=== PATIENT | female | born 1970 | race Caucasian/White ===

== ENCOUNTER → 2016-09-02 | Outpatient (CLI) | payer OTHER ==
[~2016-09-02] MED LIST: ALBU1AER9 INH; CITA40TA4 PO; GABA1CAP5 PO; GLC5 PO; LMC25 PO; PRAV40TA2 PO; PRT/40 PO; RANI300T PO
--- NOTE | 2016-09-02 12:34 | MAMMOGRAPHY REPORT ---
BILATERAL DIGITAL SCREENING MAMMOGRAM TOMOSYNTHESIS WITH CAD: 09/02/2016 CLINICAL HISTORY: Routine screening. Patient has no complaints. TECHNIQUE: Breast tomosynthesis in addition to standard 2D mammography was performed. Current study was also evaluated with a Computer Aided Detection (CAD) system. COMPARISON: Comparison is made to exam dated: 07/04/2015 mammogram - [facility]. A lso outside prior mammograms dated 06/03/2011. BREAST COMPOSITION: There are scattered areas of fibroglandular density in both breasts. FINDINGS: No suspicious masses, calcifications, or areas of architectural distortion are noted in ei ther breast. There has been no significant interval change compared to prior exams. Scattered bilate ral benign appearing calcifications are not significantly changed. IMPRESSION: ACR BI-RADS CATEGORY 2: BENIGN There is no mammographic evidence of malignancy. A 1 year screening mammogram is recommended. The pa tient will receive written notification of the results. Approximately 10% of breast cancers are not detected with mammography. A negative mammographic report should not delay biopsy if a clinically suggestive mass is present. Shira Jha M.D. ah/:09/02/2016 12:01:36 Hris Specialist: Libby Vera, [facility] letter sent: Normal 1/2 BI-RADS Code: ACR BI-RADS Category 2: Benign
== END | disposition home or self-care (01) ==
LOC: C.MAMM 10:45
PROVIDERS: ATTEND Student in an Organized Health Care Education/Training Program
DX: Z12.31 Encounter for screening mammogram for malignant neoplasm of breast (principal)

== ENCOUNTER 2017-06-07 23:58 | Emergency (ER) | payer OTHER ==
[~2017-06-07] VITALS: Ht 162.6 cm; Wt 120.7 kg
[~2017-06-07 23:58] MED LIST changes: +GABA-1220 PO; -GABA1CAP5 PO; +PANT40TA2 PO; -PRT/40 PO
[2017-06-08 00:12] VITALS: TEMP 36.9; Ht 162.6 cm; Wt 120.7 kg
[2017-06-08] MEDS ORDERED: CEPH500C PO (00:42)
[2017-06-08] MEDS ORDERED: CEPHALEXIN 500MG HOME PACK 1 EA BTL PO ONE (00:45)
[2017-06-08 00:55] VITALS: BP 150/80; PULSE 77; O2SAT 95
[2017-06-08] MEDS ORDERED: TRAZ100T29 PO (00:55)
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
== END 2017-06-08 00:55 | disposition home or self-care (01) ==
LOC: C.EDB 23:59 → C.EDA 06-08 00:55
DX: T22.031A Burn of unspecified degree of right upper arm, initial encounter (principal); X15.0XXA Contact with hot stove (kitchen), initial encounter; T31.0 Burns involving less than 10% of body surface; J45.909 Unspecified asthma, uncomplicated; E11.9 Type 2 diabetes mellitus without complications; Z79.84 Long term (current) use of oral hypoglycemic drugs; Z79.899 Other long term (current) drug therapy; Z88.0 Allergy status to penicillin

== ENCOUNTER 2018-10-19 16:49 | Inpatient (IN) ==
[2018-10-19] MEDS ORDERED: ONDANSETRON INJ 2 MG/ML 2 ML VIAL IV STA (17:45)
[2018-10-19] MEDS ORDERED: SODIUM CHLORIDE 0.9% 1000ML 1,000 ML IV SCH (17:45)
[2018-10-19] MEDS ORDERED: CHOLESTYRAMINE LIGHT 4 GM PKT PO STA (17:48)
[2018-10-19 18:01] LABS: Basophils # (auto) 0.06 K/uL (0-0.2); Basophils % (auto) 0.2 %; Eosinophils # (auto) 1.64 K/uL (0-0.5); Eosinophils % (auto) 6.5 %; Hematocrit (blood only) 48.9 % (37-47); Immature Granulocytes # (auto) 0.61 K/uL (0.00-0.02); Immature Granulocytes % (auto) 2.4 %; Lymphocytes # (auto) 4.53 K/uL (1.2-3.4); Lymphocytes % (auto) 17.9 %; Mean Corpuscular Hgb Conc 36.8 g/dL (32-36); Mean Corpuscular Volume 77.5 fL (80-100); Mean Platelet Volume 9.5 fL (7.4-10.4); Monocytes # (auto) 1.69 K/uL (0.11-0.59); Monocytes % (auto) 6.7 %; Neutrophils # (auto) 16.83 K/uL (1.4-6.5); Neutrophils % (auto) 66.3 %; Platelet Count 272 K/uL (130-400); RDW Coefficient of Variation 13.9 % (11.5-14.5); RDW Standard Deviation 38.7 fL (36.4-46.3); Red Blood Count 6.31 M/uL (4.2-5.4); White Blood Count 25.36 K/uL (4.8-10.8)
[2018-10-19] MEDS ORDERED: POTASSIUM CHLORIDE 10 MEQ TABCR PO STA (18:05)
[2018-10-19] MEDS ORDERED: METOCLOPRAMIDE HCL INJ 5 MG/ML 2 ML VIAL IV STA (18:05)
[2018-10-19] MEDS ORDERED: SODIUM CHLORIDE 0.9% 1000ML 1,000 ML IV ONE (18:13)
[2018-10-19 18:16] LABS: iSTAT Hemoglobin 17.3 g/dl (12.0-16.0); iSTAT Ionized Calcium 0.9 mmol/l (1.12-1.32); iSTAT Potassium 2.6 mEq/L (3.3-5.0)
[2018-10-19 18:20] LABS: Albumin Level 3.2 gm/dl (3.4-5.0); BUN Creatinine Ratio 8.8 (10-20); Calcium 7.4 mg/dl (8.5-10.1); Creatinine Clr Calc Pharmacy 76.8 ml/min; Est GFR (African American) 69.2; Est GFR (Non-African American) 59.7; Potassium 2.7 mmol/L (3.5-5.1)
[2018-10-19 18:24] LABS: Albumin Globulin Ratio 0.8 (0.9-2); Bilirubin,Total 0.2 mg/dl (0.2-1); Globulin 4.2 gm/dl (2.5-4.0); Total Protein 7.4 gm/dl (6.4-8.2)
[2018-10-19] MEDS: POTASSIUM CHLORIDE / WTR 10 MEQ/100 ML PLCT IV SCH ×2 (18:27→21:05)
[2018-10-19 18:36] LABS: Appearance Urine Clear (Clear); Bilirubin Urine Negative (Negative); Blood Urine Negative (Negative); Color Urine Dark Yellow; Epithelial Cell Urine Auto >30 /lpf (0-5); Glucose Urine UA Negative (Negative); Ketones Urine Trace (Negative); Leukocyte Esterase Urine Negative (Negative); Nitrite Urine Negative (Negative); Protein Urine 2+ (Negative); RBC Urine Automated 0-4 /hpf (0-4); Specific Gravity Urine 1.032 (1.000-1.030); Urobilinogen Urine Negative (Negative)
[2018-10-19 18:51] LABS: Pregnancy Test, Serum Negative (Negative)
[2018-10-19 19:09] LABS: Mucus Urine Present (None Prsent)
[2018-10-19 19:11] LABS: Bacteria Urine Automated 1+ (Negative)
[2018-10-19] MEDS ORDERED: MAGNESIUM SULFATE / D5W 1 GM/100 ML BAG IV ONE ×2 (19:32→23:15)
[2018-10-19] MEDS ORDERED: IOVERSOL 100ml IV PRN (19:34)
--- NOTE | 2018-10-19 19:44 | CT Scan Report ---
CT head/brain wo con CT DOSE: 537.48 mGy.cm HISTORY: Mental status change Pt c/o N V D TECHNIQUE: Multiaxial CT images of the head were performed without the use of intravenous contrast. A dose lowering technique was utilized adhering to the principles of ALARA. Comparison: 06/09/2014 Findings: The paranasal sinuses and mastoid air cells are clear. Possible small focus of diminished d ensity peripheral aspect right frontal lobe. This is best seen image 16. No evidence for acute intracranial hemorrhage. The ventricular system is midline. Impression: 1. Artifact versus focus of subacute infarction posterior lateral aspect right frontal lobe. 2. MRI brain is suggested as follow-up. The above report was generated using voice recognition software. It may contain grammatical, syntax or spelling errors. Electronically signed by: Albino Phillips M.D. 10/19/2018 7:43 PM
--- NOTE | 2018-10-19 19:48 | CT Scan Report ---
CT abd pelvis IV con only CT DOSE: 1498.84 mGy.cm HISTORY: Nausea. Pain. Pt c/o N V D TECHNIQUE: Multiaxial CT images of the abdomen and pelvis were performed following the use of intrave nous contrast. A dose lowering technique was utilized adhering to the principles of ALARA. COMPARISON STUDY: None. FINDINGS: Lung bases are clear. Mild fatty replacement of the liver. Several small splenic hypodensit ies possibly cystic. Prior cholecystectomy. Several peripancreatic and retroperitoneal nodes measuring to 1.5 cm. These po tentially are reactive. Findings consistent with nonspecific small bowel enteritis. Colonic bowel pattern is unremarkable. Findings of mild chronic sigmoid diverticulosis. No evidence for acute diverticulitis. Normal appendix. IMPRESSION: 1. Nonspecific small bowel enteritis. 2. Chronic sigmoid diverticulosis. 3. Several possibly reactive nodes of the upper abdominal region. 4. These nodes should be followed with a repeat scan to 3 months to exclude more significant patholog y. The above report was generated using voice recognition software. It may contain grammatical, syntax or spelling errors. Electronically signed by: Albino Phillips M.D. 10/19/2018 7:47 PM
[2018-10-19 19:56] LABS: Allen Test POS (Pos); Base Excess ABG -2.3 mEq/L (-9-1.8); HCO3 ABG 22 mmol/L (19-24); Oxygen Saturation ABG 96.8 % (90-95); PCO2 ABG 35 mmHg (35-46); PO2 ABG 86 mm/Hg (80-95); pH ABG 7.41 (7.35-7.45)
[2018-10-19] MEDS ORDERED: MAGNESIUM SULFATE / D5W 1 GM/100 ML BAG IV STA (21:55)
[2018-10-19] MEDS ORDERED: ACETAMINOPHEN 325 MG TAB PO PRN (22:40)
[2018-10-19] MEDS ORDERED: ALPRAZolam 0.5 MG TABLET PO PRN (22:40)
[2018-10-19] MEDS ORDERED: NITROGLYCERIN SL 0.4 MG/TAB TAB SL PRN (22:40)
[2018-10-19] MEDS ORDERED: POTASSIUM CHLORIDE 20 MEQ TABCR PO ONE (23:00)
[2018-10-19] MEDS ORDERED: ALBUTEROL HFA 8 GM INHALER INH PRN (23:00)
[2018-10-19] MEDS ORDERED: GADOBUTROL 65ML VIAL IV PRN (23:27)
--- NOTE | 2018-10-19 23:42 | History and Physical Report ---
DATE OF ADMISSION: 10/19/2018 CHIEF COMPLAINT: Nausea, vomiting and diarrhea. HISTORY OF PRESENT ILLNESS: This 48-year-old female with past medical history significant for type 2 diabetes, high triglycerides, asthma mild intermittent, hypertension, obesity, bipolar disorder, major depression, tobacco use disorder, history of opiate misuse, presents with nausea, vomiting and diarrhea since last Wednesday, several episodes, was not getting better. No blood in the vomitus and no blood in the stools. Mild abdominal discomfort. No fever, no chills, no sick contacts, no eating of food outside. Denies any headache, no dizziness, no earache, no runny nose, no sore throat, no difficulty swallowing, no chest pain, no shortness of breath. Has smoker's cough. Ambulating okay. Currently resting comfortably and hemodynamically stable.Complains of numbness in upper extremities. ALLERGIES: LISINOPRIL, PENICILLIN. PAST MEDICAL HISTORY: As mentioned above. PAST SURGICAL HISTORY: , colonoscopy, knee arthroscopy, tonsillectomy, adenoidectomy. MEDICATIONS: The patient is on albuterol 2 puffs inhalations p.r.n., Xanax 1 mg p.o. t.i.d. p.r.n., citalopram 40 mg p.o. daily, exenatide microspheres 2 mg subcutaneous weekly, Advair Diskus 1 inhalation b.i.d., gabapentin 300 mg p.o. t.i.d., Lantus 25 units q.p.m., oxcarbazepine 300 mg p.o. t.i.d., Protonix 40 mg p.o. daily, pravastatin 40 mg p.o. at bedtime, Zantac 300 mg p.o. at bedtime, Januvia 100 mg p.o. daily. FAMILY HISTORY: Significant for mother had depression and anxiety. Maternal grandfather had cancer. Paternal grandmother had diabetes. SOCIAL HISTORY: smokes 3 cigarettes a week. No alcohol use. No drug use. History of heroin abuse in the past. REVIEW OF SYMPTOMS: As per HPI. Rest of review of systems negative. PHYSICAL EXAMINATION: GENERAL: The patient is alert and oriented, not in acute distress. The patient is obese. VITAL SIGNS: Temperature 36.8, pulse 77, respiratory rate 17, blood pressure 128/82, oxygen 97% room air. HEENT: No pallor, no icterus. Pupils equal, round, reactive to light. NECK: No JVD, no neck masses, no carotid bruit. CARDIOVASCULAR: S1, S2 heard, regular rate and rhythm, no murmur, no gallop. RESPIRATORY SYSTEM: Normal AP diameter. No thyromegaly. No wheezing, no crackles. ABDOMEN: Soft, bowel sounds present, nontender. No distention. CENTRAL NERVOUS SYSTEM: Cranial nerves II-XII grossly intact. Power 5/5 in extremities. No pronator drift. Coordination of movements normal. EXTREMITIES: No edema, no erythema. LABORATORY DATA: WBC 25, hemoglobin 18, hematocrit 48.9, platelets 272. A pH 7.4, pCO2 of 35, pO2 of 86, bicarbonate 22, oxygen saturation is 96%. Sodium 137, potassium 2.7, chloride 103, CO2 of 25, BUN 10, creatinine 1.1, serum glucose 152, calcium 7.4, magnesium 1, total bilirubin 0.2, AST 15, ALT 18, alkaline phosphatase 142, lipase 68. HCG quantitative negative. Urinalysis positive for ketones. C. diff negative. IMAGING: CT of abdomen and pelvis, nonspecific small bowel enteritis, several possible reactive nodes in the upper abdominal region. Repeat CAT scan in 3 months to exclude significant pathology. CT of the head, artifact versus focus of subacute infarction, posterior lateral aspect of the right frontal lobe. MRI brain is suggested. ASSESSMENT AND PLAN: This 48-year-old female who presents with nausea, vomiting and diarrhea and found to have electrolyte abnormalities and also CAT scan of the head showing questionable artifact versus subacute infarction, posterior lateral aspect right frontal lobe. 1. Nausea, vomiting, diarrhea and gastroenteritis. CT abdomen and pelvis is showing nonspecific small bowel enteritis and also possible reactive nodes with upper abdominal region. Recommend 3-month followup to exclude more significant pathology. C. diff is negative, possibly viral gastroenteritis. We will follow the stool parasites,stool cultures.Clear liquid diet, IV antiemetics, IV fluids. Monitor on the medical floor.Follow labs. 2. Hypokalemia, hypomagnesemia. We will replace.Possible cause of feeling of numbness in extremities. Follow the repeat labs. 3. Questionable cerebrovascular accident, on the CAT scan, possible artifact, but the patient is nonfocal. We will get MRI of the head while the patient is in the hospital. 4. History of diabetes. Continue home Lantus. Hold home p.o. meds. ISS. Will follow HbA1c levels. 5. History of depression, bipolar. Continue home medication of citalopram, oxcarbazepine. 6. Gastroesophageal reflux disease. Continue Zantac. 7. Hyperlipidemia. Continue statin. 8. Tobacco abuse, needs counseling. Continue home inhalers. 9. Deep venous thrombosis prophylaxis, sequential compression devices. DISPOSITION: Admit to med/surg tele. Level 1 full code. MTDD
--- NOTE | 2018-10-19 23:58 | Emergency Department Note ---
Entered by Kirsten Tavarez acting as a scribe for Gee Dawkins MD History of Present Illness General Chief complaint: Vomiting Stated complaint: THROWING UP, DIARRHEA, PAINS IN STOMACH Time Seen by Provider: 10/19/18 17:40 Source: patient Mode of arrival: ambulatory History of Present Illness Provider complaint: vomiting Onset (ago): day(s) 8 Location: abdomen Pain Consistency: + other (worsening) Maximum Pain Intensity: 5 Associated symptoms: + denies other symptoms (blood in stool and vomit), + nausea/vomiting and + other (diarrhea, abdominal pain ) The patient is a 48 year old female presents to the ED with complaints of worsening vomiting that began 8 days ago. The patient states that she has diarrhea as well. The patient states she thinks she has the flu. The patient states that has diarrhea every half hour and vomiting every time she eats. The patient denies blood in stool and vomit. The patient states that she has abdominal pain from vomiting. She states that she took Pepto-Bismol for the nausea with no relief. The patient states that she smokes. She states that she is a diabetic. The patient denies any chance of . Home Medications Home Medications Medication Instructions Recorded Confirmed Type albuterol sulfate [ProAir HFA] 2 puff INHALATION UD PRN #0 06/09/14 10/19/18 History citalopram 40 mg PO DAILY #0 06/09/14 10/19/18 History pravastatin 40 mg PO HS #0 06/09/14 10/19/18 History ranitidine HCl [Zantac] 300 mg PO HS #0 06/09/14 10/19/18 History pantoprazole 40 mg PO DAILY #0 09/24/14 10/19/18 History Bydureon BCise 2 mg SUBCUT WK 10/19/18 10/19/18 History Januvia 100 mg PO DAILY 10/19/18 10/19/18 History Lantus Solostar U-100 Insulin 25 unit SUBCUT QPM 10/19/18 10/19/18 History alprazolam [Xanax] 1 mg PO TID PRN 10/19/18 10/19/18 History fluticasone propion-salmeterol 1 inh INHALATION BID 08/21/19 08/21/19 History [Advair Diskus] gabapentin 300 mg PO TID 10/19/18 10/19/18 History oxcarbazepine 300 mg PO TID 10/19/18 10/19/18 History Allergies Allergy/AdvReac Type Severity Reaction Status Date / Time Penicillins Allergy Severe "I GET ALL Verified 10/19/18 18:21 SWELLED UP." Past Med/Surg History Medical History Asthma Diabetes Social History Preferred Language: Wolof Communication Ability: Effective Livestock Feeder Required: No Beliefs That Will Affect Care: None Current Living Situation: Alone and Significant Other Current Living Situation Comment: states she "kind of lives with boyfriend" Other Information That Helps Us Care for You: No Feels Safe at Home: Yes Safety Concerns: Feels Safe At This Time Smoking Status: Current every day smoker Tobacco Type: cigarettes ; Do You Dip or Chew Tobacco: No ; Second Hand Exposure: No ; Tobacco Cessation Education Requested by Patient: No Hx Alcohol Use: No Hx Substance Use: No Review of Systems See HPI for pertinent positives & negatives. and A total of 10 systems reviewed and were otherwise negative Physical Exam Vital Signs Vital Signs - 24 hr 10/19/18 16:52 10/19/18 17:30 10/19/18 19:46 Temperature 36.8 C Temperature Source Oral Sepsis Recent Fever Within 48 Hours No Sepsis New/Unexplained Change in Mental Status No Sepsis Action Taken by Nursing No Action Required Pulse Rate 109 H Pulse Rate [Right Finger] 76 Pulse Rhythm Regular Respiratory Rate 18 16 19 Respiratory Effort / Characteristics Non-Labored Spontaneous Respiratory Depth Normal Blood Pressure 137/88 Blood Pressure [Left Arm] 108/71 Blood Pressure Mean 104 Blood Pressure Mean [Left Arm] 83 Blood Pressure Position Sitting Pulse Oximetry 95 96 Oxygen Delivery Method Room Air Room Air 10/19/18 20:40 Temperature Temperature Source Sepsis Recent Fever Within 48 Hours Sepsis New/Unexplained Change in Mental Status Sepsis Action Taken by Nursing Pulse Rate Pulse Rate [Right Finger] 77 Pulse Rhythm Respiratory Rate 17 Respiratory Effort / Characteristics Respiratory Depth Blood Pressure Blood Pressure [Left Arm] 128/82 Blood Pressure Mean Blood Pressure Mean [Left Arm] 97 Blood Pressure Position Pulse Oximetry 97 Oxygen Delivery Method GENERAL: Awake, alert, well-appearing, in no acute distress HENT: Normocephalic, atraumatic. Oropharynx unremarkable. EYES: Normal conjunctiva. Sclera non-icteric. NECK: Supple. No nuchal rigidity. FROM. No JVD. RESPIRATORY: Clear to auscultation. CARDIAC: Regular rate, normal rhythm. Extremities warm and well perfused. Pulses equal. ABDOMEN: Soft, non-distended. No tenderness to palpation. No rebound or guarding. No masses. RECTAL: Deferred. MUSCULOSKELETAL: Chest examination reveals no tenderness. The back is symmetrical on inspection without obvious abnormality. There is no CVA tenderness to palpation. No joint edema. LOWER EXTREMITIES: Calves are equal size bilaterally and non-tender. No edema. No discoloration. NEURO: Normal sensorium. No sensory or motor deficits noted. SKIN: No rash or jaundice noted. Course 174: Past medical records reviewed. The patient was evaluated in room C7. A complete history and physical exam was performed. 1800: I reevaluated the patient at this time and she stated that she is feeling better. I discussed the test results and treatment plan with the patient. She verbally agreed and understood. 2100: I discussed the patient's case with Andrew Navarro. He agreed to evaluate the patient for further management. Consultations Consultation #1: I discussed the patient's case with Andrew Navarro. He agreed to evaluate the patient for further management. Time: 21:00 Administered Medications Citalopram Hydrobromide (Celexa) 40 mg PO DAILY NORI Stop: 11/19/18 08:59 Last Admin: 10/21/18 08:35 Dose: 40 mg Documented by: [id number] Admin: 10/20/18 08:15 Dose: 40 mg Documented by: [id number] Gabapentin (Neurontin) 300 mg PO TID NORI Stop: 11/19/18 08:59 Last Admin: 10/21/18 13:05 Dose: 300 mg Documented by: [id number] Admin: 10/21/18 08:35 Dose: 300 mg Documented by: [id number] Admin: 10/20/18 20:20 Dose: 300 mg Documented by: [id number] Admin: 10/20/18 13:41 Dose: 300 mg Documented by: [id number] Admin: 10/20/18 08:15 Dose: 300 mg Documented by: [id number] Gadobutrol (Gadavist 65ml) 11 ml IV ONCE PRN PRN Reason: Interaction Checking Stop: 10/23/18 23:26 Last Admin: 10/19/18 23:25 Dose: 11 ml Documented by: [id number] Promethazine HCl 12.5 mg/ (Sodium Chloride) 50.5 mls @ 202 mls/hr IV Q6H PRN PRN Reason: Nausea And Vomiting Stop: 11/19/18 10:34 Last Infusion: 10/20/18 22:30 Dose: 0 mls/hr Documented by: [id number] Admin: 10/20/18 21:58 Dose: 202 mls/hr Documented by: [id number] Infusion: 10/20/18 12:44 Dose: 0 mls/hr Documented by: [id number] Admin: 10/20/18 11:30 Dose: 202 mls/hr Documented by: [id number] Insulin Aspart (Novolog Flexpen) 0 units SC ACHS NORI Stop: 11/19/18 07:29 Last Admin: 10/21/18 13:07 Dose: 4 units Documented by: [id number] Cosigned by: [id number] Admin: 10/21/18 09:07 Dose: Not Given Documented by: [id number] Cosigned by: [id number] Admin: 10/20/18 20:45 Dose: Not Given Documented by: [id number] Cosigned by: [id number] Admin: 10/20/18 17:41 Dose: Not Given Documented by: [id number] Cosigned by: [id number] Admin: 10/20/18 12:45 Dose: Not Given Documented by: [id number] Cosigned by: [id number] Admin: 10/20/18 08:21 Dose: Not Given Documented by: [id number] Cosigned by: [id number] Insulin Glargine (Lantus Solostar Pen) 25 units SQ QPM NORI Stop: 11/19/18 20:59 Last Admin: 10/20/18 20:21 Dose: 25 units Documented by: [id number] Cosigned by: [id number] Loperamide HCl (Imodium) 2 mg PO Q8 PRN PRN Reason: Diarrhea Stop: 11/20/18 08:25 Last Admin: 10/21/18 13:41 Dose: 2 mg Documented by: [id number] Multivitamins/Minerals (Caltrate Plus) 1 tab PO BID NORI Stop: 11/19/18 08:59 Last Admin: 10/21/18 08:35 Dose: 1 tab Documented by: [id number] Admin: 10/20/18 20:19 Dose: 1 tab Documented by: [id number] Admin: 10/20/18 08:14 Dose: 1 tab Documented by: [id number] Ondansetron HCl (Zofran) 4 mg IV Q6H PRN PRN Reason: Nausea Stop: 11/18/18 22:39 Last Admin: 10/21/18 08:33 Dose: 4 mg Documented by: [id number] Admin: 10/20/18 20:54 Dose: 4 mg Documented by: [id number] Admin: 10/20/18 08:19 Dose: 4 mg Documented by: [id number] Admin: 10/20/18 00:04 Dose: 4 mg Documented by: [id number] Oxcarbazepine (Trileptal) 300 mg PO TID [facility] Stop: 11/19/18 08:59 Last Admin: 10/21/18 13:05 Dose: 300 mg Documented by: [id number] Admin: 10/21/18 08:35 Dose: 300 mg Documented by: [id number] Admin: 10/20/18 20:20 Dose: 300 mg Documented by: [id number] Admin: 10/20/18 13:41 Dose: 300 mg Documented by: [id number] Admin: 10/20/18 08:19 Dose: 300 mg Documented by: [id number] Pantoprazole Sodium (Protonix) 40 mg PO DAILY [facility] Stop: 11/19/18 08:59 Last Admin: 10/21/18 08:36 Dose: 40 mg Documented by: [id number] Admin: 10/20/18 08:18 Dose: 40 mg Documented by: [id number] Potassium Phosphate (Phospha 250 Neutral 155-852-130 Mg) 2 tab PO QID NORI Stop: 11/20/18 08:59 Last Admin: 10/21/18 13:05 Dose: 2 tab Documented by: [id number] Admin: 10/21/18 09:48 Dose: 2 tab Documented by: [id number] Pravastatin Sodium (Pravachol) 40 mg PO [facility] Stop: 11/19/18 20:59 Last Admin: 10/20/18 20:20 Dose: 40 mg Documented by: [id number] Ranitidine HCl (Zantac) 300 mg PO HS [facility] Stop: 11/19/18 20:59 Last Admin: 10/20/18 20:20 Dose: 300 mg Documented by: [id number] Discontinued Medications Cholestyramine Resin (Questran) 4 gm PO NOW STA Stop: 10/19/18 17:49 Last Admin: 10/19/18 18:29 Dose: 4 gm Documented by: [id number] Sodium Chloride (Nss 1000ml) 1,000 mls @ 999 mls/hr IV .Q1H1M NORI Stop: 10/19/18 18:45 Last Infusion: 10/19/18 21:04 Dose: 0 mls/hr Documented by: [id number] Admin: 10/19/18 18:29 Dose: 999 mls/hr Documented by: [id number] Potassium Chloride (K Lui / Wtr) 10 meq in 100 mls @ 100 mls/hr IV Q1H NORI Stop: 10/19/18 20:14 Last Infusion: 10/19/18 21:05 Dose: 0 mls/hr Documented by: [id number] Admin: 10/19/18 21:05 Dose: 100 mls/hr Documented by: [id number] Infusion: 10/19/18 19:24 Dose: 0 mls/hr Documented by: [id number] Admin: 10/19/18 18:27 Dose: 100 mls/hr Documented by: [id number] Sodium Chloride (Nss 1000ml) 1,000 mls @ 999 mls/hr IV .Q1H1M ONE Stop: 10/19/18 19:13 Last Infusion: 10/19/18 19:24 Dose: 0 mls/hr Documented by: [id number] Admin: 10/19/18 18:28 Dose: 999 mls/hr Documented by: [id number] Magnesium Sulfate/Dextrose (Magnesium Sulfate / D5w) 1 gm in 100 mls @ 100 mls/hr IV ONE ONE Stop: 10/19/18 20:31 Last Infusion: 10/19/18 21:04 Dose: 0 mls/hr Documented by: [id number] Admin: 10/19/18 19:47 Dose: 100 mls/hr Documented by: [id number] Magnesium Sulfate/Dextrose (Magnesium Sulfate / D5w) 1 gm in 100 mls @ 100 mls/hr IV Q1H STA Stop: 10/19/18 22:54 Last Infusion: 10/20/18 00:11 Dose: 0 mls/hr Documented by: [id number] Admin: 10/19/18 22:13 Dose: 100 mls/hr Documented by: [id number] Potassium Chloride/Dextrose/Sod Cl (D5nss + 20meq Kcl) 20 meq in 1,000 mls @ 125 mls/hr IV .Q8H NORI Stop: 11/18/18 22:59 Last Infusion: 10/21/18 08:14 Dose: 0 mls/hr Documented by: [id number] Admin: 10/21/18 08:13 Dose: Not Given Documented by: [id number] Admin: 10/21/18 01:04 Dose: 125 mls/hr Documented by: [id number] Infusion: 10/21/18 01:04 Dose: 125 mls/hr Documented by: [id number] Admin: 10/20/18 17:41 Dose: 125 mls/hr Documented by: [id number] Infusion: 10/20/18 17:27 Dose: 125 mls/hr Documented by: [id number] Admin: 10/20/18 09:27 Dose: 125 mls/hr Documented by: [id number] Infusion: 10/20/18 08:03 Dose: 125 mls/hr Documented by: [id number] Admin: 10/20/18 00:03 Dose: 125 mls/hr Documented by: [id number] Magnesium Sulfate/Dextrose (Magnesium Sulfate / D5w) 1 gm in 100 mls @ 100 mls/hr IV NOW ONE Stop: 10/20/18 00:14 Last Infusion: 10/20/18 01:03 Dose: 0 mls/hr Documented by: [id number] Admin: 10/20/18 00:03 Dose: 100 mls/hr Documented by: [id number] Magnesium Sulfate/Dextrose (Magnesium Sulfate / D5w) 1 gm in 100 mls @ 100 mls/hr IV Q1H NORI Stop: 10/21/18 10:59 Last Infusion: 10/21/18 12:48 Dose: 0 mls/hr Documented by: [id number] Admin: 10/21/18 11:11 Dose: 100 mls/hr Documented by: [id number] Infusion: 10/21/18 10:48 Dose: 100 mls/hr Documented by: [id number] Admin: 10/21/18 09:48 Dose: 100 mls/hr Documented by: [id number] Ioversol (Optiray 320 100ml) 94 ml IV ONCE PRN PRN Reason: Interaction Checking Stop: 10/23/18 19:33 Last Admin: 10/19/18 19:37 Dose: 94 ml Documented by: [id number] Loperamide HCl (Imodium) 4 mg PO NOW STA Stop: 10/21/18 08:28 Last Admin: 10/21/18 09:48 Dose: 4 mg Documented by: [id number] Metoclopramide HCl (Reglan) 10 mg IV NOW STA Stop: 10/19/18 18:06 Last Admin: 10/19/18 18:30 Dose: 10 mg Documented by: [id number] Ondansetron HCl (Zofran) 4 mg IV NOW STA Stop: 10/19/18 17:46 Last Admin: 10/19/18 18:11 Dose: 4 mg Documented by: [id number] Ondansetron HCl (Zofran Odt) Confirm Administered Dose 4 mg .ROUTE .STK-MED ONE Stop: 10/21/18 14:07 Last Admin: 10/21/18 14:06 Dose: 4 mg Documented by: [id number] Potassium Chloride (Klor-Con M10) 40 meq PO NOW STA Stop: 10/19/18 18:06 Last Admin: 10/19/18 18:28 Dose: 40 meq Documented by: [id number] Potassium Chloride (Klor-Con M20) 20 meq PO NOW ONE Stop: 10/19/18 23:01 Last Admin: 10/20/18 00:03 Dose: 20 meq Documented by: [id number] Potassium Chloride (Klor-Con M20) 60 meq PO ONE ONE Stop: 10/20/18 07:31 Last Admin: 10/20/18 08:13 Dose: 60 meq Documented by: [id number] Potassium Chloride (Klor-Con M20) 40 meq PO ONE ONE Stop: 10/21/18 09:01 Last Admin: 10/21/18 09:48 Dose: 40 meq Documented by: [id number] Medical Decision Making Differential Diagnosis Differential diagnosis: Etiologies such as gastroenteritis, food borne illness, infections, appendicitis, diverticulitis, inflammatory bowel disease, obstruction, GI bleed, biliary pathology, as well as others were entertained. Medical Records Attestation: I reviewed the patient's medical records. Home Medications Current Medication List: was personally reviewed by me Laboratory Data Attestation: I reviewed the patient's lab results. Result diagrams: 10/21/18 05:27 10/21/18 05:27 Lab Results 10/19/18 10/19/18 10/19/18 Range/Units 16:58 17:54 17:54 WBC 25.36 H (4.8-10.8) K/uL RBC 6.31 H (4.2-5.4) M/uL Hgb 18.0 H (12.0-16.0) g/dL POC Hgb (12.0-16.0) g/dl Hct 48.9 H (37-47) % POC Hct (37-47) % MCV 77.5 L (80-100) fL MCH 28.5 (25-34) pg MCHC 36.8 H (32-36) g/dL RDW Std Deviation 38.7 (36.4-46.3) fL RDW Coeff of Harsh 13.9 (11.5-14.5) % Plt Count 272 (130-400) K/uL MPV 9.5 (7.4-10.4) fL Immature Gran % (Auto) 2.4 % Neut % (Auto) 66.3 % Lymph % (Auto) 17.9 % [place] % (Auto) 6.7 % Eos % (Auto) 6.5 % Baso % (Auto) 0.2 % Immature Gran # (Auto) 0.61 H (0.00-0.02) K/uL Neut # (Auto) 16.83 H (1.4-6.5) K/uL Lymph # (Auto) 4.53 H (1.2-3.4) K/uL [place] # (Auto) 1.69 H (0.11-0.59) K/uL Eos # (Auto) 1.64 H (0-0.5) K/uL Baso # (Auto) 0.06 (0-0.2) K/uL ABG pH (7.35-7.45) ABG pCO2 (35-46) mmHg ABG pO2 (80-95) mm/Hg ABG HCO3 (19-24) mmol/L ABG O2 Saturation (90-95) % ABG Base Excess (-9-1.8) mEq/L Roberto Test (Pos) Barometric Pressure mm/Hg Oxygen Given POC Sodium (135-144) mEq/L Sodium (136-145) mmol/L POC Potassium (3.3-5.0) mEq/L Potassium (3.5-5.1) mmol/L POC Chloride (101-112) mEq/L Chloride (98-107) mmol/L Carbon Dioxide (21-32) mmol/L POC Total CO2 (24-31) mEq/l Anion Gap (3-11) POC Anion Gap (16-25) mmol/L POC BUN (7-18) mg/dl BUN (7-18) mg/dl Creatinine (0.6-1.2) mg/dl POC Creatinine (0.6-1.3) mg/dl Est Cr Clr Drug Dosing ml/min Est GFR ( Amer) Est GFR (Non-Af Amer) BUN/Creatinine Ratio (10-20) Glucose (70-99) mg/dl POC Glucose 178 H (70-99) POC Glucose (other) (70-99) mg/dl Calcium (8.5-10.1) mg/dl POC Ioniz Calcium Tk (1.12-1.32) mmol/l Magnesium (1.8-2.4) mg/dl Total Bilirubin (0.2-1) mg/dl AST (15-37) U/L ALT (12-78) U/L Alkaline Phosphatase (45-117) U/L Total Protein (6.4-8.2) gm/dl Albumin (3.4-5.0) gm/dl Globulin (2.5-4.0) gm/dl Albumin/Globulin Ratio (0.9-2) Lipase (73-393) U/L HCG, Qual Negative (Negative) Urine Color Urine Appearance (Clear) Urine pH (4.5-7.5) Ur Specific [place] (1.000-1.030) Urine Protein (Negative) Urine Glucose (UA) (Negative) Urine Ketones (Negative) Urine Blood (Negative) Urine Nitrite (Negative) Urine Bilirubin (Negative) Urine Urobilinogen (Negative) Ur Leukocyte Esterase (Negative) Urine WBC (Auto) (0-5) /hpf Urine RBC (Auto) (0-4) /hpf U Hyaline Cast (Auto) (0-5) /lpf U Epithel Cells (Auto) (0-5) /lpf Urine Bacteria (Auto) (Negative) Ur Renal Epithelial Cell Urine Mucus (None Prsent) Stl C. diff Tox B Gene (Neg) Norovirus RNA (PCR) 10/19/18 10/19/18 10/19/18 Range/Units 17:54 17:54 17:54 WBC (4.8-10.8) K/uL RBC (4.2-5.4) M/uL Hgb (12.0-16.0) g/dL POC Hgb (12.0-16.0) g/dl Hct (37-47) % POC Hct (37-47) % MCV (80-100) fL MCH (25-34) pg MCHC (32-36) g/dL RDW Std Deviation (36.4-46.3) fL RDW Coeff of Harsh (11.5-14.5) % Plt Count (130-400) K/uL MPV (7.4-10.4) fL Immature Gran % (Auto) % Neut % (Auto) % Lymph % (Auto) % [place] % (Auto) % Eos % (Auto) % Baso % (Auto) % Immature Gran # (Auto) (0.00-0.02) K/uL Neut # (Auto) (1.4-6.5) K/uL Lymph # (Auto) (1.2-3.4) K/uL [place] # (Auto) (0.11-0.59) K/uL Eos # (Auto) (0-0.5) K/uL Baso # (Auto) (0-0.2) K/uL ABG pH (7.35-7.45) ABG pCO2 (35-46) mmHg ABG pO2 (80-95) mm/Hg ABG HCO3 (19-24) mmol/L ABG O2 Saturation (90-95) % ABG Base Excess (-9-1.8) mEq/L Roberto Test (Pos) Barometric Pressure mm/Hg Oxygen Given POC Sodium (135-144) mEq/L Sodium 137 (136-145) mmol/L POC Potassium (3.3-5.0) mEq/L Potassium 2.7 L (3.5-5.1) mmol/L POC Chloride (101-112) mEq/L Chloride 103 (98-107) mmol/L Carbon Dioxide 25 (21-32) mmol/L POC Total CO2 (24-31) mEq/l Anion Gap 9.0 (3-11) POC Anion Gap (16-25) mmol/L POC BUN (7-18) mg/dl BUN 10 (7-18) mg/dl Creatinine 1.10 (0.6-1.2) mg/dl POC Creatinine (0.6-1.3) mg/dl Est Cr Clr Drug Dosing 76.8 ml/min Est GFR ( Amer) 69.2 Est GFR (Non-Af Amer) 59.7 BUN/Creatinine Ratio 8.8 L (10-20) Glucose 152 H (70-99) mg/dl POC Glucose (70-99) POC Glucose (other) (70-99) mg/dl Calcium 7.4 L (8.5-10.1) mg/dl POC Ioniz Calcium Tk (1.12-1.32) mmol/l Magnesium 1.0 L Cancelled (1.8-2.4) mg/dl Total Bilirubin 0.2 (0.2-1) mg/dl AST 15 (15-37) U/L ALT 18 (12-78) U/L Alkaline Phosphatase 142 H (45-117) U/L Total Protein 7.4 (6.4-8.2) gm/dl Albumin 3.2 L (3.4-5.0) gm/dl Globulin 4.2 H (2.5-4.0) gm/dl Albumin/Globulin Ratio 0.8 L (0.9-2) Lipase 68 L (73-393) U/L HCG, Qual (Negative) Urine Color Dark Yellow Urine Appearance Clear (Clear) Urine pH 6.0 (4.5-7.5) Ur Specific [place] 1.032 H (1.000-1.030) Urine Protein 2+ H (Negative) Urine Glucose (UA) Negative (Negative) Urine Ketones Trace H (Negative) Urine Blood Negative (Negative) Urine Nitrite Negative (Negative) Urine Bilirubin Negative (Negative) Urine Urobilinogen Negative (Negative) Ur Leukocyte Esterase Negative (Negative) Urine WBC (Auto) 5-10 H (0-5) /hpf Urine RBC (Auto) 0-4 (0-4) /hpf U Hyaline Cast (Auto) 5-10 H (0-5) /lpf U Epithel Cells (Auto) >30 H (0-5) /lpf Urine Bacteria (Auto) 1+ H (Negative) Ur Renal Epithelial Cell Not Reportable Urine Mucus Present A (None Prsent) Stl C. diff Tox B Gene (Neg) Norovirus RNA (PCR) 10/19/18 10/19/18 10/19/18 Range/Units 18:00 19:06 19:06 WBC (4.8-10.8) K/uL RBC (4.2-5.4) M/uL Hgb (12.0-16.0) g/dL POC Hgb 17.3 H (12.0-16.0) g/dl Hct (37-47) % POC Hct 51 H (37-47) % MCV (80-100) fL MCH (25-34) pg MCHC (32-36) g/dL RDW Std Deviation (36.4-46.3) fL RDW Coeff of Harsh (11.5-14.5) % Plt Count (130-400) K/uL MPV (7.4-10.4) fL Immature Gran % (Auto) % Neut % (Auto) % Lymph % (Auto) % [place] % (Auto) % Eos % (Auto) % Baso % (Auto) % Immature Gran # (Auto) (0.00-0.02) K/uL Neut # (Auto) (1.4-6.5) K/uL Lymph # (Auto) (1.2-3.4) K/uL [place] # (Auto) (0.11-0.59) K/uL Eos # (Auto) (0-0.5) K/uL Baso # (Auto) (0-0.2) K/uL ABG pH (7.35-7.45) ABG pCO2 (35-46) mmHg ABG pO2 (80-95) mm/Hg ABG HCO3 (19-24) mmol/L ABG O2 Saturation (90-95) % ABG Base Excess (-9-1.8) mEq/L Roberto Test (Pos) Barometric Pressure mm/Hg Oxygen Given POC Sodium 138 (135-144) mEq/L Sodium (136-145) mmol/L POC Potassium 2.6 L (3.3-5.0) mEq/L Potassium (3.5-5.1) mmol/L POC Chloride 99 L (101-112) mEq/L Chloride (98-107) mmol/L Carbon Dioxide (21-32) mmol/L POC Total CO2 21 L (24-31) mEq/l Anion Gap (3-11) POC Anion Gap 22.0 (16-25) mmol/L POC BUN 9 (7-18) mg/dl BUN (7-18) mg/dl Creatinine (0.6-1.2) mg/dl POC Creatinine 1.0 (0.6-1.3) mg/dl Est Cr Clr Drug Dosing ml/min Est GFR ( Amer) Est GFR (Non-Af Amer) BUN/Creatinine Ratio (10-20) Glucose (70-99) mg/dl POC Glucose (70-99) POC Glucose (other) 152 H (70-99) mg/dl Calcium (8.5-10.1) mg/dl POC Ioniz Calcium Tk 0.90 L (1.12-1.32) mmol/l Magnesium (1.8-2.4) mg/dl Total Bilirubin (0.2-1) mg/dl AST (15-37) U/L ALT (12-78) U/L Alkaline Phosphatase (45-117) U/L Total Protein (6.4-8.2) gm/dl Albumin (3.4-5.0) gm/dl Globulin (2.5-4.0) gm/dl Albumin/Globulin Ratio (0.9-2) Lipase (73-393) U/L HCG, Qual (Negative) Urine Color Urine Appearance (Clear) Urine pH (4.5-7.5) Ur Specific [place] (1.000-1.030) Urine Protein (Negative) Urine Glucose (UA) (Negative) Urine Ketones (Negative) Urine Blood (Negative) Urine Nitrite (Negative) Urine Bilirubin (Negative) Urine Urobilinogen (Negative) Ur Leukocyte Esterase (Negative) Urine WBC (Auto) (0-5) /hpf Urine RBC (Auto) (0-4) /hpf U Hyaline Cast (Auto) (0-5) /lpf U Epithel Cells (Auto) (0-5) /lpf Urine Bacteria (Auto) (Negative) Ur Renal Epithelial Cell Urine Mucus (None Prsent) Stl C. diff Tox B Gene Negative Cdiff Gene (Neg) Norovirus RNA (PCR) Cancelled 10/19/18 Range/Units 19:20 WBC (4.8-10.8) K/uL RBC (4.2-5.4) M/uL Hgb (12.0-16.0) g/dL POC Hgb (12.0-16.0) g/dl Hct (37-47) % POC Hct (37-47) % MCV (80-100) fL MCH (25-34) pg MCHC (32-36) g/dL RDW Std Deviation (36.4-46.3) fL RDW Coeff of Harsh (11.5-14.5) % Plt Count (130-400) K/uL MPV (7.4-10.4) fL Immature Gran % (Auto) % Neut % (Auto) % Lymph % (Auto) % [place] % (Auto) % Eos % (Auto) % Baso % (Auto) % Immature Gran # (Auto) (0.00-0.02) K/uL Neut # (Auto) (1.4-6.5) K/uL Lymph # (Auto) (1.2-3.4) K/uL [place] # (Auto) (0.11-0.59) K/uL Eos # (Auto) (0-0.5) K/uL Baso # (Auto) (0-0.2) K/uL ABG pH 7.41 (7.35-7.45) ABG pCO2 35 (35-46) mmHg ABG pO2 86 (80-95) mm/Hg ABG HCO3 22 (19-24) mmol/L ABG O2 Saturation 96.8 H (90-95) % ABG Base Excess -2.3 (-9-1.8) mEq/L Roberto Test POS (Pos) Barometric Pressure 729.4 mm/Hg Oxygen Given ROOM AIR POC Sodium (135-144) mEq/L Sodium (136-145) mmol/L POC Potassium (3.3-5.0) mEq/L Potassium (3.5-5.1) mmol/L POC Chloride (101-112) mEq/L Chloride (98-107) mmol/L Carbon Dioxide (21-32) mmol/L POC Total CO2 (24-31) mEq/l Anion Gap (3-11) POC Anion Gap (16-25) mmol/L POC BUN (7-18) mg/dl BUN (7-18) mg/dl Creatinine (0.6-1.2) mg/dl POC Creatinine (0.6-1.3) mg/dl Est Cr Clr Drug Dosing ml/min Est GFR ( Amer) Est GFR (Non-Af Amer) BUN/Creatinine Ratio (10-20) Glucose (70-99) mg/dl POC Glucose (70-99) POC Glucose (other) (70-99) mg/dl Calcium (8.5-10.1) mg/dl POC Ioniz Calcium Tk (1.12-1.32) mmol/l Magnesium (1.8-2.4) mg/dl Total Bilirubin (0.2-1) mg/dl AST (15-37) U/L ALT (12-78) U/L Alkaline Phosphatase (45-117) U/L Total Protein (6.4-8.2) gm/dl Albumin (3.4-5.0) gm/dl Globulin (2.5-4.0) gm/dl Albumin/Globulin Ratio (0.9-2) Lipase (73-393) U/L HCG, Qual (Negative) Urine Color Urine Appearance (Clear) Urine pH (4.5-7.5) Ur Specific [place] (1.000-1.030) Urine Protein (Negative) Urine Glucose (UA) (Negative) Urine Ketones (Negative) Urine Blood (Negative) Urine Nitrite (Negative) Urine Bilirubin (Negative) Urine Urobilinogen (Negative) Ur Leukocyte Esterase (Negative) Urine WBC (Auto) (0-5) /hpf Urine RBC (Auto) (0-4) /hpf U Hyaline Cast (Auto) (0-5) /lpf U Epithel Cells (Auto) (0-5) /lpf Urine Bacteria (Auto) (Negative) Ur Renal Epithelial Cell Urine Mucus (None Prsent) Stl C. diff Tox B Gene (Neg) Norovirus RNA (PCR) Imaging Data Radiologist's Impression: Radiology results as stated below per my review and the radiologist's interpretation: CT head/brain wo con CT DOSE: 537.48 mGy.cm HISTORY: Mental status change Pt c/o N V D TECHNIQUE: Multiaxial CT images of the head were performed without the use of intravenous contrast. A dose lowering technique was utilized adhering to the principles of ALARA. Comparison: 06/09/2014 Findings: The paranasal sinuses and mastoid air cells are clear. Possible small focus of diminished density peripheral aspect right frontal lobe. This is best seen image 16. No evidence for acute intracranial hemorrhage. The ventricular system is midline. Impression: 1. Artifact versus focus of subacute infarction posterior lateral aspect right frontal lobe. 2. MRI brain is suggested as follow-up. The above report was generated using voice recognition software. It may contain grammatical, syntax or spelling errors. Electronically signed by: Albino Phillips M.D. 10/19/2018 7:[address] abd pelvis IV con only CT DOSE: 1498.84 mGy.cm HISTORY: Nausea. Pain. Pt c/o N V D TECHNIQUE: Multiaxial CT images of the abdomen and pelvis were performed following the use of intravenous contrast. A dose lowering technique was utilized adhering to the principles of ALARA. COMPARISON STUDY: None. FINDINGS: Lung bases are clear. Mild fatty replacement of the liver. Several small splenic hypodensities possibly cystic. Prior cholecystectomy. Several peripancreatic and retroperitoneal nodes measuring to 1.5 cm. These potentially are reactive. Findings consistent with nonspecific small bowel enteritis. Colonic bowel pattern is unremarkable. Findings of mild chronic sigmoid diverticulosis. No evidence for acute diverticulitis. Normal appendix. IMPRESSION: 1. Nonspecific small bowel enteritis. 2. Chronic sigmoid diverticulosis. 3. Several possibly reactive nodes of the upper abdominal region. 4. These nodes should be followed with a repeat scan to 3 months to exclude more significant pathology. The above report was generated using voice recognition software. It may contain grammatical, syntax or spelling errors. Electronically signed by: Albino Phillips M.D. 10/19/2018 7:47 PM Blood Pressure Blood Pressure Findings: Normal blood pressure Blood Pressure Disposition: did not require urgent referral MDM Narrative This is a 48-year-old female who presents emergency department complaining of severe nausea vomiting and diarrhea. Patient was able to provide a stool sample here. Her potassium was found to be low. Her magnesium level was also found to be low. She does have an elevation in her white blood cell count based on this the patient was sent for CAT scan of the abdomen pelvis as well as head. There are concerns that the patient's CAT scan of her head may need an MRI. Based on this along with the patient's laboratory work the decision was made to admit the patient to the hospitalist service. Patient and family were in agreement with the treatment plan. Impression & Plan Dehydration, Gastroenteritis Discharge Plan Visit Data *Final* Discharge Date/Time: 10/19/18 22:10 Chief Complaint: Vomiting Stated Complaint: THROWING UP, DIARRHEA, PAINS IN STOMACH ED Provider: Gee Dawkins Discharge Problem: Dehydration, Gastroenteritis Patient Disposition: Admitted As Inpatient Discharge Instructions Interventions: ED Discharge Assessment Last Done: 10/19/18 22:10 The scribe's documentation has been prepared under my direction and personally reviewed by me in its entirety. I confirm that the note above accurately reflects all work, treatment, procedures, and medical decision making performed by me.
[2018-10-20] MEDS: D5NSS + 20MEQ KCL 20 MEQ/1,000 ML BAG IV SCH ×3 (00:03→17:41)
[2018-10-20] MEDS: ONDANSETRON INJ 2 MG/ML 2 ML VIAL IV PRN ×3 (00:04→20:54)
[2018-10-20 06:07] LABS: Basophils # (auto) 0.04 K/uL (0-0.2); Basophils % (auto) 0.2 %; Eosinophils # (auto) 1.65 K/uL (0-0.5); Eosinophils % (auto) 7.6 %; Hematocrit (blood only) 43.1 % (37-47); Hemoglobin 15.1 g/dL (12.0-16.0); Immature Granulocytes # (auto) 0.53 K/uL (0.00-0.02); Immature Granulocytes % (auto) 2.4 %; Lymphocytes # (auto) 4.97 K/uL (1.2-3.4); Lymphocytes % (auto) 22.8 %; Mean Corpuscular Volume 78.6 fL (80-100); Monocytes # (auto) 1.59 K/uL (0.11-0.59); Monocytes % (auto) 7.3 %; Neutrophils # (auto) 13.03 K/uL (1.4-6.5); Neutrophils % (auto) 59.7 %; Platelet Count 258 K/uL (130-400); RDW Standard Deviation 39.2 fL (36.4-46.3); Red Blood Count 5.48 M/uL (4.2-5.4); White Blood Count 21.81 K/uL (4.8-10.8)
--- NOTE | 2018-10-20 06:35 | Magnetic Resonance Report ---
MRI OF THE BRAIN WITHOUT AND WITH IV CONTRAST CLINICAL HISTORY: L status change. Possible stroke. ABNORMAL HEAD CT WITH POSSIBLE ACUTE STROKE COMPARISON STUDY: Head CT dated 10/19/2018 TECHNIQUE: MRI of the brain was performed from the vertex to the skull base utilizing various T1 and T2 weighted sequences. Following the IV administration of 11 mL of Gadavist contrast, additional enha nced images were obtained. FINDINGS: Sagittal T1, axial diffusion, proton density and T2 weighted axial, coronal FLAIR, and pre and post a xial T1-weighted images were acquired. These were supplemented with post gadolinium coronal T1 weight ed images. No intra or extra-axial mass lesions are visualized. Axial diffusion-weighted images reveal no evidence of acute or subacute infarction. There is no evidence of ventricular dilatation. Proton density T2-weighted and FLAIR images reveal no significant parenchymal signal abnormalities. There are no abnormal flow voids. There is no evidence of pathologic enhancement. There is a focus of increased T1 signal within the C2 vertebra, likely secondary to a hemangioma There are areas of mild mucosal disease within the paranasal sinuses IMPRESSION: 1. Mild paranasal sinus mucosal thickening. 2. Suspected C2 vertebral body hemangioma 3. Otherwise normal MRI of the brain Electronically signed by: Camron Willoughby M.D. 10/20/2018 6:34 AM
[2018-10-20 06:39] LABS: Calcium 6.7 mg/dl (8.5-10.1); Est GFR (African American) 89.5; Est GFR (Non-African American) 77.2; Magnesium 1.8 mg/dl (1.8-2.4)
[2018-10-20 07:19] LABS: Estimated Average Glucose 148 mg/dl; Hemoglobin A1C 6.8 % (4.5-5.6)
[2018-10-20] MEDS ORDERED: POTASSIUM CHLORIDE 20 MEQ TABCR PO ONE (07:30)
[2018-10-20] MEDS: CALCIUM 600MG + VIT D 400 IU TAB PO SCH ×2 (08:14→20:19)
[2018-10-20] MEDS: GABAPENTIN 300 MG CAP PO SCH ×3 (08:15→20:20)
[2018-10-20] MEDS: CITALOPRAM 40 MG TAB PO SCH (08:15)
[2018-10-20] MEDS: PANTOprazole 40 MG TAB PO SCH (08:18)
[2018-10-20] MEDS: OXcarbazepine 150 MG TABLET PO SCH ×3 (08:19→20:20)
[2018-10-20] MEDS: INSULIN ASPART 100 UNITS/ML 3 ML PEN SC SCH ×4 (08:21→20:45)
[2018-10-20] MEDS: PROMETHAZINE HCL 12.5 MG in SODIUM CHLORIDE 0.9% 50 ML IV PRN ×2 (11:30→21:58)
--- NOTE | 2018-10-20 16:13 | Hospitalist Progress Note ---
Date of Service October 20, 2018 Assessment & Plan (1) Nausea vomiting and diarrhea: Present with 5-day history of nausea vomiting diarrhea CT abdomen pelvis shows possible small bowel enteritis-nonspecific finding Stool C. difficile negative Nausea and vomiting improved, diet advanced to solid We will follow stool culture report MARKED LEUKOCYTOSIS Possible secondary to gastroenteritis Continue IV fluids, repeat labs in a.m. LOW POTASSIUM: Due to GI loss Replaced both orally and IV maintenance fluid Follow labs closely CODE STATUS: Full code DVT prophylaxis SCD and teds patient is encouraged to ambulate Disposition: Expected to be discharged home when medically stable Subjective Continues to have loose watery diarrhea, No abdominal pain, no nausea vomiting Diet to be advanced to regular, has been tolerating clear diet "feels hungry" No fever or chills Stool C. difficile has been negative Stool culture report pending Patient denies of any recent travel, no different food Does mention she has been visiting recently where people were sick with GI bug No fever or chills, vitals stable Physical Exam Constitutional: WD/WN, vitals as above + obese; no acute distress Eyes: PERRL, conjunctivae normal, anicteric sclerae ENMT: external ear and nose normal, oropharynx normal Neck: trachea midline, no thyromegaly Respiratory: normal respiratory effort, lungs clear to auscultation Cardiovascular: RRR, no murmur, no edema Gastrointestinal (Abdomen): Inspection/Auscultation: normal bowel sounds Percussion/Palpation: abdomen soft; abdomen nontender Musculoskeletal: no cyanosis or clubbing, extremities motor strength 5/5 Skin: no rashes, warm and dry Neurologic: PERRL, EOMI, accommodation nl, no face palsy, no dysarthria Psychiatric: A+Ox3, euthymic affect Results & Data Vital Signs (Past 12 Hours) Vital Signs Temp Pulse Resp BP Pulse Ox 10/20/18 15:18 37.0 C 74 20 116/67 94 10/20/18 11:51 36.6 C 73 18 128/84 95 10/20/18 07:33 36.9 C 74 18 99/63 L 92
[2018-10-20 18:38] LABS: BUN Creatinine Ratio 5.5 (10-20); Calcium 6.8 mg/dl (8.5-10.1); Creatinine Clr Calc Pharmacy 102.8 ml/min; Est GFR (African American) 95.9; Est GFR (Non-African American) 82.8; Magnesium 1.5 mg/dl (1.8-2.4); Potassium 3.7 mmol/L (3.5-5.1)
[2018-10-20 20:40] LABS: Amphetamines+Metham, Urine Neg (Neg); Barbiturates, Urine Neg (Neg); Benzodiazepine, Urine Neg (Neg); Cocaine, Urine Neg (Neg); MDMA (Ecstacy), Urine Neg (Neg); Methadone, Urine Neg (Neg); Opiate, Urine Neg (Neg); Phencyclidine, Urine Neg (Neg)
[2018-10-20] MEDS ORDERED: INSULIN GLARGINE SOLOSTAR 100 UNITS/ML 3 ML PEN SQ SCH (21:00)
[2018-10-20] MEDS ORDERED: PRAVASTATIN SOD 40 MG TAB PO SCH (21:00)
[2018-10-21] MEDS: D5NSS + 20MEQ KCL 20 MEQ/1,000 ML BAG IV SCH ×2 (01:04→08:13)
[2018-10-21 05:40] LABS: Basophils # (auto) 0.05 K/uL (0-0.2); Basophils % (auto) 0.3 %; Eosinophils # (auto) 1.54 K/uL (0-0.5); Eosinophils % (auto) 9.5 %; Hematocrit (blood only) 43.3 % (37-47); Hemoglobin 14.9 g/dL (12.0-16.0); Immature Granulocytes % (auto) 3.7 %; Lymphocytes # (auto) 3.52 K/uL (1.2-3.4); Lymphocytes % (auto) 21.7 %; Mean Corpuscular Hgb Conc 34.4 g/dL (32-36); Mean Corpuscular Volume 79.7 fL (80-100); Mean Platelet Volume 9.8 fL (7.4-10.4); Neutrophils # (auto) 9.23 K/uL (1.4-6.5); Neutrophils % (auto) 56.8 %; Platelet Count 216 K/uL (130-400); RDW Coefficient of Variation 14.2 % (11.5-14.5); RDW Standard Deviation 40.8 fL (36.4-46.3); Red Blood Count 5.43 M/uL (4.2-5.4); White Blood Count 16.24 K/uL (4.8-10.8)
[2018-10-21 06:04] LABS: BUN Creatinine Ratio 5.5 (10-20); Calcium 6.9 mg/dl (8.5-10.1); Creatinine Clr Calc Pharmacy 100.4 ml/min; Est GFR (African American) 93.2; Est GFR (Non-African American) 80.4; Magnesium 1.3 mg/dl (1.8-2.4); Potassium 3.3 mmol/L (3.5-5.1)
[2018-10-21 06:11] LABS: Phosphorus 2.4 mg/dl (2.5-4.9)
[2018-10-21] MEDS ORDERED: LOPERAMIDE HCL 2 MG CAP PO PRN (08:26)
[2018-10-21] MEDS ORDERED: LOPERAMIDE HCL 2 MG CAP PO STA (08:27)
[2018-10-21] MEDS: ONDANSETRON INJ 2 MG/ML 2 ML VIAL IV PRN (08:33)
[2018-10-21] MEDS: CITALOPRAM 40 MG TAB PO SCH (08:35)
[2018-10-21] MEDS: GABAPENTIN 300 MG CAP PO SCH ×2 (08:35→13:05)
[2018-10-21] MEDS: OXcarbazepine 150 MG TABLET PO SCH ×2 (08:35→13:05)
[2018-10-21] MEDS: CALCIUM 600MG + VIT D 400 IU TAB PO SCH (08:35)
[2018-10-21] MEDS: PANTOprazole 40 MG TAB PO SCH (08:36)
[2018-10-21] MEDS ORDERED: POTASSIUM CHLORIDE 20 MEQ TABCR PO ONE (09:00)
[2018-10-21] MEDS: INSULIN ASPART 100 UNITS/ML 3 ML PEN SC SCH ×3 (09:07→17:13)
[2018-10-21] MEDS: MAGNESIUM SULFATE / D5W 1 GM/100 ML BAG IV SCH ×2 (09:48→11:11)
[2018-10-21] MEDS: POT PHOSPHATE MONOBASIC W/ SOD TAB PO SCH ×3 (09:48→17:10)
[2018-10-21] MEDS ORDERED: PROMETHAZINE HCL 25 MG TAB PO PRN (13:29)
[2018-10-21] MEDS ORDERED: ONDANSETRON 4 MG TAB PO PRN (13:30)
[2018-10-21] MEDS ORDERED: ONDANSETRON 4 MG OD TAB ONE (14:06)
--- NOTE | 2018-10-21 17:08 | Hospitalist Progress Note ---
Date of Service October 21, 2018 Assessment & Plan (1) Nausea vomiting and diarrhea: Possible viral gastroenteritis Present with 5-day history of nausea vomiting diarrhea CT abdomen pelvis shows possible small bowel enteritis-nonspecific finding Stool C. difficile negative Stool culture: Negative Nausea vomiting abdominal pain has resolved, tolerating solid food, Ordered PRN Imodium Will be discharged home later today LEUKOCYTOSIS Improved with IV hydration Possible secondary to gastroenteritis/dehydration Stool C. difficile negative Stool cultures negative She is afebrile, resolution of nausea vomiting and abdominal pain Tolerating diet Discharged, Repeat lab work to be checked on 10/24/2018 Hospital follow-up scheduled with family physician on 10/26/2018 LOW POTASSIUM/LOW PHOSPHORUS, LOW MAG Due to GI loss Replaced both orally and IV maintenance fluid Repeat labs at 5 PM Will be discharged home if electrolytes are within normal limits Repeat lab work to be checked on 10/24/2089 CODE STATUS: Full code DVT prophylaxis SCD and teds patient is encouraged to ambulate Disposition: Discharged home today Subjective Tolerating solid food, no nausea vomiting, abdominal pain Had 34 loose bowel movement today, no blood in stool No fever or chills, Eager to be discharged home today Physical Exam Constitutional: WD/WN, vitals as above + obese; no acute distress Eyes: PERRL, conjunctivae normal, anicteric sclerae ENMT: external ear and nose normal, oropharynx normal Neck: trachea midline, no thyromegaly Respiratory: normal respiratory effort, lungs clear to auscultation Cardiovascular: RRR, no murmur, no edema Gastrointestinal (Abdomen): Inspection/Auscultation: normal bowel sounds Percussion/Palpation: abdomen soft; abdomen nontender Musculoskeletal: no cyanosis or clubbing, extremities motor strength 5/5 Skin: no rashes, warm and dry Neurologic: PERRL, EOMI, accommodation nl, no face palsy, no dysarthria Psychiatric: A+Ox3, euthymic affect Results & Data Vital Signs (Past 12 Hours) Vital Signs Temp Pulse Resp BP BP Pulse Ox 10/21/18 15:00 36.8 C 63 18 131/85 96 10/21/18 07:28 36.8 C 74 18 141/83 H 98
[2018-10-21 17:13] LABS: Potassium 3.4 mmol/L (3.5-5.1)
[2018-10-21] MEDS ORDERED: POTASSIUM CHLORIDE 20 MEQ TABCR PO STA (17:16)
[2018-10-21 17:18] LABS: Magnesium 1.8 mg/dl (1.8-2.4); Phosphorus 2.9 mg/dl (2.5-4.9)
--- NOTE | 2018-10-21 17:18 | Discharge Summary ---
Date of Service October 21, 2018 Admission HPI Per Admitting Provider DICTATED BY: Dwayne Vasquez MD DATE OF ADMISSION: 10/19/2018 CHIEF COMPLAINT: Nausea, vomiting and diarrhea. HISTORY OF PRESENT ILLNESS: This 48-year-old female with past medical history significant for type 2 diabetes, high triglycerides, asthma mild intermittent, hypertension, obesity, bipolar disorder, major depression, tobacco use disorder, history of opiate misuse, presents with nausea, vomiting and diarrhea since last Wednesday, several episodes, was not getting better. No blood in the vomitus and no blood in the stools. Mild abdominal discomfort. No fever, no chills, no sick contacts, no eating of food outside. Denies any headache, no dizziness, no earache, no runny nose, no sore throat, no difficulty swallowing, no chest pain, no shortness of breath. Has smoker's cough. Ambulating okay. Currently resting comfortably and hemodynamically stable.Complains of numbness in upper extremities. Principal Diagnosis ABDOMINAL PAIN, NAUSEA VOMITING DIARRHEA: POSSIBLE VIRAL GASTROENTERITIS Discharge Exam Constitutional WD/WN, vitals as above + obese; no acute distress Eyes PERRL, conjunctivae normal, anicteric sclerae ENMT external ear and nose normal, oropharynx normal Neck trachea midline, no thyromegaly Respiratory normal respiratory effort, lungs clear to auscultation Cardiovascular RRR, no murmur, no edema Gastrointestinal (Abdomen) Inspection/Auscultation: normal bowel sounds Percussion/Palpation: abdomen soft; abdomen nontender Musculoskeletal no cyanosis or clubbing, extremities motor strength 5/5 Skin no rashes, warm and dry Neurologic PERRL, EOMI, accommodation nl, no face palsy, no dysarthria Psychiatric A+Ox3, euthymic affect Discharge Data Allergies Allergy/AdvReac Type Severity Reaction Status Date / Time Penicillins Allergy Severe "I GET ALL Verified 10/19/18 18:21 SWELLED UP." Consultations 10/19/18 20:25 ED Decision to Admit Stat Ordered Studies 10/19/18 18:22 CT abd pelvis IV con only Stat CT head/brain wo con Stat 10/19/18 22:40 MR brain wo/w con Urgent Hospital Course (1) Nausea vomiting and diarrhea: Possible viral gastroenteritis Present with 5-day history of nausea vomiting diarrhea CT abdomen pelvis shows possible small bowel enteritis-nonspecific finding Stool C. difficile negative Stool culture: Negative Nausea vomiting abdominal pain has resolved, tolerating solid food, Ordered PRN Imodium stable to be discharged home today LEUKOCYTOSIS Improved with IV hydration Possible secondary to gastroenteritis/dehydration Stool C. difficile negative Stool cultures negative She is afebrile, resolution of nausea vomiting and abdominal pain Tolerating diet Discharged, Repeat lab work to be checked on 10/24/2018 Hospital follow-up scheduled with family physician on 10/26/2018 LOW POTASSIUM/LOW PHOSPHORUS, LOW MAG Due to GI loss Replaced both orally and IV maintenance fluid Repeat labs at 5 PM Will be discharged home if electrolytes are within normal limits Repeat lab work to be checked on 10/24/2089 CODE STATUS: Full code DVT prophylaxis SCD and teds patient is encouraged to ambulate Disposition: Discharged home today Total Time Total Time Spent Total Time Spent (In Minutes): 35 mins Total Time Includes: Examination of the Patient, Discharge Planning and Medication Reconciliation Discharge Plan Discharge Items Patient Disposition: Home - Self-Care Reason For Visit: N/V/D Discharge Diagnosis: ABDOMINAL PAIN, NAUSEA VOMITING DIARRHEA: POSSIBLE VIRAL GASTROENTERITIS Discharge Goals: Decrease discomfort and Therapeutic intervention Activity: Resume your previous activity Non-emergency contact: Primary Care Provider Call non-emergency contact if: you have any medication questions Follow-up/Referrals: Melonie Curiel MD [Physician] - 10/26/18 12:45 pm (Hospital follow-up: With Dr. Richmond on 10/26/2018 at 12:45 PM- [facility] Dr. Suzan Dean's schedule is full) Diet: Regular and Low Fiber Diet Comment: And avoid daily products, stay on low fiber diet for at least 2 to 3 days Other Ambulatory Orders: Complete Blood Count with Diff (Routine) Timeframe: 20181024 Location: Determined by Patient Ordered By: Tiara Marshall Comprehensive Metabolic Panel (Routine) Timeframe: 20181024 Location: Determined by Patient Ordered By: Tiara Marshall Magnesium (Routine) Timeframe: 20181024 Location: Determined by Patient Ordered By: Tiara Marshall Addtl Provider Instructions: Hospital follow-up at [facility] with Dr Richmond- on 10/18/2018 at 12:[address] Suzan Dean's schedule is full Lab work: Complete metabolic panel/magnesium level/complete blood count on 10/24/2018 your presentation was most likely secondary to viral gastroenteritis: Avoid daily products, stay on low fiber diet for the next 2 to 3 days which may help to reduce episodes of loose stool/diarrhea Can take [id number] as needed Imodium It is recommended: To take probiotics which are available [id number] for at least 1 week which will also help resolve Diarrhea Prescriptions: Continued citalopram 40 mg Tablet 40 mg PO DAILY Qty: 0 RF: 0 pravastatin 40 mg Tablet 40 mg PO HS Qty: 0 RF: 0 ranitidine HCl [Zantac] 300 mg Tablet 300 mg PO HS Qty: 0 RF: 0 albuterol sulfate [ProAir HFA] 90 mcg/actuation Hfa Aerosol Inhaler 2 puff INHALATION UD PRN (Reason: Shortness Of Breath) Qty: 0 RF: 0 pantoprazole 40 mg Tablet,Delayed Release (Dr/Ec) 40 mg PO DAILY Qty: 0 RF: 0 fluticasone propion-salmeterol [Advair Diskus] 250-50 mcg/dose blister with device 1 inh inhalation BID RF: 0 alprazolam [Xanax] 1 mg tablet 1 mg PO TID PRN (Reason: Anxiety) RF: 0 oxcarbazepine 300 mg tablet 300 mg PO TID RF: 0 gabapentin 300 mg capsule 300 mg PO TID RF: 0 Januvia 100 mg tablet 100 mg PO DAILY RF: 0 Lantus Solostar U-100 Insulin 100 unit/mL (3 mL) insulin pen 25 unit subcut QPM RF: 0 Bydureon BCise 2 mg/0.85 mL auto-injector 2 mg subcut WK RF: 0 Stand-Alone Forms: [facility] Discharge Orders: Discharge Order (Routine); Ordered 10/21/18 Ordered By: Tiara Marshall Admission Data Admit Date/Time: 10/19/18 21:47 Attending Provider: Tiara Marshall Admit Provider: Dwayne Vasquez Primary Care Provider: Suzan Dean Other Providers: Dwayne Vasquez Service: Medical
== END 2018-10-21 18:59 | disposition home or self-care (01) | DRG 392 ==
LOC: ED 16:49 → 2W 21:47

== ENCOUNTER 2018-10-24 16:07 | Inpatient (IN) ==
[2018-10-24] MEDS ORDERED: POTASSIUM CHLORIDE / WTR 10 MEQ/100 ML PLCT IV STA (16:26)
[2018-10-24] MEDS ORDERED: SODIUM CHLORIDE 0.9% 1000ML 2,000 ML IV SCH (16:30)
[2018-10-24] MEDS: MAGNESIUM SULFATE / D5W 1 GM/100 ML BAG IV SCH ×2 (16:55→18:23)
[2018-10-24] MEDS ORDERED: POTASSIUM CHLORIDE 20 MEQ TABCR PO STA (17:18)
--- NOTE | 2018-10-24 17:20 | XRay Report ---
XR chest 1V portable CLINICAL HISTORY: weakness mental status change COMPARISON STUDY: 10/23/2014 FINDINGS: The bones soft tissues and hemidiaphragms are normal. The cardiomediastinal silhouette is n ormal. The lungs are clear. The pulmonary vasculature is normal. IMPRESSION: Negative chest. The above report was generated using voice recognition software. It may contain grammatical, syntax or spelling errors. Electronically signed by: Albino Phillips M.D. 10/24/2018 5:19 PM
--- NOTE | 2018-10-24 17:46 | Emergency Department Note ---
Entered by Ryan Maldonado acting as a scribe for History of Present Illness General Chief complaint: Abnormal Labs/Diagnostic Testing Stated complaint: ABNORMAL POTASSIUM LEVELS Source: patient History of Present Illness Provider complaint: Abnormal labs Onset (ago): hour(s) (Earlier today) Location: head Pain Consistency: + constant Relieved By: + none Exacerbated By: + none Associated symptoms: + nausea/vomiting, + shortness of breath and + other (Positive diarrhea); no chest pain The patient is a 48 year old female who presents to the Emergency Room after having abnormal results on her lab work she had done earlier today. Per the nursing note, the patient had a magnesium level of 1.1 and potassium of 2. The patient states that she has not been feeling well for the past 2-3 weeks. She notes she has been hospitalized recently for diarrhea and vomiting, however her tests came back negative. The patient states that she still has diarrhea and it has been ongoing for the past 2 weeks. The patient has a history of diabetes and renal failure. She mentioned that she recently started a new diabetes medication, Bydureon BCise, but her other medication is consistent. The patient does have some shortness of breath but denies any chest pain, abdominal pain, urinary symptoms, and hematochezia. Home Medications Home Medications Medication Instructions Recorded Confirmed Type albuterol sulfate [ProAir HFA] 2 puff INHALATION UD PRN #0 06/09/14 10/24/18 History citalopram 40 mg PO DAILY #0 06/09/14 10/24/18 History ranitidine HCl [Zantac] 300 mg PO HS #0 06/09/14 10/24/18 History pantoprazole 40 mg PO DAILY #0 09/24/14 10/24/18 History Bydureon BCise 2 mg SUBCUT WK 10/19/18 10/24/18 History Januvia 100 mg PO DAILY 10/19/18 10/24/18 History Lantus Solostar U-100 Insulin 25 unit SUBCUT QPM 10/19/18 10/24/18 History alprazolam [Xanax] 1 mg PO TID PRN 10/19/18 10/24/18 History fluticasone propion-salmeterol 1 inh INHALATION BID 10/19/18 10/24/18 History [Advair Diskus] gabapentin 300 mg PO TID 10/19/18 10/24/18 History oxcarbazepine 300 mg PO TID 10/19/18 10/24/18 History atorvastatin 20 mg PO DAILY 10/24/18 10/24/18 History Allergies Allergy/AdvReac Type Severity Reaction Status Date / Time Penicillins Allergy Severe "I GET ALL Verified 10/19/18 18:21 SWELLED UP." Past Med/Surg History Medical History Bipolar 1 disorder (Chronic) Depression (Chronic) Hypertension (Chronic) Asthma, mild intermittent (Chronic) Dyslipidemia (Chronic) DM type 2 (diabetes mellitus, type 2) (Chronic) Surgical History S/P left knee arthroscopy (Chronic) S/P tonsillectomy and adenoidectomy (Chronic) Family History Grandmother (Maternal) Diabetes Hypertension Social History Preferred Language: Guamanian Communication Ability: Effective Signal Operator Technical Required: No Beliefs That Will Affect Care: None marital status: Single Current Living Situation: Other Current Living Situation Comment: S/O Other Information That Helps Us Care for You: No Feels Safe at Home: Yes Safety Concerns: Feels Safe At This Time Smoking Status: Current every day smoker Tobacco Type: cigarettes ; Second Hand Exposure: No ; Hx Alcohol Use: No Hx Substance Use: No Review of Systems See HPI for pertinent positives & negatives. and A total of 10 systems reviewed and were otherwise negative Physical Exam Vital Signs Vital Signs - 24 hr 10/24/18 18:00 10/24/18 18:30 10/24/18 18:54 Temperature Temperature Source Pulse Rate 88 84 85 Pulse Rate [Radial] Pulse Rate [Right Finger] Pulse Rate from SpO2 Sensor 88 84 Respiratory Rate 17 15 Respiratory Effort / Characteristics Respiratory Depth Respiratory Pattern Blood Pressure 130/95 107/96 Blood Pressure [Right Arm] Blood Pressure Mean 106 99 Blood Pressure Mean [Right Arm] Blood Pressure Position [Right Arm] Pulse Oximetry 97 97 Oxygen Delivery Method 10/24/18 19:00 10/24/18 19:16 10/24/18 22:39 Temperature 36.6 C 36.6 C Temperature Source Oral Oral Pulse Rate 76 Pulse Rate [Radial] 84 84 Pulse Rate [Right Finger] Pulse Rate from SpO2 Sensor Respiratory Rate 20 20 Respiratory Effort / Characteristics Respiratory Depth Respiratory Pattern Blood Pressure Blood Pressure [Right Arm] 150/75 H 150/75 H Blood Pressure Mean Blood Pressure Mean [Right Arm] 100 100 Blood Pressure Position [Right Arm] Pulse Oximetry 94 94 Oxygen Delivery Method Room Air Room Air 10/24/18 23:20 10/25/18 04:00 10/25/18 06:50 Temperature 36.8 C 37.0 C 36.6 C Temperature Source Oral Oral Oral Pulse Rate Pulse Rate [Radial] Pulse Rate [Right Finger] 82 78 77 Pulse Rate from SpO2 Sensor Respiratory Rate 20 20 18 Respiratory Effort / Characteristics Respiratory Depth Respiratory Pattern Blood Pressure Blood Pressure [Right Arm] 106/68 101/68 103/69 Blood Pressure Mean Blood Pressure Mean [Right Arm] 80 79 80 Blood Pressure Position [Right Arm] Lying Pulse Oximetry 94 94 93 Oxygen Delivery Method Room Air Room Air Room Air 10/25/18 07:23 10/25/18 08:00 10/25/18 11:09 Temperature 36.6 C Temperature Source Oral Pulse Rate 74 Pulse Rate [Radial] Pulse Rate [Right Finger] 84 Pulse Rate from SpO2 Sensor Respiratory Rate 18 Respiratory Effort / Characteristics Non-Labored Respiratory Depth Normal Respiratory Pattern Regular Blood Pressure Blood Pressure [Right Arm] 128/85 Blood Pressure Mean Blood Pressure Mean [Right Arm] 99 Blood Pressure Position [Right Arm] Lying Pulse Oximetry 97 Oxygen Delivery Method Room Air 10/25/18 15:21 Temperature 36.8 C Temperature Source Oral Pulse Rate Pulse Rate [Radial] Pulse Rate [Right Finger] 79 Pulse Rate from SpO2 Sensor Respiratory Rate 18 Respiratory Effort / Characteristics Respiratory Depth Respiratory Pattern Blood Pressure Blood Pressure [Right Arm] 125/78 Blood Pressure Mean Blood Pressure Mean [Right Arm] 93 Blood Pressure Position [Right Arm] Lying Pulse Oximetry 94 Oxygen Delivery Method Vital signs reviewed. General: Well-appearing 48 year old female, in no significant distress. HEENT: No scleral icterus, PERRLA, neck supple. Atraumatic. Cardiovascular: Regular rate and rhythm, no extra sounds. Pulmonary: Clear to auscultation bilaterally, normal work of breathing. Abdomen: Obese, soft, nontender, nondistended, positive bowel sounds. Musculoskeletal: Atraumatic, no peripheral edema. Neurologic: Patient awake alert and oriented x 3. Skin: Warm, dry, no rash Course 1624: Past medical records reviewed. The patient was evaluated in room C02B, and a complete history and physical examination were performed. 1637: I spoke to Dr. Rolando Morales Hospitalist about the patient's case. She will be accepting the patient for further evaluation. Consultations Consultation #1: I spoke to Dr. Rolando Morales Hospitalist about the patient's case. She will be accepting the patient for further evaluation. Time: 16:37 Administered Medications Alprazolam (Xanax) 1 mg PO TID PRN PRN Reason: Anxiety Stop: 11/23/18 18:53 Last Admin: 10/24/18 20:28 Dose: 1 mg Documented by: [id number] Atorvastatin Calcium (Lipitor) 20 mg PO DAILY [facility] Stop: 11/24/18 08:59 Last Admin: 10/25/18 08:13 Dose: 20 mg Documented by: [id number] Citalopram Hydrobromide (Celexa) 40 mg PO DAILY [facility] Stop: 11/24/18 08:59 Last Admin: 10/25/18 08:13 Dose: 40 mg Documented by: [id number] Gabapentin (Neurontin) 300 mg PO TID [facility] Stop: 11/23/18 20:59 Last Admin: 10/25/18 13:41 Dose: 300 mg Documented by: [id number] Admin: 10/25/18 08:13 Dose: 300 mg Documented by: [id number] Admin: 10/24/18 20:08 Dose: 300 mg Documented by: [id number] Hydrocortisone (Proctozone Hc 2.5%) 1 appln EXT QID PRN PRN Reason: Hemorrhoids Stop: 11/23/18 20:00 Last Admin: 10/25/18 13:00 Dose: 1 appln Documented by: [id number] Potassium Chloride 40 meq/ (Sodium Chloride) 1,020 mls @ 125 mls/hr IV .Q8H10M [facility] Stop: 11/23/18 19:14 Last Admin: 10/25/18 14:33 Dose: 125 mls/hr Documented by: [id number] Infusion: 10/25/18 13:54 Dose: 125 mls/hr Documented by: [id number] Admin: 10/25/18 05:44 Dose: 125 mls/hr Documented by: [id number] Infusion: 10/25/18 04:39 Dose: 125 mls/hr Documented by: [id number] Admin: 10/24/18 20:29 Dose: 125 mls/hr Documented by: [id number] Insulin Aspart (Novolog Flexpen) 0 units SC ACHS [facility] Stop: 11/23/18 20:59 Last Admin: 10/25/18 12:32 Dose: 5 units Documented by: [id number] Cosigned by: [id number] Admin: 10/25/18 08:47 Dose: 4 units Documented by: [id number] Cosigned by: [id number] Admin: 10/24/18 20:07 Dose: 2 units Documented by: [id number] Cosigned by: [id number] Insulin Glargine (Lantus Solostar Pen) 0 - 20 units SC BID [facility] Stop: 11/23/18 20:59 Last Admin: 10/25/18 08:48 Dose: Not Given Documented by: [id number] Cosigned by: [id number] Admin: 10/24/18 20:05 Dose: 15 units Documented by: [id number] Cosigned by: [id number] Miscellaneous (Remove Nicoderm Patch) 1 ea N/A HS [facility] Stop: 11/23/18 20:59 Last Admin: 10/24/18 23:16 Dose: 1 ea Documented by: [id number] Nicotine (Nicoderm Cq) 21 mg TD QAM [facility] Stop: 11/23/18 18:59 Last Admin: 10/25/18 08:14 Dose: 21 mg Documented by: [id number] Admin: 10/24/18 20:03 Dose: 21 mg Documented by: [id number] Oxcarbazepine (Trileptal) 300 mg PO TID [facility] Stop: 11/23/18 20:59 Last Admin: 10/25/18 13:40 Dose: 300 mg Documented by: [id number] Admin: 10/25/18 08:14 Dose: 300 mg Documented by: [id number] Admin: 10/24/18 20:09 Dose: 300 mg Documented by: [id number] Pantoprazole Sodium (Protonix) 40 mg PO DAILY [facility] Stop: 11/24/18 08:59 Last Admin: 10/25/18 08:13 Dose: 40 mg Documented by: [id number] Ranitidine HCl (Zantac) 300 mg PO HS [facility] Stop: 11/23/18 20:59 Last Admin: 10/24/18 20:09 Dose: 300 mg Documented by: [id number] Fluticasone/Salmeterol (Advair Diskus 250/50) 1 puffs INH BID [facility] Stop: 11/23/18 20:59 Last Admin: 10/25/18 08:15 Dose: 1 puffs Documented by: [id number] Admin: 10/24/18 20:05 Dose: 1 puffs Documented by: [id number] Discontinued Medications Magnesium Sulfate/Dextrose (Magnesium Sulfate / D5w) 1 gm in 100 mls @ 100 mls/hr IV Q1H [facility] Stop: 10/24/18 18:29 Last Infusion: 10/24/18 19:23 Dose: 0 mls/hr Documented by: [id number] Admin: 10/24/18 18:23 Dose: 100 mls/hr Documented by: [id number] Infusion: 10/24/18 17:55 Dose: 100 mls/hr Documented by: [id number] Admin: 10/24/18 16:55 Dose: 100 mls/hr Documented by: [id number] Potassium Chloride (K Lui / Wtr) 10 meq in 100 mls @ 100 mls/hr IV Q1H STA Stop: 10/24/18 17:25 Last Infusion: 10/24/18 17:55 Dose: 0 mls/hr Documented by: [id number] Admin: 10/24/18 16:55 Dose: 100 mls/hr Documented by: [id number] Sodium Chloride (Nss 1000ml) 2,000 mls @ 999 mls/hr IV .Q2H1M [facility] Stop: 10/24/18 18:30 Last Infusion: 10/24/18 18:55 Dose: 0 mls/hr Documented by: [id number] Admin: 10/24/18 16:54 Dose: 999 mls/hr Documented by: [id number] Potassium Chloride (K Lui / Wtr) 10 meq in 100 mls @ 100 mls/hr IV ONE ONE; Protocol Stop: 10/24/18 18:59 Last Infusion: 10/24/18 19:23 Dose: 0 mls/hr Documented by: [id number] Admin: 10/24/18 18:23 Dose: 100 mls/hr Documented by: [id number] Potassium Chloride (K Lui / Wtr) 10 meq in 100 mls @ 100 mls/hr IV Q1H [facility] Stop: 10/24/18 22:29 Last Infusion: 10/25/18 04:20 Dose: 0 mls/hr Documented by: [id number] Admin: 10/25/18 01:27 Dose: 40 mls/hr Documented by: [id number] Infusion: 10/25/18 01:27 Dose: 40 mls/hr Documented by: [id number] Admin: 10/24/18 23:13 Dose: 40 mls/hr Documented by: [id number] Infusion: 10/24/18 22:32 Dose: 40 mls/hr Documented by: [id number] Infusion: 10/24/18 21:00 Dose: 40 mls/hr Documented by: [id number] Admin: 10/24/18 20:29 Dose: 75 mls/hr Documented by: [id number] Potassium Chloride (Klor-Con M20) 40 meq PO NOW STA Stop: 10/24/18 17:19 Last Admin: 10/24/18 17:55 Dose: 40 meq Documented by: [id number] Medical Decision Making Differential Diagnosis Differential: Viral, Bacterial, Parasitic, Iatrogenic, C-Diff, Malabsorbtion, Irritable Bowel Disease, IBS, Ischemic Bowel, amongst other pathologies enter tained. Medical Records Attestation: I reviewed the patient's medical records. Home Medications Current Medication List: was personally reviewed by me Laboratory Data Attestation: I reviewed the patient's lab results. Result diagrams: 10/25/18 06:26 10/25/18 06:26 Lab Results 10/24/18 10/24/18 10/24/18 Range/Units 17:03 18:07 19:13 WBC (4.8-10.8) K/uL RBC (4.2-5.4) M/uL Hgb (12.0-16.0) g/dL Hct (37-47) % MCV (80-100) fL MCH (25-34) pg MCHC (32-36) g/dL RDW Std Deviation (36.4-46.3) fL RDW Coeff of Harsh (11.5-14.5) % Plt Count (130-400) K/uL MPV (7.4-10.4) fL Sodium (136-145) mmol/L Potassium (3.5-5.1) mmol/L Chloride (98-107) mmol/L Carbon Dioxide (21-32) mmol/L Anion Gap (3-11) BUN (7-18) mg/dl Creatinine (0.6-1.2) mg/dl Est Cr Clr Drug Dosing ml/min Est GFR ( Amer) Est GFR (Non-Af Amer) BUN/Creatinine Ratio (10-20) Glucose (70-99) mg/dl POC Glucose 172 H (70-99) Lactate 1.2 (0.4-2.0) mmol/L Calcium (8.5-10.1) mg/dl Phosphorus 4.2 (2.5-4.9) mg/dl Urine Color Urine Appearance (Clear) Urine pH (4.5-7.5) Ur Specific [place] (1.000-1.030) Urine Protein (Negative) Urine Glucose (UA) (Negative) Urine Ketones (Negative) Urine Blood (Negative) Urine Nitrite (Negative) Urine Bilirubin (Negative) Urine Urobilinogen (Negative) Ur Leukocyte Esterase (Negative) Urine WBC (Auto) (0-5) /hpf Urine RBC (Auto) (0-4) /hpf U Hyaline Cast (Auto) (0-5) /lpf U Epithel Cells (Auto) (0-5) /lpf Urine Bacteria (Auto) (Negative) Stl C. diff Tox B Gene (Neg) Urine Opiates Screen (Neg) Ur Methadone, Qual (Neg) Urine Barbiturates (Neg) Ur Phencyclidine (PCP) (Neg) U Amphetamin/Meth Scrn (Neg) MDMA (Ecstasy) Screen (Neg) U Benzodiazepines Scrn (Neg) Ur Cocaine Metabolite (Neg) U Marijuana (THC) Screen (Neg) 10/24/18 10/24/18 10/24/18 Range/Units 23:42 23:42 23:42 WBC (4.8-10.8) K/uL RBC (4.2-5.4) M/uL Hgb (12.0-16.0) g/dL Hct (37-47) % MCV (80-100) fL MCH (25-34) pg MCHC (32-36) g/dL RDW Std Deviation (36.4-46.3) fL RDW Coeff of Harsh (11.5-14.5) % Plt Count (130-400) K/uL MPV (7.4-10.4) fL Sodium (136-145) mmol/L Potassium (3.5-5.1) mmol/L Chloride (98-107) mmol/L Carbon Dioxide (21-32) mmol/L Anion Gap (3-11) BUN (7-18) mg/dl Creatinine (0.6-1.2) mg/dl Est Cr Clr Drug Dosing ml/min Est GFR ( Amer) Est GFR (Non-Af Amer) BUN/Creatinine Ratio (10-20) Glucose (70-99) mg/dl POC Glucose (70-99) Lactate (0.4-2.0) mmol/L Calcium (8.5-10.1) mg/dl Phosphorus (2.5-4.9) mg/dl Urine Color Yellow Urine Appearance Clear (Clear) Urine pH 6.0 (4.5-7.5) Ur Specific [place] 1.029 (1.000-1.030) Urine Protein Trace H (Negative) Urine Glucose (UA) Negative (Negative) Urine Ketones Negative (Negative) Urine Blood Negative (Negative) Urine Nitrite Negative (Negative) Urine Bilirubin Negative (Negative) Urine Urobilinogen Negative (Negative) Ur Leukocyte Esterase Negative (Negative) Urine WBC (Auto) 1-5 (0-5) /hpf Urine RBC (Auto) 0-4 (0-4) /hpf U Hyaline Cast (Auto) 10-30 H (0-5) /lpf U Epithel Cells (Auto) >30 H (0-5) /lpf Urine Bacteria (Auto) Negative (Negative) Stl C. diff Tox B Gene Negative Cdiff Gene (Neg) Urine Opiates Screen Neg (Neg) Ur Methadone, Qual Neg (Neg) Urine Barbiturates Neg (Neg) Ur Phencyclidine (PCP) Neg (Neg) U Amphetamin/Meth Scrn Neg (Neg) MDMA (Ecstasy) Screen Neg (Neg) U Benzodiazepines Scrn Pos H (Neg) Ur Cocaine Metabolite Neg (Neg) U Marijuana (THC) Screen Pos H (Neg) 10/25/18 10/25/18 10/25/18 Range/Units 06:26 06:26 07:20 WBC 20.43 H (4.8-10.8) K/uL RBC 5.14 (4.2-5.4) M/uL Hgb 14.1 D (12.0-16.0) g/dL Hct 40.1 (37-47) % MCV 78.0 L (80-100) fL MCH 27.4 (25-34) pg MCHC 35.2 (32-36) g/dL RDW Std Deviation 39.6 (36.4-46.3) fL RDW Coeff of Harsh 14.0 (11.5-14.5) % Plt Count 147 (130-400) K/uL MPV 10.2 (7.4-10.4) fL Sodium 142 (136-145) mmol/L Potassium 3.7 D (3.5-5.1) mmol/L Chloride 109 H (98-107) mmol/L Carbon Dioxide 27 (21-32) mmol/L Anion Gap 6.0 (3-11) BUN 9 (7-18) mg/dl Creatinine 0.76 D (0.6-1.2) mg/dl Est Cr Clr Drug Dosing 112.2 ml/min Est GFR ( Amer) 108.3 Est GFR (Non-Af Amer) 93.4 BUN/Creatinine Ratio 12.3 (10-20) Glucose 94 (70-99) mg/dl POC Glucose 86 (70-99) Lactate (0.4-2.0) mmol/L Calcium 7.2 L D (8.5-10.1) mg/dl Phosphorus (2.5-4.9) mg/dl Urine Color Urine Appearance (Clear) Urine pH (4.5-7.5) Ur Specific [place] (1.000-1.030) Urine Protein (Negative) Urine Glucose (UA) (Negative) Urine Ketones (Negative) Urine Blood (Negative) Urine Nitrite (Negative) Urine Bilirubin (Negative) Urine Urobilinogen (Negative) Ur Leukocyte Esterase (Negative) Urine WBC (Auto) (0-5) /hpf Urine RBC (Auto) (0-4) /hpf U Hyaline Cast (Auto) (0-5) /lpf U Epithel Cells (Auto) (0-5) /lpf Urine Bacteria (Auto) (Negative) Stl C. diff Tox B Gene (Neg) Urine Opiates Screen (Neg) Ur Methadone, Qual (Neg) Urine Barbiturates (Neg) Ur Phencyclidine (PCP) (Neg) U Amphetamin/Meth Scrn (Neg) MDMA (Ecstasy) Screen (Neg) U Benzodiazepines Scrn (Neg) Ur Cocaine Metabolite (Neg) U Marijuana (THC) Screen (Neg) 10/25/18 10/25/18 Range/Units 11:27 16:23 WBC (4.8-10.8) K/uL RBC (4.2-5.4) M/uL Hgb (12.0-16.0) g/dL Hct (37-47) % MCV (80-100) fL MCH (25-34) pg MCHC (32-36) g/dL RDW Std Deviation (36.4-46.3) fL RDW Coeff of Harsh (11.5-14.5) % Plt Count (130-400) K/uL MPV (7.4-10.4) fL Sodium (136-145) mmol/L Potassium (3.5-5.1) mmol/L Chloride (98-107) mmol/L Carbon Dioxide (21-32) mmol/L Anion Gap (3-11) BUN (7-18) mg/dl Creatinine (0.6-1.2) mg/dl Est Cr Clr Drug Dosing ml/min Est GFR ( Amer) Est GFR (Non-Af Amer) BUN/Creatinine Ratio (10-20) Glucose (70-99) mg/dl POC Glucose 110 H 83 (70-99) Lactate (0.4-2.0) mmol/L Calcium (8.5-10.1) mg/dl Phosphorus (2.5-4.9) mg/dl Urine Color Urine Appearance (Clear) Urine pH (4.5-7.5) Ur Specific [place] (1.000-1.030) Urine Protein (Negative) Urine Glucose (UA) (Negative) Urine Ketones (Negative) Urine Blood (Negative) Urine Nitrite (Negative) Urine Bilirubin (Negative) Urine Urobilinogen (Negative) Ur Leukocyte Esterase (Negative) Urine WBC (Auto) (0-5) /hpf Urine RBC (Auto) (0-4) /hpf U Hyaline Cast (Auto) (0-5) /lpf U Epithel Cells (Auto) (0-5) /lpf Urine Bacteria (Auto) (Negative) Stl C. diff Tox B Gene (Neg) Urine Opiates Screen (Neg) Ur Methadone, Qual (Neg) Urine Barbiturates (Neg) Ur Phencyclidine (PCP) (Neg) U Amphetamin/Meth Scrn (Neg) MDMA (Ecstasy) Screen (Neg) U Benzodiazepines Scrn (Neg) Ur Cocaine Metabolite (Neg) U Marijuana (THC) Screen (Neg) Imaging Data Radiologist's Impression: Radiology results as stated below per my review and the radiologist's interpretation: XR chest 1V portable CLINICAL HISTORY: weakness mental status change COMPARISON STUDY: 10/23/2014 FINDINGS: The bones soft tissues and hemidiaphragms are normal. The cardiomediastinal silhouette is normal. The lungs are clear. The pulmonary vasculature is normal. IMPRESSION: Negative chest. The above report was generated using voice recognition software. It may contain grammatical, syntax or spelling errors. Electronically signed by: Albino Phillips M.D. 10/24/2018 5:19 PM ECG Data Attestation: I personally reviewed and interpreted this ECG as follows: Indication: other (Abnormal labs) Rate (beats per minute): 106 Rhythm: sinus tachycardia Findings: + other (Previous inferior and anterior infarct ) and + RBBB (Incomplete); no PAC, no PVC, no acute ischemic change and no ectopy Blood Pressure Blood Pressure Findings: Elevated blood pressure Blood Pressure Disposition: Referred to patients primary care provider MDM Narrative This patient was evaluated and appeared to be in no significant distress. I did speak with Dr. Marshall prior to the patient's arrival as well as reviewing her medical history. IV access was obtained and laboratory work was drawn. Patient was placed on the monitoring tech and found to be in a sinus tachycardia. IV fluids were initiated. Based on the patient's laboratory work prior to arrival, IV potassium and magnesium was ordered. Patient was found to have a potassium of 2.7 and a magnesium of 1.1. Of note the patient's WBC is also elevated at 28 which is higher than it was during her admission. After reviewing the patient's medication list, I am concerned that her diabetes medication Bydureon may be causing some of her symptoms. Do not feel the patient's current condition can be managed effectively during the emergency department stay. I did speak with the hospitalist service, ERIN Mario, who will evaluate the patient for further management. Patient has expressed an understanding of the plan and agrees. Impression & Plan Diarrhea, Hypokalemia, Hypomagnesemia Discharge Plan Visit Data *Final* Discharge Date/Time: 10/24/18 18:51 Chief Complaint: Abnormal Labs/Diagnostic Testing Stated Complaint: ABNORMAL POTASSIUM LEVELS ED Provider: Dinora Mariscal Discharge Problem: Diarrhea, Hypokalemia, Hypomagnesemia Patient Disposition: Admitted As Inpatient Discharge Instructions Interventions: ED Discharge Assessment Last Done: 10/24/18 18:51 The scribe's documentation has been prepared under my direction and personally reviewed by me in its entirety. I confirm that the note above accurately reflects all work, treatment, procedures, and medical decision making performed by me.
[2018-10-24] MEDS ORDERED: POTASSIUM CHLORIDE / WTR 10 MEQ/100 ML PLCT IV ONE (18:00)
[2018-10-24] MEDS ORDERED: DEXTROSE 50% 50 ML SYRINGE IV PRN (18:54)
[2018-10-24] MEDS ORDERED: ACETAMINOPHEN 325 MG TAB PO PRN (18:54)
[2018-10-24] MEDS ORDERED: GLUCAGON FOR INJ 1 MG VIAL SQ PRN (18:54)
[2018-10-24] MEDS ORDERED: GLUCOSE 40% GEL 15 GM TUBE PO PRN (18:54)
[2018-10-24] MEDS ORDERED: GLUCOSE 10 TABS/TUBE PO PRN (18:54)
[2018-10-24] MEDS ORDERED: CARBOHYDRATES FOR HYPOGLYCEMIA PO PRN (18:54)
[2018-10-24] MEDS ORDERED: HYDROCORTISONE HC 2.5% CRM 30GM TUBE EXT PRN ×2 (20:01→20:14)
[2018-10-24] MEDS: NICOTINE 21 MG/24 HR TDSY TD SCH (20:03)
--- NOTE | 2018-10-24 20:04 | History & Physical Report ---
Date of Service October 24, 2018 Assessment & Plan (1) Hypokalemia: (2) Hypomagnesemia: (3) Leukocytosis: (4) Vomiting and diarrhea: -Admit to [facility] with telemetry -Patient referred to the ED today after outpatient labs showed K+ 2.7, MG +1.1, WBC 28.5K -Recent admission to [facility] 10/19 through 10/21 for nausea, vomiting, diarrhea, electrolyte abnormalities -Patient currently does meet SIRS criteria however I do not feel as though she is currently septic -Stool studies negative last admission, will repeat -Minimal abdominal pain on exam, will hold on repeating CT ABD/pelvis for now -Noted positive marijuana on drug screen during last admission, patient denies any use, however suspect there is likely some component of cannabinoid hyperemesis -Patient is also taking Bydureon for DM -this can cause vomiting and diarrhea as well; recommend discontinuing -Continue supportive care with IVF, electrolyte replacement, nausea and pain control (5) DM type 2 (diabetes mellitus, type 2): -Hgb A1c 8.1 07/2017 -Recommend discontinuing Bydureon as above -Hold home Januvia; utilize Lantus and NovoLog per protocol while hospitalized (6) Asthma, mild intermittent: -Stable, no signs of acute exacerbation -Continue home inhalers (7) Dyslipidemia: -Continue statin (8) Bipolar 1 disorder: (9) Depression: -Continue citalopram and oxcarbazepine (10) DVT prophylaxis: -SCDs, ambulate History of Present Illness Chief Complaint: Referred for abnormal labs Primary Care Provider: Suzan Dean DO 48-year-old female who was referred to the ED for evaluation of hypokalemia and hypomagnesemia. Patient recently admitted to [facility] 10/19 through 10/21 for nausea, vomiting, diarrhea, electrolyte abnormalities. Patient reports she felt well the day she was discharged in the hospital however the past 2 days she has had continued vomiting and diarrhea. She reports 3-4 episodes of each per day. Today, she reports no vomiting, nausea, diarrhea. She denies hematemesis or coffee-ground emesis. No bright red bleeding per rectum or dark tarry stools. She has some mild abdominal pain from the persistent vomiting. She denies fevers and chills. No lightheadedness, dizziness, diaphoresis, syncopal events. Denies chest pain shortness of breath. No urinary symptoms. Outpatient labs today demonstrated K+ 2.7, MG +1.1, WBC 28K. Patient received a phone call to come to the ED for evaluation. In the ER, patient is afebrile, hemodynamically stable. She was given IVF, potassium replacement, magnesium replacement. Allergies Allergy/AdvReac Type Severity Reaction Status Date / Time Penicillins Allergy Severe "I GET ALL Verified 10/19/18 18:21 SWELLED UP." Home Medications Home Medications Medication Instructions Recorded Confirmed Type albuterol sulfate [ProAir HFA] 2 puff INHALATION UD PRN #0 06/09/14 10/24/18 History citalopram 40 mg PO DAILY #0 06/09/14 10/24/18 History ranitidine HCl [Zantac] 300 mg PO HS #0 06/09/14 10/24/18 History pantoprazole 40 mg PO DAILY #0 09/24/14 10/24/18 History Bydureon BCise 2 mg SUBCUT WK 10/19/18 10/24/18 History Januvia 100 mg PO DAILY 10/19/18 10/24/18 History Lantus Solostar U-100 Insulin 25 unit SUBCUT QPM 10/19/18 10/24/18 History alprazolam [Xanax] 1 mg PO TID PRN 10/19/18 10/24/18 History fluticasone propion-salmeterol 1 inh INHALATION BID 10/19/18 10/24/18 History [Advair Diskus] gabapentin 300 mg PO TID 10/19/18 10/24/18 History oxcarbazepine 300 mg PO TID 10/19/18 10/24/18 History atorvastatin 20 mg PO DAILY 10/24/18 10/24/18 History Past Med/Surg History Medical History Bipolar 1 disorder (Chronic) Depression (Chronic) Hypertension (Chronic) Asthma, mild intermittent (Chronic) Dyslipidemia (Chronic) DM type 2 (diabetes mellitus, type 2) (Chronic) Surgical History S/P left knee arthroscopy (Chronic) S/P tonsillectomy and adenoidectomy (Chronic) Family History Grandmother (Maternal) Diabetes Hypertension Social History Preferred Language: Samoan Communication Ability: Effective Flight Radio Operator Required: No Beliefs That Will Affect Care: None marital status: Single Current Living Situation: Other Current Living Situation Comment: S/O Other Information That Helps Us Care for You: No Feels Safe at Home: Yes Safety Concerns: Feels Safe At This Time Smoking Status: Current every day smoker Tobacco Type: cigarettes ; Second Hand Exposure: No ; Hx Alcohol Use: No Hx Substance Use: No Review of Systems Review of Systems: ROS per HPI, all other systems reviewed and negative Physical Exam Constitutional: WD/WN, vitals as above Eyes: PERRL, conjunctivae normal, anicteric sclerae ENMT: external ear and nose normal, oropharynx normal Respiratory: normal respiratory effort; no respiratory distress Auscultation: + wheezes (Faint, scattered) Cardiovascular: Rate/Rhythm: regular rate and regular rhythm Vessels: normal peripheral pulses Extremities: no edema Gastrointestinal (Abdomen): Inspection/Auscultation: normal bowel sounds (Hyperactive); abdomen not distended Percussion/Palpation: + abdomen tender (Mild, generalized) and abdomen soft; no hepatosplenomegaly Musculoskeletal: no cyanosis or clubbing, extremities motor strength 5/5 Skin: no rashes, warm and dry Neurologic: PERRL, EOMI, accommodation nl, no face palsy, no dysarthria Psychiatric: A+Ox3, euthymic affect Results & Data Vital Signs (Past 12 Hours) Vital Signs Temp Pulse Pulse Resp BP BP Pulse Ox 10/24/18 19:16 36.6 C 84 20 150/75 H 94 10/24/18 18:30 84 15 107/96 97 10/24/18 18:00 88 17 130/95 97 10/24/18 17:30 93 H 17 111/84 95 10/24/18 17:24 91 H 17 116/84 95 10/24/18 17:06 102 H 18 116/84 95 10/24/18 17:05 95 10/24/18 16:09 36.9 C 128 H 20 134/89 95 Laboratory Results Outpatient labs: WBC-28.5 H/H-17.7/49.6 Platelets-214 Na+-138 K+- 2.7 BUN/creatinine-13/1.1 Glucose-193 MG+-1.1 Diagnostic Findings CXR IMPRESSION: Negative chest. Code Status & VTE Plan VTE Prophylaxis Plan VTE Prophylaxis will be ordered: Yes Supervising Physician Co-Signing Physician Notes Attending addendum: Patient seen and examined, care coordinated with Barbara KHAN This is a 48-year-old female who was recently discharged from [facility]'s diagnosed with possible viral gastroenteritis, all stool cultures, stool study was negative Patient was taken for supportive care with IV fluids, electrolyte imbalance: Low magnesium low potassium is corrected Patient was instructed to have a repeat blood work done today 10/24/2018, Scheduled to have hospital follow-up with family physician on 10/27/2018 Received call from [facility] chemistry lab, with critical lab value, magnesium 1.1, potassium 2.7 Called patient's home, request her to come to the ER, may need evaluation secondary to severe electrolyte derangement Patient reports that she continued to have the diarrhea, vomiting since discharge Had not seek any medical attention Vitals: As of above Physical exam: General: No apparent distress, obese HEENT sclera nonicteric, moist oral mucosa Abdomen, soft nontender active bowel sound Extremity no lower extremity edema, no rash or deformity Neuro: No focal neurological deficit alert awake oriented x3 In the ER patient was found to be tachycardic, leukocytosis with white count of more than 20 K And admitted for IV fluids, electrolyte correction, will do repeat stool studies Patient's urine tox screen was positive for marijuana in the last admission Positive secondary to marijuana withdrawal?(Patient denies of using marijuana) Repeat tox screen ordered Continue supportive care Please refer to further documentation by Barbara KHAN for discussion of other chronic issues Tiara Marshall MD
[2018-10-24] MEDS: INSULIN GLARGINE SOLOSTAR 100 UNITS/ML 3 ML PEN SC SCH (20:05)
[2018-10-24] MEDS: FLUTICASONE/SALMETEROL 250/50 (ADVAIR) 14 PUFF/1 INHALER INH SCH (20:05)
[2018-10-24] MEDS: INSULIN ASPART 100 UNITS/ML 3 ML PEN SC SCH (20:07)
[2018-10-24] MEDS: GABAPENTIN 300 MG CAP PO SCH (20:08)
[2018-10-24] MEDS: OXcarbazepine 150 MG TABLET PO SCH (20:09)
[2018-10-24] MEDS: ALPRAZolam 0.5 MG TABLET PO PRN (20:28)
[2018-10-24] MEDS: POTASSIUM CHLORIDE / WTR 10 MEQ/100 ML PLCT IV SCH ×2 (20:29→23:13)
[2018-10-24] MEDS: POTASSIUM CHLORIDE 40 MEQ in SODIUM CHLORIDE 0.9% 1000ML 1,000 ML IV SCH (20:29)
[2018-10-25 00:04] LABS: Appearance Urine Clear (Clear); Bacteria Urine Automated Negative (Negative); Bilirubin Urine Negative (Negative); Blood Urine Negative (Negative); Color Urine Yellow; Epithelial Cell Urine Auto >30 /lpf (0-5); Glucose Urine UA Negative (Negative); Ketones Urine Negative (Negative); Leukocyte Esterase Urine Negative (Negative); Nitrite Urine Negative (Negative); Protein Urine Trace (Negative); RBC Urine Automated 0-4 /hpf (0-4); Specific Gravity Urine 1.029 (1.000-1.030); Urobilinogen Urine Negative (Negative)
[2018-10-25 00:24] LABS: Amphetamines+Metham, Urine Neg (Neg); Barbiturates, Urine Neg (Neg); Benzodiazepine, Urine Pos (Neg); Cocaine, Urine Neg (Neg); MDMA (Ecstacy), Urine Neg (Neg); Methadone, Urine Neg (Neg); Opiate, Urine Neg (Neg); Phencyclidine, Urine Neg (Neg)
[2018-10-25] MEDS: POTASSIUM CHLORIDE / WTR 10 MEQ/100 ML PLCT IV SCH (01:27)
[2018-10-25] MEDS: POTASSIUM CHLORIDE 40 MEQ in SODIUM CHLORIDE 0.9% 1000ML 1,000 ML IV SCH ×3 (05:44→22:43)
[2018-10-25 06:47] LABS: Hematocrit (blood only) 40.1 % (37-47); Hemoglobin 14.1 g/dL (12.0-16.0); Mean Corpuscular Hemoglobin 27.4 pg (25-34); Mean Corpuscular Hgb Conc 35.2 g/dL (32-36); Mean Platelet Volume 10.2 fL (7.4-10.4); Platelet Count 147 K/uL (130-400); RDW Standard Deviation 39.6 fL (36.4-46.3); Red Blood Count 5.14 M/uL (4.2-5.4); White Blood Count 20.43 K/uL (4.8-10.8)
[2018-10-25 07:23] LABS: BUN Creatinine Ratio 12.3 (10-20); Calcium 7.2 mg/dl (8.5-10.1); Creatinine Clr Calc Pharmacy 112.2 ml/min; Est GFR (African American) 108.3; Est GFR (Non-African American) 93.4; Potassium 3.7 mmol/L (3.5-5.1)
[2018-10-25] MEDS: ATORVASTATIN 20 MG TAB PO SCH (08:13)
[2018-10-25] MEDS: GABAPENTIN 300 MG CAP PO SCH ×3 (08:13→21:08)
[2018-10-25] MEDS: PANTOprazole 40 MG TAB PO SCH (08:13)
[2018-10-25] MEDS: CITALOPRAM 40 MG TAB PO SCH (08:13)
[2018-10-25] MEDS: OXcarbazepine 150 MG TABLET PO SCH ×3 (08:14→21:07)
[2018-10-25] MEDS: NICOTINE 21 MG/24 HR TDSY TD SCH (08:14)
[2018-10-25] MEDS: FLUTICASONE/SALMETEROL 250/50 (ADVAIR) 14 PUFF/1 INHALER INH SCH ×2 (08:15→21:11)
[2018-10-25] MEDS: INSULIN ASPART 100 UNITS/ML 3 ML PEN SC SCH ×4 (08:47→21:09)
[2018-10-25] MEDS: INSULIN GLARGINE SOLOSTAR 100 UNITS/ML 3 ML PEN SC SCH ×2 (08:48→21:09)
[2018-10-25] MEDS ORDERED: ONDANSETRON INJ 2 MG/ML 2 ML VIAL IV PRN (17:09)
--- NOTE | 2018-10-25 19:11 | Hospitalist Progress Note ---
Date of Service October 25, 2018 Assessment & Plan (1) Vomiting and diarrhea: -Possibly secondary to marijuana abuse, Urine tox screen positive for marijuana/possible cannabinoid hyperemesis -Patient referred to the ED after outpatient labs showed K+ 2.7, MG +1.1, WBC 28.5K -Recent admission to [facility] 10/19 through 10/21 for nausea, vomiting, diarrhea, electrolyte abnormalities - -Stool studies negative - -Noted positive marijuana on drug screen during last admission, patient denies any use, -Patient is also taking Bydureon for DM -this can cause vomiting and diarrhea as well; Discontinued during this hospital stay Clinically improved, tolerating diet, Having ongoing diarrhea, ordered PRN Imodium (2) Hypokalemia: To GI loss, Intractable nausea vomiting Symptoms has improved Given both p.o. and IV replacement potassium level improved 2.73.4 today To monitor electrolytes (3) Hypomagnesemia: Due to GI loss, nausea vomiting diarrhea Replaced Continue to monitor electrolytes (4) Leukocytosis: Differential, no evidence of infection sepsis Possibly secondary to cannabinoid hyperemesis? Continue to monitor (5) DM type 2 (diabetes mellitus, type 2): -Hgb A1c 8.1 07/2017 -Recommend discontinuing Bydureon : For GI symptoms nausea vomiting diarrhea -Hold home Januvia; utilize Lantus and NovoLog per protocol while hospitalized (6) Asthma, mild intermittent: -Stable, no signs of acute exacerbation -Continue home inhalers (7) Dyslipidemia: -Continue statin (8) Bipolar 1 disorder: Continue outpatient meds Mood stable (9) Depression: -Continue citalopram and oxcarbazepine (10) DVT prophylaxis: Risks SCD and teds, patient is encouraged to ambulate CODE STATUS: Full code Disposition: Expected to be discharged home in next 1 to 2 days as GI symptoms resolved, electrolytes remain stable Subjective Was watery diarrhea 45 times Blood in stool , no nausea vomiting, no abdominal pain tolerating solid food No fever or chills Review of Systems Review of Systems: All systems reviewed & are unremarkable except as noted in HPI & below Physical Exam Constitutional: WD/WN, vitals as above Eyes: PERRL, conjunctivae normal, anicteric sclerae ENMT: external ear and nose normal, oropharynx normal Respiratory: normal respiratory effort; no respiratory distress Cardiovascular: Rate/Rhythm: regular rate and regular rhythm Vessels: normal peripheral pulses Extremities: no edema Gastrointestinal (Abdomen): Inspection/Auscultation: normal bowel sounds (Hyperactive); abdomen not distended Percussion/Palpation: + abdomen tender (Mild, generalized) and abdomen soft; no hepatosplenomegaly Musculoskeletal: no cyanosis or clubbing, extremities motor strength 5/5 Skin: no rashes, warm and dry Neurologic: PERRL, EOMI, accommodation nl, no face palsy, no dysarthria Psychiatric: A+Ox3, euthymic affect Results & Data Vital Signs (Past 12 Hours) Vital Signs Temp Pulse Pulse Resp BP Pulse Ox 10/25/18 18:49 36.8 C 82 18 133/82 96 10/25/18 15:21 36.8 C 79 18 125/78 94 10/25/18 11:09 36.6 C 84 18 128/85 97 10/25/18 07:23 74
[2018-10-25] MEDS ORDERED: LOPERAMIDE HCL 2 MG CAP PO STA (19:28)
[2018-10-25] MEDS ORDERED: LOPERAMIDE HCL 2 MG CAP PO PRN (19:29)
[2018-10-25] MEDS: MAGNESIUM SULFATE / D5W 1 GM/100 ML BAG IV SCH ×3 (19:46→22:21)
[2018-10-25] MEDS: ALPRAZolam 0.5 MG TABLET PO PRN (21:07)
[2018-10-26] MEDS: POTASSIUM CHLORIDE 40 MEQ in SODIUM CHLORIDE 0.9% 1000ML 1,000 ML IV SCH (08:01)
[2018-10-26] MEDS: OXcarbazepine 150 MG TABLET PO SCH ×3 (08:02→21:49)
[2018-10-26] MEDS: FLUTICASONE/SALMETEROL 250/50 (ADVAIR) 14 PUFF/1 INHALER INH SCH ×2 (08:02→21:46)
[2018-10-26] MEDS: NICOTINE 21 MG/24 HR TDSY TD SCH (08:03)
[2018-10-26] MEDS: ATORVASTATIN 20 MG TAB PO SCH (08:03)
[2018-10-26] MEDS: GABAPENTIN 300 MG CAP PO SCH ×3 (08:03→21:47)
[2018-10-26] MEDS: PANTOprazole 40 MG TAB PO SCH (08:03)
[2018-10-26] MEDS: CITALOPRAM 40 MG TAB PO SCH (08:03)
[2018-10-26] MEDS: INSULIN GLARGINE SOLOSTAR 100 UNITS/ML 3 ML PEN SC SCH ×2 (08:05→21:46)
[2018-10-26] MEDS: INSULIN ASPART 100 UNITS/ML 3 ML PEN SC SCH ×4 (08:06→21:48)
[2018-10-26 08:14] LABS: Basophils # (auto) 0.06 K/uL (0-0.2); Basophils % (auto) 0.3 %; Eosinophils # (auto) 5.78 K/uL (0-0.5); Eosinophils % (auto) 27.2 %; Hemoglobin 14.4 g/dL (12.0-16.0); Immature Granulocytes # (auto) 0.21 K/uL (0.00-0.02); Lymphocytes % (auto) 21.6 %; Mean Corpuscular Hemoglobin 27.4 pg (25-34); Mean Corpuscular Hgb Conc 35.1 g/dL (32-36); Mean Corpuscular Volume 78.1 fL (80-100); Monocytes # (auto) 0.94 K/uL (0.11-0.59); Monocytes % (auto) 4.4 %; Neutrophils # (auto) 9.69 K/uL (1.4-6.5); Neutrophils % (auto) 45.5 %; Platelet Count 148 K/uL (130-400); RDW Coefficient of Variation 14.1 % (11.5-14.5); RDW Standard Deviation 40.1 fL (36.4-46.3); Red Blood Count 5.25 M/uL (4.2-5.4); White Blood Count 21.28 K/uL (4.8-10.8)
[2018-10-26 08:49] LABS: Calcium 7.6 mg/dl (8.5-10.1); Creatinine Clr Calc Pharmacy 133.2 ml/min; Est GFR (African American) 123.2; Est GFR (Non-African American) 106.3; Magnesium 1.5 mg/dl (1.8-2.4); Potassium 3.5 mmol/L (3.5-5.1)
[2018-10-26 08:55] LABS: Phosphorus 2.2 mg/dl (2.5-4.9)
[2018-10-26] MEDS: MAGNESIUM OXIDE 400 MG TAB PO SCH ×2 (09:46→21:48)
--- NOTE | 2018-10-26 15:07 | Hospitalist Progress Note ---
Date of Service October 26, 2018 Assessment & Plan (1) Enteritis: Initially presented with nausea, vomiting and profuse diarrhea. Etiologies include but are not limited to viral enteritis, adverse reaction to hypoglycemics including Bydureon, started 4 weeks ago, recent marijuana abuse, uncontrolled blood glucose levels. She is now tolerating solid food but reports persistent diarrhea. Leukocytosis is still persistently 21K, but she is afebrile and hemodynamically stable. She appears improved overall. Continue to monitor stool output and replace electrolytes as needed. Stool culture is negative from this admission and last. If no improvement tomorrow may consider gastroenterology consult. At this point would not continue Bydureon at discharge and would opt for either no replacement or additional p.o. therapy (2) Hypokalemia: Secondary to GI loss, improved. Monitor BMP in a.m. (3) Hypomagnesemia: Secondary to GI loss. Added mag oxide twice daily. IV replacement given overnight. Repeat in a.m. (4) Leukocytosis: Possibly secondary to infection with viral enteritis versus inflammatory state in the setting of hyperemesis and recent cannabis use. Etiology unclear at this time. Trend CBC daily and monitor for fever. She appears clinically improved today so this is less concerning. (5) DM type 2 (diabetes mellitus, type 2): Hemoglobin A1c is 6.8 reflecting good control. Will discontinue Bydureon at discharge, and Januvia which she reports adverse side effects to in the past. We will continue insulin and will consider additional agents based on inpatient needs. Close follow-up with primary care is recommended. (6) Asthma, mild intermittent: -Stable, no signs of acute exacerbation -Continue home inhalers (7) Dyslipidemia: -Continue statin therapy (8) Bipolar 1 disorder: Stable, continue Trileptal per outpatient regimen (9) Depression: Stable, continue citalopram per home regimen. (10) Morbid obesity: (11) DVT prophylaxis: Lovenox CODE STATUS: Full code Disposition: Expect to home once electrolytes remain stable and GI symptoms improved. Tomeka Ovalle DO [facility] Hospitalist Subjective 48-year-old diabetic female with a history of marijuana use presents with intractable nausea and vomiting. She was recently admitted for the same issue and had a resolution of this, then went home and reports subsequent nausea and vomiting again. She does report smoking marijuana and she is taking Bydureon injectable for diabetes which was started 4 weeks ago. She reports lead sugar numbers in the 300 range on average but her A1c recently was 6.7, reflecting good control. She reports a resolution of the nausea and vomiting and is tolerating solid food but is still having watery diarrhea that is profuse. She denies any abdominal pain. She is a smoker and was counseled to quit smoking, but refers reports that "people pissed me off, therefore I am not going to quit." She reports taking metformin and Januvia in the past but this has been unsuccessful secondary to adverse side effects. She reports taking glipizide versus glyburide in the past, she is not sure which, and states she was taken off this but does not know why. She is using insulin at home. Review of Systems Review of Systems: All systems reviewed & are unremarkable except as noted in HPI & below Physical Exam Physical Exam: CONSTITUTIONAL: WNWD, vitals as above, generally well- appearing EYES: normal conjunctivae, no scleral icterus ENT: MMM RESPIRATORY: clear to auscultation bilaterally, no crackles, rales or wheezes, normal respiratory effort CARDIOVASCULAR: regular rate and rhythm, S1 and 2 heard without murmurs, gallops or rubs, no JVD, no peripheral edema GASTROINTESTINAL: soft, nontender, nondistended MUSCULOSKELETAL: strength 5/5 throughout, head is normocephalic and atraumatic, SKIN: warm and dry NEUROLOGIC: CN 2-12 grossly intact, no sensory deficit, normal cognition, normal speech, no tremor, no gross focal deficits. PSYCHIATRIC: alert cooperative and oriented Results & Data Vital Signs (Past 12 Hours) Vital Signs Temp Pulse Pulse Pulse Resp BP BP 10/26/18 14:52 36.9 C 76 20 155/84 H 10/26/18 06:53 36.6 C 83 18 116/76 10/26/18 04:54 71 Pulse Ox 10/26/18 14:52 97 10/26/18 06:53 97 10/26/18 04:54 Laboratory Results Short CBC 10/26/18 Range/Units 07:55 WBC 21.28 H (4.8-10.8) K/uL Hgb 14.4 (12.0-16.0) g/dL Hct 41.0 (37-47) % Plt Count 148 (130-400) K/uL BMP 10/26/18 07:55 Sodium 141 Potassium 3.5 Chloride 111 H Carbon Dioxide 24 BUN 6 L Creatinine 0.64 Glucose 99 Calcium 7.[address] abd pelvis IV con only CT DOSE: 1498.84 mGy.cm HISTORY: Nausea. Pain. Pt c/o N V D TECHNIQUE: Multiaxial CT images of the abdomen and pelvis were performed following the use of intravenous contrast. A dose lowering technique was utilized adhering to the principles of ALARA. COMPARISON STUDY: None. FINDINGS: Lung bases are clear. Mild fatty replacement of the liver. Several small splenic hypodensities possibly cystic. Prior cholecystectomy. Several peripancreatic and retroperitoneal nodes measuring to 1.5 cm. These potentially are reactive. Findings consistent with nonspecific small bowel enteritis. Colonic bowel pattern is unremarkable. Findings of mild chronic sigmoid diverticulosis. No evidence for acute diverticulitis. Normal appendix. IMPRESSION: 1. Nonspecific small bowel enteritis. 2. Chronic sigmoid diverticulosis. 3. Several possibly reactive nodes of the upper abdominal region. 4. These nodes should be followed with a repeat scan to 3 months to exclude more significant pathology. Medications Administered Current Inpatient Medications Acetaminophen (Tylenol) 650 mg PO Q4H PRN PRN Reason: pain/fever Stop: 11/23/18 18:53 Alprazolam (Xanax) 1 mg PO TID PRN PRN Reason: Anxiety Stop: 11/23/18 18:53 Last Admin: 10/25/18 21:07 Dose: 1 mg Documented by: Atorvastatin Calcium (Lipitor) 20 mg PO DAILY [facility] Stop: 11/24/18 08:59 Last Admin: 10/26/18 08:03 Dose: 20 mg Documented by: Citalopram Hydrobromide (Celexa) 40 mg PO DAILY [facility] Stop: 11/24/18 08:59 Last Admin: 10/26/18 08:03 Dose: 40 mg Documented by: Dextrose (Dextrose 50%) 25 - 50 ml IV UD PRN; Protocol PRN Reason: Hypoglycemia Protocol Stop: 11/23/18 18:53 Gabapentin (Neurontin) 300 mg PO TID [facility] Stop: 11/23/18 20:59 Last Admin: 10/26/18 13:33 Dose: 300 mg Documented by: Glucagon (Glucagen) 1 mg SQ UD PRN; Protocol PRN Reason: Hypoglycemia Protocol Stop: 11/23/18 18:53 Glucose (Glucose 40%) 15 - 30 gm PO UD PRN; Protocol PRN Reason: Hypoglycemia Protocol Stop: 11/23/18 18:53 Glucose (Dex4 Glucose) 4 - 8 tabs PO UD PRN; Protocol PRN Reason: Hypoglycemia Protocol Stop: 11/23/18 18:53 Hydrocortisone (Proctozone Hc 2.5%) 1 appln EXT QID PRN PRN Reason: Hemorrhoids Stop: 11/23/18 20:00 Last Admin: 10/25/18 13:00 Dose: 1 appln Documented by: Insulin Aspart (Novolog Flexpen) 0 units SC ACHS [facility] Stop: 11/23/18 20:59 Last Admin: 10/26/18 12:30 Dose: 7 units Documented by: Insulin Glargine (Lantus Solostar Pen) 0 - 20 units SC BID [facility] Stop: 11/23/18 20:59 Last Admin: 10/26/18 08:05 Dose: Not Given Documented by: Magnesium Oxide (Mag-Ox) 400 mg PO BID [facility] Stop: 11/25/18 09:29 Last Admin: 10/26/18 09:46 Dose: 400 mg Documented by: Miscellaneous (Carbohydrates For Hypoglycemia) 15 - 30 gm PO UD PRN PRN Reason: Hypoglycemia Treatment Stop: 11/23/18 18:53 Miscellaneous (Remove Nicoderm Patch) 1 ea N/A HS [facility] Stop: 11/23/18 20:59 Last Admin: 10/25/18 21:11 Dose: 1 ea Documented by: Nicotine (Nicoderm Cq) 21 mg TD QAM [facility] Stop: 11/23/18 18:59 Last Admin: 10/26/18 08:03 Dose: 21 mg Documented by: Ondansetron HCl (Zofran) 4 mg IV Q6H PRN PRN Reason: Nausea Stop: 11/24/18 17:08 Last Admin: 10/25/18 19:46 Dose: 4 mg Documented by: Oxcarbazepine (Trileptal) 300 mg PO TID [facility] Stop: 11/23/18 20:59 Last Admin: 10/26/18 13:33 Dose: 300 mg Documented by: Pantoprazole Sodium (Protonix) 40 mg PO DAILY [facility] Stop: 11/24/18 08:59 Last Admin: 10/26/18 08:03 Dose: 40 mg Documented by: Ranitidine HCl (Zantac) 300 mg PO HS [facility] Stop: 11/23/18 20:59 Last Admin: 10/25/18 21:07 Dose: 300 mg Documented by: Fluticasone/Salmeterol (Advair Diskus 250/50) 1 puffs INH BID [facility] Stop: 11/23/18 20:59 Last Admin: 10/26/18 08:02 Dose: 1 puffs Documented by:
[2018-10-26 16:04] LABS: INR 1.1 (0.9-1.1); Partial Thromboplastin Ratio 0.9; Partial Thromboplastin Time 23.9 Seconds (21.0-31.0); Prothrombin Time 11.5 Seconds (9.0-12.0)
[2018-10-26] MEDS ORDERED: ENOXAPARIN INJ 40 MG/0.4 ML SYR SQ SCH (18:00)
[2018-10-26] MEDS: ALPRAZolam 0.5 MG TABLET PO PRN (21:53)
[2018-10-27 07:03] VITALS: TEMP 98.2
[2018-10-27 08:23] LABS: Basophils # (auto) 0.05 K/uL (0-0.2); Basophils % (auto) 0.3 %; Eosinophils # (auto) 4.12 K/uL (0-0.5); Eosinophils % (auto) 23.1 %; Hematocrit (blood only) 41.9 % (37-47); Hemoglobin 14.4 g/dL (12.0-16.0); Immature Granulocytes # (auto) 0.16 K/uL (0.00-0.02); Immature Granulocytes % (auto) 0.9 %; Lymphocytes % (auto) 26.4 %; Mean Corpuscular Hgb Conc 34.4 g/dL (32-36); Mean Corpuscular Volume 78.6 fL (80-100); Mean Platelet Volume 10.4 fL (7.4-10.4); Monocytes # (auto) 0.73 K/uL (0.11-0.59); Monocytes % (auto) 4.1 %; Neutrophils # (auto) 8.06 K/uL (1.4-6.5); Neutrophils % (auto) 45.2 %; Platelet Count 145 K/uL (130-400); RDW Standard Deviation 39.7 fL (36.4-46.3); Red Blood Count 5.33 M/uL (4.2-5.4); White Blood Count 17.82 K/uL (4.8-10.8)
[2018-10-27 08:48] LABS: BUN Creatinine Ratio 9.8 (10-20); Calcium 8.1 mg/dl (8.5-10.1); Creatinine Clr Calc Pharmacy 125.4 ml/min; Est GFR (African American) 120.7; Est GFR (Non-African American) 104.2; Magnesium 1.3 mg/dl (1.8-2.4); Potassium 3.2 mmol/L (3.5-5.1)
[2018-10-27] MEDS: INSULIN ASPART 100 UNITS/ML 3 ML PEN SC SCH ×3 (10:05→17:37)
[2018-10-27] MEDS: INSULIN GLARGINE SOLOSTAR 100 UNITS/ML 3 ML PEN SC SCH (10:06)
[2018-10-27] MEDS: FLUTICASONE/SALMETEROL 250/50 (ADVAIR) 14 PUFF/1 INHALER INH SCH (10:07)
[2018-10-27] MEDS: NICOTINE 21 MG/24 HR TDSY TD SCH (10:08)
[2018-10-27] MEDS: CITALOPRAM 40 MG TAB PO SCH (10:10)
[2018-10-27] MEDS: ATORVASTATIN 20 MG TAB PO SCH (10:10)
[2018-10-27] MEDS: MAGNESIUM OXIDE 400 MG TAB PO SCH (10:10)
[2018-10-27] MEDS: GABAPENTIN 300 MG CAP PO SCH ×2 (10:10→14:46)
[2018-10-27] MEDS: PANTOprazole 40 MG TAB PO SCH (10:11)
[2018-10-27] MEDS: OXcarbazepine 150 MG TABLET PO SCH ×2 (10:11→14:45)
[2018-10-27] MEDS: MAGNESIUM SULFATE / D5W 1 GM/100 ML BAG IV SCH ×4 (12:05→15:57)
[2018-10-27 12:09] LABS: 7-Aminoclonaz, Confirm 37 NG/ML (CUTOFF=25); Hydro-Alp Ur, GC/MS 169 NG/ML (CUTOFF=25); Hydroxyethylflurazepam, Conf NEGATIVE NG/ML (CUTOFF=50); Hydroxytriazolam NEGATIVE NG/ML (CUTOFF=50); Lorazepam, Ur GC/MS NEGATIVE NG/ML (CUTOFF=50); Marijuana Quant, GCMS Urine 6 NG/ML (CUTOFF=5); Nordiazepam, Confirm NEGATIVE NG/ML (CUTOFF=50); Oxazepam Ur, GC/MS NEGATIVE NG/ML (CUTOFF=50); Temazepam, Confirm NEGATIVE NG/ML (CUTOFF=50)
[2018-10-27] MEDS ORDERED: BUTT PASTE (ZINC OXIDE 16%) 171 APPLN/57 GM JAR EXT PRN (13:01)
--- NOTE | 2018-10-27 13:12 | Discharge Summary ---
Date of Service October 27, 2018 Admission HPI Per Admitting Provider 48-year-old female who was referred to the ED for evaluation of hypokalemia and hypomagnesemia. Patient recently admitted to [facility] 10/19 through 10/21 for nausea, vomiting, diarrhea, electrolyte abnormalities. Patient reports she felt well the day she was discharged in the hospital however the past 2 days she has had continued vomiting and diarrhea. She reports 3-4 episodes of each per day. Today, she reports no vomiting, nausea, diarrhea. She denies hematemesis or coffee-ground emesis. No bright red bleeding per rectum or dark tarry stools. She has some mild abdominal pain from the persistent vomiting. She denies fevers and chills. No lightheadedness, dizziness, diaphoresis, syncopal events. Denies chest pain shortness of breath. No urinary symptoms. Outpatient labs today demonstrated K+ 2.7, MG +1.1, WBC 28K. Patient received a phone call to come to the ED for evaluation. In the ER, patient is afebrile, hemodynamically stable. She was given IVF, potassium replacement, magnesium replacement. Admission Exam Per Admitting Provider WD/WN, vitals as above Eyes: PERRL, conjunctivae normal, anicteric sclerae ENMT: external ear and nose normal, oropharynx normal Respiratory: normal respiratory effort; no respiratory distress Auscultation: + wheezes (Faint, scattered) Cardiovascular: Rate/Rhythm: regular rate and regular rhythm Vessels: normal peripheral pulses Extremities: no edema Gastrointestinal (Abdomen): Inspection/Auscultation: normal bowel sounds (Hyperactive); abdomen not distended Percussion/Palpation: + abdomen tender (Mild, generalized) and abdomen soft; no hepatosplenomegaly Musculoskeletal: no cyanosis or clubbing, extremities motor strength 5/5 Skin: no rashes, warm and dry Neurologic: PERRL, EOMI, accommodation nl, no face palsy, no dysarthria Psychiatric: A+Ox3, euthymic affect Principal Diagnosis acute enteritis hypokalemia hypomagnesemia marijuana use [id number] Discharge Data Allergies Allergy/AdvReac Type Severity Reaction Status Date / Time Penicillins Allergy Severe "I GET ALL Verified 10/19/18 18:21 SWELLED UP." Consultations 10/24/18 16:39 ED Decision to Admit Stat Hospital Course (1) Enteritis: (2) Hypokalemia: (3) Hypomagnesemia: (4) Leukocytosis: (5) DM type 2 (diabetes mellitus, type 2): (6) Morbid obesity: 48-year-old female with a history of smoking and marijuana use and a recent admission from 10/19 through 10/21 for nausea vomiting and diarrhea as well as electrolyte abnormalities presented for a similar issue. She reports feeling well when she went home, however, within a couple of days she had a return of her vomiting and diarrhea. Her urine tox screen was positive for marijuana and she was educated on cannabinoid hyperemesis syndrome. CT imaging revealed a mild enteritis. She was admitted to the hospitalist service and potassium and magnesium were replaced. White blood cell count was notably 28,000 which improved by time of discharge to 17K. She remained afebrile and hemodynamically stable throughout her entire hospitalization. At time of discharge she was hemodynamically stable and afebrile and mentating ambulating at baseline. She was tolerating solid food reliably with no further nausea or vomiting and diarrhea had resolved. Physical exam otherwise revealed clear lungs to auscultation, normal heart exam with S1/S2 heard and no evidence of murmurs, gallops, rubs. She was euvolemic. Abdomen was soft and nontender without distention. She was discharged in stable condition with close primary care follow-up recommended. Additional recommendations were made regarding her medications including stopping Bydureon, stopping Januvia, and continuing with Lantus as monotherapy for now with a possible transition to glipizide as monotherapy as an outpatient after discussion with primary care doctor. It was thought Bydureon may be contributing to her diarrhea and GI difficulties and she refused to take Januvia because of adverse reactions she had previously experienced. Additionally with persistent magnesium deficits, pantoprazole was stopped and magnesium supplements were provided at discharge. Hypomagnesemia was likely secondary to diarrhea, however, with readmission and persistent low magnesium pantoprazole may also be contributing. She will continue ranitidine for acid reflux issues and discuss further management with medications with her primary care doctor on follow-up. She was also educated to quit smoking and is open to try nicotine patches which have been provided for her at discharge. Will defer to primary care doctor to stepdown in dosing of patches as the weeks progress. Total Time Total Time Spent Total Time Spent (In Minutes): 60 Total Time Includes: Examination of the Patient, Discharge Planning, Medication Reconciliation and Communication With Other Providers Discharge Plan Discharge Items Patient Disposition: Home - Self-Care Discharge Diagnosis: Enteritis, Marijuana use, Hypokalemia, Hypomagnesemia Condition: Good Discharge Goals: Decrease discomfort Activity: Resume your previous activity Non-emergency contact: Primary Care Provider Call non-emergency contact if: you have any medication questions, your symptoms worsen, your pain is not controlled, your pain is worsening, your pain is unusual for you, your pain is concerning for you and you have a fever Follow-up/Referrals: Suzan Dean, [Primary Care Provider] - Diet: Carb Consistent or DM2 Addtl Provider Instructions: Please take all medications as instructed. You have a follow-up appointment with your primary care physician (PCP) as scheduled below. Please continue efforts to quit smoking. A prescription for Nicotine replacem ent patches has been provided. This dose will need to step down in 7-14 days, and your PCP can help with this transition and any new prescriptions. It is recommended that you discuss diabetes medications with your PCP on follow- up. Specifically, it may be possible for you to come off insulin and continue with an oral medication such as glipizide as monotherapy. I would recommend stopping Bydureon and Januvia based on your history of adverse drug reactions. It is recommended that you stop Pantoprozole, for acid reflux, as this class of medications has been associated with low magnesium levels. You have been provided with magnesium supplementation at discharge. Please discuss the need to continue this or repeat labwork with your PCP when you see her in follow-up. You were seen to have several possible reactive nodes in the upper abdominal region on CT scan of the abdomen pelvis with IV contrast. This is likely from your recent GI illness, however, imaging of these nodes should be repeated in 3 months to exclude more significant pathology. This can be ordered through your primary care provider. It was a pleasure taking care of you! Please call if you have any questions or problems. You can reach a [facility] hospitalist on duty at [facility] 24 hours a day by calling [phone]. Take care of yourself. Tomeka Ovalle DO [facility] Hospitalist Prescriptions: New nicotine [Nicoderm CQ] 21 mg/24 hr Patch 24 Hour 21 mg transdermal QAM Qty: 14 RF: 0 magnesium oxide 400 mg (241.3 mg magnesium) Tablet 400 mg PO BID Qty: 60 RF: 0 Continued citalopram 40 mg Tablet 40 mg PO DAILY Qty: 0 RF: 0 ranitidine HCl [Zantac] 300 mg Tablet 300 mg PO HS Qty: 0 RF: 0 albuterol sulfate [ProAir HFA] 90 mcg/actuation Hfa Aerosol Inhaler 2 puff INHALATION UD PRN (Reason: Shortness Of Breath) Qty: 0 RF: 0 fluticasone propion-salmeterol [Advair Diskus] 250-50 mcg/dose blister with device 1 inh inhalation BID RF: 0 alprazolam [Xanax] 1 mg tablet 1 mg PO TID PRN (Reason: Anxiety) RF: 0 oxcarbazepine 300 mg tablet 300 mg PO TID RF: 0 gabapentin 300 mg capsule 300 mg PO TID RF: 0 Lantus Solostar U-100 Insulin 100 unit/mL (3 mL) insulin pen 25 unit subcut QPM RF: 0 atorvastatin 20 mg tablet 20 mg PO DAILY RF: 0 Discontinued pantoprazole 40 mg Tablet,Delayed Release (Dr/Ec) 40 mg PO DAILY Qty: 0 RF: 0 Januvia 100 mg tablet 100 mg PO DAILY RF: 0 Bydureon BCise 2 mg/0.85 mL auto-injector 2 mg subcut WK RF: 0 Stand-Alone Forms: [facility] Discharge Orders: Discharge Order (Routine); Ordered 10/27/18 Ordered By: Tomeka Ovalle Admission Data Admit Date/Time: 10/25/18 17:15 Attending Provider: Tomeka Ovalle Admit Provider: Tiara Marshall Primary Care Provider: Suzan Dean Other Providers: Tiara Marshall Service: Medical
[2018-10-27] MEDS: POTASSIUM CHLORIDE 20 MEQ TABCR PO SCH ×2 (13:16→15:58)
[2018-10-27 14:59] VITALS: O2SAT 96
[2018-10-27 16:05] VITALS: BP 116/76; PULSE 83
== END 2018-10-27 18:03 | disposition home or self-care (01) | DRG 392 ==
LOC: 2W 16:07 → ED 16:07 → 2W 18:51 → SUATTDRO 10-25 17:15

== ENCOUNTER 2023-05-03 16:55 | Inpatient (IN) ==
--- NOTE | 2023-05-03 17:19 | ED Triage Note ---
Date of Service May 03, 2023 Provider in Triage Author: Lucia Garcia History of Present Illness This patient was briefly evaluated while in triage. An abbreviated physical exam was performed. This patient is a 53-year-old Female who presents to the ED for evaluation of shortness of breath. She states this started 4 days ago. She does report some chest pain. Denies recent illness, cough, fevers. She is a smoker. She used a nebulizer and inhalers at home without relief. Physical Exam GENERAL: Non-toxic and in no acute distress. HEENT: Pupils equal. No obvious scleral icterus. HEART: Regular rate and rhythm. LUNGS: Inspiratory and expiratory wheezing throughout. NEURO: Alert and oriented. No obvious neurological deficits on quick neuro exam. Initial orders for labs and / or imaging were placed and patient was placed in the waiting area until a bed is available. Please see further documentation for the full ED course.
[2023-05-03] MEDS: ALBUT/IPRATROP 3MG/0.5MG NEB 3 ML VIAL NEB STA (17:30)
[2023-05-03] MEDS: ALBUT/IPRATROP 3MG/0.5MG NEB 3 ML VIAL NEB ONE (17:42)
[2023-05-03 17:44] LABS: Base Excess VBG 5.3 mEq/L; HCO3 VBG 31 mmol/L; Oxygen Saturation VBG 77.6 %; PCO2 VBG 46 mmHg (38-50); PO2 VBG 43 mmHg; pH VBG 7.43 (7.36-7.41)
[2023-05-03] MEDS: methylPREDNISolone 125 MG/2 ML VIAL IV STA (17:49)
[2023-05-03 17:50] LABS: Basophils # (auto) 0.04 K/uL (0.00-0.20); Basophils % (auto) 0.4 %; Eosinophils # (auto) 0.92 K/uL (0.00-0.50); Hematocrit (blood only) 45.8 % (37.0-47.0); Hemoglobin 16.1 g/dl (12.0-16.0); Immature Granulocytes # (auto) 0.03 K/uL (0.01-0.20); Immature Granulocytes % (auto) 0.3 %; Lymphocytes # (auto) 1.59 K/uL (1.20-3.40); Lymphocytes % (auto) 17.3 %; Mean Corpuscular Hemoglobin 29.6 pg (25.0-34.0); Mean Corpuscular Hgb Conc 35.2 g/dL (32.0-36.0); Mean Corpuscular Volume 84.2 fL (80.0-100.0); Mean Platelet Volume 9.6 fL (9.4-12.4); Monocytes # (auto) 0.77 K/uL (0.11-0.59); Monocytes % (auto) 8.4 %; Neutrophils # (auto) 5.82 K/uL (1.40-6.50); Neutrophils % (auto) 63.6 %; Platelet Count 275 K/uL (130-400); RDW Coefficient of Variation 13.2 % (11.5-14.5); RDW Standard Deviation 40.1 fL (36.4-46.3); Red Blood Count 5.44 M/uL (4.20-5.40); White Blood Count 9.17 K/ul (4.8-10.8)
--- NOTE | 2023-05-03 18:11 | XRay Report ---
XR chest 1V portable HISTORY: 53 years-old Female Dyspnea acute shortness of breath COMPARISON: 10/24/2018 TECHNIQUE: AP view of the chest FINDINGS: Cardiomediastinal and hilar silhouettes are within normal limits. Pulmonary vascular congestion. No p neumothorax, large pleural effusion or lobar airspace consolidation. Bones appear grossly intact. IMPRESSION: Cardiomegaly with pulmonary vascular congestion. ACT 112: Negative or not required by law. The above report was generated using voice recognition software. It may contain grammatical, syntax o r spelling errors. Electronically signed by: Terrell Busch M.D. 05/03/2023 6:10 PM
[2023-05-03 18:14] LABS: Albumin Globulin Ratio 1.1 (0.9-2); Albumin Level 4.2 gm/dl (3.4-5.0); BUN Creatinine Ratio 12.8 (10-20); Bilirubin,Total 0.5 mg/dl (0.2-1.0); Calcium 9.3 mg/dl (8.6-10.3); Est GFR (African American) 101.3 ml/min; Est GFR (Non-African American) 87.4 ml/min; Globulin 3.7 gm/dl (2.5-4.0); Potassium 3.8 mmol/L (3.5-5.1); Total Protein 7.9 gm/dl (6.0-8.3)
[2023-05-03 18:18] LABS: Troponin I High Sensitivity 5.7 pg/ml (0-14)
[2023-05-03 19:09] LABS: Adenovirus PCR Not Detected (NotDetected); Bordetella parapertussis PCR Not Detected (NotDetected); Bordetella pertussis PCR Not Detected (NotDetected); Chlamydia pneumoniae PCR Not Detected (NotDetected); Coronavirus 229E PCR Not Detected (NotDetected); Coronavirus CoV-2 (COVID19)PCR Not Detected (NotDetected); Coronavirus HKU1 PCR Not Detected (NotDetected); Coronavirus NL63 PCR Not Detected (NotDetected); Coronavirus OC43PCR Not Detected (NotDetected); Human Metapneumovirus PCR Not Detected (NotDetected); Influenza A PCR Not Detected (NotDetected); Influenza B PCR Not Detected (NotDetected); Mycoplasma pneumoniae PCR Not Detected (NotDetected); Parainfluenza Virus 1 PCR Not Detected (NotDetected); Parainfluenza Virus 2 PCR Not Detected (NotDetected); Parainfluenza Virus 3 PCR Not Detected (NotDetected); Parainfluenza Virus 4 PCR Not Detected (NotDetected); Respiratory Syncytial VirusPCR Not Detected (NotDetected); Rhinovirus/Enterovirus PCR Not Detected (NotDetected)
--- NOTE | 2023-05-03 20:26 | History & Physical Report ---
Date of Service May 03, 2023 Assessment & Plan (1) Asthma exacerbation: Plan: 53-year-old female with past medical history significant for type 2 diabetes, hyperlipidemia, asthma, hypertension, obesity, depression, bipolar 1 disorder, ongoing tobacco abuse, presents with shortness of breath going on since last Wednesday and getting progressively worse. Has some minimal cough. Denies any fevers. Has some chest tightness. No nausea. No runny nose or sore throat. No abdominal pain. Appetite is okay. Normal bowel and bladder movements. Oxygen 81% room air. Currently on 5 L and later required high flow . Asthma/COPD exacerbation Ongoing tobacco abuse IV Solu-Medrol, nebs [id number] and as needed Requiring high oxygen supplementation Continue home inhalers Close monitor CTA chest showing possible pneumonitis. Placed on Levaquin. Pulmonary consult in a.m. for further recommendations Chest tightness Possible from above Troponin negative Abdominal EKG Will follow serial enzymes and echo Possible esophagitis and CAT scan IV Protonix Diabetes Continue home Lantus Sliding scale HbA1c levels Will monitor Morbid obesity Needs counseling May need sleep study Tobacco abuse Needs counseling Hypertension Except Lasix not on medications Will monitor Hyperlipidemia On statin History of bipolar 1 disorder Depression On citalopram, Abilify, oxcarbazepine DVT prophylaxis Lovenox Disposition Med/tele Full code History of Present Illness Chief Complaint: Shortness of breath Primary Care Provider: Suzan Dean DO 53-year-old female with past medical history significant for type 2 diabetes, hyperlipidemia, asthma, hypertension, obesity, depression, bipolar 1 disorder, ongoing tobacco abuse, presents with shortness of breath going on since last Wednesday and getting progressively worse. Has some minimal cough. Denies any fevers. Has some chest tightness. No nausea. No runny nose or sore throat. No abdominal pain. Appetite is okay. Normal bowel and bladder movements. Oxygen 81% room air. Currently on 5 L and later required high flow . Past medical history as mentioned above Past surgical history.. Colonoscopy. Left knee arthroscopy. Tonsillectomy and adenoidectomy. Social history. Smokes 1 pack a day .no alcohol use. No drug use. History of heroin use Family history. Maternal grandfather had cancer. Maternal grandmother had diabetes. Hypertension. Mother had depression. Allergies Allergy/AdvReac Type Severity Reaction Status Date / Time Penicillins Allergy Severe SWELLING Verified 05/03/23 18:15 OF FACE, HIVES lisinopril AdvReac Intermediate LOWERED Verified 05/03/23 18:15 BLOOD PRESSURE TOO MUCH, PER [facility] Home Medications Medication Instructions Recorded Confirmed Type albuterol sulfate 90 mcg/actuation 2 puff inhalation QID PRN 06/09/14 05/03/23 History aerosol inhaler (ProAir HFA) Shortness Of Breath Or Wheezing ##0 citalopram 40 mg tablet 40 mg PO QAM ##0 06/09/14 05/03/23 History fluticasone 250 mcg-salmeterol 50 1 inh inhalation BID 10/19/18 05/03/23 History mcg/dose blistr powdr for inhalation (Advair Diskus) gabapentin 300 mg capsule 300 mg PO TID 10/19/18 05/03/23 History insulin glargine 100 unit/mL (3 40 unit subcut QPM 10/19/18 05/03/23 History mL) subcutaneous pen (Lantus Solostar U-100 Insulin) oxcarbazepine 300 mg tablet 300 mg PO TID 10/19/18 05/03/23 History atorvastatin 20 mg tablet 20 mg PO QAM 10/24/18 05/03/23 History meloxicam 7.5 mg tablet 7.5 mg PO QAM 02/27/20 05/03/23 History omeprazole 20 mg capsule,delayed 20 mg PO DAILYBB 02/27/20 05/03/23 History release aripiprazole 5 mg tablet (Abilify) 5 mg PO HS 10/29/22 05/03/23 History dulaglutide 4.5 mg/0.5 mL 4.5 mg subcut WK 05/03/23 05/03/23 History subcutaneous pen injector (Trulicity) fluticasone furoate 100 1 inh inhalation DAILY 05/03/23 05/03/23 History mcg-vilanterol 25 mcg/dose inhalation powder (Breo Ellipta) furosemide 20 mg tablet 20 mg PO QAM 05/03/23 05/03/23 History ipratropium 0.5 mg-albuterol 3 mg 3 ml inhalation QID 05/03/23 05/03/23 History (2.5 mg base)/3 mL nebulization soln levocetirizine 5 mg tablet (Xyzal) 5 mg PO HS 05/03/23 05/03/23 History magnesium chloride 64 mg 64 mg PO DAILY 05/03/23 05/03/23 History (magnesium chloride) tablet,delayed release montelukast 10 mg tablet 10 mg PO DAILY 05/03/23 05/03/23 History Past Med/Surg History Medical History Arthritis History of colon polyps Hemorrhoids Acid reflux History of kidney stones Bipolar 1 disorder Depression Hypertension Asthma, mild intermittent Dyslipidemia DM type 2 (diabetes mellitus, type 2) Surgical History History of colonoscopy History of History of tubal ligation S/P left knee arthroscopy S/P tonsillectomy and adenoidectomy Family History Grandmother (Maternal) Diabetes Hypertension Social History Smoking Status: Never smoker Tobacco Type: Cigarettes Cigarettes Per Day: 1ppd/advised npo; Second Hand Exposure: No; Do You Dip or Chew Tobacco: No; Hx Alcohol Use: No Hx Substance Use: No Preferred Language: Lao Communication Ability: Effective Cat Operator Required: No Beliefs That Will Affect Care: None marital status: Single Current Living Situation: Family Current Living Situation Comment: S/O Other Information That Helps Us Care for You: No Feels Safe at Home: Yes Safety Concerns: Feels Safe At This Time Assistive Devices: Cane and Walker Review of Systems Review of Systems: All systems reviewed & are unremarkable except as noted in HPI & below Physical Exam Physical Exam: General- Not in distress Head- atraumatic Eyes- PERRL. ENT- oropharynx clear Neck- supple, no JVD. Lungs- clear to auscultation b/l mild ronchi and wheezing Heart- regular rhythm; no murmur, no gallop. Abdomen- normal bowel sounds, soft, nontender, no distension. Extremities- no pretibial edema, no erythema seen. Neuro- alert, oriented ; PERRL, no facial palsy; no dysarthria; moves extremities. Results & Data Results & Data Vital Signs (Past 12 Hours) Vital Signs Temp Pulse Pulse Resp BP BP Pulse Ox 05/03/23 20:22 88 L 05/03/23 20:05 88 L 05/03/23 18:42 96 H 16 122/76 88 L 05/03/23 17:53 81 L 05/03/23 17:53 81 L 05/03/23 17:53 05/03/23 17:44 94 H 18 89 L 05/03/23 17:31 96 H 05/03/23 17:18 36.8 C 105 H 18 158/95 H 81 L O2 Del Method O2 Flow Rate 05/03/23 20:22 Nasal Cannula, Oxymask 5 05/03/23 20:05 Nasal Cannula 2 05/03/23 18:42 Room Air 05/03/23 17:53 Room Air 05/03/23 17:53 Room Air 05/03/23 17:53 Room Air 05/03/23 17:44 Room Air 05/03/23 17:31 05/03/23 17:18 Room Air Diagnostic Findings Laboratory Results WBC 9.17 K/ul (4.8-10.8) 05/03/23 17:30 RBC 5.44 M/uL (4.20-5.40) H 05/03/23 17:30 Hgb 16.1 g/dl (12.0-16.0) H 05/03/23 17:30 Hct 45.8 % (37.0-47.0) 05/03/23 17:30 MCV 84.2 fL (80.0-100.0) 05/03/23 17:30 MCH 29.6 pg (25.0-34.0) 05/03/23 17:30 MCHC 35.2 g/dL (32.0-36.0) 05/03/23 17:30 RDW Std Deviation 40.1 fL (36.4-46.3) 05/03/23 17:30 RDW Coeff of Harsh 13.2 % (11.5-14.5) 05/03/23 17:30 Plt Count 275 K/uL (130-400) 05/03/23 17:30 MPV 9.6 fL (9.4-12.4) 05/03/23 17:30 Immature Gran % (Auto) 0.3 % 05/03/23 17:30 Neut % (Auto) 63.6 % 05/03/23 17:30 Lymph % (Auto) 17.3 % 05/03/23 17:30 Jessamine % (Auto) 8.4 % 05/03/23 17:30 Eos % (Auto) 10.0 % 05/03/23 17:30 Baso % (Auto) 0.4 % 05/03/23 17:30 Neut # (Auto) 5.82 K/uL (1.40-6.50) 05/03/23 17:30 Lymph # (Auto) 1.59 K/uL (1.20-3.40) 05/03/23 17:30 Jessamine # (Auto) 0.77 K/uL (0.11-0.59) H 05/03/23 17:30 Eos # (Auto) 0.92 K/uL (0.00-0.50) H 05/03/23 17:30 Baso # (Auto) 0.04 K/uL (0.00-0.20) 05/03/23 17:30 Immature Gran # (Auto) 0.03 K/uL (0.01-0.20) 05/03/23 17:30 VBG pH 7.43 (7.36-7.41) H 05/03/23 17:30 VBG pCO2 46 mmHg (38-50) 05/03/23 17:30 VBG pO2 43 mmHg 05/03/23 17:30 VBG HCO3 31 mmol/L 05/03/23 17:30 VBG O2 Saturation 77.6 % 05/03/23 17:30 VBG Base Excess 5.3 mEq/L 05/03/23 17:30 Sodium 135 mmol/L (136-145) L 05/03/23 17:30 Potassium 3.8 mmol/L (3.5-5.1) 05/03/23 17:30 Chloride 98 mmol/L (98-107) 05/03/23 17: Carbon Dioxide 31 mmol/L (21-32) 05/03/23 17:30 Anion Gap 6 (3-11) 05/03/23 17:30 BUN 10 mg/dl (6-23) 05/03/23 17:30 Creatinine 0.78 mg/dl (0.6-1.2) 05/03/23 17:30 Est Cr Clr Drug Dosing 100.0 ml/min 05/03/23 17:30 Est GFR ( Amer) 101.3 ml/min 05/03/23 17:30 Est GFR (Non-Af Amer) 87.4 ml/min 05/03/23 17:30 BUN/Creatinine Ratio 12.8 (10-20) 05/03/23 17:30 Glucose 163 mg/dl (70-99(Fasting)) H 05/03/23 17:30 Calcium 9.3 mg/dl (8.6-10.3) 05/03/23 17:30 Total Bilirubin 0.5 mg/dl (0.2-1.0) 05/03/23 17:30 AST 27 U/L (13-39) 05/03/23 17:30 ALT 23 U/L (7-52) 05/03/23 17:30 Alkaline Phosphatase 78 U/L (34-104) 05/03/23 17:30 Troponin I High Sens 5.7 pg/ml (0-14) 05/03/23 17:30 B-Natriuretic Peptide 12 pg/ml (0-100) 05/03/23 17:30 Total Protein 7.9 gm/dl (6.0-8.3) 05/03/23 17:30 Albumin 4.2 gm/dl (3.4-5.0) 05/03/23 17:30 Globulin 3.7 gm/dl (2.5-4.0) 05/03/23 17:30 Albumin/Globulin Ratio 1.1 (0.9-2) 05/03/23 17:30 Adenovirus (PCR) Not Detected (NotDetected) 05/03/23 17:30 B. pertussis DNA (PCR) Not Detected (NotDetected) 05/03/23 17:30 B.parapertussis DNA PCR Not Detected (NotDetected) 05/03/23 17:30 C. pneumoniae DNA (PCR) Not Detected (NotDetected) 05/03/23 17:30 Coronavirus OC43 (PCR) Not Detected (NotDetected) 05/03/23 17:30 Coronavirus HKU1 (PCR) Not Detected (NotDetected) 05/03/23 17:30 Coronavirus 229E (PCR) Not Detected (NotDetected) 05/03/23 17:30 SARS-CoV-2 (PCR) Not Detected (NotDetected) 05/03/23 17:30 Coronavirus NL63 (PCR) Not Detected (NotDetected) 05/03/23 17:30 Human Metapneumovir PCR Not Detected (NotDetected) 05/03/23 17:30 Influenza Type A (PCR) Not Detected (NotDetected) 05/03/23 17:30 Influenza Type B (PCR) Not Detected (NotDetected) 05/03/23 17:30 M. pneumoniae (PCR) Not Detected (NotDetected) 05/03/23 17:30 Parainfluenza 1 (PCR) Not Detected (NotDetected) 05/03/23 17:30 Parainfluenza 2 (PCR) Not Detected (NotDetected) 05/03/23 17:30 Parainfluenza 3 (PCR) Not Detected (NotDetected) 05/03/23 17:30 Parainfluenza 4 (PCR) Not Detected (NotDetected) 05/03/23 17:30 RSV (PCR) Not Detected (NotDetected) 05/03/23 17:30 Entero/Rhino (PCR) Not Detected (NotDetected) 05/03/23 17:30 Impressions Chest X-Ray 05/03/23 17:20 XR chest 1V portable HISTORY: 53 years-old Female Dyspnea acute shortness of breath COMPARISON: 10/24/2018 TECHNIQUE: AP view of the chest FINDINGS: Cardiomediastinal and hilar silhouettes are within normal limits. Pulmonary vascular congestion. No pneumothorax, large pleural effusion or lobar airspace consolidation. Bones appear grossly intact. IMPRESSION: Cardiomegaly with pulmonary vascular congestion. ACT 112: Negative or not required by law. The above report was generated using voice recognition software. It may contain grammatical, syntax or spelling errors. Electronically signed by: Terrell Busch M.D. 05/03/2023 6:10 PM ECG Additional Comments: ECG. Normal sinus rhythm with rate of 96. Left axis deviation. Code Status & VTE Plan VTE Prophylaxis Plan VTE Prophylaxis will be ordered: Yes (1) Asthma exacerbation Asthma severity: unspecified severity
--- NOTE | 2023-05-03 21:06 | Emergency Department Note ---
History of Present Illness General Chief Complaint: Shortness of Breath/Dyspnea Stated Complaint: TROUBLE BREATHING/SOB Time Seen by Provider: 05/03/23 17:27 History of Present Illness Provider complaint: "asthma attack", shortness of breath and wheezing Onset (ago): day(s) 4 Severity: severe and worse than usual Context: none known Associated symptoms: productive cough Treatments Prior to Arrival: inhaled bronchodilator No hemoptysis no recent travel no recent surgeries no exogenous hormone usage. No history of intubation or ICU admission for asthma Home Medications Medication Instructions Recorded Confirmed Type albuterol sulfate 90 mcg/actuation 2 puff inhalation QID PRN 06/09/14 05/03/23 History aerosol inhaler (ProAir HFA) Shortness Of Breath Or Wheezing ##0 citalopram 40 mg tablet 40 mg PO QAM ##0 06/09/14 05/03/23 History fluticasone 250 mcg-salmeterol 50 1 inh inhalation BID 10/19/18 05/03/23 History mcg/dose blistr powdr for inhalation (Advair Diskus) gabapentin 300 mg capsule 300 mg PO TID 10/19/18 05/03/23 History insulin glargine 100 unit/mL (3 40 unit subcut QPM 10/19/18 05/03/23 History mL) subcutaneous pen (Lantus Solostar U-100 Insulin) oxcarbazepine 300 mg tablet 300 mg PO TID 10/19/18 05/03/23 History atorvastatin 20 mg tablet 20 mg PO QAM 10/24/18 05/03/23 History meloxicam 7.5 mg tablet 7.5 mg PO QAM 02/27/20 05/03/23 History omeprazole 20 mg capsule,delayed 20 mg PO DAILYBB 02/27/20 05/03/23 History release aripiprazole 5 mg tablet (Abilify) 5 mg PO HS 10/29/22 05/03/23 History dulaglutide 4.5 mg/0.5 mL 4.5 mg subcut WK 05/03/23 05/03/23 History subcutaneous pen injector (Trulicity) fluticasone furoate 100 1 inh inhalation DAILY 05/03/23 05/03/23 History mcg-vilanterol 25 mcg/dose inhalation powder (Breo Ellipta) furosemide 20 mg tablet 20 mg PO QAM 05/03/23 05/03/23 History ipratropium 0.5 mg-albuterol 3 mg 3 ml inhalation QID 05/03/23 05/03/23 History (2.5 mg base)/3 mL nebulization soln levocetirizine 5 mg tablet (Xyzal) 5 mg PO HS 05/03/23 05/03/23 History magnesium chloride 64 mg 64 mg PO DAILY 05/03/23 05/03/23 History (magnesium chloride) tablet,delayed release montelukast 10 mg tablet 10 mg PO DAILY 05/03/23 05/03/23 History Allergies Allergy/AdvReac Type Severity Reaction Status Date / Time Penicillins Allergy Severe SWELLING Verified 05/03/23 18:15 OF FACE, HIVES lisinopril AdvReac Intermediate LOWERED Verified 05/03/23 18:15 BLOOD PRESSURE TOO MUCH, PER [facility] Past Med/Surg History Medical History Arthritis History of colon polyps Hemorrhoids Acid reflux History of kidney stones Bipolar 1 disorder Depression Hypertension Asthma, mild intermittent Dyslipidemia DM type 2 (diabetes mellitus, type 2) Surgical History History of colonoscopy History of History of tubal ligation S/P left knee arthroscopy S/P tonsillectomy and adenoidectomy Family History Grandmother (Maternal) Diabetes Hypertension Social History Smoking Status: Never smoker Tobacco Type: Cigarettes Cigarettes Per Day: 1ppd/advised npo; Second Hand Exposure: No; Do You Dip or Chew Tobacco: No; Hx Alcohol Use: No Hx Substance Use: No Preferred Language: Citizen Of [place] Communication Ability: Effective Geological Sample Tester Required: No Beliefs That Will Affect Care: None marital status: Single Current Living Situation: Family Current Living Situation Comment: S/O Other Information That Helps Us Care for You: No Feels Safe at Home: Yes Safety Concerns: Feels Safe At This Time Assistive Devices: Cane and Walker Physical Exam Vital Signs Vital Signs - 24 hr 05/03/23 17:18 05/03/23 17:31 03/04/24 17:44 Temperature 36.8 C Temperature Source Temporal Artery Scan Pulse Rate 105 H 96 H Pulse Rate [Finger] 94 H Respiratory Rate 18 18 Respiratory Effort / Characteristics Non-Labored Spontaneous Non-Labored Spontaneous Respiratory Depth Normal Respiratory Pattern Blood Pressure 158/95 H Blood Pressure [Right Arm] Blood Pressure Mean 116 Blood Pressure Mean [Right Arm] Blood Pressure Position Sitting Pulse Oximetry 81 L 89 L Oxygen Delivery Method Room Air Room Air Oxygen Flow Rate Sepsis Recent Fever Within 48 Hours No Sepsis New/Unexplained Change in Mental Status N/A Sepsis Action Taken by Nursing No Action Required Oxygen Flow Rate - Titration Pulse Oximetry Post Tiitration 05/03/23 17:53 05/03/23 17:53 05/03/23 17:53 Temperature Temperature Source Pulse Rate Pulse Rate [Finger] Respiratory Rate Respiratory Effort / Characteristics Non-Labored Spontaneous Respiratory Depth Normal Respiratory Pattern Regular Blood Pressure Blood Pressure [Right Arm] Blood Pressure Mean Blood Pressure Mean [Right Arm] Blood Pressure Position Pulse Oximetry 81 L 81 L Oxygen Delivery Method Room Air Room Air Room Air Oxygen Flow Rate Sepsis Recent Fever Within 48 Hours Sepsis New/Unexplained Change in Mental Status Sepsis Action Taken by Nursing Oxygen Flow Rate - Titration Pulse Oximetry Post Tiitration 05/03/23 18:42 05/03/23 20:05 05/03/23 20:22 Temperature Temperature Source Pulse Rate Pulse Rate [Finger] 96 H Respiratory Rate 16 Respiratory Effort / Characteristics Non-Labored Respiratory Depth Normal Respiratory Pattern Regular Blood Pressure Blood Pressure [Right Arm] 122/76 Blood Pressure Mean Blood Pressure Mean [Right Arm] 91 Blood Pressure Position Pulse Oximetry 88 L 88 L 88 L Oxygen Delivery Method Room Air Nasal Cannula Nasal Cannula Oxymask Oxygen Flow Rate 2 5 Sepsis Recent Fever Within 48 Hours Sepsis New/Unexplained Change in Mental Status Sepsis Action Taken by Nursing Oxygen Flow Rate - Titration 5 8 Pulse Oximetry Post Tiitration 90 94 Physical Exam HENT: Exam performed. - Head: Normocephalic and atraumatic. EYES: Conjunctivae and EOM are normal. Right eye exhibits no discharge. Left eye exhibits no discharge. No scleral icterus. NECK: Normal range of motion. Neck supple. No JVD present. CV: Normal rate, regular rhythm, normal heart sounds and intact distal pulses. There is no peripheral edema. Palpable radial pulses bue. PULM/CHEST: Tachypneic bilateral expiratory wheezes. ABD: The abdomen is soft. There is no tenderness. NEURO: Motor and sensation grossly intact. SKIN: Skin is warm and dry. He is not diaphoretic. PSYCH: normal mood and affect. Behavior is normal. Judgment and thought content normal. Course Course 1726: The patient was evaluated in room B4. A complete history and physical exam was performed Cardiac monitoring: An order was placed for continuous cardiac monitoring. The monitor shows a rate of 90 with sinus rhythm interpreted by me Patient found to be hypoxic on room air supplemental oxygen was applied which improved her oxygen saturation. DuoNeb Solu-Medrol be ordered for the patient. 1900: Vital signs stable supplemental oxygen. Labs within normal limits. X-ray viewed by me shows no cardiomegaly or cephalization. Patient will be admitted to the hospital seen for asthma exacerbation. Administered Medications Discontinued Medications Albuterol (Albut/Ipratrop 3mg/0.5mg Neb 3 Ml Vial) 3 ml NEB NOW STA; Protocol Stop: 05/03/23 17:20 Last Admin: 05/03/23 17:30 Dose: 3 ml Documented By: TIKI Albuterol (Albut/Ipratrop 3mg/0.5mg Neb 3 Ml Vial) 12 ml NEB ONE ONE; Protocol Stop: 05/03/23 17:31 Last Admin: 05/03/23 17:42 Dose: 12 ml Documented By: ROGER Methylprednisolone (Methylprednisolone 125 Mg/2 Ml Vial) 125 mg IV NOW STA Stop: 05/03/23 17:31 Last Admin: 05/03/23 17:49 Dose: 125 mg Documented By: NRB Medical Decision Making Laboratory Data Attestation: I reviewed the patient's lab results. 05/03/23 17:30 05/03/23 17:30 Lab Results 05/03/23 Range/Units 17:30 WBC 9.17 (4.8-10.8) K/ul RBC 5.44 H (4.20-5.40) M/uL Hgb 16.1 H (12.0-16.0) g/dl Hct 45.8 (37.0-47.0) % MCV 84.2 (80.0-100.0) fL MCH 29.6 (25.0-34.0) pg MCHC 35.2 (32.0-36.0) g/dL RDW Std Deviation 40.1 (36.4-46.3) fL RDW Coeff of Harsh 13.2 (11.5-14.5) % Plt Count 275 (130-400) K/uL MPV 9.6 (9.4-12.4) fL Immature Gran % (Auto) 0.3 % Neut % (Auto) 63.6 % Lymph % (Auto) 17.3 % Lamar % (Auto) 8.4 % Eos % (Auto) 10.0 % Baso % (Auto) 0.4 % Neut # (Auto) 5.82 (1.40-6.50) K/uL Lymph # (Auto) 1.59 (1.20-3.40) K/uL Lamar # (Auto) 0.77 H (0.11-0.59) K/uL Eos # (Auto) 0.92 H (0.00-0.50) K/uL Baso # (Auto) 0.04 (0.00-0.20) K/uL Immature Gran # (Auto) 0.03 (0.01-0.20) K/uL VBG pH 7.43 H (7.36-7.41) VBG pCO2 46 (38-50) mmHg VBG pO2 43 mmHg VBG HCO3 31 mmol/L VBG O2 Saturation 77.6 % VBG Base Excess 5.3 mEq/L Sodium 135 L (136-145) mmol/L Potassium 3.8 (3.5-5.1) mmol/L Chloride 98 (98-107) mmol/L Carbon Dioxide 31 (21-32) mmol/L Anion Gap 6 (3-11) BUN 10 (6-23) mg/dl Creatinine 0.78 (0.6-1.2) mg/dl Est Cr Clr Drug Dosing 100.0 ml/min Est GFR ( Amer) 101.3 ml/min Est GFR (Non-Af Amer) 87.4 ml/min BUN/Creatinine Ratio 12.8 (10-20) Glucose 163 H (70-99(Fasting)) mg/dl Calcium 9.3 (8.6-10.3) mg/dl Total Bilirubin 0.5 (0.2-1.0) mg/dl AST 27 (13-39) U/L ALT 23 (7-52) U/L Alkaline Phosphatase 78 (34-104) U/L Troponin I High Sens 5.7 (0-14) pg/ml B-Natriuretic Peptide 12 (0-100) pg/ml Total Protein 7.9 (6.0-8.3) gm/dl Albumin 4.2 (3.4-5.0) gm/dl Globulin 3.7 (2.5-4.0) gm/dl Albumin/Globulin Ratio 1.1 (0.9-2) Adenovirus (PCR) Not Detected (NotDetected) B. pertussis DNA (PCR) Not Detected (NotDetected) B.parapertussis DNA PCR Not Detected (NotDetected) C. pneumoniae DNA (PCR) Not Detected (NotDetected) Coronavirus OC43 (PCR) Not Detected (NotDetected) Coronavirus HKU1 (PCR) Not Detected (NotDetected) Coronavirus 229E (PCR) Not Detected (NotDetected) SARS-CoV-2 (PCR) Not Detected (NotDetected) Coronavirus NL63 (PCR) Not Detected (NotDetected) Human Metapneumovir PCR Not Detected (NotDetected) Influenza Type A (PCR) Not Detected (NotDetected) Influenza Type B (PCR) Not Detected (NotDetected) M. pneumoniae (PCR) Not Detected (NotDetected) Parainfluenza 1 (PCR) Not Detected (NotDetected) Parainfluenza 2 (PCR) Not Detected (NotDetected) Parainfluenza 3 (PCR) Not Detected (NotDetected) Parainfluenza 4 (PCR) Not Detected (NotDetected) RSV (PCR) Not Detected (NotDetected) Entero/Rhino (PCR) Not Detected (NotDetected) Imaging Data Attestation: I personally reviewed and interpreted this imaging study as follows: My Impression: Chest x-ray negative. Airway clear. No pneumothorax. No consolidation. No cardiomegaly or cephalization.. No free air under the diaphragm. No fractures of the skeletal structures. Radiologist's Impression: Chest X-Ray 05/03/23 17:20 XR chest 1V portable HISTORY: 53 years-old Female Dyspnea acute shortness of breath COMPARISON: 10/24/2018 TECHNIQUE: AP view of the chest FINDINGS: Cardiomediastinal and hilar silhouettes are within normal limits. Pulmonary vascular congestion. No pneumothorax, large pleural effusion or lobar airspace consolidation. Bones appear grossly intact. IMPRESSION: Cardiomegaly with pulmonary vascular congestion. ACT 112: Negative or not required by law. The above report was generated using voice recognition software. It may contain grammatical, syntax or spelling errors. Electronically signed by: Terrell Busch M.D. 05/03/2023 6:10 PM ECG Data Attestation: I personally reviewed and interpreted this ECG as follows: Rate (beats per minute): 96 Rhythm: normal sinus Findings: no ST depression, no ST elevation or no prolonged QT Additional Comments: QRS 76 MDM Narrative 1727: The patient was evaluated in room B4. A complete history and physical exam was performed Cardiac monitoring: An order was placed for continuous cardiac monitoring. The monitor shows a rate of 90 with sinus rhythm interpreted by me Patient found to be hypoxic on room air supplemental oxygen was applied which improved her oxygen saturation. DuoNeb Solu-Medrol be ordered for the patient. 1900: Vital signs stable supplemental oxygen. Labs within normal limits. X-ray viewed by me shows no cardiomegaly or cephalization. Patient will be admitted to the hospital seen for asthma exacerbation. Impression & Plan Hypoxia, Asthmaticus, status Critical Care Time Critical Care Time: Yes Total Critical Care Time: 52 I have personally spent greater than 52 minutes of critical care time in the direct management of this patient. This includes bedside care, interpretation of diagnostic studies, and testing, discussion with consultants, patient, and family members, and other required patient management activities. This 52 minutes is in excess of all separately billable procedures. Discharge Plan Visit Data Chief Complaint: Shortness of Breath/Dyspnea Stated Complaint: TROUBLE BREATHING/SOB ED Provider: Stewart Payne Discharge Problem: Hypoxia, Asthmaticus, status Patient Disposition: Admitted As Inpatient Forms Stand Alone Forms: My [facility] Prescriptions Prescriptions: No Action citalopram 40 mg Tablet 40 mg PO QAM Qty: 0 albuterol sulfate [ProAir HFA] 90 mcg/actuation Hfa Aerosol Inhaler 2 puff INHALATION QID PRN (Reason: Shortness Of Breath Or Wheezing) Qty: 0 fluticasone propion-salmeterol [Advair Diskus] 250-50 mcg/dose blister with device 1 inh inhalation BID Patient Comments: last month / last use of/plans to talk with at next appointment oxcarbazepine 300 mg tablet 300 mg PO TID Patient Comments: for bipolar gabapentin 300 mg capsule 300 mg PO TID insulin glargine [Lantus Solostar U-100 Insulin] 100 unit/mL (3 mL) insulin pen 40 unit subcut QPM atorvastatin 20 mg tablet 20 mg PO QAM meloxicam 7.5 mg tablet 7.5 mg PO QAM omeprazole 20 mg capsule,delayed release(DR/EC) 20 mg PO DAILYBB Rx Instructions: TAKE THIS MEDICATION ONCE DAILY ONE HOUR BEFORE FIRST MEAL OF THE DAY aripiprazole [Abilify] 5 mg Tablet 5 mg PO HS ipratropium-albuterol 0.5 mg-3 mg(2.5 mg base)/3 mL solution for nebulization 3 ml INHALATION QID montelukast 10 mg tablet 10 mg PO DAILY furosemide 20 mg tablet 20 mg PO QAM levocetirizine [Xyzal] 5 mg Tablet 5 mg PO HS magnesium chloride 64 mg Tablet,Delayed Release (Dr/Ec) 64 mg PO DAILY fluticasone furoate-vilanterol [Breo Ellipta] 100-25 mcg/dose Blister With Device 1 inh INHALATION DAILY Trulicity 4.5 mg/0.5 mL pen injector 4.5 mg SUBCUT WK Rx Instructions: MONDAYS Referrals Referrals: Suzan Dean DO [Primary Care Provider] - Discharge Problem: Asthmaticus, status Qualifiers: Asthma severity: severe Asthma persistence: unspecified Qualified Code(s): J 45.902 - Unspecified asthma with status asthmaticus
[2023-05-03] MEDS: OPTIRAY 320 125ml IV ONE (21:36)
[2023-05-03] MEDS ORDERED: FLUTICASONE/SALMETEROL 250/50 (ADVAIR) 14 PUFF/1 INHALER INH SCH (21:53)
[2023-05-03] MEDS ORDERED: GLUCAGON FOR INJ 1 MG VIAL SQ PRN (21:53)
[2023-05-03] MEDS ORDERED: NITROGLYCERIN SL 0.4 MG/TAB TAB SL PRN (21:53)
[2023-05-03] MEDS ORDERED: GLUCOSE 40% GEL 15 GM TUBE PO PRN (21:53)
[2023-05-03] MEDS ORDERED: DEXTROSE 50% 50 ML SYRINGE IV PRN (21:53)
[2023-05-03] MEDS ORDERED: ALBUTEROL HFA 8 GM INHALER INH PRN (21:53)
[2023-05-03] MEDS ORDERED: POLYETHYLENE (MIRALAX) 17 GM PACK PO PRN (21:53)
[2023-05-03] MEDS ORDERED: CARBOHYDRATES FOR HYPOGLYCEMIA PO PRN (21:53)
[2023-05-03] MEDS ORDERED: GLUCOSE 10 TAB/TUBE PO PRN (21:53)
--- NOTE | 2023-05-03 22:01 | CT Scan Report ---
Exam(s): CTA CHEST IV Amt: 119 ml optiray 320 EXAM: CT Angiography Chest With Intravenous Contrast CLINICAL HISTORY: Reason for exam: PE. TECHNIQUE: Axial computed tomographic angiography images of the chest with intravenous contrast. CTDI is 28.14 mGy and DLP is 873.63 mGy-cm. Automated exposure control was utilized for the study. A dose lowering technique was utilized adhering to the principles of ALARA. MIP reconstructed images were created and reviewed. COMPARISON: None FINDINGS: Pulmonary arteries: Unremarkable. No pulmonary embolus identified. Aorta: No acute findings. No aortic aneurysm or dissection. Lungs: Mild groundglass opacities in the right upper lobe and right middle lobe may represent an infectious/inflammatory process. Mild bronchiectasis in the right upper lobe. Possible mucus impactions in some of the left lower lobe bronchi. Pleural space: Unremarkable. No significant effusion. No pneumothorax. Heart: Unremarkable. No cardiomegaly. No significant pericardial effusion. No evidence of RV dysfunction. Mediastinum: Mild prominence of the wall of the esophagus could represent esophagitis. Nonspecific prominent mediastinal and hilar lymph nodes. Bones/joints: Degenerative changes of the spine. Moderate spinal canal stenosis at T7-8. No acute fracture. No dislocation. Soft tissues: Unremarkable. Lymph nodes: See above. IMPRESSION: 1. No pulmonary embolus identified. 2. No aortic aneurysm or dissection. 3. Mild groundglass opacities in the right upper lobe and right middle lobe may represent an infectious/inflammatory process. 4. Mild prominence of the wall of the esophagus could represent esophagitis. 5. Mild bronchiectasis in the right upper lobe. Possible mucus impactions in some of the left lower lobe bronchi. 6. Nonspecific prominent mediastinal and hilar lymph nodes. Electronically signed by: Andrea Poole M.D. 05/03/23 22:00 PM
[2023-05-03] MEDS: ARIPiprazole 5 MG TAB PO SCH (22:34)
[2023-05-03] MEDS: GABAPENTIN 300 MG CAP PO SCH (22:34)
[2023-05-03] MEDS: CETIRIZINE HCL 10 MG TABLET PO SCH (22:35)
[2023-05-03] MEDS: ENOXAPARIN INJ 40 MG/0.4 ML SYR SQ SCH (22:35)
[2023-05-03] MEDS: OXcarbazepine 150 MG TABLET PO SCH (22:35)
[2023-05-03] MEDS: ACETAMINOPHEN 325 MG TAB PO PRN (22:38)
[2023-05-03] MEDS: INSULIN ASPART PER UNIT CHARGE SC SCH (22:48)
[2023-05-03] MEDS: LANTUS PER UNIT CHARGE SQ SCH (22:49)
[2023-05-03] MEDS: AZITHROMYCIN 500 MG in DEXTROSE 5% 250 ML IV SCH (23:56)
[2023-05-04] MEDS: levoFLOXacin/D5W 750 MG/150 ML BAG IV SCH (00:02)
[2023-05-04] MEDS: ALBUT/IPRATROP 3MG/0.5MG NEB 3 ML VIAL INH SCH (00:02)
[2023-05-04] MEDS ORDERED: MELATONIN 3 MG TAB PO PRN (04:11)
[2023-05-04 04:59] LABS: Basophils # (auto) 0.02 K/uL (0.00-0.20); Basophils % (auto) 0.3 %; Eosinophils # (auto) 0.01 K/uL (0.00-0.50); Eosinophils % (auto) 0.1 %; Hematocrit (blood only) 45.7 % (37.0-47.0); Hemoglobin 15.9 g/dl (12.0-16.0); Immature Granulocytes # (auto) 0.02 K/uL (0.01-0.20); Immature Granulocytes % (auto) 0.3 %; Lymphocytes % (auto) 11.4 %; Mean Corpuscular Hemoglobin 29.1 pg (25.0-34.0); Mean Corpuscular Hgb Conc 34.8 g/dL (32.0-36.0); Mean Corpuscular Volume 83.7 fL (80.0-100.0); Mean Platelet Volume 9.7 fL (9.4-12.4); Monocytes # (auto) 0.09 K/uL (0.11-0.59); Monocytes % (auto) 1.3 %; Neutrophils # (auto) 6.08 K/uL (1.40-6.50); Neutrophils % (auto) 86.6 %; Platelet Count 279 K/uL (130-400); RDW Coefficient of Variation 13.1 % (11.5-14.5); RDW Standard Deviation 39.6 fL (36.4-46.3); Red Blood Count 5.46 M/uL (4.20-5.40); White Blood Count 7.02 K/ul (4.8-10.8)
[2023-05-04 05:08] LABS: BUN Creatinine Ratio 15.3 (10-20); Calcium 9.1 mg/dl (8.6-10.3); Creatinine Clr Calc Pharmacy 91.5 ml/min; Est GFR (African American) 91.3 ml/min; Est GFR (Non-African American) 78.8 ml/min; Magnesium 1.1 mg/dl (1.7-2.4)
[2023-05-04 05:15] LABS: Troponin I High Sensitivity 5.5 pg/ml (0-14)
--- OUTSIDE RECORDS SUMMARY | 2023-05-04 06:20 | External Medical Summary | Summary of Care ---
Author Name Unknown Organization [facility] Address [address] [place] [address] Phone [phone] Care Team Providers Care Dipper Operator Name Role Phone Suzan Dean DO Primary Care Provider [phone] Reason for Visit * Reason Comments Follow Up Encounter Details Date Type Department Care Team ([facility] st Contact Info) Description 03/31/2023 11:30 AM EST Office Visit [facility] [address] [place] [address] Suzan Dean DO [address] [place] [address] Type 2 diabetes mellitus with hemoglobin A1c goal of less than 7.0% ([facility]ERLY [facility]; Asthma, mild intermittent, well-controlled; Tobacco use disorder; Chronic bronchitis with acute exacerbation ([facility]); Obesity, Class III, BMI 40-49.9 (morbid obesity) ([facility]); Major depressive disorder, recurrent episode, moderate ([facility]); Dyslipidemia, goal LDL below 100; Infected lesion in nose Allergies Active Allergy Reactions Criticality Noted Date Comments Lisinopril 10/31/2015 Decrease in blood pressure. Penicillins 01/13/2001 swelling of face and hives documented as of this encounter (statuses as of 03/31/2023) Medications Medication Sig Dispensed Refills Start Date End Date Status nystatin [id number] UNIT/ML suspensionIndications :Thrush Take 1 mL by mouth 4 times a day. For thrush. 60 mL 1 9 Active Additional Information Patient not taking.Reported on 07/10/2022 Nebulizers (NEBULIZER COMPRESSOR) MISCIndications:Bronc hitis, complicated Inhale via nebulizer. Use as directed. 1 Each 1 9 Active Additional Information Patient not taking.Reported on 03/31/2023 OXcarbazepine (TRILEPTAL) 300 MG Tablet 0 0 Active Citalopram Hydrobromide 40 MG Oral Tablet (CeleXA) Take 1 Tab by mouth daily. 30 Tab 5 0 Active Monistat 1-Day 6.5 % Vaginal Ointment (Tioconazole)Indicati ons:Yeast vaginitis Administer into the vagina daily. 8.4 g 3 1 Active Additional Information Patient not taking.Reported on 03/31/2023 Accu-Chek Yesi Plus w/Device Kit Use to test blood sugars up to 3 times a day Dx E11.9 Can substitute for preferred brand 1 Kit 0 1 Active Accu-Chek Softclix Lancets Use to test blood sugars up to 3 times a day Dx E11.9 Can substitute for preferred brand 300 Each 3 1 Active Magnesium Chloride 64 MG Oral Tablet Delayed Release (Mag64)Indications:En counter for long-term (current) use of other medications Take 2 Tablets by mouth daily. 60 Tablet 2 2 Active ARIPiprazole 5 MG Oral Tablet (Abilify) 0 2 Active Ondansetron HCl 4 MG Oral Tablet (Zofran) TAKE 1 TABLET BY MOUTH EVERY 6 HOURS NEEDED FOR NAUSEA 30 Tablet 0 3 Active Additional Information Patient not taking.Reported on 10/23/2022 Accu-Chek Guide In Vitro Strip (Glucose Blood) USE TO TEST BLOOD SUGARS UP TO 3 TIMES A DAY DX E11.9 300 Strip 3 3 Active Trulicity 4.5 MG/0.5ML Subcutaneous Solution Pen-injector (Dulaglutide)Indicati ons:Type 2 diabetes mellitus with hemoglobin A1c goal of less than 7.0% ([facility]) Inject 4.5 mg once weekly on mondays 6 mL 3 3 Active Furosemide 20 MG Oral Tablet (Lasix)Indications:Ly mphedema Take 1 Tablet by mouth in the morning. 90 Tablet 3 3 Active OneTouch Verio In Vitro Strip (Glucose Blood)Indications:DM type 2 nursing care encounter ([facility]),Type 2 diabetes mellitus with hemoglobin A1c goal of less than 7.0% ([facility]) USE TO TEST BLOOD SUGARS UP TO 3 TIMES A DAY DX E11.9 300 Strip 3 3 Active OneTouch Delica Plus [id number]: DM type 2 nursing care encounter ([facility]),Type 2 diabetes mellitus with hemoglobin A1c goal of less than 7.0% ([facility]) USE TO TEST BLOOD SUGARS UP TO 3 TIMES A DAY DX E11.9 300 Each 3 3 Active Gabapentin 300 MG Oral Capsule (Neurontin)Indication s:Type 2 diabetes mellitus with hemoglobin A1c goal of less than 7.0% ([facility]) TAKE 1 CAPSULE BY MOUTH THREE TIMES A DAY 90 Capsule 5 3 Active Meloxicam 7.5 MG Oral Tablet (Mobic)Indications:Ac [place] pain of left knee TAKE 1 TABLET BY MOUTH DAILY FOR PAIN 90 Tablet 3 3 Active Levocetirizine Dihydrochloride 5 MG Oral TabletIndications:Esvin plasm of uncertain behavior of skin TAKE 1 TABLET BY MOUTH EVERYDAY AT BEDTIME 90 Tablet 3 3 Active Atorvastatin Calcium 20 MG Oral Tablet (Lipitor)Indications: Type 2 diabetes mellitus with hemoglobin A1c goal of less than 7.0% ([facility]),High triglycerides,Dyslipi demia, goal LDL below 100 Take 1 Tablet by mouth in the morning. 90 Tablet 1 3 Active [facility] Verio Flex System w/Device KitIndications:DM type 2 nursing care encounter ([facility]),Type 2 diabetes mellitus with hemoglobin A1c goal of less than 7.0% ([facility]) USE TO TEST BLOOD SUGARS UP TO 3 TIMES A DAY DX E11.9 1 Kit 0 3 Active Fluticasone-Salmetero l 250-50 MCG/ACT Inhalation Aerosol Powder Breath Activated (Advair Diskus)Indications:As thma, mild intermittent, well-controlled Inhale 1 Puff by mouth in the morning and 1 Puff before bedtime. 60 Each 3 3 Active Fluticasone Furoate-Vilanterol 100-25 MCG/ACT Inhalation Aerosol Powder Breath Activated (BREO ellipta) Inhale 1 Puff by mouth in the morning. 14 Each 4 3 Active Albuterol Sulfate HFA 108 (90 Base) MCG/ACT Inhalation Aerosol SolutionIndications:M ild persistent asthma without complication INHALE 2 PUFFS BY MOUTH 4 TIMES A DAY 54 g 4 3 Active BD Pen Needle Short U/F 31G X 8 MM (Insulin Pen Needle) USE TO INJECT LANTUS ONCE DAILY DX E11.9 100 Each 3 3 Active Lantus SoloStar 100 UNIT/ML Subcutaneous Solution Pen-injector (Insulin Glargine Solostar)Indications: Type 2 diabetes mellitus without complications (HCC) INJECT 40 UNITS UNDER THE SKIN AT BEDTIME 45 mL 2 3 Active Omeprazole 20 MG Oral Capsule Delayed Release (PriLOSEC)Indications :Gastritis and gastroduodenitis Take 1 Capsule by mouth in the morning. 1 hour before the first meal of the day.. 90 Capsule 1 4 Active Ipratropium-Albuterol 0.5-2.5 (3) MG/3ML Inhalation Solution (Duoneb)Indications:T obacco use disorder,Chronic bronchitis with acute exacerbation (HCC) Inhale 3 mL via nebulizer in the morning and 3 mL at noon and 3 mL in the evening and 3 mL before bedtime. DX: J20.9. 120 mL 3 4 Active Compressor NebulizerIndications: Chronic bronchitis with acute exacerbation (HCC) Inhale via nebulizer. Use as directed. 1 Each 1 4 Active Azithromycin 250 MG Oral Tablet (Zithromax Z-Emir)Indications:Chr onic bronchitis with acute exacerbation (HCC) Take two tablets by mouth on first day, then 1 tablet daily until gone 6 Tablet 0 4 Active predniSONE 10 MG Oral Tablet (Deltasone)Indication s:Chronic bronchitis with acute exacerbation (HCC) Take 5 tabs for 2 days, 4 tabs for 2 days, 3 tabs for 2 days, 2 tabs for 2 days 1 tab for 2 days 30 Tablet 0 4 Active Montelukast Sodium 10 MG Oral Tablet (Singulair)Indication s:Asthma, mild intermittent, well-controlled Take 1 Tablet by mouth in the morning. 90 Tablet 3 4 Active Sulfamethoxazole-Trim ethoprim 800-160 MG Oral Tablet (Bactrim DS)Indications:Infect ed lesion in nose Take 1 Tablet by mouth in the morning and 1 Tablet before bedtime. Do all this for 10 days. Until gone.. 20 Tablet 0 4 04/10/19 24 Active Ipratropium-Albuterol 0.5-2.5 (3) MG/3ML Inhalation Solution (Duoneb)Indications:T obacco use disorder,Chronic bronchitis with acute exacerbation (HCC) Inhale via nebulizer 3 mL in the morning AND 3 mL at noon AND 3 mL in the evening AND 3 mL before bedtime. DX: J20.9. 120 mL 3 2 03/31/19 24 Discontinu ed(Refill) Compressor NebulizerIndications: Asthma, mild intermittent, well-controlled Inhale via nebulizer. Use as directed. 1 Each 1 3 03/31/19 24 Discontinu ed(Refill) Fluticasone-Salmetero l 250-50 MCG/ACT Inhalation Aerosol Powder Breath Activated (Advair Diskus) Inhale 1 Puff by mouth in the morning and 1 Puff before bedtime. 14 Each 5 3 03/31/19 24 Discontinu ed(Patient preference /discontin uation) Fluticasone-Salmetero l 250-50 MCG/ACT Inhalation Aerosol Powder Breath Activated (Advair Diskus) Inhale 1 Puff by mouth in the morning and 1 Puff before bedtime. 14 Each 5 3 03/31/19 24 Discontinu ed(Patient preference /discontin uation) Compressor NebulizerIndications: Asthma, mild intermittent, well-controlled Inhale via nebulizer. Use as directed. 1 Each 1 4 03/31/19 24 Discontinu ed([facility]) Hospital, Clinic, or Other Facility Administered Medication Ordered Dose Route Frequency Start Date End Date Status albuterol-ipratropium (Duoneb) inhalation solution 3 mLIndications:Chronic bronchitis with acute exacerbation (HCC) 3 mL NEBULIZER ONCE 03/31/2023 03/31/2023 Ended documented as of this encounter (statuses as of 03/31/2023) Active Problems Problem Noted Date Diagnosed Date Asthma, mild intermittent, well-controlled 11/25 HTN, goal below 140/90 08/12/2015 Overview: Per HTN Protocol Opiate misuse 07/31/2015 High triglycerides 12/12/2012 Obesity, Class III, BMI 40-49.9 (morbid obesity) 08/27/2011 Type 2 diabetes mellitus wit h hemoglobin A1c goal of less than 7.0% 06/24/2011 Overview: ICD-10 update of inactive term Tobacco use disorder 12/05/2009 Major depressive disorder, recurrent episode, mo derate 08/03/2008 Benign neoplasm of colon Bipolar I, most recent episode depressed, severe Dyslipidemia, goal LDL below 100 documented as of this encounter (statuses as of 03/31/2023) Resolved Problems Problem Noted Date Diagnosed Date Resolved Date Food insecurity 11/11/2020 12/12/2020 Overview: Per [facility] Protocol Hypertension goal BP (blood pressure) < 140/80 10/30/2011 08/15/2015 Overview: Per HTN Protocol Adult body mass index 50.0-59.9 01/02/2011 08/27/2011 Sciatica 06/23/2010 07/20/2017 Abnormal weight gain 12/05/2009 018 OBESITY 12/05/2009 07/20/2017 Asthma, mild persistent 12/05/200910/31 Abdominal pain, generalized 08/16/2009 12/05/2009 OBSTIPATION 08/16/2009 11/25/2016 Pain in limb 08/16/2009 11/25/2016 Edema 08/16/2009 04/10/2011 Obesity, morbid (more than 1 00 lbs over ideal weight or BMI > 40) 05/28/2009 12/05/2009 Overview: Per Obesity Taxonomy ICD-10 update of inactive term Overweight (BMI 25.0-29.9) 05/23/2009 0 11/25/2016 Dyslipidemia, goal to be determined 08/11/2007 05/23/2009 Asthma with severity to be determined 08/11/2007 12/05/2009 Overview: ICD-10 update of inactive term Allergic rhinitis 08/11/2007 11/25/2016 Dermatitis 03/21/2007 11/25/2016 Internal hemorrhoids 03/21/2007 017 Anxiety state 01/05/2007 07/20/2017 Routine medical exam 01/05/2007 017 ABN GLUCOSE-ANTEPARTUM 11/25 HTN, goal below 140/90 05/23 Backache 11/25/2016 Overview: arthritis in back Morbid obesity, BMI not known 05/28/2009 Overview: Per Obesity Taxonomy Diverticulosis of colon 06/30 HTN, goal below 130/80 06/23 HTN, goal below 140/90 10/29 documented as of this encounter (statuses as of 03/31/2023) Immunizations Name Administration Dates Next Due Pneumococcal Conjugate Vaccine, 20-valent (Prevn ar20) 10/23/2022 Pneumococcal Polysaccharide PPV23 (Pneumovax) Seasonal Influenza, Split, IIV3, With Preserve, Inj 12/12/2012 documented as of this encounter Social History Tobacco Use Types Packs/Day Years Used Date Smoking Tobacco: Every Day Cigarettes 1 19 Last attempted to quit: 03/01/2011 Passive Smoke Exposure: Current Smokeless Tobacco: Never Comments:Started again 9 Alcohol Use Standard Drinks/Week Comments No 0 (1 standard drink = 0.6 oz pur e alcohol) PHQ-2 Answer Date Recorded PHQ Adult Total Score 2 07/10/2022 Hunger Vital Sign Answer Date Recorded Within the past 12 months, y ou worried that your food would run out before you got the money to buy more. Never true 07/11/19 23 Within the past 12 months, t he food you bought just didn't last and you didn't have money to get more. Never true 07/10/2022 Sex and Gender Information Value Date Recorded Sex Assigned at Female 07/10/2022 10:55 AM EDT Gender Identity Female 07/10/2022 10:55 AM EDT Sexual Orientation Straight 08/18/2018 10 :33 AM EDT Job Start Date Occupation Industry Not on file Not on file Not on file documented as of this encounter Last Filed Vital Signs Vital Sign Reading Time Taken Comments Blood Pressure 126/72 03/31/2023 11:22 AM EST Pulse 84 03/31/2023 11:22 AM EST Temperature 35.9 C (96.6 F) 03/31/2023 1 1:22 AM EST Respiratory Rate 16 03/31/2023 11:2 2 AM EST Oxygen Saturation 90% 03/31/2023 11: 22 AM EST Inhaled Oxygen Concentration - - Weight 119.4 kg (263 lb 3.2 oz) 024 11:22 AM EST Height - - Body Mass Index 45.18 07/10/2022 10:59 AM EDT documented in this encounter Progress Notes * Teri Caro LPN - 03/31/2023 12:30 PM EST Breathing treatment given. Pt tolerated well. Will fax order for nebulizer to [facility] for pt. * Suzan Dean DO - 03/31/2023 11:50 AM EST Subjective: Shirley Chanel is a 53 year old female. Chief Complaint Patient presents with Follow Up HPI: 52 year old female here today for a follow-up she has hx of type 2 diabetes, HTN, Asthma, ongoing tobacco use, Dyslipidemia, and Bipolar disorder. All medications were reviewed. Today she feels like she has a cough, cannot breath over 2 months. Continues to smoke. Using inhalers as listed. Took a home covid test yesterday and it was negative. Her mom has covid and she was not around her. Has not been using her nebs bc she does not have a machine and needs new rx. Needs liquid nebulizer machine. Type 2 diabetes, taking lantus 40 units and doing Trulicity. Saw ortho for her knees and suggested weight loss for her knee OA. She has sore on the tip of her nose, noticed after she had a stye in the L eye. PHM: Patient Active Problem List Diagnosis Code Benign neoplasm of colon D12.6 Bipolar I, most recent episode depressed, severe (HCC) F31.4 Major depressive disorder, recurrent episode, moderate (HCC) F33.1 Dyslipidemia, goal LDL below 100 E78.5 Tobacco use disorder F17.200 Type 2 diabetes mellitus with hemoglobin A1c goal of less than 7.0% ([facility]) E11.9 Obesity, Class III, BMI 40-49.9 (morbid obesity) ([facility]) E66.01 High triglycerides E78.1 Opiate misuse F11.90 HTN, goal below 140/90 I10 Asthma, mild intermittent, well-controlled J45.20 Current Outpatient Medications Medication Sig Dispense Refill OXcarbazepine (TRILEPTAL) 300 MG Tablet Citalopram Hydrobromide 40 MG Oral Tablet (CeleXA) Take 1 Tab by mouth daily. 30 Tab 5 Accu-Chek Yesi Plus w/Device Kit Use to test blood sugars up to 3 times a day Dx E11.9 Can substitute for preferred brand 1 Kit 0 Accu-Chek Softclix Lancets Use to test blood sugars up to 3 times a day Dx E11.9 Can substitute forpreferred brand 300 Each 3 Magnesium Chloride 64 MG Oral Tablet Delayed Release (Mag64) Take 2 Tablets by mouth daily. 60 Tablet 2 ARIPiprazole 5 MG Oral Tablet (Abilify) Accu-Chek Guide In Vitro Strip (Glucose Blood) USE TO TEST BLOOD SUGARS UP TO 3 TIMES A DAY DX E11.9 300 Strip 3 Trulicity 4.5 MG/0.5ML Subcutaneous Solution Pen-injector (Dulaglutide) Inject 4.5 mg once weekly on mondays 6 mL 3 Furosemide 20 MG Oral Tablet (Lasix) Take 1 Tablet by mouth in the morning. 90 Tablet 3 OneTouch Verio In Vitro Strip (Glucose Blood) USE TO TEST BLOOD SUGARS UP TO 3 TIMES A DAY DX E11.9300 Strip 3 OneTouch Delica Plus [id number] USE TO TEST BLOOD SUGARS UP TO 3 TIMES A DAY DX E11.9 300 Each 3 Gabapentin 300 MG Oral Capsule (Neurontin) TAKE 1 CAPSULE BY MOUTH THREE TIMES A DAY 90 Capsule 5 Meloxicam 7.5 MG Oral Tablet (Mobic) TAKE 1 TABLET BY MOUTH DAILY FOR PAIN 90 Tablet 3 Levocetirizine Dihydrochloride 5 MG Oral Tablet TAKE 1 TABLET BY MOUTH EVERYDAY AT BEDTIME 90 Tablet 3 Atorvastatin Calcium 20 MG Oral Tablet (Lipitor) Take 1 Tablet by mouth in the morning. 90 Tablet 1 OneTouch Verio Flex System w/Device Kit USE TO TEST BLOOD SUGARS UP TO 3 TIMES A DAY DX E11.9 1 Kit0 Fluticasone-Salmeterol 250-50 MCG/ACT Inhalation Aerosol Powder Breath Activated (Advair Diskus) Inhale 1 Puff by mouth in the morning and 1 Puff before bedtime. 60 Each 3 Fluticasone Furoate-Vilanterol 100-25 MCG/ACT Inhalation Aerosol Powder Breath Activated (BREO ellipta) Inhale 1 Puff by mouth in the morning. 14 Each 4 Albuterol Sulfate HFA 108 (90 Base) MCG/ACT Inhalation Aerosol Solution INHALE 2 PUFFS BY MOUTH 4 TIMES A DAY 54 g 4 BD Pen Needle Short U/F 31G X 8 MM (Insulin Pen Needle) USE TO INJECT LANTUS ONCE DAILY DX E11.9 100 Each 3 Lantus SoloStar 100 UNIT/ML Subcutaneous Solution Pen-injector (Insulin Glargine Solostar) INJECT 40 UNITS UNDER THE SKIN AT BEDTIME 45 mL 2 Omeprazole 20 MG Oral Capsule Delayed Release (PriLOSEC) Take 1 Capsule by mouth in the morning. 1 hour before the first meal of the day.. 90 Capsule 1 Compressor Nebulizer Inhale via nebulizer. Use as directed. 1 Each 1 Ipratropium-Albuterol 0.5-2.5 (3) MG/3ML Inhalation Solution (Duoneb) Inhale 3 mL via nebulizer in the morning and 3 mL at noon and 3 mL in the evening and 3 mL before bedtime. DX: J20.9. 120 mL 3 nystatin 275146 UNIT/ML suspension Take 1 mL by mouth 4 times a day. For thrush. (Patient not taking: Reported on 07/10/2022) 60 mL 1 Nebulizers (NEBULIZER COMPRESSOR) MISC Inhale via nebulizer. Use as directed. (Patient not taking: Reported on 03/31/2023) 1 Each 1 Monistat 1-Day 6.5 % Vaginal Ointment (Tioconazole) Administer into the vagina daily. (Patient not taking: Reported on 03/31/2023) 8.4 g 3 Ondansetron HCl 4 MG Oral Tablet (Zofran) TAKE 1 TABLET BY MOUTH EVERY 6 HOURS NEEDED FOR NAUSEA(Patient not taking: Reported on 10/23/2022) 30 Tablet 0 No current facility-administered medications for this visit. Review of patient's allergies indicates: Allergen Reactions Lisinopril Decrease in blood pressure. Penicillins swelling of face and hives Objective: BP 126/72 | Pulse 84 | Temp 35.9 C (96.6 F) (Infrared ) | Resp 16 | Wt 119.4 kg (263 lb 3.2 oz)| LMP (LMP Unknown) | SpO2 90% | BMI 45.18 kg/m | BSA 2.32 m Physical Exam: General: alert, healthy, and no distress Nose: tip of her nose with some mild surrounding redness and yellow middle, and on the bottom of the right nostril a red area with some redness in the middle. Heart: regular rate & rhythm, no murmur, and no gallops Lungs: coarse sounds heard, expiratory wheezes bilaterally, scattered rhonchi and rales bilaterally. No consolidation to percussion. Extremities: no edema ASSESSMENT/PLAN: Type 2 diabetes mellitus with hemoglobin A1c goal of less than 7.0% ([facility]) (Primary) - HEMOGLOBIN A1C; Future; Expected date: 03/31/2023 - BASIC METABOLIC PANEL; Future; Expected date: 03/31/2023 - HEPATIC FUNCTION PANEL; Future; Expected date: 03/31/2023 Asthma, mild intermittent, well-controlled - DURABLE MEDICAL EQUIPMENT - Montelukast Sodium 10 MG Oral Tablet (Singulair); Take 1 Tablet by mouth in the morning. Add in singulair to help with flare ups. Tobacco use disorder - Ipratropium-Albuterol 0.5-2.5 (3) MG/3ML Inhalation Solution (Duoneb); Inhale 3 mL via nebulizer in the morning and 3 mL at noon and 3 mL in the evening and 3 mL before bedtime. DX: J20.9. Encouraged her to stop smoking. Chronic bronchitis with acute exacerbation (HCC) - Ipratropium-Albuterol 0.5-2.5 (3) MG/3ML Inhalation Solution (Duoneb); Inhale 3 mL via nebulizer in the morning and 3 mL at noon and 3 mL in the evening and 3 mL before bedtime. DX: J20.9. - Compressor Nebulizer; Inhale via nebulizer. Use as directed. - albuterol-ipratropium (Duoneb) inhalation solution 3 mL - Azithromycin 250 MG Oral Tablet (Zithromax Z-Emir); Take two tablets by mouth on first day, then 1tablet daily until gone - predniSONE 10 MG Oral Tablet (Deltasone); Take 5 tabs for 2 days, 4 tabs for 2 days, 3 tabs for 2days, 2 tabs for 2 days 1 tab for 2 days - DURABLE MEDICAL EQUIPMENT Zpack and steroids, to use nebs 4 times a day. Obesity, Class III, BMI 40-49.9 (morbid obesity) ([facility]) Major depressive disorder, recurrent episode, moderate (HCC) Dyslipidemia, goal LDL below 100 Infected lesion in nose Will cover for MRSA> with below. Not able to take a culture, no areas open and or draining. - Sulfamethoxazole-Trimethoprim 800-160 MG Oral Tablet (Bactrim DS); Take 1 Tablet by mouth in the morning and 1 Tablet before bedtime. Do all this for 10 days. Until gone.. Suzan Dean DO documented in this encounter Nursing Notes * Teri Caro LPN - 03/31/2023 11:11 AM EST Chief Complaint Patient presents with Follow Up documented in this encounter Plan of Treatment Upcoming Encounters Date Type Department Care Team (Late st Contact Info) Description 08/13/2023 12:10 PM EDT Office Visit [facility] [address] [place] [id number] Suzan Dean DO [address] [place] [address] Pending Results Name Type Priority Associated Diagnoses Date /Time HEMOGLOBIN A1C Lab Routine Type 2 diabetes mellitus with hemoglobin A1c goal of less than 7.0% ([facility]) 03/31/2023 12:36 PM EST BASIC METABOLIC PANEL Lab Routine Type 2 diabetes mellitus with hemoglobin A1c goal of less than 7.0% ([facility]) 03/31/2023 12:36 PM EST HEPATIC FUNCTION PANEL Lab Routine Type 2 diabetes mellitus with hemoglobin A1c goal of less than 7.0% ([facility]) 03/31/2023 12:36 PM EST Scheduled Orders Name Type Priority Associated Diagnoses Orde r Schedule HEMOGLOBIN A1C Lab Routine Type 2 diabetes mellitus with hemoglobin A1c goal of less than 7.0% (HCC) Expected: 03/31/2023 (Approximate), Expires: 03/30/2024 BASIC METABOLIC PANEL Lab Routine Type 2 diabetes mellitus with hemoglobin A1c goal of less than 7.0% (HCC) Expected: 03/31/2023 (Approximate), Expires: 03/30/2024 HEPATIC FUNCTION PANEL Lab Routine Type 2 diabetes mellitus with hemoglobin A1c goal of less than 7.0% (HCC) Expected: 03/31/2023 (Approximate), Expires: 03/30/2024 Health Maintenance Due Date Last Done Comments Hepatitis B (1 of 3 - 3-dose series) 1971 COVID-19 Vaccine (#1) 1971 DTaP,Tdap,and Td Vaccines (1 - Tdap) 1990 HPV/Co-Test 2001 Cologuard 02/02/2016 Fecal Occult Blood Test 02/02/2016 Sigmoidoscopy 02/02/2016 DISCUSS TOBACCO CESSATION (REFER TO SMARTSET #3291) 01/29/2017 01/30/2016 (Discussed) Colonoscopy 02/03/2017 02/03/2007 Colorectal Cancer Screening 02/03/2017 Zoster Vaccines (1 of 2) 2021 Mammogram 09/17/2021 09/17/2020, 08/30, 09/02/2016, Additional history exists *SPIROMETRY ONCE FOR ASTHMA-ADULT 01/22/2022 Diabetic Eye Exam 03/27/2022 03/27/2021, , 06/11/2015, Additional history exists Albumin/Creatinine Ratio 09/19/2022 022, 09/12/2021, 01/29/2020, Additional history exists Influenza Vaccine (FLU shot) (#1) 2022 12/12/2012 HbA1c 04/25/2023 10/23/2022, 06/29, 02/16/2022, Additional history exists Depression Screening 07/11/2023 07/10/2022 Diabetic Foot Exam 07/11/2023 07/10/2022, 0 09/12/2021, 11/07/2020, Additional history exists Cervical Cancer Screening 07/13/2023 Pap Smear 07/13/2023 07/12/2020, 04/02, 01/30/2016 (Done elsewhere), Additional history exists GFR 10/24/2023 10/23/2022, 06/29, 02/16/2022, Additional history exists Lipid Panel 07/11/2027 07/10/2022, 01/29, 03/07/2021, Additional history exists Pneumococcal Vaccine: Pediatrics (0 to 5 Years) and At-Risk Patients (6 to 64 Years) Completed 10/23/2022, 08/03/2008 GARDASIL-HPV IMMUNIZATION SERIES Aged Out No longer eligible based on patient's age to complete this topic MENINGOCOCCAL (MENACTRA/MENVEO) Aged Out No longer eligible based on patient's age to complete this topic documented as of this encounter Medical Devices Not on filedocumented as of this encounter Visit Diagnoses Diagnosis Type 2 diabetes mellitus with hemoglobin A1c goal of less than 7.0% (HCC)- Primary Asthma, mild intermittent, well-controlled Unspecified asthma Tobacco use disorder Chronic bronchitis with acute exacerbation (HCC) Unspecified chronic bronchitis Obesity, Class III, BMI 40-49.9 (morbid obesity) (HCC) Morbid obesity Major depressive disorder, recurrent episode, moderate (HCC) Major depressive disorder, recurrent episode, moderate Dyslipidemia, goal LDL below 100 Other and unspecified hyperlipidemia Infected lesion in nose Other diseases of nasal cavity and sinuses documented in this encounter Administered Medications Inactive Administered Medications - up to 3 most recent administrations Medication Order MAR Action Action Date Dose Rate Site albuterol-ipratropium (Duoneb) inhalation solution 3 mL 3 mL, Nebulizer, ONCE, On Wed03/31/23 at 1245, For 1 dose, 3 mL = 0.5 mg ipratropium/ 2.5 mg albuterol Given 03/31/2023 12:29 PM EST 3 mL Othe r-Specify documented in this encounter Care Teams Dipper Operator Relationship Specialty Start Date End Date Suzan Dean DO [address] [place] [address] PCP - General Family Medicine 07/31/15 documented as of this encounter"
--- OUTSIDE RECORDS SUMMARY | 2023-05-04 06:20 | External Medical Summary | Summary of Care ---
Author Name Unknown Organization [facility] Address [address] [place] [address] Phone [phone] Care Team Providers Care Supervisor [employer]crete [employer] Name Role Phone Suzan Dean DO Primary Care Provider Reason for Visit * Reason Onset Date Comments Medical Records Request 02/08/2023 Encounter Details Date Type Department Care Team ([facility] st Contact Info) Description 02/08/[address] [facility] [address] [place] [address] Suzan Dean DO [address] [place], [place] [id number] Medical Records Request Allergies Active Allergy Reactions Criticality Noted Date Comments Lisinopril 10/31/2015 Decrease in blood pressure. Penicillins 01/13/2001 swelling of face and hives documented as of this encounter (statuses as of 02/08/2023) Medications Medication Sig Dispensed Refills Start Date End Date Status nystatin 351001 UNIT/ML suspensionIndications: Thrush Take 1 mL by mouth 4 times a day. For thrush. 60 mL 1 12/30/2018 Active Additional Information Patient not taking.Reported on 07/10/2022 Nebulizers (NEBULIZER COMPRESSOR) MISCIndications:Bronch itis, complicated Inhale via nebulizer. Use as directed. 1 Each 1 01/04/2019 Active OXcarbazepine (TRILEPTAL) 300 MG Tablet 0 03/15/2019 Active Citalopram Hydrobromide 40 MG Oral Tablet (CeleXA) Take 1 Tab by mouth daily. 30 Tab 5 02/14/2020 Active Monistat 1-Day 6.5 % Vaginal Ointment (Tioconazole)Indicatio ns:Yeast vaginitis Administer into the vagina daily. 8.4 g 3 05/17/2020 Active Accu-Chek Yesi Plus w/Device Kit Use to test blood sugars up to 3 times a day Dx E11.9 Can substitute for preferred brand 1 Kit 0 06/17/2020 Active Accu-Chek Softclix Lancets Use to test blood sugars up to 3 times a day Dx E11.9 Can substitute for preferred brand 300 Each 3 06/17/2020 Active Magnesium Chloride 64 MG Oral Tablet Delayed Release (Mag64)Indications:Enc ounter for long-term (current) use of other medications Take 2 Tablets by mouth daily. 60 Tablet 2 03/10/2021 Active ARIPiprazole 5 MG Oral Tablet (Abilify) 0 09/10/2021 Active Ipratropium-Albuterol 0.5-2.5 (3) MG/3ML Inhalation Solution (Duoneb)Indications:To bacco use disorder,Chronic bronchitis with acute exacerbation (HCC) Inhale via nebulizer 3 mL in the morning AND 3 mL at noon AND 3 mL in the evening AND 3 mL before bedtime. DX: J20.9. 120 mL 3 09/12/2021 Active Ondansetron HCl 4 MG Oral Tablet (Zofran) TAKE 1 TABLET BY MOUTH EVERY 6 HOURS NEEDED FOR NAUSEA 30 Tablet 0 05/10/2022 Active Additional Information Patient not taking.Reported on 10/23/2022 Accu-Chek Guide In Vitro Strip (Glucose Blood) USE TO TEST BLOOD SUGARS UP TO 3 TIMES A DAY DX E11.9 300 Strip 3 05/06/2022 Active Trulicity 4.5 MG/0.5ML Subcutaneous Solution Pen-injector (Dulaglutide)Indicatio ns:Type 2 diabetes mellitus with hemoglobin A1c goal of less than 7.0% (HCC) Inject 4.5 mg once weekly on mondays 6 mL 3 06/02/2022 Active Furosemide 20 MG Oral Tablet (Lasix)Indications:Lym phedema Take 1 Tablet by mouth in the morning. 90 Tablet 3 08/03/2022 Active OneTouch Verio In Vitro Strip (Glucose Blood)Indications:DM type 2 nursing care encounter (HCC),Type 2 diabetes mellitus with hemoglobin A1c goal of less than 7.0% ([facility]) USE TO TEST BLOOD SUGARS UP TO 3 TIMES A DAY DX E11.9 300 Strip 3 08/10/2022 Active OneTouch Delica Plus [id number]:D M type 2 nursing care encounter ([facility]),Type 2 diabetes mellitus with hemoglobin A1c goal of less than 7.0% ([facility]) USE TO TEST BLOOD SUGARS UP TO 3 TIMES A DAY DX E11.9 300 Each 3 08/10/2022 Active Gabapentin 300 MG Oral Capsule (Neurontin)Indications :Type 2 diabetes mellitus with hemoglobin A1c goal of less than 7.0% ([facility]) TAKE 1 CAPSULE BY MOUTH THREE TIMES A DAY 90 Capsule 5 08/20/2022 Active Meloxicam 7.5 MG Oral Tablet (Mobic)Indications:Acu te pain of left knee TAKE 1 TABLET BY MOUTH DAILY FOR PAIN 90 Tablet 3 08/20/2022 Active Levocetirizine Dihydrochloride 5 MG Oral TabletIndications:Neop lasm of uncertain behavior of skin TAKE 1 TABLET BY MOUTH EVERYDAY AT BEDTIME 90 Tablet 3 08/19/2022 Active Atorvastatin Calcium 20 MG Oral Tablet (Lipitor)Indications:T ype 2 diabetes mellitus with hemoglobin A1c goal of less than 7.0% ([facility]),High triglycerides,Dyslipid emia, goal LDL below 100 Take 1 Tablet by mouth in the morning. 90 Tablet 1 09/28/2022 Active Luv[employer]Touch Verio Flex System w/Device KitIndications:DM type 2 nursing care encounter ([facility]),Type 2 diabetes mellitus with hemoglobin A1c goal of less than 7.0% ([facility]) USE TO TEST BLOOD SUGARS UP TO 3 TIMES A DAY DX E11.9 1 Kit 0 10/18/2022 Active Fluticasone-Salmeterol 250-50 MCG/ACT Inhalation Aerosol Powder Breath Activated (Advair Diskus)Indications:Ast hma, mild intermittent, well-controlled Inhale 1 Puff by mouth in the morning and 1 Puff before bedtime. 60 Each 3 10/23/2022 Active Compressor NebulizerIndications:A sthma, mild intermittent, well-controlled Inhale via nebulizer. Use as directed. 1 Each 1 10/23/2022 Active Fluticasone Furoate-Vilanterol 100-25 MCG/ACT Inhalation Aerosol Powder Breath Activated (BREO ellipta) Inhale 1 Puff by mouth in the morning. 14 Each 4 11/09/2022 Active Albuterol Sulfate HFA 108 (90 Base) MCG/ACT Inhalation Aerosol SolutionIndications:Mi ld persistent asthma without complication INHALE 2 PUFFS BY MOUTH 4 TIMES A DAY 54 g 4 11/11/2022 Active Omeprazole 20 MG Oral Capsule Delayed Release (PriLOSEC)Indications: Gastritis and gastroduodenitis Take 1 Capsule by mouth in the morning. 1 hour before the first meal of the day.. 90 Capsule 1 11/24/2022 Active Fluticasone-Salmeterol 250-50 MCG/ACT Inhalation Aerosol Powder Breath Activated (Advair Diskus) Inhale 1 Puff by mouth in the morning and 1 Puff before bedtime. 14 Each 5 11/27/2022 Active BD Pen Needle Short U/F 31G X 8 MM (Insulin Pen Needle) USE TO INJECT LANTUS ONCE DAILY DX E11.9 100 Each 3 12/08/2022 Active Lantus SoloStar 100 UNIT/ML Subcutaneous Solution Pen-injector (Insulin Glargine Solostar)Indications:T ype 2 diabetes mellitus without complications (HCC) INJECT 40 UNITS UNDER THE SKIN AT BEDTIME 45 mL 2 01/02/2023 Active Fluticasone-Salmeterol 250-50 MCG/ACT Inhalation Aerosol Powder Breath Activated (Advair Diskus) Inhale 1 Puff by mouth in the morning and 1 Puff before bedtime. 14 Each 5 01/04/2023 Active documented as of this encounter (statuses as of 02/08/2023) Active Problems Problem Noted Date Diagnosed Date [...] as of this encounter (statuses as of 02/08/2023) Resolved Problems Problem Noted Date Diagnosed Date [...] as of this encounter (statuses as of 02/08/2023) Immunizations Name Administration Dates Next Due Pneumococcal [...] on file documented as of this encounter Miscellaneous Notes * Telephone Encounter - Dennise Mayer OSA - 02/08/2023 3:50 PM EST [employer] is requesting medical records for the purpose of continued care Forwarded to [facility] documented in this encounter Plan of Treatment Upcoming Encounters Date Type Department Care Team (Late st Contact Info) Description 02/10/2023 12:10 PM EST [facility] [place] [address] [facility] [address] Suzan Dean, DO [address] [facility] [place] [address] Health Maintenance Due Date Last Done Comments [...] Not on filedocumented as of this encounter Care Teams Supervisor [employer]crete [employer] Relationship Specialty Start Date End Date Suzan Dean DO [address] [place] [address] PCP - General Family Medicine 07/31/15 documented as of this encounter
--- OUTSIDE RECORDS SUMMARY | 2023-05-04 06:20 | External Medical Summary ---
Author Name Unknown Address Unknown Organization K01:[facility] - [address] [place] [address] Laboratory Report Ordering Provider Test Date Status YANNI GRAMAJO 03/31/2023 12:36:41 Final Observation Date Value Abnormality Reference (Units ) Status MYCODE SPECIMEN-SST 03/31/2023 12:36:41 Freezing of extracted DNA, whole blood and/or serum. Final Performing Location [facility] - [address] [place] [address]
--- OUTSIDE RECORDS SUMMARY | 2023-05-04 06:20 | External Medical Summary ---
Author Name Unknown Address Unknown Organization K01:[facility] [address] [place] [address] Laboratory Report Ordering Provider Test Date Status DRAKE OWENS 03/31/2023 12:36:41 Final Observation Date Value Abnormality Reference (Units ) Status BUN 03/31/2023 12:36:41 13 6-20 (mg/dL) Final Creatinine 03/31/2023 12:36:41 0.8 0.5-1.0 (mg/dL) Final Glomerular filtration rate/1.73 sq M.predicted [Volume Rate/Area] in Serum, Plasma or Blood by Creatinine-based formula (CKD-EPI) 03/31/2023 12:36:41 86 >=60 (mL/min) Final eGFR is calculated based on the CKD-EPI 2020 equation SODIUM 03/31/2023 12:36:41 138 135-146 (m mol/L) Final Potassium 03/31/2023 12:36:41 4.2 3.5-5.1 (m mol/L) Final Cl 03/31/2023 12:36:41 95 Below low normal 98- 107 (mmol/L) Final CO2 03/31/2023 12:36:41 30 22-32 (mmo l/L) Final Anion gap 03/31/2023 12:36:41 13 7-15 (mmol /L) Final Glucose 03/31/2023 12:36:41 147 Above high normal 70 -120 (mg/dL) Final Calcium 03/31/2023 12:36:41 9.3 8.4-10.2 ( mg/dL) Final Performing Location [facility]ORY [facility] - [address] [place] [address]
--- OUTSIDE RECORDS SUMMARY | 2023-05-04 06:20 | External Medical Summary ---
Author Name Unknown Address Unknown Organization K01:[facility] - [address] [place] [address] Laboratory Report Ordering Provider Test Date Status YANNI GRAMAJO 03/31/2023 12:36:41 Final Observation Date Value Abnormality Reference (Units ) Status MYCODE SPECIMEN-SST 03/31/2023 12:36:41 Freezing of extracted DNA, whole blood and/or serum. Final Performing Location [facility] - [address] [place] [address]
--- OUTSIDE RECORDS SUMMARY | 2023-05-04 06:20 | External Medical Summary | Summary of Care ---
Author Name Unknown Organization [facility] Address [address] [place] [address] Phone [phone] Care Team Providers Care Associate Professor Of Automation Name Role Phone Suzan Dean Claudia COLUNGA Primary Care Provider [phone] Reason for Visit * Reason Comments Outpatient Testing Encounter Details Date Type Department Care Team (Late st Contact Info) Description 03/31/2023 11:10 AM EST [facility] [address] [place] [address] [facility] [address], [place] [id number] Mass[employer] Other*[id number]; Type 2 diabetes mellitus with hemoglobin A1c goal of less than 7.0% ([facility]) Allergies Active Allergy Reactions Criticality Noted Date Comments Lisinopril 10/31/2015 Decrease in blood pressure. Penicillins 01/13/2001 swelling of face and hives documented as of this encounter (statuses as of 03/31/2023) Medications Medication Sig Dispensed Refills Start Date End Date Status nystatin 919596 UNIT/ML suspensionIndications: Thrush Take 1 mL by mouth 4 times a day. For thrush. 60 mL 1 12/30/2018 Active Additional Information Patient not taking.Reported on 07/10/2022 Nebulizers (NEBULIZER COMPRESSOR) MISCIndications:Bronch itis, complicated Inhale via nebulizer. Use as directed. 1 Each 1 01/04/2019 Active Additional Information Patient not taking.Reported on 03/31/2023 OXcarbazepine (TRILEPTAL) 300 MG Tablet 0 03/15/2019 Active Citalopram Hydrobromide 40 MG Oral Tablet (CeleXA) Take 1 Tab by mouth daily. 30 Tab 5 02/14/2020 Active Monistat 1-Day 6.5 % Vaginal Ointment (Tioconazole)Indicatio ns:Yeast vaginitis Administer into the vagina daily. 8.4 g 3 05/17/2020 Active Additional Information Patient not taking.Reported on [...] MG Oral Tablet (Abilify) 0 09/10/2021 Active Ondansetron HCl 4 MG Oral Tablet [...] hemoglobin A1c goal of less than 7.0% ([facility]) Inject 4.5 mg once weekly on mondays 6 mL 3 06/02/2022 Active Furosemide 20 MG Oral Tablet (Lasix)Indications:Lym phedema Take 1 Tablet by mouth in the morning. 90 Tablet 3 08/03/2022 Active OneTouch Verio In Vitro Strip (Glucose Blood)Indications:DM type 2 nursing care encounter ([facility]),Type 2 diabetes mellitus with hemoglobin A1c goal of less than 7.0% ([facility]) USE TO TEST BLOOD SUGARS UP TO 3 TIMES A DAY DX E11.9 300 Strip 3 08/10/2022 Active OneTouch Delica Plus [id number]:D M type 2 nursing care encounter ([facility]),Type 2 diabetes mellitus with hemoglobin A1c goal of less than 7.0% ([facility]) USE TO TEST BLOOD SUGARS UP TO 3 TIMES A DAY DX E11.9 300 Each 3 08/10/2022 Active Gabapentin 300 MG Oral Capsule (Neurontin)Indications :Type 2 diabetes mellitus with hemoglobin A1c goal of less than 7.0% ([facility]) TAKE 1 CAPSULE BY MOUTH THREE TIMES [...] hemoglobin A1c goal of less than 7.0% ([facility]),High triglycerides,Dyslipid emia, goal LDL below 100 Take 1 Tablet by mouth in the morning. 90 Tablet 1 09/28/2022 Active [employer] Verio Flex System w/Device KitIndications:DM type 2 nursing care encounter ([facility]),Type 2 diabetes mellitus with hemoglobin A1c goal of less than 7.0% ([facility]) USE TO TEST BLOOD SUGARS UP TO 3 TIMES A DAY DX E11.9 1 Kit 0 10/18/2022 Active Fluticasone-Salmeterol 250-50 MCG/ACT Inhalation Aerosol Powder Breath Activated (Advair Diskus)Indications:Ast hma, mild intermittent, well-controlled Inhale 1 Puff by mouth in the morning and 1 Puff before bedtime. 60 Each 3 10/23/2022 Active Fluticasone Furoate-Vilanterol 100-25 MCG/ACT Inhalation Aerosol Powder Breath Activated (BREO ellipta) Inhale 1 Puff by mouth in the morning. 14 Each 4 11/09/2022 Active Albuterol Sulfate HFA 108 (90 Base) MCG/ACT Inhalation Aerosol SolutionIndications:Mi ld persistent asthma without complication INHALE 2 PUFFS BY MOUTH 4 TIMES A DAY 54 g 4 11/11/2022 Active BD Pen Needle Short U/F 31G X 8 MM (Insulin Pen Needle) USE TO INJECT LANTUS ONCE DAILY DX E11.9 100 Each 3 12/08/2022 Active Lantus SoloStar 100 UNIT/ML Subcutaneous Solution Pen-injector (Insulin Glargine Solostar)Indications:T ype 2 diabetes mellitus without complications (HCC) INJECT 40 UNITS UNDER THE SKIN AT BEDTIME 45 mL 2 01/02/2023 Active Omeprazole 20 MG Oral Capsule Delayed Release (PriLOSEC)Indications: Gastritis and gastroduodenitis Take 1 Capsule by mouth in the morning. 1 hour before the first meal of the day.. 90 Capsule 1 03/24/2023 Active documented as of this encounter (statuses [...] on file documented as of this encounter Plan of Treatment Upcoming Encounters Date Type Department Care Team (Late st Contact Info) Description 08/13/2023 12:10 PM EDT Office Visit [facility] [address] [place] [address] Suzan Dean DO [address], [place] [phone] Pending Results Name Type Priority Associated Diagnoses Date /Time MYCODE SUBSEQUENT ADULT Lab Routine MyCode Research Other*[id number] 03/31/2023 12:36 PM EST HEMOGLOBIN A1C Lab Routine Type 2 diabetes mellitus with hemoglobin A1c goal of less than 7.0% (HCC) 03/31/2023 12:36 PM EST BASIC METABOLIC PANEL Lab Routine Type 2 diabetes mellitus with hemoglobin A1c goal of less than 7.0% (HCC) 03/31/2023 12:36 PM EST HEPATIC FUNCTION PANEL Lab Routine Type 2 diabetes mellitus with hemoglobin A1c goal of less than 7.0% (HCC) 03/31/2023 12:36 PM EST MYCODE SST1 Lab Routine MyCode [employer] Other*[id number] 03/31/2023 12:36 PM EST MYCODE SST2 Lab Routine MyCode Research Other*[id number] 03/31/2023 12:36 PM EST Health Maintenance Due Date Last Done Comments Hepatitis B (1 of 3 - 3-dose series) 1971 COVID-19 Vaccine (#1) 1971 DTaP,Tdap,and Td Vaccines (1 - Tdap) 1990 HPV/Co-Test 2001 Cologuard 02/02/2016 Fecal Occult Blood Test 02/02/2016 Sigmoidoscopy 02/02/2016 DISCUSS TOBACCO CESSATION (REFER TO SMARTSET #8080) 01/29/2017 01/30/2016 (Discussed) Colonoscopy 02/03/2017 02/03/2007 Colorectal [...] as of this encounter Visit Diagnoses Diagnosis MyCode Research Other*[id number] Type 2 diabetes mellitus with hemoglobin A1c goal of less than 7.0% ([facility]) documented in this encounter Care Teams Associate Professor Of Automation Relationship Specialty Start Date End Date Suzan Dean DO [address] [place] [address] PCP - General Family Medicine 07/31/15 documented as of this encounter
--- OUTSIDE RECORDS SUMMARY | 2023-05-04 06:20 | External Medical Summary | Summary of Care ---
Author Name Unknown Organization [facility] Address [address] [place] [address] Phone [phone] Care Team Providers Care Flagger Name Role Phone Suzan Dean DO Primary Care Provider Reason for Visit * Reason Onset Date Comments Fax 10/26/2022 Encounter Details Date Type Department Care Team ([facility] st Contact Info) Description 10/26/2022 Telephone Merged With [facility] [address] [place] [address] Suzan Dean DO [address] [place], [place] [phone] Fax Allergies Active Allergy Reactions Criticality Noted Date Comments Lisinopril 10/31/2015 Decrease in blood pressure. Penicillins 01/13/2001 swelling of face and hives documented as of this encounter (statuses as of 01/25/2023) Medications Medication Sig Dispensed Refills Start Date End Date Status nystatin 101978 UNIT/ML suspensionIndications :Thrush Take 1 mL by [...] 5 MG Oral Tablet (Abilify) 0 09/10/2021 Act michael Ipratropium-Albuterol 0.5-2.5 (3) MG/3ML Inhalation Solution (Duoneb)Indications:T obacco use disorder,Chronic bronchitis with acute exacerbation ([facility]) Inhale via nebulizer 3 mL in the [...] hemoglobin A1c goal of less than 7.0% ([facility]) Inject 4.5 mg once weekly on mondays 6 mL 3 06/02/2022 Active Furosemide 20 MG Oral Tablet (Lasix)Indications:Ly mphedema Take 1 Tablet by mouth in the morning. 90 Tablet 3 08/03/2022 Active OneTouch Verio In Vitro Strip (Glucose Blood)Indications:DM type 2 nursing care encounter (HCC),Type 2 diabetes mellitus with hemoglobin A1c goal of less than 7.0% (HCC) USE TO TEST BLOOD SUGARS UP TO 3 TIMES A DAY DX E11.9 300 Strip 3 08/10/2022 Active OneTouch Delica Plus [id number]: DM type 2 nursing care encounter (HCC),Type 2 diabetes mellitus with hemoglobin A1c goal of less than 7.0% (HCC) USE TO TEST BLOOD SUGARS UP TO 3 TIMES A DAY DX E11.9 300 Each 3 08/10/2022 Active Gabapentin 300 MG Oral Capsule (Neurontin)Indication s:Type 2 diabetes mellitus with hemoglobin A1c goal of less than 7.0% ([facility]) TAKE 1 CAPSULE BY MOUTH THREE TIMES A DAY 90 Capsule 5 08/20/2022 Active Meloxicam 7.5 MG Oral Tablet (Mobic)Indications:Ac inupiat pain of left knee TAKE 1 TABLET BY MOUTH DAILY FOR PAIN 90 Tablet 3 08/20/2022 Active Levocetirizine Dihydrochloride 5 MG Oral TabletIndications: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 90 Tablet 1 09/28/2022 Active Full Capt[employer] SolutionsTouch Verio Flex System w/Device KitIndications:DM type 2 nursing care encounter (HCC),Type 2 diabetes mellitus with hemoglobin A1c goal of less than 7.0% (HCC) USE TO TEST BLOOD SUGARS UP TO 3 TIMES A DAY DX E11.9 1 Kit 0 10/18/2022 Active Fluticasone-Salmetero l 250-50 MCG/ACT Inhalation Aerosol Powder Breath Activated (Advair Diskus)Indications:As thma, mild intermittent, well-controlled Inhale 1 Puff by mouth in the morning and 1 Puff before bedtime. 60 Each 3 10/23/2022 Active Compressor NebulizerIndications: Asthma, mild intermittent, well-controlled Inhale via nebulizer. Use as directed. 1 Each 10/23/2022 Active documented as of this encounter (statuses as of 01/25/2023) Active Problems Problem Noted Date Diagnosed Date [...] as of this encounter (statuses as of 01/25/2023) Resolved Problems Problem Noted Date Diagnosed Date [...] as of this encounter (statuses as of 01/25/2023) Immunizations Name Administration Dates Next Due Pneumococcal [...] encounter Miscellaneous Notes * Telephone Encounter - Crystal Keenan OSA - 10/26/2022 2:37 PM EDT Caller requesting the following information to be faxed: Name/Company of caller: Aleks from [employer] Information requested to be faxed: recent 3 months lab results Fax number: [phone] Attention to Name/Company: Ale[employer] Any additional information?: no documented in this encounter Plan of Treatment Upcoming Encounters Date Type Department Care Team (Late st Contact Info) Description 02/10/2023 12:10 PM EST Office Visit [facility] [address] [place] [address] Suzan Dean DO [address] [place] [address] Health Maintenance Due Date Last Done [...] filedocumented as of this encounter Care Teams Flagger Relationship Specialty Start Date End Date Suzan Dean DO [address] [place] [address] PCP - General Family Medicine 07/31/15 documented as of this encounter
--- OUTSIDE RECORDS SUMMARY | 2023-05-04 06:20 | External Medical Summary ---
Author Name Unknown Address Unknown Organization K01:[facility] [place] [address] [place] [address] Laboratory Report Ordering Provider Test Date Status DRAKE OWENS 03/31/2023 12:36:41 Final Observation Date Value Abnormality Reference (Units ) Status HbA1C 03/31/2023 12:36:41 6.8 Above high normal 4. 0-5.6 (%) Final The use of HbA1c to monitor glycemic status is based on normal hemoglobin and HbA composition. This test should not be used in patients with abnormal hemoglobin that affects the half life of the red blood cell or the in vivo glycation rates. Glucose, estimated average 03/31/2023 12:36:41 148 Above high normal <126 (mg/dL) Bernard flowers Performing Location [facility] [place] [address] [place] [address]
--- OUTSIDE RECORDS SUMMARY | 2023-05-04 06:20 | External Medical Summary | Summary of Care ---
Author Name Unknown Organization [facility] Address [address] [place] [address] Phone [phone] Care Team Providers Care [employer] Name Role Phone Roman Juan DO Primary Care Provider Reason for Visit * Reason Onset Date Comments Medication Refill 03/24/2023 Encounter Details Date Type Department Care Team ([facility] st Contact Info) Description 03/24/2023 Refill [facility] [address] [place] [address] Roman Juan DO [address], [place] [id number] Gastritis and gastroduodenitis Allergies Active Allergy Reactions Criticality Noted Date Comments Lisinopril 10/31/2015 Decrease in blood pressure. Penicillins 01/13/2001 swelling of face and hives documented as of this encounter (statuses as of 03/24/2023) Medications Medication Sig Dispensed Refills Start Date End Date Status nystatin 086026 UNIT/ML suspensionIndications :Thrush Take 1 mL by mouth 4 times a day. For thrush. 60 mL 1 9 Active Additional Information Patient not taking.Reported on 07/10/2022 Nebulizers (NEBULIZER COMPRESSOR) MISCIndications:Bronc hitis, complicated Inhale via nebulizer. Use as directed. 1 Each 1 9 Active OXcarbazepine (TRILEPTAL) 300 MG Tablet 0 0 Active Citalopram Hydrobromide 40 MG Oral Tablet (CeleXA) Take 1 Tab by mouth daily. 30 Tab 5 0 Active Monistat 1-Day 6.5 % Vaginal Ointment (Tioconazole)Indicati ons:Yeast vaginitis Administer into the vagina daily. 8.4 g 3 1 Active Accu-Chek Yesi Plus w/Device Kit Use [...] MG Oral Tablet (Abilify) 0 2 Active Ipratropium-Albuterol 0.5-2.5 (3) MG/3ML Inhalation Solution (Duoneb)Indications:T obacco use disorder,Chronic bronchitis with acute exacerbation (HCC) Inhale via nebulizer 3 mL in the morning AND 3 mL at noon AND 3 mL in the evening AND 3 mL before bedtime. DX: J20.9. 120 mL 3 2 Active Ondansetron HCl 4 MG Oral [...] Blood)Indications:DM type 2 nursing care encounter ([facility]),Type 2 diabetes mellitus with hemoglobin A1c goal of less than 7.0% ([facility]) USE TO TEST BLOOD SUGARS UP TO 3 TIMES A DAY DX E11.9 300 Strip 3 3 Active OneTouch Delica Plus [id number]: DM type 2 nursing care encounter ([facility]),Type 2 diabetes mellitus with hemoglobin A1c goal of less than 7.0% ([facility]) USE TO TEST BLOOD SUGARS UP TO 3 TIMES A DAY DX E11.9 300 Each 3 3 Active Gabapentin 300 MG Oral Capsule (Neurontin)Indication s:Type 2 diabetes mellitus with hemoglobin A1c goal of less than 7.0% ([facility]) TAKE 1 CAPSULE BY MOUTH THREE TIMES A DAY 90 Capsule 5 3 Active Meloxicam 7.5 MG Oral Tablet (Mobic)Indications:Ac haritha pain of left knee TAKE 1 TABLET BY MOUTH DAILY FOR PAIN 90 Tablet 3 3 Active Levocetirizine Dihydrochloride 5 MG Oral TabletIndications: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 90 Tablet 1 3 Active OneTouch Verio Flex System w/Device KitIndications:DM type 2 nursing care encounter ([facility]),Type 2 diabetes mellitus with hemoglobin A1c goal of less than 7.0% ([facility]) USE TO TEST BLOOD SUGARS UP TO 3 TIMES A DAY DX E11.9 1 Kit 0 3 Active Fluticasone-Salmetero l 250-50 MCG/ACT Inhalation Aerosol Powder Breath Activated (Advair Diskus)Indications:As thma, mild intermittent, well-controlled Inhale 1 Puff by mouth in the morning and 1 Puff before bedtime. 60 Each 3 3 Active Compressor NebulizerIndications: Asthma, mild intermittent, well-controlled Inhale via nebulizer. Use as directed. 1 Each 1 3 Active Fluticasone Furoate-Vilanterol 100-25 MCG/ACT Inhalation Aerosol Powder Breath Activated (BREO ellipta) Inhale 1 Puff by mouth in the morning. 14 Each 4 3 Active Albuterol Sulfate HFA 108 (90 Base) MCG/ACT Inhalation Aerosol SolutionIndications:M ild persistent asthma without complication INHALE 2 PUFFS BY MOUTH 4 TIMES A DAY 54 g 4 3 Active Fluticasone-Salmetero l 250-50 MCG/ACT Inhalation Aerosol Powder Breath Activated (Advair Diskus) Inhale 1 Puff by mouth in the morning and 1 Puff before bedtime. 14 Each 5 3 Active BD Pen Needle Short U/F 31G X 8 MM (Insulin Pen Needle) USE TO INJECT LANTUS ONCE DAILY DX E11.9 100 Each 3 3 Active Lantus SoloStar 100 UNIT/ML Subcutaneous Solution Pen-injector (Insulin Glargine Solostar)Indications: Type 2 diabetes mellitus without complications (HCC) INJECT 40 UNITS UNDER THE SKIN AT BEDTIME 45 mL 2 3 Active Fluticasone-Salmetero l 250-50 MCG/ACT Inhalation Aerosol Powder Breath Activated (Advair Diskus) Inhale 1 Puff by mouth in the morning and 1 Puff before bedtime. 14 Each 5 3 Active Omeprazole 20 MG Oral Capsule Delayed Release (PriLOSEC)Indications :Gastritis and gastroduodenitis Take 1 Capsule by mouth in the morning. 1 hour before the first meal of the day.. 90 Capsule 1 4 Active Omeprazole 20 MG Oral Capsule Delayed Release (PriLOSEC)Indications :Gastritis and gastroduodenitis Take 1 Capsule by mouth in the morning. 1 hour before the first meal of the day.. 90 Capsule 1 3 03/24/19 24 Discontinu ed(Refill) documented as of this encounter (statuses as of 03/24/2023) Active Problems Problem Noted Date Diagnosed Date [...] as of this encounter (statuses as of 03/24/2023) Resolved Problems Problem Noted Date Diagnosed Date [...] as of this encounter (statuses as of 03/24/2023) Immunizations Name Administration Dates Next Due Pneumococcal [...] encounter Miscellaneous Notes * Telephone Encounter - Romna Juan DO - 03/24/2023 2:30 PM ESTSigned Prescriptions: Disp Refills Omeprazole 20 MG Oral Capsule Delayed Rele*90 Cap*1 Sig: Take 1 Capsule by mouth in the morning. 1 hour before the first meal of the day..Authorizing Provider: ROMAN JUAN documented in this encounter Plan of Treatment Upcoming Encounters Date Type Department Care Team (Late st Contact Info) Description 03/31/2023 11:30 AM EST Office Visit [facility] [address] [place] [facility] [place] [address] Roman Juan DO [address] [place] [facility] [place] [address] Health Maintenance Due Date Last Done Comments Hepatitis B (1 of 3 - 3-dose series) 1971 COVID-19 Vaccine (#1) 1971 DTaP,Tdap,and Td Vaccines (1 - Tdap) 1990 HPV/Co-Test 2001 Cologuard 02/02/2016 Fecal Occult Blood Test 02/02/2016 Sigmoidoscopy 02/02/2016 DISCUSS TOBACCO CESSATION (REFER TO SMARTSET #4778) 01/29/2017 01/30/2016 (Discussed) Colonoscopy 02/03/2017 02/03/2007 Colorectal Cancer Screening 02/03/2017 Zoster Vaccines (1 of 2) 2021 Mammogram 09/17/2021 09/17/2020, 0705/2018, 09/02/2016, Additional history exists *SPIROMETRY ONCE FOR [...] as of this encounter Visit Diagnoses Diagnosis Gastritis and gastroduodenitis Unspecified gastritis and gastroduodenitis without mention of hemorrhage documented in this encounter Care Teams [employer] Relationship Specialty Start Date End Date Roman Juan DO [address] [place] [address] PCP - General Family Medicine 07/31/15 documented as of this encounter
--- OUTSIDE RECORDS SUMMARY | 2023-05-04 06:20 | External Medical Summary | Summary of Care ---
Author Name Unknown Organization [facility] Address [address] [place] [address] Phone [phone] Care Team Providers Care [employer] Name Role Phone Roman Juan DO Primary Care Provider [phone] Reason for Visit * Reason Comments eRx-Medication Refill Encounter Details Date Type Department Care Team ([facility] st Contact Info) Description 04/01/2023 Refill [facility] [address] [place] [address] Roman Juan DO [address], [place] [id number] Allergies Active Allergy Reactions Criticality Noted Date Comments Lisinopril 10/31/2015 Decrease in blood pressure. Penicillins 01/13/2001 swelling of face and hives documented as of this encounter (statuses as of 04/02/2023) Medications Medication Sig Dispensed Refills Start Date End Date Status nystatin [id number] UNIT/ML suspensionIndication s:Thrush Take 1 mL by mouth 4 times a day. For thrush. 60 mL 1 9 Active Additional Information Patient not taking.Reported on 07/10/2022 Nebulizers (NEBULIZER COMPRESSOR) MISCIndications:Bron chitis, complicated Inhale via nebulizer. Use as directed. 1 Each 1 9 Active Additional Information Patient not taking.Reported on 03/31/2023 OXcarbazepine (TRILEPTAL) 300 MG Tablet 0 0 Active Citalopram Hydrobromide 40 MG Oral Tablet (CeleXA) Take 1 Tab by mouth daily. 30 Tab 5 0 Active Monistat 1-Day 6.5 % Vaginal Ointment (Tioconazole)Indicat ions:Yeast vaginitis Administer into the vagina daily. 8.4 [...] Chloride 64 MG Oral Tablet Delayed Release (Mag64)Indications:E ncounter for long-term (current) use of other medications [...] Active Trulicity 4.5 MG/0.5ML Subcutaneous Solution Pen-injector (Dulaglutide)Indicat ions:Type 2 diabetes mellitus with hemoglobin A1c goal of less than 7.0% ([facility]) Inject 4.5 mg once weekly on mondays 6 mL 3 3 Active Furosemide 20 MG Oral Tablet (Lasix)Indications:L ymphedema Take 1 Tablet by mouth in the morning. 90 Tablet 3 3 Active OneTouch Verio In Vitro Strip (Glucose Blood)Indications:DM type 2 nursing care encounter ([facility]),Type 2 diabetes mellitus with hemoglobin A1c goal of less than 7.0% ([facility]) USE TO TEST BLOOD SUGARS UP TO 3 TIMES A DAY DX E11.9 300 Strip 3 3 Active OneTouch Delica Plus [id number] :DM type 2 nursing care encounter (HCC),Type 2 diabetes mellitus with hemoglobin A1c goal of less than 7.0% ([facility]) USE TO TEST BLOOD SUGARS UP TO 3 TIMES A DAY DX E11.9 300 Each 3 3 Active Gabapentin 300 MG Oral Capsule (Neurontin)Indicatio ns:Type 2 diabetes mellitus with hemoglobin A1c goal of less than 7.0% ([facility]) TAKE 1 CAPSULE BY MOUTH THREE TIMES A DAY 90 Capsule 5 3 Active Meloxicam 7.5 MG Oral Tablet (Mobic)Indications:A cute pain of left knee TAKE 1 TABLET BY MOUTH DAILY FOR PAIN 90 Tablet 3 3 Active Levocetirizine Dihydrochloride 5 MG Oral TabletIndications:Ne oplasm of uncertain behavior of skin TAKE 1 TABLET BY MOUTH EVERYDAY AT BEDTIME 90 Tablet 3 3 Active Atorvastatin Calcium 20 MG Oral Tablet (Lipitor)Indications :Type 2 diabetes mellitus with hemoglobin A1c goal of less than 7.0% ([facility]),High triglycerides,Dyslip idemia, goal LDL below 100 Take 1 Tablet by mouth in the morning. 90 Tablet 1 3 Active Second Light Flex System w/Device KitIndications:DM type 2 nursing care encounter ([facility]),Type 2 diabetes mellitus with hemoglobin A1c goal of less than 7.0% ([facility]) USE TO TEST BLOOD SUGARS UP TO 3 TIMES A DAY DX E11.9 1 Kit 0 3 Active Fluticasone-Salmeter ol 250-50 MCG/ACT Inhalation Aerosol Powder Breath Activated (Advair Diskus)Indications:A sthma, mild intermittent, well-controlled Inhale 1 Puff by mouth in the morning and 1 Puff before bedtime. 60 Each 3 3 Active Albuterol Sulfate HFA 108 (90 Base) MCG/ACT Inhalation Aerosol SolutionIndications: Mild persistent asthma without complication INHALE 2 PUFFS BY MOUTH 4 TIMES A DAY 54 g 4 3 Active BD Pen Needle Short U/F 31G X 8 MM (Insulin Pen Needle) USE TO INJECT LANTUS ONCE DAILY DX E11.9 100 Each 3 3 Active Lantus SoloStar 100 UNIT/ML Subcutaneous Solution Pen-injector (Insulin Glargine Solostar)Indications :Type 2 diabetes mellitus without complications ([facility]) INJECT 40 UNITS UNDER THE SKIN AT BEDTIME 45 mL 2 3 Active Omeprazole 20 MG Oral Capsule Delayed Release (PriLOSEC)Indication s:Gastritis and gastroduodenitis Take 1 Capsule by mouth in the morning. 1 hour before the first meal of the day.. 90 Capsule 1 4 Active Ipratropium-Albutero l 0.5-2.5 (3) MG/3ML Inhalation Solution (Duoneb)Indications: Tobacco use disorder,Chronic bronchitis with acute exacerbation (HCC) Inhale 3 mL via nebulizer in the morning and 3 mL at noon and 3 mL in the evening and 3 mL before bedtime. DX: J20.9. 120 mL 3 4 Active Compressor NebulizerIndications :Chronic bronchitis with acute exacerbation (HCC) Inhale via nebulizer. Use as directed. 1 Each 1 4 Active Azithromycin 250 MG Oral Tablet (Zithromax Z-Emir)Indications:Ch ronic bronchitis with acute exacerbation (HCC) Take two tablets by mouth on first day, then 1 tablet daily until gone 6 Tablet 0 4 Active predniSONE 10 MG Oral Tablet (Deltasone)Indicatio ns:Chronic bronchitis with acute exacerbation (HCC) Take 5 tabs for 2 days, 4 tabs for 2 days, 3 tabs for 2 days, 2 tabs for 2 days 1 tab for 2 days 30 Tablet 0 4 Active Montelukast Sodium 10 MG Oral Tablet (Singulair)Indicatio ns:Asthma, mild intermittent, well-controlled Take 1 Tablet by mouth in the morning. 90 Tablet 3 4 Active Sulfamethoxazole-Tri methoprim 800-160 MG Oral Tablet (Bactrim DS)Indications:Infec manolo lesion in nose Take 1 Tablet by mouth in the morning and 1 Tablet before bedtime. Do all this for 10 days. Until gone.. 20 Tablet 0 4 024 Active Fluticasone Furoate-Vilanterol 100-25 MCG/ACT Inhalation Aerosol Powder Breath Activated (BREO ellipta) Inhale 1 Puff by mouth in the morning. 60 Each 4 4 Active Fluticasone Furoate-Vilanterol 100-25 MCG/ACT Inhalation Aerosol Powder Breath Activated (BREO ellipta) Inhale 1 Puff by mouth in the morning. 14 Each 4 3 024 Discontinued documented as of this encounter (statuses as of 04/02/2023) Active Problems Problem Noted Date Diagnosed Date [...] as of this encounter (statuses as of 04/02/2023) Resolved Problems Problem Noted Date Diagnosed Date [...] as of this encounter (statuses as of 04/02/2023) Immunizations Name Administration Dates Next Due Pneumococcal [...] encounter Miscellaneous Notes * Telephone Encounter - Darshan Denson, [facility] - 04/02/2023 11:38 AM ESTSigned Prescriptions: Disp Refills Fluticasone Furoate-Vilanterol 100-25 MCG/*60 Each4 Sig: Inhale 1 Puff by mouth in the morning.Authorizing Provider: ROMAN JUAN User: DARSHAN MIRANDA documented in this encounter Plan of Treatment Upcoming Encounters Date Type Department Care Team (Late st Contact Info) Description 08/13/2023 12:10 PM EDT Office Visit [facility] [address] [place] [address] Roman Juan DO [address] [place] [address] Health Maintenance Due Date Last [...] Influenza Vaccine (FLU shot) (#1) 2022 12/12/2012 Depression Screening 07/11/2023 07/10/2022 Diabetic Foot Exam 07/11/2023 07/10/2022, 0 09/12/2021, 11/07/2020, Additional history exists Cervical Cancer Screening 07/13/2023 Pap Smear 07/13/2023 07/12/2020, 04/02, 01/30/2016 (Done elsewhere), Additional history exists HbA1c 09/29/2023 03/31/2023, 09/30, 07/10/2022, Additional history exists GFR 03/31/2024 03/31/2023, 09/30, 07/10/2022, Additional history exists Lipid Panel 07/11/2027 07/10/2022, [...] filedocumented as of this encounter Care Teams [employer] Relationship Specialty Start Date End Date Roman Juan DO [address] [place] [address] PCP - General Family Medicine 07/31/15 documented as of this encounter
--- OUTSIDE RECORDS SUMMARY | 2023-05-04 06:21 | External Medical Summary | Summary of Care ---
Author Name Unknown Organization [facility] Address [address] [place] [address] Phone [phone] Care Team Providers Care [employer] Name Role Phone Suzan Dean DO Primary Care Provider Encounter Details Date Type Department Care Team ([facility] st Contact Info) Description 01/01/2023 Telephone [facility] [address] [place] [address] Suzan Dean DO [address] [place] [address] Allergies Active Allergy Reactions Criticality Noted Date Comments Lisinopril 10/31/2015 Decrease in blood pressure. Penicillins 01/13/2001 swelling of face and hives documented as of this encounter (statuses as of 01/04/2023) Medications Medication Sig Dispensed Refills Start Date End Date Status nystatin 043339 UNIT/ML suspensionIndications :Thrush Take 1 mL by [...] obacco use disorder,Chronic bronchitis with acute exacerbation ([facility]) Inhale via nebulizer 3 mL in the [...] hemoglobin A1c goal of less than 7.0% ([facility]) Inject 4.5 mg once weekly on mondays 6 mL 3 3 Active Furosemide 20 MG Oral Tablet (Lasix)Indications:Ly mphedema Take 1 Tablet by mouth in the morning. 90 Tablet 3 3 Active OneTouch Verio In Vitro Strip (Glucose Blood)Indications:DM type 2 nursing care encounter ([facility]),Type 2 diabetes mellitus with hemoglobin A1c goal of less than 7.0% (HCC) USE TO TEST BLOOD SUGARS UP TO 3 TIMES A DAY DX E11.9 300 Strip 3 3 Active OneTouch Delica Plus [id number]: DM type 2 nursing care encounter ([facility]),Type 2 diabetes mellitus with hemoglobin A1c goal of less than 7.0% (HCC) USE TO TEST BLOOD SUGARS UP TO 3 TIMES A DAY DX E11.9 300 Each 3 3 Active Gabapentin 300 MG Oral Capsule (Neurontin)Indication s:Type 2 diabetes mellitus with hemoglobin A1c goal of less than 7.0% ([facility]) TAKE 1 CAPSULE BY MOUTH THREE TIMES [...] hemoglobin A1c goal of less than 7.0% ([facility]),High triglycerides,Dyslipi demia, goal LDL below 100 Take 1 Tablet by mouth in the morning. 90 Tablet 1 3 Active Loxo OncologyTouch Verio Flex System w/Device KitIndications:DM type 2 nursing care encounter ([facility]),Type 2 diabetes mellitus with hemoglobin A1c goal of less than 7.0% ([facility]) USE TO TEST BLOOD SUGARS UP TO [...] A DAY 54 g 4 3 Active Omeprazole 20 MG Oral Capsule Delayed Release (PriLOSEC)Indications :Gastritis and gastroduodenitis Take 1 Capsule by mouth in the morning. 1 hour before the first meal of the day.. 90 Capsule 1 3 Active Fluticasone-Salmetero l 250-50 MCG/ACT Inhalation Aerosol Powder Breath Activated (Advair Diskus) Inhale 1 Puff by mouth in the morning and 1 Puff before bedtime. 14 Each 5 3 Active BD Pen Needle Short U/F 31G X 8 MM (Insulin Pen Needle) USE TO INJECT LANTUS ONCE DAILY DX E11.9 100 Each 3 3 Active Fluticasone-Salmetero l 250-50 MCG/ACT Inhalation Aerosol Powder Breath Activated (Advair Diskus) Inhale 1 Puff by mouth in the morning and 1 Puff before bedtime. 14 Each 5 3 Active Advair Diskus 250-50 MCG/DOSE Inhalation Aerosol Powder Breath ActivatedIndications: Asthma, mild intermittent, well-controlled INHALE 1 PUFF BY MOUTH 2 TIMES A DAY. 180 Each 3 1 01/05/20 23 Discontinu ed(Medicat ion List Clean Up) documented as of this encounter (statuses as of 01/04/2023) Active Problems Problem Noted Date Diagnosed Date [...] as of this encounter (statuses as of 01/04/2023) Resolved Problems Problem Noted Date Diagnosed Date [...] as of this encounter (statuses as of 01/04/2023) Immunizations Name Administration Dates Next Due Pneumococcal Conjugate Vaccine, 20-valent (Prevn ar20) 10/23/2022 Pneumococcal Polysaccharide PPV23 (Pneumovax) Seasonal Influenza, Split, IIV3, With Preserve, Inj 12/12/2012 documented as of this encounter Social History Tobacco Use Types Packs/Day Years Used Date Smoking Tobacco: Every Day Cigarettes 1 19 Last attempted to quit: 03/01/2011 Passive Smoke Exposure: Current Smokeless Tobacco: Never Comments:Started again Alcohol Use Standard Drinks/Week Comments No 0 [...] encounter Miscellaneous Notes * Telephone Encounter - Suzan Dean DO - 01/04/2023 9:03 AM EST Ok I sent over Advair * Telephone Encounter - Concepcion Henriquez LPN - 01/01/2023 3:03 PM EDT Patient insurance will not cover Wixela they will only cover Advair brand names. documented in this encounter Plan of Treatment Upcoming Encounters Date Type Department Care Team (Late st Contact Info) Description 02/10/2023 12:10 PM EST [facility] [place] [address] [facility] [address] [facility] [address] [facility] [id number] Health Maintenance Due Date Last Done Comments [...] filedocumented as of this encounter Care Teams Exam [employer]ctor Relationship Specialty Start Date End Date Suzan Dean DO [address] [place] [address] PCP - General Family Medicine 07/31/15 documented as of this encounter
--- OUTSIDE RECORDS SUMMARY | 2023-05-04 06:21 | External Medical Summary | Summary of Care ---
Author Name Unknown Organization [facility] Address [address] [place] [address] Phone [phone] Care Team Providers Care Fisher Eel Spear Name Role Phone Roman Juan DO Primary Care Provider [phone] Reason for Visit * Reason Comments eRx-Medication Refill Encounter Details Date Type Department Care Team ([facility] st Contact Info) Description 01/01/2023 Refill [facility] [address] [place] [address] Roman Juan DO [address] [place] [address] Type 2 diabetes mellitus without complications (HCC) Allergies Active Allergy Reactions Criticality Noted Date Comments Lisinopril 10/31/2015 Decrease in blood pressure. Penicillins 01/13/2001 swelling of face and hives documented as of this encounter (statuses as of 01/02/2023) Medications Medication Sig Dispensed Refills Start Date End Date Status nystatin 671838 UNIT/ML suspensionIndication s:Thrush Take 1 mL by [...] preferred brand 300 Each 3 1 Active Advair Diskus 250-50 MCG/DOSE Inhalation Aerosol Powder Breath ActivatedIndications :Asthma, mild intermittent, well-controlled INHALE 1 PUFF BY MOUTH 2 TIMES A DAY. 180 Each 3 1 Active Additional Information Patient not taking.Reported on 10/23/2022 Magnesium Chloride 64 MG Oral Tablet Delayed Release (Mag64)Indications:E ncounter for long-term (current) use of other medications Take 2 Tablets by mouth daily. 60 Tablet 2 2 Active ARIPiprazole 5 MG Oral Tablet (Abilify) 0 2 Active Ipratropium-Albutero l 0.5-2.5 (3) MG/3ML Inhalation [...] goal of less than 7.0% ([facility]) Inject 4.5 mg once weekly on mondays 6 mL 3 3 Active Furosemide 20 MG Oral Tablet (Lasix)Indications:L ymphedema Take 1 Tablet by mouth in the morning. 90 Tablet 3 3 Active OneTouch Verio In Vitro Strip (Glucose Blood)Indications:DM type 2 nursing care encounter ([facility]),Type 2 diabetes mellitus with hemoglobin A1c goal of less than 7.0% ([facility]) USE TO TEST BLOOD SUGARS UP TO 3 TIMES A DAY DX E11.9 300 Strip 3 3 Active OneTouch Delica Plus [id number] :DM type 2 nursing care encounter ([facility]),Type 2 diabetes mellitus with hemoglobin A1c goal of less than 7.0% ([facility]) USE TO TEST BLOOD SUGARS UP TO 3 TIMES A DAY DX E11.9 300 Each 3 3 Active Gabapentin 300 MG Oral Capsule (Neurontin)Indicatio ns:Type 2 diabetes mellitus with hemoglobin A1c goal of less than 7.0% ([facility]) TAKE 1 CAPSULE BY MOUTH THREE TIMES [...] goal of less than 7.0% ([facility]),High triglycerides,Dyslip idemia, goal LDL below 100 Take 1 Tablet by mouth in the morning. 90 Tablet 1 3 Active OneTouch Verio Flex System w/Device KitIndications:DM type 2 nursing care encounter ([facility]),Type 2 diabetes mellitus with hemoglobin A1c goal of less than 7.0% ([facility]) USE TO TEST BLOOD SUGARS UP TO 3 TIMES A DAY DX E11.9 1 Kit 0 3 Active Fluticasone-Salmeter ol 250-50 MCG/ACT Inhalation Aerosol Powder Breath Activated (Advair Diskus)Indications:A sthma, mild intermittent, well-controlled Inhale 1 Puff by mouth in the morning and 1 Puff before bedtime. 60 Each 3 3 Active Compressor NebulizerIndications :Asthma, mild intermittent, well-controlled Inhale via nebulizer. Use [...] the day.. 90 Capsule 1 3 Active Fluticasone-Salmeter ol 250-50 MCG/ACT Inhalation [...] Solostar)Indications :Type 2 diabetes mellitus without complications (HCC) INJECT 40 UNITS UNDER THE SKIN AT BEDTIME 45 mL 2 3 Active Insulin Glargine Solostar 100 UNIT/ML Subcutaneous Solution Pen-injectorIndicati ons:Type 2 diabetes mellitus without complications (HCC) Inject 40 Units under the skin at bedtime. 45 mL 2 3 023 Discontinued documented as of this encounter (statuses as of 01/02/2023) Active Problems Problem Noted Date Diagnosed Date [...] as of this encounter (statuses as of 01/02/2023) Resolved Problems Problem Noted Date Diagnosed Date [...] as of this encounter (statuses as of 01/02/2023) Immunizations Name Administration Dates Next Due Pneumococcal [...] encounter Miscellaneous Notes * Telephone Encounter - Sunny Edmonds, [facility] - 01/02/2023 11:54 AM EDT Signed Prescriptions: Disp Refills Lantus SoloStar 100 UNIT/ML Subcutaneous S*45 mL 2 Sig: INJECT 40 UNITS UNDER THE SKIN AT BEDTIME Authorizing Provider: ROMAN JUAN Ordering User: SUNNY EDMONDS Refused Prescriptions: Disp Refills Trulicity 3 MG/0.5ML Subcutaneous Solution* 3 Sig: INJECT ONE PEN (3.0MG) UNDER THE SKIN ONCE A WE EK Refused By: TINO ALEXANDRA Reason for Refusal: Dose needs clarification * Telephone Encounter - Tino Alexandra [facility] - 01/01/2023 4:06 PM EDTPending Prescriptions: Disp Refills Lantus SoloStar 100 UNIT/ML Subcutaneous S* 2 Sig: INJECT 40 UNITS UNDER THE SKIN AT BEDTIME Refused Prescriptions: Disp Refills Trulicity 3 MG/0.5ML Subcutaneous Solution* 3 Sig: INJECT ONE PEN (3.0MG) UNDER THE SKIN ONCE A WEEK Refused By: TINO ALEXANDRA Reason for Refusal: Dose needs clarification * Telephone Encounter - Tino Alexandra CPhT - 01/01/2023 4:04 PM EDT Did you pend patient's preferred pharmacy and medication before forwarding?yes Pharmacy: [id number] [address] [place] [address] Pending Prescriptions: Disp Refills Lantus SoloStar 100 UNIT/ML Subcutaneous * 2 Sig: INJECT 40 UNITS UNDER THE SKIN AT BEDTIME Refused Prescriptions: Disp Refills Trulicity 3 MG/0.5ML Subcutaneous Solution* 3 Sig: Inject one pen (3.0mg) under the skin once a week Last Visit: 10/23/2022 (in office), 03/13/2022 (telemedicine) Next Visit: 02/10/2023 If no future appointments scheduled, and last appointment is greater than a year ago, please schedule patient for a follow-up appointment Last date the medication was ordered: 06/17/2022 Is this request for a controlled substance?No Urine Drug Screen: Results for orders placed or performed in visit on 07/23/21 TOXICOLOGY, URINE SCREEN W/ CONFIRMATION Result Value Amphetamine Negative Benzodiazepines Negative Cannabinoids Negative Cocaine Metabolite Negative Fentanyl Negative Hydrocodone / Hydromorphone Negative Methadone Metabolite Negative Morphine / Codeine Negative Oxycodone / Oxymorphone Negative Narrative Cutoff Concentrations: Drug Level Amphetamines 500 ng/mL Benzodiazepines 100 ng/mL Cannabinoids 50 ng/mL Cocaine Metabolite 150 ng/mL Fentanyl 1 ng/mL Hydrocodone / Hydromorphone 300 ng/mL Methadone Metabolite 100 ng/mL Morphine / Codeine 300 ng/mL Oxycodone / Oxymorphone 100 ng/mL Screening results are presumptive and can only be used for medical purposes. Positive screening results are reflexed to confirmatory testing. Results for orders placed or performed in visit on 12/25/11 TOX SCREEN, URINE, W/O CONFIRMATION Result Value Amphetamine POSITIVE (A) Barbiturates NEGATIVE Benzodiazepines POSITIVE (A) Cannabinoids POSITIVE (A) Cocaine Metabolite NEGATIVE Morphine / Codeine NEGATIVE OXYCODONE POSITIVE (A) METHADONE MEDICAL NEGATIVE NOTE: SEE COMMENT DETECTION LIMIT SEE COMMENT Patient Phone Numbers Labs: Lab Results Component Value Date/Time CREAT 0.9 10/23/2022 01:05 PM CREAT 0.7 08/28/2019 03:12 PM POTASSIUM 3.8 10/23/2022 01:05 PM POTASSIUM 4.2 08/28/2019 03:12 PM TSH 3.21 02/16/2022 01:01 PM TSH 0.73 05/10/2012 02:10 PM LDLCALC 75 07/10/2022 11:51 AM LDLCALC 72 05/19/2019 10:34 AM LDLDIRECT 93 03/07/2021 01:19 PM ALT 24 07/10/2022 11:51 AM ALT 16 05/19/2019 10:34 AM HGBA1C 6.2 (H) 10/23/2022 01:05 PM HGBA1C 8.4 (H) 01/29/2020 01:23 PM documented in this encounter Plan of Treatment Upcoming Encounters Date Type Department Care Team (Late st Contact Info) Description 02/10/2023 12:10 PM EST Office Visit [facility] [address] [place] [facility] [address] Roman Juan DO [address] [place] [place] [address] Health Maintenance Due Date Last Done Comments [...] Visit Diagnoses Diagnosis Type 2 diabetes mellitus without complications (HCC) Type II or unspecified type diabetes mellitus without mention of complication, not stated as uncontrolled documented in this encounter Care Teams Fisher Eel Spear Relationship Specialty Start Date End Date Roman Juan DO [address] [place] [address] PCP - General Family Medicine 07/31/15 documented as of this encounter
--- OUTSIDE RECORDS SUMMARY | 2023-05-04 06:21 | External Medical Summary | Summary of Care ---
Author Name Unknown Organization [facility] Address [address] [place] [address] Phone [phone] Care Team Providers Care Corporate Counsel Name Role Phone Suzan Dean DO Primary Care Provider [phone] Reason for Visit * Reason Onset Date Comments Forms Request 12/14/2022 Encounter Details Date Type Department Care Team Description 12/14/2022 Telephone [facility] [address] [place] [address] Suzan Dean DO [address] [place] [address] Forms Request (/) Allergies Active Allergy Reactions Severity Noted Date Comments Lisinopril 10/31/2015 Decrease in blood pressure. Penicillins 01/13/2001 swelling of face and hives documented as of this encounter (statuses as of 12/14/2022) Medications Medication Sig Dispensed Refills Start Date End Date Status nystatin 815024 UNIT/ML suspensionIndications: Thrush Take 1 mL by [...] preferred brand 300 Each 3 06/17/2020 Active Advair Diskus 250-50 MCG/DOSE Inhalation Aerosol Powder Breath ActivatedIndications:A sthma, mild intermittent, well-controlled INHALE 1 PUFF BY MOUTH 2 TIMES A DAY. 180 Each 3 11/08/2020 Active Additional Information Patient not taking.Reported on [...] hemoglobin A1c goal of less than 7.0% ([facility]) Inject 4.5 mg once weekly on mondays 6 mL 3 06/02/2022 Active Insulin Glargine Solostar 100 UNIT/ML Subcutaneous Solution Pen-injectorIndication s:Type 2 diabetes mellitus without complications (HCC) Inject 40 Units under the skin at bedtime. 45 mL 2 06/17/2022 Active Furosemide 20 MG Oral Tablet (Lasix)Indications:Lym phedema Take 1 Tablet by mouth in the morning. 90 Tablet 3 08/03/2022 Active OneTouch Verio In Vitro Strip (Glucose Blood)Indications:DM type 2 nursing care encounter ([facility]),Type 2 diabetes mellitus with hemoglobin A1c goal of less than 7.0% ([facility]) USE TO TEST BLOOD SUGARS UP TO 3 TIMES A DAY DX E11.9 300 Strip 3 08/10/2022 Active OneTouch Delica Plus [id number]:D M type 2 nursing care encounter ([facility]),Type 2 diabetes mellitus with hemoglobin A1c goal of less than 7.0% ([facility]) USE TO TEST BLOOD SUGARS UP TO 3 TIMES A DAY DX E11.9 300 Each 3 08/10/2022 Active Gabapentin 300 MG Oral Capsule (Neurontin)Indications :Type 2 diabetes mellitus with hemoglobin A1c goal of less than 7.0% ([facility]) TAKE 1 CAPSULE BY MOUTH [...] hemoglobin A1c goal of less than 7.0% ([facility]),High triglycerides,Dyslipid emia, goal LDL below 100 Take 1 Tablet by mouth in the morning. 90 Tablet 1 09/28/2022 Active OneTouch Verio Flex System w/Device KitIndications:DM type 2 nursing care encounter ([facility]),Type 2 diabetes mellitus with hemoglobin A1c goal of less than 7.0% ([facility]) USE TO TEST BLOOD SUGARS [...] DX E11.9 100 Each 3 12/08/2022 Active documented as of this encounter (statuses as of 12/14/2022) Active Problems Problem Noted Date Asthma, mild intermittent, well-controll ed 11/25/2016 HTN, goal below 140/90 08/12/2015 Overview: Per HTN Protocol Opiate misuse 07/31/2015 High triglycerides 12/12/2012 Obesity, Class III, BMI 40-49.9 (morbid obesity) 08/27/2011 Type 2 diabetes mellitus with hemoglobin A1c goal of less than 7.0% 06/24/2011 Overview: ICD-10 update of inactive term Tobacco use disorder 12/05/2009 Major depressive disorder, recurrent epi sode, moderate 08/03/2008 Benign neoplasm of colon Bipolar I, most recent episode depressed , severe Dyslipidemia, goal LDL below 100 documented as of this encounter (statuses as of 12/14/2022) Resolved Problems Problem Noted Date Resolved Date Food insecurity 11/11/2020 12/12/2020 Overview: Per [facility] Protocol Hypertension goal BP (blood pressure) < 140/80 0 10/30/2011 08/15/2015 Overview: Per HTN Protocol Adult body mass index 50.0-59.9 01/02/2011 08/27/2011 Sciatica 06/23/2010 07/20/2017 Abnormal weight gain 12/05/2009 07/20/2017 OBESITY 12/05/2009 07/20/2017 Asthma, mild persistent 12/05/2009 11/26/19 17 Abdominal pain, generalized 08/16/2009 1008/2009 OBSTIPATION 08/16/2009 11/25/2016 Pain in limb 08/16/2009 11/25/2016 Edema 08/16/2009 04/10/2011 Obesity, morbid (more than 1 00 lbs over ideal weight or BMI > 40) 05/28/2009 12/05/2009 Overview: Per Obesity Taxonomy ICD-10 update of inactive term Overweight (BMI 25.0-29.9) 05/23/200911/25 Dyslipidemia, goal to be determined 08/11/2007 05/23/2009 Asthma with severity to be determined 08/11/2007 12/05/2009 Overview: ICD-10 update of inactive term Allergic rhinitis 08/11/2007 11/25/2016 Dermatitis 03/21/2007 11/25/2016 Internal hemorrhoids 03/21/2007 11/25/2016 Anxiety state 01/05/2007 07/20/2017 Routine medical exam 01/05/2007 11/25/2016 ABN GLUCOSE-ANTEPARTUM 7 HTN, goal below 140/90 0 Backache 11/25/2016 Overview: arthritis in back Morbid obesity, BMI not known Overview: Per Obesity Taxonomy Diverticulosis of colon 07/21/19 18 HTN, goal below 130/80 1 HTN, goal below 140/90 2 documented as of this encounter (statuses as of 12/14/2022) Immunizations Name Administration Dates Next Due Pneumococcal [...] drink = 0.6 oz pur e alcohol) Food Insecurity Answer Date Recorded Within the past 12 months, y ou worried that your food would run out before you got money to buy more. Never true 07/10/2022 Within the past 12 months, t he food you bought just didn't last and you didn't have money to get more. Never true 07/10/2022 Sex Assigned at Date Recorded Female 07/10/2022 10:55 AM EDT Job Start Date Occupation Industry Not on file Not on file Not on file documented as of this encounter Miscellaneous Notes * Telephone Encounter - Felisa Mandel - 12/14/2022 2:47 PM EDT 12/14/22 Rec paperwork from [employer] regarding Nebulizer supplies for pt as well as a new nebulizer machine; must say nebulizer compressor as well. Paperwork put in provider's mail bin on 12-14-22. documented in this encounter Plan of Treatment Upcoming Encounters Date Type Specialty Care Team Description 02/10/2023 Office Visit Family Medicine Suzan Dean, DO [address] [place] [address], [place] [id number] Health Maintenance Due Date Last Done Comments [...] history exists *SPIROMETRY ONCE FOR ASTHMA-ADULT 01/22/2022 DIABETES-EYE EXAM 03/27/2022 03/27/2021, , 06/11/2015, Additional history exists [...] filedocumented as of this encounter Care Teams Corporate Counsel Relationship Specialty Start Date End Date Suzan Dean, [address] [place] [address] PCP - General Family Medicine 07/31/15 documented as of this encounter
--- OUTSIDE RECORDS SUMMARY | 2023-05-04 06:21 | External Medical Summary | Summary of Care ---
Author Name Unknown Organization [facility] Address [address] [place] [address] Phone [phone] Care Team Providers Care Civil Rights Investigator Name Role Phone Roman Juan DO Primary Care Provider Reason for Visit * Reason Onset Date Comments Forms Request 12/14/2022 Encounter Details Date Type Department Care Team Description 12/14/[address] [facility] [address] [place] [address] Roman Juan DO [address] [place] [address] Forms Request (/) Allergies Active Allergy Reactions Severity Noted Date Comments Lisinopril 10/31/2015 Decrease in blood pressure. Penicillins 01/13/2001 swelling of face and hives documented as of this encounter (statuses as of 12/16/2022) Medications Medication Sig Dispensed Refills Start Date End Date Status nystatin 125912 UNIT/ML suspensionIndications: Thrush Take 1 mL by [...] goal of less than 7.0% ([facility]) Inject 4.5 mg once weekly on [...] type 2 nursing care encounter ([facility]),Type 2 diabetes mellitus with hemoglobin A1c goal of less than 7.0% ([facility]) USE TO TEST BLOOD SUGARS UP TO 3 TIMES A DAY DX E11.9 300 Strip 3 08/10/2022 Active OneTouch Delica Plus [id number]:D M type 2 nursing care encounter ([facility]),Type 2 diabetes mellitus with hemoglobin A1c goal of less than 7.0% ([facility]) USE TO TEST BLOOD SUGARS UP TO 3 TIMES A DAY DX E11.9 300 Each 3 08/10/2022 Active Gabapentin 300 MG Oral Capsule (Neurontin)Indications :Type 2 diabetes mellitus with hemoglobin A1c goal of less than 7.0% ([facility]) TAKE 1 CAPSULE BY MOUTH THREE [...] goal of less than 7.0% ([facility]),High triglycerides,Dyslipid emia, goal LDL below 100 Take 1 Tablet by mouth in the morning. 90 Tablet 1 09/28/2022 Active OneTouch Verio Flex System w/Device KitIndications:DM type 2 nursing care encounter ([facility]),Type 2 diabetes mellitus with hemoglobin A1c goal of less than 7.0% ([facility]) USE TO TEST BLOOD SUGARS UP [...] as of this encounter (statuses as of 12/16/2022) Active Problems Problem Noted Date Asthma, mild [...] as of this encounter (statuses as of 12/16/2022) Resolved Problems Problem Noted Date Resolved Date [...] as of this encounter (statuses as of 12/16/2022) Immunizations Name Administration Dates Next Due Pneumococcal [...] as of this encounter Miscellaneous Notes * Addendum Note - Roman uJan DO - 12/16/2022 9:25 AM EDTAddended by: ROMAN JUAN on: 12/16/2022 09:25 AM Modules accepted: Orders * Addendum Note - Lorena Lai LPN - 12/15/2022 11:03 AM EDTAddended by: LORENA LAI on: 12/15/2022 11:03 AM Modules accepted: Orders * Telephone Encounter - Lorena Lai LPN - 12/15/2022 11:03 AM EDT New DME pended * Telephone Encounter - Sarahi Mccallum LPN - 12/15/2022 8:20 AM EDT Patient states that she was to return call to office regarding her nebulizer machine She states that Dr. Juan ordered her a new nebulizer machine (at last office visit 10/23/2022) She just dropped off the order last week to the DME company and they told her that they would be contacting PCP She also states that she needs more medication for her nebulizer, she does not have any and did notget a refill at last office visit Pharm selected. Please advise. * Telephone Encounter - Felisa Mandel - 12/14/2022 2:47 PM EDT 12/14/22 Rec paperwork from [employer] regarding Nebulizer supplies for pt as well as a new nebulizer machine; must say nebulizer compressor as well. Paperwork put in provider's mail bin on 12-14-22. documented in this encounter Plan of Treatment Upcoming Encounters Date Type Specialty Care Team Description 02/10/2023 Office Visit Family Medicine Roman Juan, DO [address] [place] [address] Health Maintenance Due Date Last Done Comments Hepatitis B (1 of 3 - 3-dose series) 1971 COVID-19 Vaccine (#1) 1971 DTaP,Tdap,and Td Vaccines (1 - Tdap) 1990 HPV/Co-Test 2001 Cologuard 02/02/2016 Fecal Occult Blood Test 02/02/2016 Sigmoidoscopy 02/02/2016 DISCUSS TOBACCO CESSATION (REFER TO SMARTSET #7311) 01/29/2017 01/30/2016 (Discussed) Colonoscopy 02/03/2017 02/03/2007 Colorectal [...] as of this encounter Visit Diagnoses Diagnosis Asthma, mild intermittent, well-controlled- Primary Unspecified asthma documented in this encounter Care Teams Civil Rights Investigator Relationship Specialty Start Date End Date Roman Juan, DO [address] [place] [address] PCP - General Family Medicine 07/31/15 documented as of this encounter
--- OUTSIDE RECORDS SUMMARY | 2023-05-04 06:21 | External Medical Summary | Summary of Care ---
Author Name Unknown Organization [facility] Address [address] [place] [address] Phone [phone] Care Team Providers Care Recordak Operator Name Role Phone Suzan Dean DO Primary Care Provider Reason for Visit * Reason Onset Date Comments Fax 12/04/2022 Encounter Details Date Type Department Care Team Description 12/04/2022 Telephone [facility] [address] [place] [address] Suzan Dean DO [address] [place] [address] Fax Allergies Active Allergy Reactions Severity Noted Date Comments Lisinopril 10/31/2015 Decrease in blood pressure. Penicillins 01/13/2001 swelling of face and hives documented as of this encounter (statuses as of 12/10/2022) Medications Medication Sig Dispensed Refills Start Date End Date Status nystatin 600743 UNIT/ML suspensionIndications: Thrush Take 1 mL by [...] (Glucose Blood)Indications:DM type 2 nursing care encounter ([facility]),Type 2 diabetes mellitus with hemoglobin A1c goal of less than 7.0% ([facility]) USE TO TEST BLOOD SUGARS UP TO 3 TIMES A DAY DX E11.9 300 Strip 3 08/10/2022 Active OneTouch Delica Plus [id number]:D M type 2 nursing care encounter ([facility]),Type 2 diabetes mellitus with hemoglobin A1c goal of less than 7.0% ([facility]) USE TO TEST BLOOD SUGARS UP TO 3 TIMES A DAY DX E11.9 300 Each 3 08/10/2022 Active Gabapentin 300 MG Oral Capsule (Neurontin)Indications :Type 2 diabetes mellitus with hemoglobin A1c goal of less than 7.0% ([facility]) TAKE 1 CAPSULE BY MOUTH THREE [...] hemoglobin A1c goal of less than 7.0% ([facility]),High triglycerides,Dyslipid emia, goal LDL below 100 Take 1 Tablet by mouth in the morning. 90 Tablet 1 09/28/2022 Active OneTouch Verio Flex System w/Device KitIndications:DM type 2 nursing care encounter ([facility]),Type 2 diabetes mellitus with hemoglobin A1c goal of less than 7.0% ([facility]) USE TO TEST BLOOD SUGARS UP [...] before bedtime. 14 Each 5 11/27/2022 Active documented as of this encounter (statuses as of 12/10/2022) Active Problems Problem Noted Date Asthma, mild [...] as of this encounter (statuses as of 12/10/2022) Resolved Problems Problem Noted Date Resolved Date Food insecurity 11/11/2020 12/12/2020 Overview: Per [facility] Protocol Hypertension goal BP (blood pressure) < 140/80 0 10/30/2011 08/15/2015 Overview: Per HTN Protocol Adult body mass index 50.0-59.9 01/02/2011 08/27/2011 Sciatica 06/23/2010 07/20/2017 Abnormal weight gain 12/05/2009 07/20/2017 OBESITY 12/05/2009 07/20/2017 Asthma, mild persistent 12/05/2009 11/26/19 17 Abdominal pain, generalized 08/16/200908/2009 OBSTIPATION 08/16/2009 11/25/2016 Pain in limb 08/16/2009 [...] as of this encounter (statuses as of 12/10/2022) Immunizations Name Administration Dates Next Due Pneumococcal [...] encounter Miscellaneous Notes * Telephone Encounter - KENNETH Lozano - 12/10/2022 2:25 PM EDT Faxed to new number. Called Marianne and left a message to make aware. * Telephone Encounter - Kelly Santos LPN - 12/10/2022 10:06 AM EDT Marianne from [employer] calling, stating she had a message from the office, indicating the a different fax nubmer is needed. FAX [phone] * Telephone Encounter - Lorena Rivera LPN - 12/09/2022 3:11 PM EDT faxed * Telephone Encounter - Lorena Rivera LPN - 12/04/2022 10:44 AM EDT DME order pended * Telephone Encounter - ZAHIRA Bundy - 12/04/2022 10:23 AM EDT Caller requesting the following information to be faxed: Name/Company of caller: Marianne from [employer] Information requested to be faxed: office notes / new prescription for nebulizer kit / demographics Fax number: [phone] Attention to Name/Company: Marianne from [employer] Any additional information?: order from 10-23-22 for nebulizer documented in this encounter Plan of Treatment Upcoming Encounters Date Type Specialty Care Team Description 02/10/2023 Office Visit Family Medicine Suzan Dean, DO [address] [place] [address] Health Maintenance Due Date Last Done Comments [...] asthma documented in this encounter Care Teams Recordak Operator Relationship Specialty Start Date End Date Suzan Dean, [address], [place] [id number] PCP - General Family Medicine 07/31/15 documented as of this encounter
--- OUTSIDE RECORDS SUMMARY | 2023-05-04 06:21 | External Medical Summary | Summary of Care ---
Author Name Unknown Organization [facility] Address [address] [place] [address] Phone [phone] Care Team Providers Care Air Conditioning Mechanic Industrial Name Role Phone Suzan Dean DO Primary Care Provider Reason for Visit * Reason Onset Date Comments Forms Request 12/14/2022 Encounter Details Date Type Department Care Team Description 12/14/2022 Telephone [facility] [address] [place] [address] Suzan Dean DO [address] [place] [address] Forms Request (/) Allergies Active Allergy Reactions Severity Noted Date Comments Lisinopril 10/31/2015 Decrease in blood pressure. Penicillins 01/13/2001 swelling of face and hives documented as of this encounter (statuses as of 12/15/2022) Medications Medication Sig Dispensed Refills Start Date End Date Status nystatin 444790 UNIT/ML suspensionIndications: Thrush Take 1 mL by [...] hemoglobin A1c goal of less than 7.0% ([facility]) Inject 4.5 mg once weekly on mondays [...] (Glucose Blood)Indications:DM type 2 nursing care encounter ([facility]),Type 2 diabetes mellitus with hemoglobin A1c goal of less than 7.0% ([facility]) USE TO TEST BLOOD SUGARS UP TO 3 TIMES A DAY DX E11.9 300 Strip 3 08/10/2022 Active OneTouch Delica Plus [id number]:D M type 2 nursing care encounter ([facility]),Type 2 diabetes mellitus with hemoglobin A1c goal of less than 7.0% ([facility]) USE TO TEST BLOOD SUGARS UP TO 3 TIMES A DAY DX E11.9 300 Each 3 08/10/2022 Active Gabapentin 300 MG Oral Capsule (Neurontin)Indications :Type 2 diabetes mellitus with hemoglobin A1c goal of less than 7.0% ([facility]) TAKE 1 CAPSULE BY MOUTH THREE TIMES [...] hemoglobin A1c goal of less than 7.0% ([facility]),High triglycerides,Dyslipid emia, goal LDL below 100 Take 1 Tablet by mouth in the morning. 90 Tablet 1 09/28/2022 Active OneTouch Verio Flex System w/Device KitIndications:DM type 2 nursing care encounter ([facility]),Type 2 diabetes mellitus with hemoglobin A1c goal of less than 7.0% ([facility]) USE TO TEST BLOOD SUGARS UP TO [...] as of this encounter (statuses as of 12/15/2022) Active Problems Problem Noted Date Asthma, mild [...] as of this encounter (statuses as of 12/15/2022) Resolved Problems Problem Noted Date Resolved Date [...] as of this encounter (statuses as of 12/15/2022) Immunizations Name Administration Dates Next Due Pneumococcal [...] encounter Miscellaneous Notes * Telephone Encounter - Sarahi Mccallum LPN - 12/15/2022 8:20 AM EDT Patient states that she was to return call to office regarding her nebulizer machine She states that Dr. Dean ordered her a new nebulizer machine (at last office visit 10/23/2022) She just dropped off the order last week to the [employer] and they told her that they would be contacting PCP She also states that she needs more medication for her nebulizer, she does not have any and did notget a refill at last office visit Pharm selected. Please advise. * Telephone Encounter - Felisa Mandel - 12/14/2022 2:47 PM EDT 12/14/22 Rec paperwork from [employer] regarding Nebulizer supplies for pt as well as a new nebulizer machine; must say nebulizer compressor as well. Paperwork put in provider's mail bin on 12-14-22. documented in this encounter Plan of Treatment Upcoming Encounters Date Type Specialty Care Team Description 02/10/2023 Office Visit Family Medicine Suzan Dean, DO [address] [place] [address] Health Maintenance Due Date Last Done Comments [...] filedocumented as of this encounter Care Teams Air Conditioning Mechanic Industrial Relationship Specialty Start Date End Date Suzan Dean, [address] [place] [address] PCP - General Family Medicine 07/31/15 documented as of this encounter
--- OUTSIDE RECORDS SUMMARY | 2023-05-04 06:21 | External Medical Summary | Summary of Care ---
Author Name Unknown Organization [facility] Address [address] [place] [address] Phone [phone] Care Team Providers Care University Registrar Name Role Phone Suzan Dean DO Primary Care Provider Reason for Visit * Reason Onset Date Comments Forms Request 12/14/2022 Encounter Details Date Type Department Care Team Description 12/14/2022 Telephone [facility] [address] [place] [address] Suzan Dean DO [address] [place] [address] Forms Request (/) Allergies Active Allergy Reactions Severity Noted Date Comments Lisinopril 10/31/2015 Decrease in blood pressure. Penicillins 01/13/2001 swelling of face and hives documented as of this encounter (statuses as of 12/15/2022) Medications Medication Sig Dispensed Refills Start Date End Date Status nystatin 953045 UNIT/ML suspensionIndications: Thrush Take 1 mL by [...] hemoglobin A1c goal of less than 7.0% ([facility]) Inject 4.5 mg once weekly on [...] (Glucose Blood)Indications:DM type 2 nursing care encounter ([facility]),Type 2 diabetes mellitus with hemoglobin A1c goal of less than 7.0% ([facility]) USE TO TEST BLOOD SUGARS UP TO 3 TIMES A DAY DX E11.9 300 Strip 3 08/10/2022 Active OneTouch Delica Plus [id number]:D M type 2 nursing care encounter ([facility]),Type 2 diabetes mellitus with hemoglobin A1c goal of less than 7.0% ([facility]) USE TO TEST BLOOD SUGARS UP TO 3 TIMES A DAY DX E11.9 300 Each 3 08/10/2022 Active Gabapentin 300 MG Oral Capsule (Neurontin)Indications :Type 2 diabetes mellitus with hemoglobin A1c goal of less than 7.0% ([facility]) TAKE 1 CAPSULE BY MOUTH THREE [...] hemoglobin A1c goal of less than 7.0% ([facility]),High triglycerides,Dyslipid emia, goal LDL below 100 Take 1 Tablet by mouth in the morning. 90 Tablet 1 09/28/2022 Active OneTouch Verio Flex System w/Device KitIndications:DM type 2 nursing care encounter ([facility]),Type 2 diabetes mellitus with hemoglobin A1c goal of less than 7.0% ([facility]) USE TO TEST BLOOD SUGARS UP [...] 2:47 PM EDT 12/14/22 Rec paperwork from [employer] regarding Nebulizer supplies for pt as well as a new nebulizer machine; must say nebulizer compressor as well. Paperwork put in provider's mail bin on 12-14-22. documented in this encounter Plan of Treatment Upcoming Encounters Date Type Specialty Care Team Description 02/10/2023 Office Visit Family Medicine Suzan Dean, DO [address], [place] [id number] Health Maintenance Due Date Last Done Comments [...] filedocumented as of this encounter Care Teams University Registrar Relationship Specialty Start Date End Date Suzan Dean, [address] [place] [address] PCP - General Family Medicine 07/31/15 documented as of this encounter
--- OUTSIDE RECORDS SUMMARY | 2023-05-04 06:21 | External Medical Summary | Summary of Care ---
Author Name Unknown Organization [facility] Address [address] [place] [address] Phone [phone] Care Team Providers Care Ergonomic Specialist Name Role Phone Suzan Dean DO Primary Care Provider Reason for Visit * Reason Onset Date Comments Forms Request 12/14/2022 Encounter Details Date Type Department Care Team Description 12/14/2022 Telephone [facility] [address] [place] [address] Suzan Dean DO [address] [place] [address] Forms Request (/) Allergies Active Allergy Reactions Severity Noted Date Comments Lisinopril 10/31/2015 Decrease in blood pressure. Penicillins 01/13/2001 swelling of face and hives documented as of this encounter (statuses as of 12/15/2022) Medications Medication Sig Dispensed Refills Start Date End Date Status nystatin 080379 UNIT/ML suspensionIndications: Thrush Take 1 mL by [...] hemoglobin A1c goal of less than 7.0% ([facility]) Inject 4.5 mg once weekly on mondays [...] (Glucose Blood)Indications:DM type 2 nursing care encounter ([facility]),Type 2 diabetes mellitus with hemoglobin A1c goal of less than 7.0% ([facility]) USE TO TEST BLOOD SUGARS UP TO 3 TIMES A DAY DX E11.9 300 Strip 3 08/10/2022 Active OneTouch Delica Plus [id number]:D M type 2 nursing care encounter ([facility]),Type 2 diabetes mellitus with hemoglobin A1c goal of less than 7.0% ([facility]) USE TO TEST BLOOD SUGARS UP TO 3 TIMES A DAY DX E11.9 300 Each 3 08/10/2022 Active Gabapentin 300 MG Oral Capsule (Neurontin)Indications :Type 2 diabetes mellitus with hemoglobin A1c goal of less than 7.0% ([facility]) TAKE 1 CAPSULE BY MOUTH THREE TIMES [...] hemoglobin A1c goal of less than 7.0% ([facility]),High triglycerides,Dyslipid emia, goal LDL below 100 Take 1 Tablet by mouth in the morning. 90 Tablet 1 09/28/2022 Active OneTouch Verio Flex System w/Device KitIndications:DM type 2 nursing care encounter ([facility]),Type 2 diabetes mellitus with hemoglobin A1c goal of less than 7.0% ([facility]) USE TO TEST BLOOD SUGARS UP TO [...] encounter Miscellaneous Notes * Addendum Note - Lorena Lai LPN [...] off the order last week to the [employer] and they told her that they would be contacting PCP She also states that she needs more medication for her nebulizer, she does not have any and did notget a refill at last office visit Pharm selected. Please advise. * Telephone Encounter - Felisa Mandel - 12/14/2022 2:47 PM EDT 12/14/22 Rec paperwork from [employer] regarding Nebulizer supplies for pt as well as a new nebulizer machine; must say nebulizer compressor as well. Paperwork put in provider's mail bin on 12-14-22. documented in this encounter Plan of Treatment Upcoming Encounters Date Type Specialty Care Team Description 02/10/2023 Office Visit Family Medicine Suzan Dean, DO [address] [place] [address] Health Maintenance Due Date Last Done Comments [...] filedocumented as of this encounter Care Teams Ergonomic Specialist Relationship Specialty Start Date End Date Suzan Dean, [address] [place] [address] PCP - General Family Medicine 07/31/15 documented as of this encounter
--- OUTSIDE RECORDS SUMMARY | 2023-05-04 06:22 | External Medical Summary | Summary of Care ---
Author Name Unknown Organization [facility] Address [address] [place] [address] Phone [phone] Care Team Providers Care Legal Biller Name Role Phone Suzan Dean DO Primary Care Provider Reason for Visit * Reason Onset Date Comments Fax 12/04/2022 Encounter Details Date Type Department Care Team Description 12/04/2022 Telephone [facility] [address] [place] [address] Suzan Dean DO [address] [place] [address] Fax Allergies Active Allergy Reactions Severity Noted Date Comments Lisinopril 10/31/2015 Decrease in blood pressure. Penicillins 01/13/2001 swelling of face and hives documented as of this encounter (statuses as of 12/10/2022) Medications Medication Sig Dispensed Refills Start Date End Date Status nystatin 530931 UNIT/ML suspensionIndications: Thrush Take 1 mL by [...] Strip 3 08/10/2022 Active OneTouch Delica Plus [id number]:D M type 2 nursing care encounter ([facility] [...] encounter Miscellaneous Notes * Telephone Encounter - Kelly Santos LPN - 12/10/2022 10:06 AM EDT Marianne from [employer] calling, stating she had a message from the office, indicating the a differentfax nubmer is needed [phone] * Telephone Encounter - Lorena Rivera LPN [...] for nebulizer kit / demographics Fax number: [phone] Attention to Name/Company: Marianne from [employer] Any additional information?: order from 10-23-22 for nebulizer documented in this encounter Plan of Treatment Upcoming Encounters Date Type Specialty Care Team Description 02/10/2023 Office Visit Family Medicine Suzan Dean, [address] [place] [address] Health Maintenance Due Date Last Done Comments [...] asthma documented in this encounter Care Teams Legal Biller Relationship Specialty Start Date End Date Suzan Dean, [address] [place] [address] PCP - General Family Medicine 07/31/15 documented as of this encounter
--- OUTSIDE RECORDS SUMMARY | 2023-05-04 06:22 | External Medical Summary | Summary of Care ---
Author Name Unknown Organization [facility] Address [address] [place] [address] Phone [phone] Care Team Providers Care Animal Taxonomist Name Role Phone Roman Juan DO Primary Care Provider [phone] Reason for Visit * Reason Onset Date Comments Medication Refill 11/24/2022 Encounter Details Date Type Department Care Team Description 11/24/2022 Refill [facility] [address] [place] [address] Roman Juan DO [address] [place] [address] Gastritis and gastroduodenitis Allergies Active Allergy Reactions Severity Noted Date Comments Lisinopril 10/31/2015 Decrease in blood pressure. Penicillins 01/13/2001 swelling of face and hives documented as of this encounter (statuses as of 11/24/2022) Medications Medication Sig Dispensed Refills Start Date End Date Status nystatin 495132 UNIT/ML suspensionIndications :Thrush Take 1 mL by [...] DX: J20.9. 120 mL 3 2 Active BD Pen Needle Short U/F 31G X 8 MM (Insulin Pen Needle) USE TO INJECT LANTUS ONCE DAILY DX E11.9 100 Each 3 2 Active Ondansetron HCl 4 MG [...] hemoglobin A1c goal of less than 7.0% ([facility]) Inject 4.5 mg once weekly on mondays 6 mL 3 3 Active Insulin Glargine Solostar 100 UNIT/ML Subcutaneous Solution Pen-injectorIndicatio ns:Type 2 diabetes mellitus without complications ([facility]) Inject 40 Units under the skin at bedtime. 45 mL 2 3 Active Furosemide 20 MG Oral Tablet (Lasix)Indications:Ly mphedema Take 1 Tablet by mouth in the morning. 90 Tablet 3 3 Active OneTouch Verio In Vitro Strip (Glucose Blood)Indications:DM type 2 nursing care encounter ([facility]),Type 2 diabetes mellitus with hemoglobin A1c goal of less than 7.0% ([facility]) USE TO TEST BLOOD SUGARS UP TO 3 TIMES A DAY DX E11.9 300 Strip 3 3 Active OneTouch Delica Plus [id number]: DM type 2 nursing care encounter ([facility]),Type 2 diabetes mellitus with hemoglobin A1c goal of less than 7.0% ([facility]) USE TO TEST BLOOD SUGARS UP TO 3 TIMES A DAY DX E11.9 300 Each 3 3 Active Gabapentin 300 MG Oral Capsule (Neurontin)Indication s:Type 2 diabetes mellitus with hemoglobin A1c goal of less than 7.0% ([facility]) TAKE 1 CAPSULE BY MOUTH THREE TIMES A DAY 90 Capsule 5 3 Active Meloxicam 7.5 MG Oral Tablet (Mobic)Indications:Ac campo pain of left knee TAKE 1 TABLET BY MOUTH DAILY FOR PAIN 90 Tablet 3 3 Active Levocetirizine Dihydrochloride 5 MG Oral TabletIndications: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 90 Tablet 1 3 Active OneTouch Verio Flex System w/Device KitIndications:DM type 2 nursing care encounter ([facility]),Type 2 diabetes mellitus with hemoglobin A1c [...] the day.. 90 Capsule 1 3 Active Omeprazole 20 MG Oral Capsule Delayed Release (PriLOSEC)Indications :Gastritis and gastroduodenitis TAKE 1 CAPSULE BY MOUTH ONCE A DAY 1 HOUR BEFORE THE FIRST MEAL OF THE DAY 90 Capsule 1 3 11/25/19 23 Discontinu ed(Refill) documented as of this encounter (statuses as of 11/24/2022) Active Problems Problem Noted Date Asthma, mild [...] as of this encounter (statuses as of 11/24/2022) Resolved Problems Problem Noted Date Resolved Date [...] as of this encounter (statuses as of 11/24/2022) Immunizations Name Administration Dates Next Due Pneumococcal [...] encounter Miscellaneous Notes * Telephone Encounter - Ioana Mejia RPh - 11/24/2022 3:37 PM EDTSigned Prescriptions: Disp Refills Omeprazole 20 MG Oral Capsule Delayed Rele*90 Cap*1 Sig: Take 1 Capsule by mouth in the morning. 1 hour before the first meal of the day.. Authorizing Provider: ROMAN JUAN Ordering User: IOANA MEJIA * Telephone Encounter - Malinda Rice, volumetric weigher - 11/24/2022 3:32 PM EDT Patient is out of med Did you pend patient's preferred pharmacy and medication before forwarding?yes Pharmacy: [id number] [facility] Pending Prescriptions: Disp Refills Omeprazole 20 MG Oral Capsule Delayed Rel*90 Cap*1 Sig: Take 1 Capsule by mouth in the morning. 1 hour before the first meal of the day.. Last Visit: 10/23/2022 (in office), 03/13/2022 (telemedicine) Next Visit: 02/10/2023 If no future appointments scheduled, and last appointment is greater than a year ago, please schedule patient for a follow-up appointment Last date the medication was ordered: 05/06/2022 Is this request for a controlled substance?No [...] Family Medicine Roman Juan, DO [address] [place], [place] [address] Health Maintenance Due Date Last Done Comments [...] (1 of 2) 2021 Mammogram 09/17/2021 09/17/2020, 072 05/2018, 09/02/2016, Additional history exists *SPIROMETRY ONCE FOR [...] 07/11/2027 07/10/2022, 01/29, 03/07/2021, Additional history exists Hepatitis C Screening Completed 08/18/2018, 016 Pneumococcal Vaccine: Pediatrics (0 to 5 Years) [...] hemorrhage documented in this encounter Care Teams Animal Taxonomist Relationship Specialty Start Date End Date Roman Juan, [address] [place] [address] PCP - General Family Medicine 07/31/15 documented as of this encounter
--- OUTSIDE RECORDS SUMMARY | 2023-05-04 06:22 | External Medical Summary | Summary of Care ---
Author Name Unknown Organization [facility] Address [address] [place] [address] Phone [phone] Care Team Providers Care Skilled Nursing Case Manager Name Role Phone Roman Juan DO Primary Care Provider Reason for Visit * Reason Comments eRx-Medication Refill Encounter Details Date Type Department Care Team Description 12/08/2022 Refill Pharmacy, [address] [address] Roman Juna DO [address] [place] [address] Allergies Active Allergy Reactions Severity Noted Date Comments Lisinopril 10/31/2015 Decrease in blood pressure. Penicillins 01/13/2001 swelling of face and hives documented as of this encounter (statuses as of 12/08/2022) Medications Medication Sig Dispensed Refills Start Date End Date Status nystatin 146497 UNIT/ML suspensionIndication s:Thrush Take 1 mL by [...] Blood)Indications:DM type 2 nursing care encounter ([facility]),Type 2 diabetes mellitus with hemoglobin A1c goal of less than 7.0% ([facility]) USE TO TEST BLOOD SUGARS UP TO 3 TIMES A DAY DX E11.9 300 Strip 3 3 Active OneTouch Delica Plus [id number] :DM type 2 nursing care encounter ([facility]),Type 2 diabetes mellitus with hemoglobin A1c goal of less than 7.0% ([facility]) USE TO TEST BLOOD SUGARS UP TO 3 TIMES A DAY DX E11.9 300 Each 3 3 Active Gabapentin 300 MG Oral Capsule (Neurontin)Indicatio ns:Type 2 diabetes mellitus with hemoglobin A1c goal of less than 7.0% ([facility]) TAKE 1 CAPSULE BY MOUTH THREE [...] A1c goal of less than 7.0% ([facility]),High triglycerides,Dyslip idemia, goal LDL below 100 Take 1 Tablet by mouth in the morning. 90 Tablet 1 3 Active OneTouch Verio Flex System w/Device KitIndications:DM type 2 nursing care encounter ([facility]),Type 2 diabetes mellitus with hemoglobin A1c goal of less than 7.0% ([facility]) USE TO TEST BLOOD SUGARS UP [...] DX E11.9 100 Each 3 3 Active BD Pen Needle Short U/F 31G X 8 MM (Insulin Pen Needle) USE TO INJECT LANTUS ONCE DAILY DX E11.9 100 Each 3 2 023 Discontinued documented as of this encounter (statuses as of 12/08/2022) Active Problems Problem Noted Date Asthma, mild [...] as of this encounter (statuses as of 12/08/2022) Resolved Problems Problem Noted Date Resolved Date [...] as of this encounter (statuses as of 12/08/2022) Immunizations Name Administration Dates Next Due Pneumococcal [...] encounter Miscellaneous Notes * Telephone Encounter - Roman Juan DO - 12/08/2022 10:20 AM EDTSigned Prescriptions: Disp Refills BD Pen Needle Short U/F 31G X 8 MM (Insuli*100 Ea*3 Sig: USE TO INJECT LANTUS ONCE DAILY DX E11.9 Authorizing Provider: ROMAN JUAN * Telephone Encounter - Sally Duenas RPh - 12/08/2022 8:06 AM EDT Pending Prescriptions: Disp Refills BD Pen Needle Short U/F 31G X 8 MM [Pharma* 3 Sig: USE TO INJECT LANTUS ONCE DAILY DX E11.9 documented in this encounter Plan of Treatment Upcoming Encounters Date Type Specialty Care Team Description 02/10/2023 Office Visit Family Medicine Roman Juan, DO [address] [place] [address] Health Maintenance Due Date Last Done Comments [...] filedocumented as of this encounter Care Teams Skilled Nursing Case Manager Relationship Specialty Start Date End Date Roman Juan, [address] [place] [address] PCP - General Family Medicine 07/31/15 documented as of this encounter
--- OUTSIDE RECORDS SUMMARY | 2023-05-04 06:22 | External Medical Summary | Summary of Care ---
Author Name Unknown Organization [facility] Address [address] [place] [address] Phone [phone] Care Team Providers Care Business Analyst Ecommerce Name Role Phone Suzan Dean DO Primary Care Provider [phone] Encounter Details Date Type Department Care Team Description 11/24/2022 Telephone [facility] [address] [place] [address] Suzan Dean DO [address] [place] [address] Allergies Active Allergy Reactions Severity Noted Date Comments Lisinopril 10/31/2015 Decrease in blood pressure. Penicillins 01/13/2001 swelling of face and hives documented as of this encounter (statuses as of 11/27/2022) Medications Medication Sig Dispensed Refills Start Date End Date Status nystatin 007050 UNIT/ML suspensionIndications :Thrush Take 1 mL by [...] DX: J20.9. 120 mL 3 09/12/2021 Active BD Pen Needle Short U/F 31G X 8 MM (Insulin Pen Needle) USE TO INJECT LANTUS ONCE DAILY DX E11.9 100 Each 3 10/16/2021 Active Ondansetron HCl 4 MG Oral Tablet [...] Pen-injectorIndicatio ns:Type 2 diabetes mellitus without complications ([facility]) Inject 40 Units under the skin at bedtime. 45 mL 2 06/17/2022 Active Furosemide 20 MG Oral Tablet (Lasix)Indications:Ly mphedema Take 1 Tablet by mouth in the morning. 90 Tablet 3 08/03/2022 Active OneTouch Verio In Vitro Strip (Glucose Blood)Indications:DM type 2 nursing care encounter ([facility]),Type 2 diabetes mellitus with hemoglobin A1c goal of less than 7.0% ([facility]) USE TO TEST BLOOD SUGARS UP TO 3 TIMES A DAY DX E11.9 300 Strip 3 08/10/2022 Active OneTouch Delica Plus [id number]: DM type 2 nursing care encounter ([facility]),Type 2 diabetes mellitus with hemoglobin A1c goal of less than 7.0% ([facility]) USE TO TEST BLOOD SUGARS UP TO 3 TIMES A DAY DX E11.9 300 Each 3 08/10/2022 Active Gabapentin 300 MG Oral Capsule (Neurontin)Indication s:Type 2 diabetes mellitus with hemoglobin A1c goal of less than 7.0% ([facility]) TAKE 1 CAPSULE BY MOUTH THREE TIMES A DAY 90 Capsule 5 08/20/2022 Active Meloxicam 7.5 MG Oral Tablet (Mobic)Indications:[place] pain of left knee TAKE 1 TABLET BY MOUTH DAILY FOR PAIN 90 Tablet 3 08/20/2022 Active Levocetirizine Dihydrochloride 5 MG Oral TabletIndications: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 90 Tablet 1 09/28/2022 Active OneTouch Verio Flex System w/Device KitIndications:DM type 2 nursing care encounter ([facility]),Type 2 diabetes mellitus with hemoglobin A1c goal of less than 7.0% ([facility]) USE TO TEST BLOOD SUGARS [...] A DAY 54 g 4 11/11/2022 Active Fluticasone-Salmetero l 250-50 MCG/ACT Inhalation Aerosol Powder Breath Activated (Advair Diskus) Inhale 1 Puff by mouth in the morning and 1 Puff before bedtime. 14 Each 5 11/27/2022 Active documented as of this encounter (statuses as of 11/27/2022) Active Problems Problem Noted Date Asthma, mild [...] as of this encounter (statuses as of 11/27/2022) Resolved Problems Problem Noted Date Resolved Date [...] as of this encounter (statuses as of 11/27/2022) Immunizations Name Administration Dates Next Due Pneumococcal [...] encounter Miscellaneous Notes * Telephone Encounter - Lory Winter LPN - 11/24/2022 10:28 AM EDT Pharmacy is asking for RX for brand name Advair instead of Wixela for insurance documented in this encounter Plan of Treatment Upcoming Encounters Date Type Specialty Care Team Description 02/10/2023 Office Visit Family Medicine Suzan Dean, DO [address] [place] [address] Health Maintenance Due Date Last Done Comments [...] filedocumented as of this encounter Care Teams Business Analyst Ecommerce Relationship Specialty Start Date End Date Suzan Dean, DO [address], [place] [id number] PCP - General Family Medicine 07/31/15 documented as of this encounter
--- OUTSIDE RECORDS SUMMARY | 2023-05-04 06:22 | External Medical Summary | Summary of Care ---
Author Name Unknown Organization [facility] Address [address] [place] [address] Phone [phone] Care Team Providers Care Accounting Director Name Role Phone Suzan Dean DO Primary Care Provider [phone] Reason for Visit * Reason Onset Date Comments Fax 12/04/2022 Encounter Details Date Type Department Care Team Description 12/04/2022 Telephone Located Within [facility] [address] [place] [address] Suzan Dean DO [address] [place] [address] Fax Allergies Active Allergy Reactions Severity Noted Date Comments Lisinopril 10/31/2015 Decrease in blood pressure. Penicillins 01/13/2001 swelling of face and hives documented as of this encounter (statuses as of 12/10/2022) Medications Medication Sig Dispensed Refills Start Date End Date Status nystatin 621721 UNIT/ML suspensionIndications: Thrush Take 1 mL by [...] (Glucose Blood)Indications:DM type 2 nursing care encounter ([facility]),Type 2 diabetes mellitus with hemoglobin A1c goal of less than 7.0% ([facility]) USE TO TEST BLOOD SUGARS UP TO 3 TIMES A DAY DX E11.9 300 Strip 3 08/10/2022 Active OneTouch Delica Plus [id number]:D M type 2 nursing care encounter ([facility]),Type 2 diabetes mellitus with hemoglobin A1c goal of less than 7.0% ([facility]) USE TO TEST BLOOD SUGARS UP TO 3 TIMES A DAY DX E11.9 300 Each 3 08/10/2022 Active Gabapentin 300 MG Oral Capsule (Neurontin)Indications :Type 2 diabetes mellitus with hemoglobin A1c goal of less than 7.0% ([facility]) TAKE 1 CAPSULE BY MOUTH THREE [...] hemoglobin A1c goal of less than 7.0% ([facility]),High triglycerides,Dyslipid emia, goal LDL below 100 Take 1 Tablet by mouth in the morning. 90 Tablet 1 09/28/2022 Active OneTouch Verio Flex System w/Device KitIndications:DM type 2 nursing care encounter ([facility]),Type 2 diabetes mellitus with hemoglobin A1c goal of less than 7.0% ([facility]) USE TO TEST BLOOD SUGARS UP [...] a different fax nubmer is needed. FAX [phone] * Telephone Encounter - Lorena Rivera LPN [...] for nebulizer kit / demographics Fax number: [phone] Attention to Name/Company: [employer] Any additional information?: order from 10-23-22 for nebulizer documented in this encounter Plan of Treatment Upcoming Encounters Date Type Specialty Care Team Description 02/10/2023 Office Visit Family Medicine Suzan Dean, [address] [place] [address] Health Maintenance Due Date Last Done Comments [...] asthma documented in this encounter Care Teams Accounting Director Relationship Specialty Start Date End Date Suzan Dean DO [address] [place] [address] PCP - General Family Medicine 07/31/15 documented as of this encounter
--- OUTSIDE RECORDS SUMMARY | 2023-05-04 06:22 | External Medical Summary | Summary of Care ---
Author Name Unknown Organization [facility] Address [address] [place] [address] Phone [phone] Care Team Providers Care Specialist Managers Name Role Phone Suzan Dean DO Primary Care Provider [phone] Reason for Visit * Reason Onset Date Comments Fax 12/04/2022 Encounter Details Date Type Department Care Team Description 12/04/2022 Telephone [facility] [address] [place] [address] Suzan Dean DO [address] [place] [address] Fax Allergies Active Allergy Reactions Severity Noted Date Comments Lisinopril 10/31/2015 Decrease in blood pressure. Penicillins 01/13/2001 swelling of face and hives documented as of this encounter (statuses as of 12/09/2022) Medications Medication Sig Dispensed Refills Start Date End Date Status nystatin 734916 UNIT/ML suspensionIndications: Thrush Take 1 mL by [...] (Glucose Blood)Indications:DM type 2 nursing care encounter ([facility]),Type 2 diabetes mellitus with hemoglobin A1c goal of less than 7.0% ([facility]) USE TO TEST BLOOD SUGARS UP TO 3 TIMES A DAY DX E11.9 300 Strip 3 08/10/2022 Active OneTouch Delica Plus [id number]:D M type 2 nursing care encounter ([facility]),Type 2 diabetes mellitus with hemoglobin A1c goal of less than 7.0% ([facility]) USE TO TEST BLOOD SUGARS UP TO 3 TIMES A DAY DX E11.9 300 Each 3 08/10/2022 Active Gabapentin 300 MG Oral Capsule (Neurontin)Indications :Type 2 diabetes mellitus with hemoglobin A1c goal of less than 7.0% ([facility]) TAKE 1 CAPSULE BY MOUTH THREE [...] hemoglobin A1c goal of less than 7.0% ([facility]),High triglycerides,Dyslipid emia, goal LDL below 100 Take 1 Tablet by mouth in the morning. 90 Tablet 1 09/28/2022 Active OneTouch Verio Flex System w/Device KitIndications:DM type 2 nursing care encounter ([facility]),Type 2 diabetes mellitus with hemoglobin A1c goal of less than 7.0% ([facility]) USE TO TEST BLOOD SUGARS UP [...] as of this encounter (statuses as of 12/09/2022) Active Problems Problem Noted Date Asthma, mild [...] as of this encounter (statuses as of 12/09/2022) Resolved Problems Problem Noted Date Resolved Date [...] as of this encounter (statuses as of 12/09/2022) Immunizations Name Administration Dates Next Due Pneumococcal [...] encounter Miscellaneous Notes * Telephone Encounter - Lorena Rivera LPN [...] for nebulizer kit / demographics Fax number: [phone] Attention to Name/Company: [employer] Any additional information?: order from 8-25-23 for nebulizer documented in this encounter Plan of Treatment Upcoming Encounters Date Type Specialty Care Team Description 02/10/2023 Office Visit Family Medicine Suzan Dean, [address] [place] [address] Health Maintenance Due Date Last Done Comments [...] asthma documented in this encounter Care Teams Specialist Managers Relationship Specialty Start Date End Date Suzan Dean, [address] [place] [address] PCP - General Family Medicine 07/31/15 documented as of this encounter
--- OUTSIDE RECORDS SUMMARY | 2023-05-04 06:23 | External Medical Summary | Summary of Care ---
Author Name Unknown Organization [facility] Address [address] [place] [address] Phone [phone] Care Team Providers Care Director Of Diagnostic Imaging Name Role Phone Suzan Dean DO Primary Care Provider [phone] Reason for Visit * Reason Onset Date Comments Other 11/06/2022 Encounter Details Date Type Department Care Team Description 11/06/2022 Telephone [facility] [address] [place] [address] Suzan Dean DO [address] [place] [address] Other Allergies Active Allergy Reactions Severity Noted Date Comments Lisinopril 10/31/2015 Decrease in blood pressure. Penicillins 01/13/2001 swelling of face and hives documented as of this encounter (statuses as of 11/09/2022) Medications Medication Sig Dispensed Refills Start Date End Date Status nystatin 176604 UNIT/ML suspensionIndications: Thrush Take 1 mL by [...] Additional Information Patient not taking.Reported on 10/23/2022 Omeprazole 20 MG Oral Capsule Delayed Release (PriLOSEC)Indications: Gastritis and gastroduodenitis TAKE 1 CAPSULE BY MOUTH ONCE A DAY 1 HOUR BEFORE THE FIRST MEAL OF THE DAY 90 Capsule 1 05/06/2022 Active Accu-Chek Guide In Vitro Strip (Glucose Blood) USE TO TEST BLOOD SUGARS UP TO 3 TIMES A DAY DX E11.9 300 Strip 3 05/06/2022 Active Albuterol Sulfate HFA 108 (90 Base) MCG/ACT Inhalation Aerosol SolutionIndications:Mi ld persistent asthma without complication INHALE 2 PUFFS BY MOUTH 4 TIMES A DAY 54 g 1 05/06/2022 Active Trulicity 4.5 MG/0.5ML Subcutaneous Solution Pen-injector (Dulaglutide)Indicatio ns:Type 2 diabetes mellitus with hemoglobin A1c goal of less than 7.0% ([facility]) Inject 4.5 mg once weekly on mondays 6 mL 3 06/02/2022 Active Insulin Glargine Solostar 100 UNIT/ML Subcutaneous Solution Pen-injectorIndication s:Type 2 diabetes mellitus without complications ([facility]) Inject 40 Units under the skin at bedtime. 45 mL 2 06/17/2022 Active Furosemide 20 MG Oral Tablet (Lasix)Indications:Lym phedema Take 1 Tablet by mouth in the morning. 90 Tablet 3 08/03/2022 Active OneTouch Verio In Vitro Strip (Glucose Blood)Indications:DM type 2 nursing care encounter ([facility]),Type 2 diabetes mellitus with hemoglobin A1c goal of less than 7.0% ([facility]) USE TO TEST BLOOD SUGARS UP TO 3 TIMES A DAY DX E11.9 300 Strip 3 08/10/2022 Active OneTouch Delica Plus [id number]:D M type 2 nursing care encounter ([facility]),Type 2 diabetes mellitus with hemoglobin A1c goal of less than 7.0% ([facility]) USE TO TEST BLOOD SUGARS UP TO 3 TIMES A DAY DX E11.9 300 Each 3 08/10/2022 Active Gabapentin 300 MG Oral Capsule (Neurontin)Indications :Type 2 diabetes mellitus with hemoglobin A1c goal of less than 7.0% ([facility]) TAKE 1 CAPSULE BY MOUTH THREE [...] goal of less than 7.0% ([facility]),High triglycerides,Dyslipid emia, goal LDL below 100 Take 1 Tablet by mouth in the morning. 90 Tablet 1 09/28/2022 Active OneTouch Verio Flex System w/Device KitIndications:DM type 2 nursing care encounter ([facility]),Type 2 diabetes mellitus with hemoglobin A1c goal of less than 7.0% ([facility]) USE TO TEST BLOOD SUGARS UP [...] the morning. 14 Each 4 11/09/2022 Active documented as of this encounter (statuses as of 11/09/2022) Active Problems Problem Noted Date Asthma, mild [...] as of this encounter (statuses as of 11/09/2022) Resolved Problems Problem Noted Date Resolved Date Food insecurity 11/11/2020 12/12/2020 Overview: Per [facility] Protocol Hypertension goal BP (blood pressure) < 140/80 0 10/30/2011 08/15/2015 Overview: Per [facility] Protocol Adult body mass index 50.0-59.9 01/02/2011 08/27/2011 Sciatica 06/23/2010 07/20/2017 Abnormal weight gain 12/05/2009 07/20/2017 OBESITY 12/05/2009 07/20/2017 Asthma, mild persistent 12/05/2009 11/26/19 17 Abdominal pain, generalized 08/16/2009 10/08/2009 OBSTIPATION 08/16/2009 11/25/2016 Pain in limb 08/16/2009 [...] as of this encounter (statuses as of 11/09/2022) Immunizations Name Administration Dates Next Due Pneumococcal [...] encounter Miscellaneous Notes * Telephone Encounter - Bree Smith CPhT - 11/06/2022 8:26 AM EDT Pt's insurance calling to inform the office that the Wixela is not on the pt's formulary. Insurancestating they will cover brand name Advair or Breo. Please advise Thank you, Shavonne Smith Community Service Worker [facility] 11/06/2022,8:29 AM documented in this encounter Plan of Treatment Upcoming Encounters Date Type Specialty Care Team Description 02/10/2023 Office Visit Family Medicine Suzan Dean, DO [address] [place] [address] Health Maintenance Due Date Last Done Comments Hepatitis B (1 of 3 - 3-dose series) 1971 COVID-19 Vaccine (#1) 1971 DTaP,Tdap,and Td Vaccines (1 - Tdap) 1990 HPV/Co-Test 2001 Cologuard 02/02/2016 Fecal Occult Blood Test 02/02/2016 Sigmoidoscopy 02/02/2016 DISCUSS TOBACCO CESSATION (REFER TO SMARTSET #7850) 01/29/2017 01/30/2016 (Discussed) Colonoscopy 02/03/2017 02/03/2007 Colorectal [...] filedocumented as of this encounter Care Teams Director Of Diagnostic Imaging Relationship Specialty Start Date End Date Suzan Dean, DO [address] [place] [address] PCP - General Family Medicine 07/31/15 documented as of this encounter
--- OUTSIDE RECORDS SUMMARY | 2023-05-04 06:23 | External Medical Summary | Summary of Care ---
Author Name Unknown Organization [facility] Address [address] [place] [address] Phone [phone] Care Team Providers Care Tire Assembler Name Role Phone Roman Juan DO Primary Care Provider Reason for Visit * Reason Comments eRx-Medication Refill Encounter Details Date Type Department Care Team Description 11/09/2022 Refill [facility] [address] [place] [address] oRman Juan DO [address] [place] [address] Mild persistent asthma without complication Allergies Active Allergy Reactions Severity Noted Date Comments Lisinopril 10/31/2015 Decrease in blood pressure. Penicillins 01/13/2001 swelling of face and hives documented as of this encounter (statuses as of 11/11/2022) Medications Medication Sig Dispensed Refills Start Date End Date Status nystatin 233033 UNIT/ML suspensionIndication s:Thrush Take 1 mL by [...] Capsule Delayed Release (PriLOSEC)Indication s:Gastritis and gastroduodenitis TAKE 1 CAPSULE BY MOUTH ONCE A DAY 1 HOUR BEFORE THE FIRST MEAL OF THE DAY 90 Capsule 1 3 Active Accu-Chek Guide In Vitro Strip (Glucose [...] Strip 3 3 Active OneTouch Delica Plus [id number] :DM type 2 nursing care encounter ([facility]),Type [...] goal of less than 7.0% ([facility]),High triglycerides,Dyslip idemia, goal LDL below 100 Take 1 Tablet by mouth in the morning. 90 Tablet 1 07/31/202 3 Active OneTouch Verio Flex System w/Device [...] A DAY 54 g 4 3 Active Albuterol Sulfate HFA 108 (90 Base) MCG/ACT Inhalation Aerosol SolutionIndications: Mild persistent asthma without complication INHALE 2 PUFFS BY MOUTH 4 TIMES A DAY 54 g 1 3 023 Discontinued documented as of this encounter (statuses as of 11/11/2022) Active Problems Problem Noted Date Asthma, mild [...] as of this encounter (statuses as of 11/11/2022) Resolved Problems Problem Noted Date Resolved Date [...] as of this encounter (statuses as of 11/11/2022) Immunizations Name Administration Dates Next Due Pneumococcal [...] Miscellaneous Notes * Telephone Encounter - Darshan Loyd RPh - 11/11/2022 3:00 AM EDTSigned Prescriptions: Disp Refills Albuterol Sulfate HFA 108 (90 Base) MCG/AC*54 g 4 Sig: INHALE 2 PUFFS BY MOUTH 4 TIMES A DAYAuthorizing Provider: ROMAN JUAN User: DARSHAN LOYD-- documented in this encounter Plan of Treatment Upcoming Encounters Date Type Specialty Care Team Description 02/10/2023 Office Visit Family Medicine Roman Juan, DO [address] [place] [address] Health Maintenance Due Date Last Done Comments [...] as of this encounter Visit Diagnoses Diagnosis Mild persistent asthma without complication Unspecified asthma documented in this encounter Care Teams Tire Assembler Relationship Specialty Start Date End Date Roman Juan, DO [address] [place] [address] PCP - General Family Medicine 07/31/15 documented as of this encounter
--- OUTSIDE RECORDS SUMMARY | 2023-05-04 06:23 | External Medical Summary | Summary of Care ---
Author Name Unknown Organization [facility] Address [address] [place] [address] Phone [phone] Care Team Providers Care Oil Field Caser Name Role Phone Suzan Dean Primary Care Provider [phone] Reason for Visit * Reason Onset Date Comments Mycode Lab Reorder 11/23/2022 Encounter Details Date Type Department Care Team Description 11/23/2022 Orders Only Outcomes Research Department [address] [place], [place] [id number] Prachi Lang CHRA MyCode Research Other*[id number]* Allergies Active Allergy Reactions Severity Noted Date Comments Lisinopril 10/31/2015 Decrease in blood pressure. Penicillins 01/13/2001 swelling of face and hives documented as of this encounter (statuses as of 11/23/2022) Medications Medication Sig Dispensed Refills Start Date End Date Status nystatin 503253 UNIT/ML suspensionIndications: Thrush Take 1 mL by [...] A1c goal of less than 7.0% ([facility]) Inject 4.5 mg once weekly on mondays 6 mL 3 06/02/2022 Active Insulin Glargine Solostar 100 UNIT/ML Subcutaneous Solution Pen-injectorIndication s:Type 2 diabetes mellitus without complications ([facility]) Inject 40 Units under the skin at bedtime. 45 mL 2 06/17/2022 Active Furosemide 20 MG Oral Tablet (Lasix)Indications:Lym phedema Take 1 Tablet by mouth in the morning. 90 Tablet 3 08/03/2022 Active [employer] Verio In Vitro Strip (Glucose Blood)Indications:DM type 2 nursing care encounter ([facility]),Type 2 diabetes mellitus with hemoglobin A1c goal of less than 7.0% ([facility]) USE TO TEST BLOOD SUGARS UP TO 3 TIMES A DAY DX E11.9 300 Strip 3 08/10/2022 Active [place] [employer] Delica Plus [id number]:D M type 2 nursing care encounter ([facility]),Type 2 diabetes mellitus with hemoglobin A1c goal of less than 7.0% ([facility]) USE TO TEST BLOOD SUGARS UP TO 3 TIMES A DAY DX E11.9 300 Each 3 08/10/2022 Active Gabapentin 300 MG Oral Capsule (Neurontin)Indications :Type 2 diabetes mellitus with hemoglobin A1c goal of less than 7.0% ([facility]) TAKE 1 CAPSULE BY MOUTH THREE TIMES [...] A1c goal of less than 7.0% ([facility]),High triglycerides,Dyslipid emia, goal LDL below 100 Take 1 Tablet by mouth in the morning. 90 Tablet 1 09/28/2022 Active [place] [employer] Verio Flex System w/Device KitIndications:DM type 2 [...] A DAY 54 g 4 11/11/2022 Active documented as of this encounter (statuses as of 11/23/2022) Active Problems Problem Noted Date Asthma, mild [...] as of this encounter (statuses as of 11/23/2022) Resolved Problems Problem Noted Date Resolved Date [...] as of this encounter (statuses as of 11/23/2022) Immunizations Name Administration Dates Next Due Pneumococcal [...] on file documented as of this encounter Progress Notes * ANGELICA Cabrera - 11/23/2022 12:12 PM EDT MyCode lab reordered. documented in this encounter Plan of Treatment Upcoming Encounters Date Type Specialty Care Team Description 02/10/2023 Office Visit Family Medicine Suzan Dean, DO [address] [place] [address] Scheduled Orders Name Type Priority Associated Diagnoses Orde r Schedule MYCODE SUBSEQUENT ADULT Lab Routine MyCode Research Other*[id number] Every 6 Months for 2 Occurrences starting 11/23/2022 until 12/13/2023 Health Maintenance Due Date Last Done Comments [...] this encounter Visit Diagnoses Diagnosis MyCode Research Other*[id number] Primary documented in this encounter Care Teams Oil Field Caser Relationship Specialty Start Date End Date Suzan Dean, DO [address] [place] [address] PCP - General Family Medicine 07/31/15 documented as of this encounter
--- OUTSIDE RECORDS SUMMARY | 2023-05-04 06:23 | External Medical Summary | Summary of Care ---
Author Name Unknown Organization [facility] Address [address] [place] [address] Phone [phone] Care Team Providers Care Repairer Handtools Name Role Phone Suzan Dean DO Primary Care Provider Reason for Visit * Reason Onset Date Comments Health Maintenance 11/11/2022 Encounter Details Date Type Department Care Team Description 11/11/[address] [facility] [address] [place] [address] Suzan Dean DO [address] [place] [address] Health Maintenance Allergies Active Allergy Reactions Severity Noted Date Comments Lisinopril 10/31/2015 Decrease in blood pressure. Penicillins 01/13/2001 swelling of face and hives documented as of this encounter (statuses as of 11/11/2022) Medications Medication Sig Dispensed Refills Start Date End Date Status nystatin 394383 UNIT/ML suspensionIndications: Thrush Take 1 mL by [...] Pen-injectorIndication s:Type 2 diabetes mellitus without complications ([facility]) Inject 40 Units under the skin at [...] Strip 3 08/10/2022 Active OneTouch Delica Plus [id number]:D M type 2 nursing care encounter ([facility] [...] the morning. 90 Tablet 1 09/28/2022 Active MindedTouch Verio Flex System w/Device KitIndications:DM type 2 [...] encounter Miscellaneous Notes * Telephone Encounter - Milady Laguerre LPN - 11/11/2022 2:40 PM EDT Care Gaps Comprehensive Care Outreach Last Office/Telemedicine Visit: 10/23/2022 (in office), 03/13/2022 (telemedicine) Next Office Visit: 02/10/2023 Hemoglobin AIC Results: Lab Results Component Value Date/Time HEMOGLOBIN A1C - [facility] 6.2 (H) 10/23/2022 01:05 PM HEMOGLOBIN A1C - [facility] 6.2 (H) 07/10/2022 11:51 AM HEMOGLOBIN A1C - [facility] 6.6 (H) 02/16/2022 01:01 PM HEMOGLOBIN A1C - [facility] 8.4 (H) 01/29/2020 01:23 PM HEMOGLOBIN A1C - [facility] 8.1 (H) 08/28/2019 03:12 PM HEMOGLOBIN A1C - [facility] 7.4 (H) 05/19/2019 10:34 AM Reviewed Health Maintenance below: Health Maintenance Topic Date Due Hepatitis B (1 of 3 - 3-dose series) Never done COVID-19 Vaccine (1) Never done DTaP,Tdap,and Td Vaccines (1 - Tdap) Never done DISCUSS TOBACCO CESSATION (REFER TO SMARTSET #3291) 01/29/2017 Colorectal Cancer Screening 02/03/2017 Zoster Vaccines (1 of 2) Never done Mammogram 09/17/2021 *SPIROMETRY ONCE FOR ASTHMA-ADULT Never done DIABETES-EYE EXAM 03/27/2022 Albumin/Creatinine Ratio 09/19/2022 Influenza Vaccine (FLU shot) (1) 10/30/2022 Colon Mamm Eye Urine pft Care Gap Outreach Action Taken: Left message documented in this encounter Plan of Treatment Upcoming Encounters Date Type Specialty Care Team Description 02/10/2023 Office Visit Family Medicine Suzan Dean, [address] [place] [address] Health Maintenance Due Date Last Done Comments [...] filedocumented as of this encounter Care Teams Repairer Handtools Relationship Specialty Start Date End Date Suzan Dean DO [address] [place] [address] PCP - General Family Medicine 07/31/15 documented as of this encounter
[2023-05-04] MEDS: methylPREDNISolone 40 MG in SYRINGE 0 ML IV SCH (06:38)
[2023-05-04] MEDS: PANTOprazole 40 MG TAB PO SCH ×2 (06:38→22:39)
[2023-05-04 07:18] LABS: Estimated Average Glucose 166 mg/dl; Hemoglobin A1C 7.4 % (4.5-5.6)
--- NOTE | 2023-05-04 08:23 | Electrocardiogram Report ---
Test Reason : Blood Pressure : / mmHG Vent. Rate : 096 BPM Atrial Rate : 096 BPM P-R Int : 192 ms QRS Dur : 076 ms QT Int : 348 ms P-R-T Axes : 075 -77 071 degrees QTc Int : 439 ms Normal sinus rhythm Left axis deviation Low voltage QRS Possible Old Anterolateral infarct Abnormal ECG When compared with ECG of 05-FEB-2020 17:19, Nonspecific T wave abnormality Anterior leads no longer present Confirmed by Sacha Mcarthur ([id number]) on 05/04/2023 8:23:26 AM Referred By: REFERRED SELF Confirmed By:Sacha Mcarthur
[2023-05-04] MEDS: FLUTICASONE/VILANTEROL 100/25MCG 14 PUFFS/INHALER INH SCH (08:31)
[2023-05-04] MEDS: MONTELUKAST SODIUM 10 MG TABLET PO SCH (08:31)
[2023-05-04] MEDS: FUROSEMIDE 20 MG TAB PO SCH (08:31)
[2023-05-04] MEDS: MAGNESIUM CHLORIDE W/CALCIUM 64MG DELAYED REL TAB PO SCH (08:31)
[2023-05-04] MEDS: ATORVASTATIN 20 MG TAB PO SCH (08:31)
[2023-05-04] MEDS: guaiFENesin 600 MG TABCR PO SCH (08:32)
[2023-05-04] MEDS: CITALOPRAM 40 MG TAB PO SCH (08:32)
[2023-05-04] MEDS: PANTOprazole 40 MG in SYRINGE 0 ML IV SCH (09:00)
--- NOTE | 2023-05-04 09:55 | Pulmonary Consultation ---
Date of Consultation May 04, 2023 Assessment & Plan (1) Asthma exacerbation: Asthma severity: unspecified severity (2) Hypoxia: (3) Eosinophilia: (4) Allergies: (5) Snoring: (6) Bronchiectasis: (7) Esophagitis: Plan IMPRESSION: 53-year-old female with a history of asthma who presents in status asthmaticus. Pulmonary medicine consulted in the setting of ongoing wheezing despite aggressive IV steroids and bronchodilator administration. RECOMMENDATIONS: 1. Asthma exacerbation - Patient with longstanding history of asthma since childhood. Previously on outpatient Advair and albuterol alone. Unfortunately, she has had progressive symptoms which is prompted admission at this point. On review of chest CT, she does have some groundglass opacities as well as findings of bronchiectasis. Agree with antibiotic coverage in the setting of possible infectious source. Unfortunately, I question if the patient may have degree of eosinophilic asthma as she has been noted to have marked eosinophilia during prior laboratory assessment. Actually, during this admission, she did have a marginally elevated eosinophil count which responded rapidly to administration of intravenous steroids. Again, this would likely require extensive outpatient workup to include RAST testing as well as IgE panel, alpha-1 antitrypsin testing, etc. Regardless, that can be managed in outpatient follow-up. Goals of care today include ongoing intravenous corticosteroids at this point given her persistent bronchospasm. Continue with scheduled bronchodilators for now. She is fine to continue with Breo for now, however consideration for nebulized solutions if she does not show significant improvement over the next 24 hours. That being said, she appears to be moving more air than she had been previously. It should be noted that consideration for BiPAP may be appropriate in this patient given her degree of bronchospasm if she would have return of symptoms. 2. Hypoxia - In the setting of asthma exacerbation. The patient had undergone CTA which demonstrated no PE or significant infiltrative processes. She does have some groundglass opacities, however these do not significant out to be causing the patient's degree of hypoxemia. She has improved and was able to titrate down her high flow nasal cannula. She is likely experiencing the symptoms with the degree of bronchospasm that she has been experiencing this point. Titrate down supplemental oxygen as tolerated. 3. Eosinophilia - As noted. The patient has had significant peripheral eosinophilia during prior visits and during initial labs during this visit. Certainly this could be a component of the patient's ongoing asthma symptoms. Additionally, the patient was noted to have esophagitis on her chest CT. While she does carry history of GERD, she appears as though her symptoms are relatively well-managed at this time. Certainly, the patient may warrant GI evaluation for possible diagnosis of eosinophilic esophagitis. This may help further solidify the case for the patient to be on biologic therapy forward given her concomitant asthma, eosinophilia, and esophagitis. 4. Allergies - Patient has never formally been evaluated for allergies. Would recommend RAST testing and IgE panel in the outpatient setting. Additionally, consideration for aspergillosis, however her symptoms do not appear to be as consistent with this. That being said, in a patient with persistent asthma, this may make sense to rule out as well for the possibility of ABPA. 5. Snoring - Patient with concerning physical exam findings and subjective symptoms for severe sleep disordered breathing. She has significant snoring, apneic episodes, and daytime drowsiness. Patient warrants outpatient polysomnography. We can initiate CPAP therapy while inpatient to see if she has improvement which may aid in her work of breathing while she is bronchospastic. Would start with setting of CPAP of 8-10 and see how she tolerates the settings. I did explain to her that there are multiple options for CPAP devices as well as masks and to not be discouraged if she does not tolerate the mask well here while in the hospital. Again, this is something that can be worked up in the outpatient setting moving forward. 6. Bronchiectasis - Findings noted on recent CTA. Again, certainly concerning the patient with ongoing symptoms of persistent asthma and breakthrough symptoms. Agree with flutter valve for now. Will order sputum cultures and AFB testing if able to produce sputum. Otherwise, continue with symptomatic management for now. Will avoid hypertonic saline for now as she does not appear to have any significant sputum production and we will just continue to focus on her bronchospastic findings at this point. 7. Esophagitis - As per #3 Thank you for allowing us to participate in the care of this pleasant patient. We will continue to follow along. Supervising Physician Co-Signing Physician Notes Patient seen and examined. EMR reviewed. Discussed with JOSHUA and agree with assessment plan as noted. Patient appears to be responding for treatment for obstructive lung disease. Unclear how much of this is asthma versus COPD given her smoking history but she did have significant eosinophilia in the past. Recommend continued steroids but can likely transition to prednisone. Continue bronchodilators. Outpatient PFTs and additional testing as delineated above. Wean oxygen as tolerated to keep oxygen saturations at or above 90%. Anticipate the patient may be able to be dismissed from the hospital in the next 24 hours. She should have outpatient pulmonary follow-up in the future. Recommendations and plan were discussed with the patient. She is agreeable to proceed as outlined. History of Present Illness Reason for Consultation: asthma/copd ex. requiring high oxygen. Requesting Physician: Dr. Vasquez Attending Physician: Melodie Mane MD History of Present Illness Patient is a 53-year-old female with a significant past medical history of asthma, type 2 diabetes, hyperlipidemia, hypertension, obesity, depression, bipolar 1 disorder, and tobacco abuse who presented to the emergency department with progressively worsening dyspnea and cough since last Wednesday. She reports that she has Advair that she uses at home as her maintenance inhaler as well as as needed albuterol and albuterol nebulizers. She reports that routinely she is fairly well-controlled on her Advair alone and some days not even have to use her rescue inhaler. Unfortunately, when she has worsening of her symptoms, she has escalating use of her albuterol. This is her first hospitalization related to her asthma. She does note that in March of this past year she did require a course of antibiotics and steroid secondary to similar symptoms. Prior to that, however, the patient had not required the use of steroids or antibiotics in the last year related to her breathing. She has been diagnosed with asthma since childhood. She also reports a history of allergies, however she has not undergone formal testing at any point. She does take Singulair and Zyrtec on a daily basis for that. She reports no occupational exposures. There is a sick strong family history of asthma as her brother has similar issues with asthma. Patient is never seen pulmonary medicine in the outside setting. She has never undergone pulmonary function testing. She has never undergone allergy testing formally as well. Overall, since arrival in the emergency department, the patient reports feeling somewhat better. She did require an escalation of her oxygen requirement overnight with increasing wheezing. Her symptoms have seemed to improve with the initiation of steroids and increased bronchodilator therapies. She denies complaints of chest pain, palpitations, dizziness, lightheadedness, productive cough, or hemoptysis. The patient reports a history of smoking a pack a day from the age of 17. She quit for approximately 1 year in 2017, however she returned to smoking 1 year later. This puts her at an approximate [id number] history of smoking. Additionally, the patient reports heavy snoring, episodes of apnea, and talking in her sleep. She is excessively tired throughout the day and has issues with staying awake while watching television. She does not fall asleep at the wheel or have issues while riding as a passenger in a car. She has never undergone formal sleep study testing. Allergies Allergy/AdvReac Type Severity Reaction Status Date / Time Penicillins Allergy Severe SWELLING Verified 05/03/23 18:15 OF FACE, HIVES lisinopril AdvReac Intermediate LOWERED Verified 05/03/23 18:15 BLOOD PRESSURE TOO MUCH, PER [facility] Home Medications Medication Instructions Recorded Confirmed Type albuterol sulfate 90 mcg/actuation 2 puff inhalation QID PRN 06/09/14 05/03/23 History aerosol inhaler (ProAir HFA) Shortness Of Breath Or Wheezing ##0 citalopram 40 mg tablet 40 mg PO QAM ##0 06/09/14 05/03/23 History fluticasone 250 mcg-salmeterol 50 1 inh inhalation BID 10/19/18 05/03/23 History mcg/dose blistr powdr for inhalation (Advair Diskus) gabapentin 300 mg capsule 300 mg PO TID 10/19/18 05/03/23 History insulin glargine 100 unit/mL (3 40 unit subcut QPM 10/19/18 05/03/23 History mL) subcutaneous pen (Lantus Solostar U-100 Insulin) oxcarbazepine 300 mg tablet 300 mg PO TID 10/19/18 05/03/23 History atorvastatin 20 mg tablet 20 mg PO QAM 10/24/18 05/03/23 History meloxicam 7.5 mg tablet 7.5 mg PO QAM 02/27/20 05/03/23 History omeprazole 20 mg capsule,delayed 20 mg PO DAILYBB 02/27/20 05/03/23 History release aripiprazole 5 mg tablet (Abilify) 5 mg PO HS 10/29/22 05/03/23 History dulaglutide 4.5 mg/0.5 mL 4.5 mg subcut WK 05/03/23 05/03/23 History subcutaneous pen injector (Trulicity) fluticasone furoate 100 1 inh inhalation DAILY 05/03/23 05/03/23 History mcg-vilanterol 25 mcg/dose inhalation powder (Breo Ellipta) furosemide 20 mg tablet 20 mg PO QAM 05/03/23 05/03/23 History ipratropium 0.5 mg-albuterol 3 mg 3 ml inhalation QID 05/03/23 05/03/23 History (2.5 mg base)/3 mL nebulization soln levocetirizine 5 mg tablet (Xyzal) 5 mg PO HS 05/03/23 05/03/23 History magnesium chloride 64 mg 64 mg PO DAILY 05/03/23 05/03/23 History (magnesium chloride) tablet,delayed release montelukast 10 mg tablet 10 mg PO DAILY 05/03/23 05/03/23 History Patient History Medical History Arthritis History of colon polyps Hemorrhoids Acid reflux History of kidney stones Bipolar 1 disorder Depression Hypertension Asthma, mild intermittent Dyslipidemia DM type 2 (diabetes mellitus, type 2) Surgical History History of colonoscopy History of History of tubal ligation S/P left knee arthroscopy S/P tonsillectomy and adenoidectomy Family History Grandmother (Maternal) Diabetes Hypertension Social History Smoking Status: Never smoker Tobacco Type: Cigarettes Cigarettes Per Day: 1ppd/advised npo; Second Hand Exposure: No; Do You Dip or Chew Tobacco: No; Hx Alcohol Use: No Hx Substance Use: No Preferred Language: Frisian Communication Ability: Effective Reading Professor Required: No Beliefs That Will Affect Care: None marital status: Single Current Living Situation: Family Current Living Situation Comment: S/O Other Information That Helps Us Care for You: No Feels Safe at Home: Yes Safety Concerns: Feels Safe At This Time Assistive Devices: Cane and Walker Review of Systems Review of Systems: A complete 10 point review of systems was reviewed with the patient with pertinent positives and negatives as per history of present illness. All else were negative. Physical Exam Physical Exam: VITAL SIGNS - Vital signs and nursing notes were reviewed. GENERAL - 53-year-old female appearing her stated age who is in no acute distress. Communicates well with provider and answers questions appropriately. SKIN - Without rashes or lesions. NOSE - Midline and without cyanosis. MOUTH/OROPHARYNX - Without perioral cyanosis. NECK - Neck with FROM. LUNGS - Chest wall evaluation demonstrates normal chest wall A:P diameter. Au scultation reveals diffuse expiratory wheezing. No rales or rhonchi appreciated. CARDIAC - RRR with S1/S2. No murmur, rubs, or gallops appreciated. ABDOMEN - Abdominal inspection demonstrates an obese abdomen. BS normoactive all four quadrants. No tenderness, palpable masses, or ascites noted. EXTREMITIES - Nail clubbing not present. No peripheral cyanosis. No pretibial edema present. +3/5 radial palpated throughout. PSYCH - A&Ox3 and cooperates fully with examiner. Pt is very pleasant and interacts well with examiner. Results & Data Results & Data Vital Signs (Past 12 Hours) Vital Signs Temp Pulse Pulse Resp BP BP Pulse Ox 05/04/23 07:45 05/04/23 07:42 36.8 C 93 H 20 119/69 94 05/04/23 07:19 95 H 17 94 05/04/23 05:00 98 H 27 H 136/72 99 05/04/23 02:40 101 H 18 95 05/04/23 00:55 36.9 C 100 H 18 123/74 96 05/04/23 00:34 05/03/23 23:20 115 H 05/03/23 23:10 115 H 20 95 05/03/23 23:00 103 H 28 H 94 05/03/23 22:00 112 H 21 97 05/03/23 21:50 109 H 22 93 O2 Del Method O2 Flow Rate FiO2 05/04/23 07:45 High Flow Nasal Cannula 30 50 05/04/23 07:42 High Flow Nasal Cannula 30 50 05/04/23 07:19 High Flow Nasal Cannula 40 50 05/04/23 05:00 High Flow Nasal Cannula 05/04/23 02:40 High Flow Nasal Cannula 30 60 05/04/23 00:55 Free Flow/Blow-by 05/04/23 00:34 High Flow Nasal Cannula 05/03/23 23:20 05/03/23 23:10 High Flow Nasal Cannula 30 60 05/03/23 23:00 High Flow Nasal Cannula 05/03/23 22:00 High Flow Nasal Cannula 05/03/23 21:50 High Flow Nasal Cannula 30 60 PG Care Time/CCT Total # of Minutes Spent Total Time Spent with Patient: Total time spent is greater than 50% in coordination of care (as documented) at patient's floor/unit and/or counseling patient: Coding Level of Care Code 08095 IN/OBS CONSULT LVL 4,60M Diagnoses Asthma exacerbation J45.901 Asthma severity: unspecified severity Hypoxia R09.02 Eosinophilia D72.10 Allergies T78.40XA Snoring R06.83 Bronchiectasis J47.9 Esophagitis K20.90
--- NOTE | 2023-05-04 11:40 | Electrocardiogram Report ---
Test Reason : Blood Pressure : / mmHG Vent. Rate : 101 BPM Atrial Rate : 101 BPM P-R Int : 174 ms QRS Dur : 106 ms QT Int : 376 ms P-R-T Axes : 043 -39 025 degrees QTc Int : 487 ms Sinus tachycardia Left axis deviation Low voltage QRS Incomplete right bundle branch block Old Anterior infarct (cited on or before 03-MAY-2023) Abnormal ECG When compared with ECG of 03-MAY-2023 17:25, No significant change Confirmed by Sacha Mcarthur ([id number]) on 05/04/2023 11:40:39 AM Referred By: REFERRED SELF Confirmed By:Sacha Mcarthur
[2023-05-04] MEDS: FLUCONAZOLE 50 MG TAB PO ONE (12:31)
--- NOTE | 2023-05-04 15:50 | Hospitalist Progress Note ---
Date of Service May 04, 2023 Assessment & Plan (1) Asthma exacerbation: Plan: Ms. Chanel is a 53-year-old female with past medical history significant for type 2 diabetes, hyperlipidemia, asthma, hypertension, obesity, depression, bipolar 1 disorder, ongoing tobacco abuse,admitted for asthma v COPD exacerbation. Symptoms, suchs as shortness of breath, ongoing on since last Wednesday and getting progressively worse. Evaluated by Pulmonary. Question of COPD v asthma exacerbation. Noted eosinophilia. Plan to continue IV steroids for now and bronchodilators. #Acute hypoxic respiratory failure #Acute Asthma/COPD exacerbation #Eosinophilia #Ongoing tobacco abuse IV Solu-Medrol, nebs [id number] and as needed Requiring high oxygen supplementation Continue home inhalers Plan for follow up with OP pulm to explore further outpatient workup and options for management of eospinophilia Goal O2 sat >90% Sputum cultures Continue Levofloxacin 750mg Counseled on cessation at length, precontemplative at this time #Bronchiectasis -Culture ordered by Pulm, follow results Mucinex BID Flutter valve #Possible esophagitis and CAT scan IV Protonix Transition to PO BID with plans to arrange OP follow up #Diabetes Continue home Lantus Sliding scale HbA1c 7.4% / Counseled on lifestyle modifications #Morbid obesity BMI 51.2 Life style modficiations reviewed positive stop bang score, will need OP sleep study HFNC for now, consider overnight pulse ox when oxygenation improves #Hypertension Lasix 20mg daily, not on other antihypertensive Will monitor #Hyperlipidemia On statin #History of bipolar 1 disorder Depression On citalopram, Abilify, oxcarbazepine DVT prophylaxis Lovenox Disposition Med/tele Full code Admission and Anticipated Discharge Date Admission Date: May 03, 2023 Subjective Patient evaluated at bedside Reports subjective improvement since admission, but still with notable wheezing Endorses some productivity with cough, but overall just "tight" chest Denies fevers or other acute symptoms at this time Physical Exam Constitutional: pleasant, no notable conversational dyspnea Respiratory: diffuse wheezing, on HFNC Cardiovascular: tachycardic Results & Data Results & Data Vital Signs (Past 12 Hours) Vital Signs Temp Pulse Pulse Resp BP BP Pulse Ox 05/04/23 15:11 98 H 26 H 93 05/04/23 15:11 120/75 05/04/23 15:00 99 H 27 H 94 03/05/24 14:54 100 H 20 94 05/04/23 14:00 97 H 26 H 92 05/04/23 13:00 95 H 32 H 93 05/04/23 12:00 100 H 31 H 05/04/23 11:25 36.6 C 102 H 20 127/72 93 05/04/23 11:24 93 H 20 91 05/04/23 11:24 127/72 05/04/23 11:24 127/72 05/04/23 11:00 98 H 23 92 05/04/23 10:43 96 H 18 92 05/04/23 10:24 93 H 17 93 05/04/23 10:02 107 H 18 05/04/23 09:00 93 H 22 94 05/04/23 08:00 99 H 26 H 95 05/04/23 07:45 05/04/23 07:42 36.8 C 93 H 20 119/69 94 05/04/23 07:41 104 H 14 94 05/04/23 07:41 119/69 05/04/23 07:19 95 H 17 94 05/04/23 07:00 95 05/04/23 06:00 137/84 05/04/23 06:00 101 H 24 94 05/04/23 05:00 98 H 27 H 136/72 99 O2 Del Method O2 Flow Rate FiO2 05/04/23 15:11 Nasal Cannula 7 05/04/23 15:11 05/04/23 15:00 05/04/23 14:54 Nasal Cannula 7 05/04/23 14:00 05/04/23 13:00 05/04/23 12:00 05/04/23 11:25 Nasal Cannula 8 05/04/23 11:24 05/04/23 11:24 05/04/23 11:24 05/04/23 11:00 05/04/23 10:43 Nasal Cannula 8 05/04/23 10:24 High Flow Nasal Cannula 30 50 05/04/23 10:02 05/04/23 09:00 05/04/23 08:00 05/04/23 07:45 High Flow Nasal Cannula 30 50 05/04/23 07:42 High Flow Nasal Cannula 30 50 05/04/23 07:41 05/04/23 07:41 05/04/23 07:19 High Flow Nasal Cannula 40 50 05/04/23 07:00 05/04/23 06:00 05/04/23 06:00 05/04/23 05:00 High Flow Nasal Cannula Laboratory Results Short CBC 05/03/23 05/04/23 Range/Units 17:30 04:37 WBC 9.17 7.02 (4.8-10.8) K/ul Hgb 16.1 H 15.9 (12.0-16.0) g/dl Hct 45.8 45.7 (37.0-47.0) % Plt Count 275 279 (130-400) K/uL BMP 05/03/23 05/04/23 17:30 04:37 Sodium 135 L 133 L Potassium 3.8 4.0 Chloride 98 98 Carbon Dioxide 31 25 BUN 10 13 Creatinine 0.78 0.85 Glucose 163 H 297 H Calcium 9.3 9.1 Liver Function 05/03/23 Range/Units 17:30 Total Bilirubin 0.5 (0.2-1.0) mg/dl AST 27 (13-39) U/L ALT 23 (7-52) U/L Alkaline Phosphatase 78 (34-104) U/L Albumin 4.2 (3.4-5.0) gm/dl Medications Administered Home Medications Medication Instructions Recorded Confirmed Last Taken albuterol sulfate 90 mcg/actuation 2 puff inhalation QID PRN 06/09/14 05/03/23 10/19/18 aerosol inhaler (ProAir HFA) Shortness Of Breath Or Wheezing ##0 citalopram 40 mg tablet 40 mg PO QAM ##0 06/09/14 05/03/23 05/03/23 fluticasone 250 mcg-salmeterol 50 1 inh inhalation BID 10/19/18 05/03/23 05/03/23 08:00 mcg/dose blistr powdr for inhalation (Advair Diskus) gabapentin 300 mg capsule 300 mg PO TID 10/19/18 05/03/23 05/03/23 08:00 insulin glargine 100 unit/mL (3 40 unit subcut QPM 10/19/18 05/03/23 05/02/23 mL) subcutaneous pen (Lantus Solostar U-100 Insulin) oxcarbazepine 300 mg tablet 300 mg PO TID 10/19/18 05/03/23 05/03/23 08:00 atorvastatin 20 mg tablet 20 mg PO QAM 10/24/18 05/03/23 05/03/23 meloxicam 7.5 mg tablet 7.5 mg PO QAM 02/27/20 05/03/23 05/03/23 omeprazole 20 mg capsule,delayed 20 mg PO DAILYBB 02/27/20 05/03/23 05/03/23 release aripiprazole 5 mg tablet (Abilify) 5 mg PO HS 10/29/22 05/03/23 05/02/23 dulaglutide 4.5 mg/0.5 mL 4.5 mg subcut WK 05/03/23 05/03/23 05/03/23 subcutaneous pen injector ([facility]) fluticasone furoate 100 1 inh inhalation DAILY 05/03/23 05/03/23 05/03/23 mcg-vilanterol 25 mcg/dose inhalation powder (Breo Ellipta) furosemide 20 mg tablet 20 mg PO QA 05/03/23 05/03/23 05/03/23 ipratropium 0.5 mg-albuterol 3 mg 3 ml inhalation QID 05/03/23 05/03/23 05/03/23 12:00 (2.5 mg base)/3 mL nebulization soln levocetirizine 5 mg tablet (Xyzal) 5 mg PO 05/03/23 05/03/23 05/02/23 magnesium chloride 64 mg 64 mg PO DAILY 05/03/23 05/03/23 05/03/23 (magnesium chloride) tablet,delayed release montelukast 10 mg tablet 10 mg PO DAILY 05/03/23 05/03/23 05/03/23 Active Medications Generic Name Dose Route Start Last Admin Trade Name Freq PRN Reason Stop Dose Admin Acetaminophen 650 mg 05/03/23 21:53 05/04/23 11:29 Acetaminophen 325 Mg Tab PO 06/02/23 21:52 650 mg Q4H PRN Administration Pain or Fever Albuterol 3 ml 05/03/23 21:53 05/04/23 14:54 Albut/Ipratrop 3mg/0.5mg Neb 3 Ml Vial INH 06/02/23 21:52 3 ml QIDR NORI Administration Protocol Aripiprazole 5 mg 05/03/23 21:53 05/03/23 22:34 Aripiprazole 5 Mg Tab PO 06/02/23 21:52 5 mg HS NORI Administration Atorvastatin Calcium 20 mg 05/04/23 09:00 05/04/23 08:31 Atorvastatin 20 Mg Tab PO 06/03/23 08:59 20 mg QAM NORI Administration Cetirizine HCl 10 mg 05/03/23 21:53 05/03/23 22:35 Cetirizine Hcl 10 Mg Tablet PO 06/02/23 21:52 10 mg HS NORI Administration Citalopram Hydrobromide 40 mg 05/04/23 09:00 05/04/23 08:32 Citalopram 40 Mg Tab PO 06/03/23 08:59 40 mg QAM NORI Administration Enoxaparin Sodium 40 mg 05/03/23 21:53 05/04/23 08:32 Enoxaparin Inj 40 Mg/0.4 Ml Syr SQ 06/02/23 21:52 40 mg BID NORI Administration Fluticasone/Vilanterol 1 puffs 05/04/23 09:00 05/04/23 08:31 Fluticasone/Vilanterol 100/25mcg 14 Puffs/Inhaler INH 06/03/23 08:59 1 puffs DAILY NORI Administration Furosemide 20 mg 05/04/23 09:00 05/04/23 08:31 Furosemide 20 Mg Tab PO 06/03/23 08:59 20 mg QAM NORI Administration Gabapentin 300 mg 05/03/23 21:53 05/04/23 08:32 Gabapentin 300 Mg Cap PO 06/02/23 21:52 300 mg TID NORI Administration Guaifenesin 1,200 mg 05/04/23 09:00 05/04/23 08:32 Guaifenesin 600 Mg Tabcr PO 06/03/23 08:59 1,200 mg Q12 NORI Administration Methylprednisolone 40 mg/ 0.64 mls @ 1.5 mls/min 05/04/23 06:00 05/04/23 15:11 Syringe IV 06/03/23 05:59 1.5 mls/min Q8H NORI Administration Levofloxacin/Dextrose 750 mg in 150 mls @ 100 mls/hr 05/03/23 23:30 05/04/23 02:15 Levaquin/D5w IV 05/10/23 23:29 Infused Q24H NORI Infusion Protocol Insulin Aspart 0 units 05/03/23 21:53 05/04/23 13:42 Insulin Aspart Per Unit Charge SC 06/02/23 21:52 16 units ACHS NORI Administration Insulin Glargine 40 units 05/03/23 22:15 05/03/23 22:49 Lantus Per Unit Charge SQ 06/02/23 22:14 40 units QPM NORI Administration Magnesium Chloride 64 mg 05/04/23 09:00 05/04/23 08:31 Magnesium Chloride W/Calcium 64mg Delayed Rel Tab PO 06/03/23 08:59 64 mg DAILY NORI Administration Montelukast Sodium 10 mg 05/04/23 09:00 05/04/23 08:31 Montelukast Sodium 10 Mg Tablet PO 06/03/23 08:59 10 mg DAILY NORI Administration Oxcarbazepine 300 mg 05/03/23 21:53 05/04/23 08:32 Oxcarbazepine 150 Mg Tablet PO 06/02/23 21:52 300 mg TID NORI Administration Pantoprazole Sodium 40 mg 05/04/23 06:30 05/04/23 06:38 Pantoprazole 40 Mg Tab PO 06/03/23 06:29 40 mg DAILYBB NORI Administration (1) Asthma exacerbation Asthma severity: unspecified severity
[2023-05-04] MEDS: MAGNESIUM SULFATE / D5W 1 GM/100 ML BAG IV SCH (16:35)
[2023-05-04] MEDS ORDERED: INSULIN ASPART PER UNIT CHARGE SC STA (17:55)
[2023-05-04] MEDS ORDERED: PHARMACY GLYCEMIC MGMT CONSULT PRN (17:55)
[2023-05-04] MEDS: LANTUS PER UNIT CHARGE SQ STA (18:39)
[2023-05-04] MEDS: INSULIN HUMAN REGULAR PER UNIT 10 UNITS in SYRINGE 9.9 ML IV STA (18:40)
[2023-05-04] MEDS: SODIUM CHLOR 7% 4 ML NEB NEB SCH (20:20)
[2023-05-05] MEDS: INSULIN ASPART PER UNIT CHARGE SC SCH (00:13)
[2023-05-05 07:31] LABS: Basophils # (auto) 0.02 K/uL (0.00-0.20); Basophils % (auto) 0.2 %; Hematocrit (blood only) 46.9 % (37.0-47.0); Hemoglobin 16.1 g/dl (12.0-16.0); Immature Granulocytes # (auto) 0.07 K/uL (0.01-0.20); Immature Granulocytes % (auto) 0.6 %; Lymphocytes # (auto) 1.24 K/uL (1.20-3.40); Lymphocytes % (auto) 10.1 %; Mean Corpuscular Hemoglobin 29.1 pg (25.0-34.0); Mean Corpuscular Hgb Conc 34.3 g/dL (32.0-36.0); Mean Corpuscular Volume 84.8 fL (80.0-100.0); Mean Platelet Volume 9.7 fL (9.4-12.4); Monocytes # (auto) 0.43 K/uL (0.11-0.59); Monocytes % (auto) 3.5 %; Neutrophils # (auto) 10.54 K/uL (1.40-6.50); Neutrophils % (auto) 85.6 %; Platelet Count 304 K/uL (130-400); RDW Coefficient of Variation 13.1 % (11.5-14.5); RDW Standard Deviation 40.2 fL (36.4-46.3); Red Blood Count 5.53 M/uL (4.20-5.40)
[2023-05-05 08:00] LABS: Creatinine Clr Calc Pharmacy 101.9 ml/min; Est GFR (African American) 106.2 ml/min; Est GFR (Non-African American) 91.6 ml/min; Magnesium 2.1 mg/dl (1.7-2.4); Phosphorus 3.2 mg/dl (2.5-4.9)
--- NOTE | 2023-05-05 08:22 | Pulmonology Progress Note ---
Date of Service May 05, 2023 Assessment & Plan (1) Asthma exacerbation: Asthma severity: unspecified severity (2) Hypoxia: (3) Eosinophilia: (4) Allergies: (5) Snoring: (6) Bronchiectasis: (7) Esophagitis: Plan IMPRESSION: 53-year-old female with a history of asthma who presents in status asthmaticus. She is clinically improved but remains slightly hypoxemic and with evidence of ongoing bronchospasm. She does have evidence of bronchiectasis on CT scan and has had a history of significant eosinophilia. RECOMMENDATIONS: 1. Asthma exacerbation -increase Breo to a higher dose. Add Incruse. Continue Solu-Medrol for now as well as Singulair. Will need outpatient PFTs, exhaled nitric oxide, and follow-up. 2. Hypoxia - In the setting of asthma exacerbation. Improving. Continue to wean oxygen to keep saturations at or above 90%. 3. Eosinophilia - As noted. The patient has had significant peripheral eosinophilia during prior visits and during initial labs during this visit. Certainly this could be a component of the patient's ongoing asthma symptoms. Additionally, the patient was noted to have esophagitis on her chest CT. While she does carry history of GERD, she appears as though her symptoms are relatively well-managed at this time. Certainly, the patient may warrant GI evaluation for possible diagnosis of eosinophilic esophagitis. 4. Allergies - Patient has never formally been evaluated for allergies. Would recommend RAST testing and IgE panel in the outpatient setting. Additionally, consideration for ABPA, however her symptoms do not appear to be as consistent with this. 5. Snoring - Patient with concerning physical exam findings and subjective symptoms for severe sleep disordered breathing. She has significant snoring, apneic episodes, and daytime drowsiness. Patient warrants outpatient polysomnography. 6. Bronchiectasis - Findings noted on recent CTA. Unclear duration. Will need additional workup in the outpatient setting 7. Esophagitis - As per #3 Thank you for allowing us to participate in the care of this pleasant patient. We will continue to follow along. Will be happy to see her in outpatient pulmonary for follow-up once dismissed from the hospital Admission and Anticipated Discharge Date Admission Date: May 03, 2023 Subjective Patient seen and examined. MR reviewed. The patient reports that she continues to experience some wheezing. Her oxygen requirement significantly improved. She is coughing and expectorating small amounts of phlegm. She overall feels improved but not back to baseline. Review of Systems 2 Review of Systems: All systems reviewed & are unremarkable except as noted in Subjective Physical Exam 2 Constitutional: WD/WN, vitals as above Neck: trachea midline, no thyromegaly Respiratory: no respiratory distress, no labored breathing and not tachypneic Auscultation: + wheezes; no crackles Cardiovascular: RRR, no murmur, no edema Gastrointestinal (Abdomen): normal bowel sounds, soft, nontender, no hepatosplenomegaly Musculoskeletal: Extremities: extremities normal to inspection Skin: no rashes, warm and dry Neurologic: Nonfocal exam Lymphatic: no cervical lymphadenopathy Results & Data Results & Data Vital Signs (Past 12 Hours) Vital Signs Temp Pulse Pulse Resp BP Pulse Ox Pulse Ox 05/05/23 07:46 36.5 C 79 18 128/76 91 05/05/23 07:30 69 05/05/23 07:30 05/05/23 07:10 82 16 95 05/05/23 03:19 36.6 C 83 18 129/77 94 05/04/23 23:31 95 H 05/04/23 22:58 05/04/23 22:42 36.6 C 103 H 18 134/76 95 05/04/23 21:53 95 05/04/23 20:20 96 H 20 94 O2 Del Method O2 Del Method O2 Flow Rate O2 Flow Rate 05/05/23 07:46 Nasal Cannula 3 05/05/23 07:30 05/05/23 07:30 High Flow Nasal Cannula 6 05/05/23 07:10 Nasal Cannula 5 05/05/23 03:19 High Flow Nasal Cannula 6 05/04/23 23:31 05/04/23 22:58 High Flow Nasal Cannula 6 05/04/23 22:42 High Flow Nasal Cannula 8 05/04/23 21:53 High Flow Nasal Cannula 6 05/04/23 20:20 Nasal Cannula 7 Laboratory Results 05/05/23 07:03 05/05/23 07:03 PG Care Time/CCT Total # of Minutes Spent Total Time Spent with Patient: Total time spent is greater than 50% in coordination of care (as documented) at patient's floor/unit and/or counseling patient: Coding Level of Care Code 94138 SUB INP/OBS CARE 2/35MIN Diagnoses Asthma exacerbation J45.901 Asthma severity: unspecified severity Hypoxia R09.02 Eosinophilia D72.10 Allergies T78.40XA Snoring R06.83 Bronchiectasis J47.9 Esophagitis K20.90
[2023-05-05] MEDS: LANTUS PER UNIT CHARGE SQ SCH ×2 (08:54→21:15)
[2023-05-05] MEDS: FLUTICASONE/VILANTEROL 200/25MCG 14 PUFFS/INHALER INH SCH (09:06)
[2023-05-05] MEDS: UMECLIDINIUM BROMIDE 62.5MCG/BLISTER 7 PUFFS/INHALER INH SCH (09:07)
[2023-05-05] MEDS ORDERED: PHARMACY GLYCEMIC MGMT CONSULT PRN (11:48)
[2023-05-05] MEDS: INSULIN HUMAN REGULAR PER UNIT 10 UNITS in SYRINGE 9.9 ML IV ONE (13:07)
--- NOTE | 2023-05-05 13:33 | Pharmacy Report ---
Pharmacy Glycemic Short Note 2 - Date of Service May 05, 2023 - Glycemic Short BSG Results (Last 24 hours): 05/04/23 05/04/23 05/04/23 17:26 17:26 17:28 Glucose POC Glucose 361 H* 351 H* 372 H* 05/04/23 05/04/23 05/04/23 17:56 20:41 23:42 Glucose 336 H* POC Glucose 281 H 289 H 05/05/23 05/05/23 05/05/23 04:02 07:03 08:07 Glucose 189 H POC Glucose 193 H 217 H 05/05/23 05/05/23 11:45 11:46 Glucose POC Glucose 317 H* 329 H* OUTPATIENT ANTIDIABETIC REGIMEN: * Lantus 40 units SQ QPM * Trulicity 4.5mg SQ QMon * HbA1c 7.4% (05/04/23) ASSESSMENT: * Shirley is a 53 YOF admitted with an asthma exacerbation and a history of T2DM. Pharmacy has been consulted to assist with glycemic managment. * Fasting BSG this AM above goal range, will increase basal by approximately the amount of correctional insulin she had overnight. * She is receiving Levaquin IV and IV methylprednisolone 40mg Q8H * Novolog tighten due to elevated prandial BSGs, BSGs continue to be elevated, 10 units of IV regular insulin added to augment. PLAN FOR INPATIENT GLYCEMIC CONTROL: * Hold outpatient oral diabetes medications * Basal insulin * Lantus 20 units SQ QAM * Lantus 55 units SQ HS * Bolus insulin * NovoLog per scale ACHS or Q6hrs while NPO * Goal Range: Low 110 mg/dL - High 140 mg/dL * Correction Factor: 10 mg/dL/unit * Nutritional / Prandial insulin per carb ratio of 1 unit per 3 grams CHO consumed
--- NOTE | 2023-05-05 17:52 | Hospitalist Progress Note ---
Date of Service May 05, 2023 Assessment & Plan (1) Asthma exacerbation: Plan: per previous hospitalist notes with addendum: Ms. Chanel is a 53-year-old female with past medical history significant for type 2 diabetes, hyperlipidemia, asthma, hypertension, obesity, depression, bipolar 1 disorder, ongoing tobacco abuse,admitted for asthma v COPD exacerbation. Symptoms, suchs as shortness of breath, ongoing on since last Wednesday and getting progressively worse. Evaluated by Pulmonary. Question of COPD v asthma exacerbation. Noted eosinophilia. Plan to continue IV steroids for now and bronchodilators. #Acute hypoxic respiratory failure #Acute Asthma/COPD exacerbation #Pneumonia #Eosinophilia #Ongoing tobacco abuse IV Solu-Medrol, nebs [id number] and as needed Requiring high oxygen supplementation Continue home inhalers Plan for follow up with OP pulm to explore further outpatient workup and options for management of eospinophilia Goal O2 sat >90% Sputum cultures Continue Levofloxacin 750mg Counseled on cessation at length, precontemplative at this time / continue Solumedrol Levaquin Duonebs, hypertonic Saine #Bronchiectasis -Culture ordered by Pulm, follow results Mucinex BID Flutter valve #Possible esophagitis and CAT scan IV Protonix Transition to PO BID with plans to arrange OP follow up #Diabetes Continue home Lantus Sliding scale HbA1c 7.4% 05/02 Counseled on lifestyle modifications pharmacy glycemic control consulted #Morbid obesity BMI 51.2 Life style modficiations reviewed positive stop bang score, will need OP sleep study HFNC for now, consider overnight pulse ox when oxygenation improves #Hypertension Lasix 20mg daily, not on other antihypertensive Will monitor #Hyperlipidemia On statin #History of bipolar 1 disorder Depression On citalopram, Abilify, oxcarbazepine DVT prophylaxis Lovenox Disposition Med/tele Full code Admission and Anticipated Discharge Date Admission Date: May 03, 2023 Subjective ff up for asthma exacerbation, etc seen resting in bed, not in distress, comfortable on 4 L states she is improved compared to yesterday breathing improving, less cough but still not at baseline no chest pain, dyspnea, palpitations, dizziness no other symptoms Review of Systems Review of Systems: all noted and negative except for above Physical Exam Physical Exam: General- oriented x 3, not in distress, speaks in sentences with no effort or accessory muscle use Eyes- anicteric Neck- no JVD Lungs- mild scattered wheezing, rhonchi Heart- normal rate, regular rhythm; no murmurs Abdomen- normal bowel sounds, nondistended, soft, no tenderness Extremities- no pretibial edema, no calf tenderness Neuro- alert, oriented x 3; no gross focal neurologic deficits Skin- warm & dry Results & Data Results & Data Vital Signs (Past 12 Hours) Vital Signs Temp Pulse Pulse Resp BP Pulse Ox O2 Del Method 05/05/23 15:29 89 05/05/23 15:13 36.8 C 84 18 144/85 H 91 Nasal Cannula 05/05/23 11:21 36.8 C 93 H 18 138/86 90 Room Air 05/05/23 07:46 36.5 C 79 18 128/76 91 Nasal Cannula 05/05/23 07:30 69 05/05/23 07:30 High Flow Nasal Cannula 05/05/23 07:10 82 16 95 Nasal Cannula O2 Flow Rate 05/05/23 15:29 05/05/23 15:13 3 05/05/23 11:21 05/05/23 07:46 3 05/05/23 07:30 05/05/23 07:30 6 05/05/23 07:10 5 all noted and reviewed including below (1) Asthma exacerbation Asthma severity: unspecified severity
--- NOTE | 2023-05-06 07:54 | Pulmonology Progress Note ---
Date of Service May 06, 2023 Assessment & Plan (1) Asthma exacerbation: Asthma severity: unspecified severity (2) Hypoxia: (3) Eosinophilia: (4) Allergies: (5) Snoring: (6) Bronchiectasis: (7) Esophagitis: Plan IMPRESSION: 53-year-old female with a history of asthma who presents in status asthmaticus. She is much better clinically with treatment and likely can be transitioned into the outpatient setting. RECOMMENDATIONS: 1. Asthma exacerbation -continue Breo at current dose. Continue Incruse. Transition to prednisone 20 mg a day for 5 days then stop. Continue Singulair. Will need outpatient PFTs, exhaled nitric oxide, and follow-up. 2. Hypoxia - In the setting of asthma exacerbation. Improving. Continue to wean oxygen to keep saturations at or above 90%. Recommend assessment to see if the patient requires supplemental oxygen at discharge 3. Smoking cessation recommended 4. Snoring -recommend outpatient polysomnography. Patient appears stable at this point in time. She can be dismissed from the hospital with outpatient pulmonary follow-up with the physicians real estate assistant in 2 to 3 weeks. Pulmonary signing off Admission and Anticipated Discharge Date Admission Date: May 03, 2023 Subjective Patient seen and examined. MR andreia. The patient states she is doing much better. Her wheezing is much improved. She is not having any chest tightness. No cough or sputum production. She remains on oxygen although it is unclear if she still needs it. She denies fevers chills night sweats or other constitutional symptoms Review of Systems 2 Review of Systems: All systems reviewed & are unremarkable except as noted in Subjective Physical Exam 2 Constitutional: WD/WN, vitals as above Neck: trachea midline, no thyromegaly Respiratory: no respiratory distress, no labored breathing and not tachypneic Auscultation: no crackles and no wheezes Cardiovascular: RRR, no murmur, no edema Gastrointestinal (Abdomen): normal bowel sounds, soft, nontender, no hepatosplenomegaly Musculoskeletal: Extremities: extremities normal to inspection Skin: no rashes, warm and dry Lymphatic: no cervical lymphadenopathy Results & Data Results & Data Vital Signs (Past 12 Hours) Vital Signs Temp Pulse Resp BP Pulse Ox O2 Del Method O2 Del Method 05/06/23 04:00 36.6 C 73 18 129/67 96 Nasal Cannula 03/07/24 02:34 Nasal Cannula 05/06/23 00:13 36.6 C 76 18 132/87 92 Nasal Cannula 05/05/23 21:00 Nasal Cannula O2 Flow Rate O2 Flow Rate 05/06/23 04:00 3 05/06/23 02:34 3 05/06/23 00:13 3 05/05/23 21:00 3 Laboratory Results 05/05/23 07:03 05/05/23 07:03 Diagnostic Findings No new imaging PG Care Time/CCT Total # of Minutes Spent Total Time Spent with Patient: Total time spent is greater than 50% in coordination of care (as documented) at patient's floor/unit and/or counseling patient: Coding Level of Care Code 44958 SUB INP/OBS CARE 2/35MIN Diagnoses Asthma exacerbation J45.901 Asthma severity: unspecified severity Hypoxia R09.02 Eosinophilia D72.10 Allergies T78.40XA Snoring R06.83 Bronchiectasis J47.9 Esophagitis K20.90
[2023-05-06] MEDS: LANTUS PER UNIT CHARGE SQ SCH (09:30)
[2023-05-06] MEDS: predniSONE 20 MG TAB PO SCH (09:36)
--- NOTE | 2023-05-06 12:35 | Pharmacy Report ---
Pharmacy Glycemic Short Note 2 - Date of Service May 06, 2023 - Glycemic Short BSG Results (Last 24 hours): 05/05/23 05/05/23 05/06/23 17:11 20:38 08:19 POC Glucose 173 H 215 H 205 H 05/06/23 12:22 POC Glucose 286 H OUTPATIENT ANTIDIABETIC REGIMEN: * Lantus 40 units SQ QPM * Trulicity 4.5mg SQ QMon * HbA1c 7.4% (05/04/23) ASSESSMENT: 05/05 * Patient received total of 164 units of insulin yesterday, of which 75 units were basal insulin - continues on solumedrol 40 iv q 8 this AM * Fasting BSG 205 mg/dL - will split basal evening with bid dosing and titrate up, will give scale for this AM 35-40 units BID * Steroids now changing later this morning. Changed to po prednisone 20 mg daily - dose given this AM. Anticipate insulin needs to decrease. Will d/c evening basal insulin and plan to loosen CF/CR later this evening 05/04 * Shirley is a 53 YOF admitted with an asthma exacerbation and a history of T2DM. Pharmacy has been consulted to assist with glycemic managment. * Fasting BSG this AM above goal range, will increase basal by approximately the amount of correctional insulin she had overnight. * She is receiving Levaquin IV and IV methylprednisolone 40mg Q8H * Novolog tighten due to elevated prandial BSGs, BSGs continue to be elevated, 10 units of IV regular insulin added to augment. PLAN FOR INPATIENT GLYCEMIC CONTROL: * Hold outpatient oral diabetes medications * Basal insulin * Lantus 40 units this AM * Plan to reassess dosing 05/06 AM * Bolus insulin * NovoLog per scale ACHS or Q6hrs while NPO * Goal Range: Low 110 mg/dL - High 140 mg/dL * Correction Factor: 15 mg/dL/unit * Nutritional / Prandial insulin per carb ratio of 1 unit per 5 grams CHO consumed
--- NOTE | 2023-05-06 18:47 | Hospitalist Progress Note ---
Date of Service May 06, 2023 Assessment & Plan (1) Asthma exacerbation: Plan: per previous hospitalist notes with addendum: Ms. Chanel is a 53-year-old female with past medical history significant for type 2 diabetes, hyperlipidemia, asthma, hypertension, obesity, depression, bipolar 1 disorder, ongoing tobacco abuse,admitted for asthma v COPD exacerbation. Symptoms, suchs as shortness of breath, ongoing on since last Wednesday and getting progressively worse. Evaluated by Pulmonary. Question of COPD v asthma exacerbation. Noted eosinophilia. Plan to continue IV steroids for now and bronchodilators. #Acute hypoxic respiratory failure #Acute Asthma/COPD exacerbation #Pneumonia #Eosinophilia #Ongoing tobacco abuse IV Solu-Medrol, nebs [id number] and as needed Requiring high oxygen supplementation Continue home inhalers Plan for follow up with OP pulm to explore further outpatient workup and options for management of eospinophilia Goal O2 sat >90% Sputum cultures Continue Levofloxacin 750mg Counseled on cessation at length, precontemplative at this time 05/04 continue Solumedrol Levaquin Duonebs, hypertonic Saline 05/05 continue Prednisone 20mg po daily Hypertonic saline BID wean off o2 anticipate d/c home tomorrow #Bronchiectasis Sputum culture: negative Mucinex BID Flutter valve #Possible esophagitis and CAT scan Protoonix BID Transition to PO BID with plans to arrange OP follow up #Diabetes Continue home Lantus Sliding scale HbA1c 7.4% 05/02 Counseled on lifestyle modifications pharmacy glycemic control consulted #Morbid obesity BMI 51.2 Life style modficiations reviewed positive stop bang score, will need OP sleep study HFNC for now, consider overnight pulse ox when oxygenation improves #Hypertension Lasix 20mg daily, not on other antihypertensive Will monitor #Hyperlipidemia On statin #History of bipolar 1 disorder Depression On citalopram, Abilify, oxcarbazepine DVT prophylaxis Lovenox Disposition anticipate d/c home tomorrow Full code Admission and Anticipated Discharge Date Admission Date: May 03, 2023 Subjective ff up for asthma exacerbation, etc seen resting in bed, comfortable on 3L NC states she feels that she is improving breathing is better, less cough no chest pain, dyspnea, palpitations, dizziness no other new symptoms Review of Systems Review of Systems: all noted and negative except for above Physical Exam Physical Exam: General- oriented x 3, not in distress, speaks in sentences with no effort or accessory muscle use Eyes- anicteric Neck- no JVD Lungs- (+) mild intermittent wheezing, scattered BL good air entry Heart- normal rate, regular rhythm; no murmurs Abdomen- normal bowel sounds, nondistended, soft, nontender Extremities- no pretibial edema, no calf tenderness Neuro- alert, oriented x 3; no gross focal neurologic deficits Skin- warm & dry Results & Data Results & Data Vital Signs (Past 12 Hours) Vital Signs Temp Pulse Pulse Resp BP Pulse Ox O2 Del Method 05/06/23 18:28 83 05/06/23 16:13 36.8 C 81 16 132/82 90 Nasal Cannula 05/06/23 10:36 70 05/06/23 09:00 Nasal Cannula 05/06/23 08:10 36.5 C 73 16 136/81 92 Nasal Cannula O2 Flow Rate 05/06/23 18:28 05/06/23 16:13 2 05/06/23 10:36 05/06/23 09:00 3 05/06/23 08:10 4 all noted and reviewed including below (1) Asthma exacerbation Asthma severity: unspecified severity
[2023-05-06] MEDS: SODIUM CHLOR 7% 4 ML NEB NEB SCH (19:19)
[2023-05-06] MEDS: ALBUT/IPRATROP 3MG/0.5MG NEB 3 ML VIAL NEB PRN (19:20)
[2023-05-07] MEDS: LANTUS PER UNIT CHARGE SC SCH (08:40)
--- NOTE | 2023-05-07 10:18 | Hospitalist Progress Note ---
Date of Service May 07, 2023 Assessment & Plan (1) Asthma exacerbation: Plan: per previous hospitalist notes with addendum: Ms. Chanel is a 53-year-old female with past medical history significant for type 2 diabetes, hyperlipidemia, asthma, hypertension, obesity, depression, bipolar 1 disorder, ongoing tobacco abuse,admitted for asthma v COPD exacerbation. Symptoms, suchs as shortness of breath, ongoing on since last Wednesday and getting progressively worse. Evaluated by Pulmonary. Question of COPD v asthma exacerbation. Noted eosinophilia. Plan to continue IV steroids for now and bronchodilators. #Acute hypoxic respiratory failure #Acute Asthma/COPD exacerbation #Pneumonia #Eosinophilia #Ongoing tobacco abuse IV Solu-Medrol, nebs [id number] and as needed Requiring high oxygen supplementation Continue home inhalers Plan for follow up with OP pulm to explore further outpatient workup and options for management of eospinophilia Goal O2 sat >90% Sputum cultures Continue Levofloxacin 750mg Counseled on cessation at length, precontemplative at this time 05/04 continue Solumedrol Levaquin Duonebs, hypertonic Saline 05/05 continue Prednisone 20mg po daily Hypertonic saline BID wean off o2 anticipate d/c home tomorrow 05/06 Two-step exercise test today to determine need for oxygen supplement upon discharge Prednisone 20 mg daily x 3 more days Continue nebs at home including hypertonic saline Continue Incruse Ellipta and Breo Ellipta at that were started during this admission Continue Singulair Continue flutter valve Outpatient follow-up with pulmonary service #Bronchiectasis Sputum culture: negative Mucinex BID Flutter valve #Possible esophagitis and CAT scan Protoonix BID Transition to PO BID with plans to arrange OP follow up Will need GI follow-up #Diabetes Continue home Lantus Sliding scale HbA1c 7.4% 05/02 Counseled on lifestyle modifications pharmacy glycemic control consulted #Morbid obesity BMI 51.2 Life style modficiations reviewed positive stop bang score, will need OP sleep study #Hypertension Lasix 20mg daily, not on other antihypertensive #Hyperlipidemia On statin #History of bipolar 1 disorder Depression On citalopram, Abilify, oxcarbazepine DVT prophylaxis Lovenox Disposition Discharge home today PCP follow-up in 1 week Will need to follow-up with property clerk and social work msw services Admission and Anticipated Discharge Date Admission Date: May 03, 2023 Subjective ff up for asthma exacerbation, etc seen resting in bed, sitting up On 2 L of oxygen States she feels much better overall Breathing is much better, able to expectorate more mucus Denies chest pain, palpitations, dizziness No fevers or chills No other new symptoms States she is ready and would like to be discharged today Review of Systems Review of Systems: all noted and negative except for above Physical Exam Physical Exam: General- oriented x 3, not in distress, speaks in sentences with no effort or accessory muscle use Eyes- anicteric Neck- no JVD Lungs-faint wheeze bilaterally Good air entry bilaterally Heart- normal rate, regular rhythm; no murmurs Abdomen- normal bowel sounds, nondistended, soft, nontender Extremities- no pretibial edema, no calf tenderness Neuro- alert, oriented x 3; no gross focal neurologic deficits Skin- warm & dry Results & Data Results & Data Vital Signs (Past 12 Hours) Vital Signs Temp Pulse Pulse Resp BP Pulse Ox O2 Del Method 05/07/23 08:03 36.5 C 70 16 115/67 95 Nasal Cannula 05/07/23 07:53 Nasal Cannula 05/07/23 07:39 84 16 96 Nasal Cannula 05/07/23 06:00 71 05/07/23 04:00 36.7 C 70 18 141/85 H 94 Nasal Cannula 05/06/23 23:34 36.6 C 89 18 156/74 H 91 Nasal Cannula O2 Flow Rate 05/07/23 08:03 3 05/07/23 07:53 4 05/07/23 07:39 4 05/07/23 06:00 05/07/23 04:00 4 05/06/23 23:34 4 all noted and reviewed including below (1) Asthma exacerbation Asthma severity: unspecified severity
--- NOTE | 2023-05-07 10:38 | Discharge Summary ---
Discharge Summary Date of Service May 07, 2023 Notes For Next Care Provider Medication Changes From Visit PER BELOW Admission HPI Per Admitting Provider 53-year-old female with past medical history significant for type 2 diabetes, hyperlipidemia, asthma, hypertension, obesity, depression, bipolar 1 disorder, ongoing tobacco abuse, presents with shortness of breath going on since last Wednesday and getting progressively worse. Has some minimal cough. Denies any fevers. Has some chest tightness. No nausea. No runny nose or sore throat. No abdominal pain. Appetite is okay. Normal bowel and bladder movements. Oxygen 81% room air. Currently on 5 L and later required high flow . Past medical history as mentioned above Past surgical history.. Colonoscopy. Left knee arthroscopy. Tonsillectomy and adenoidectomy. Social history. Smokes 1 pack a day .no alcohol use. No drug use. History of heroin use Family history. Maternal grandfather had cancer. Maternal grandmother had diabetes. Hypertension. Mother had depression. Admission Exam Per Admitting Provider General- Not in distress Head- atraumatic Eyes- PERRL. ENT- oropharynx clear Neck- supple, no JVD. Lungs- clear to auscultation b/l mild ronchi and wheezing Heart- regular rhythm; no murmur, no gallop. Abdomen- normal bowel sounds, soft, nontender, no distension. Extremities- no pretibial edema, no erythema seen. Neuro- alert, oriented ; PERRL, no facial palsy; no dysarthria; moves extremities. Principal Dx & Hospital Course #1 = Principal Diagnosis (1) Asthma exacerbation: per previous hospitalist notes with addendum: Ms. Chanel is a 53-year-old female with past medical history significant for type 2 diabetes, hyperlipidemia, asthma, hypertension, obesity, depression, bipolar 1 disorder, ongoing tobacco abuse,admitted for asthma v COPD exacerbation. Symptoms, suchs as shortness of breath, ongoing on since last Wednesday and getting progressively worse. Evaluated by Pulmonary. Question of COPD v asthma exacerbation. Noted eosinophilia. Plan to continue IV steroids for now and bronchodilators. #Acute hypoxic respiratory failure #Acute Asthma/COPD exacerbation #Pneumonia #Eosinophilia #Ongoing tobacco abuse IV Solu-Medrol, nebs [id number] and as needed Requiring high oxygen supplementation Continue home inhalers Plan for follow up with OP pulm to explore further outpatient workup and options for management of eospinophilia Goal O2 sat >90% Sputum cultures Continue Levofloxacin 750mg Counseled on cessation at length, precontemplative at this time 05/04 continue Solumedrol Levaquin Duonebs, hypertonic Saline 05/05 continue Prednisone 20mg po daily Hypertonic saline BID wean off o2 anticipate d/c home tomorrow 05/06 Two-step exercise test today to determine need for oxygen supplement upon discharge Prednisone 20 mg daily x 3 more days Continue nebs at home including hypertonic saline Continue Incruse Ellipta started during this admission Breo Ellipta dose increased Continue Singulair Continue flutter valve Outpatient follow-up with pulmonary service-PFTs, exhaled nitric oxide #Bronchiectasis Sputum culture: negative Mucinex BID Flutter valve #Possible esophagitis and CAT scan Protoonix BID Transition to PO BID with plans to arrange OP follow up Will need GI follow-up #Diabetes Continue home Lantus Sliding scale HbA1c 7.4% 05/02 Counseled on lifestyle modifications pharmacy glycemic control consulted #Morbid obesity BMI 51.2 Life style modficiations reviewed positive stop bang score, will need OP sleep study #Hypertension Lasix 20mg daily, not on other antihypertensive #Hyperlipidemia On statin #History of bipolar 1 disorder Depression On citalopram, Abilify, oxcarbazepine DVT prophylaxis Lovenox Disposition Discharge home today PCP follow-up in 1 week Will need to follow-up with regional facilities manager and lead tank mechanic services Discharge Exam General- oriented x 3, not in distress, speaks in sentences with no effort or accessory muscle use Eyes- anicteric Neck- no JVD Lungs-faint wheeze bilaterally Good air entry bilaterally Heart- normal rate, regular rhythm; no murmurs Abdomen- normal bowel sounds, nondistended, soft, nontender Extremities- no pretibial edema, no calf tenderness Neuro- alert, oriented x 3; no gross focal neurologic deficits Skin- warm & dry Updated Medication List Medication Instructions Recorded Confirmed Type albuterol sulfate 90 mcg/actuation 2 puff inhalation QID PRN 06/09/14 05/03/23 History aerosol inhaler (ProAir HFA) Shortness Of Breath Or Wheezing ##0 citalopram 40 mg tablet 40 mg PO QAM ##0 06/09/14 05/03/23 History fluticasone 250 mcg-salmeterol 50 1 inh inhalation BID 10/19/18 05/03/23 History mcg/dose blistr powdr for inhalation (Advair Diskus) gabapentin 300 mg capsule 300 mg PO TID 10/19/18 05/03/23 History insulin glargine 100 unit/mL (3 40 unit subcut QPM 10/19/18 05/03/23 History mL) subcutaneous pen (Lantus Solostar U-100 Insulin) oxcarbazepine 300 mg tablet 300 mg PO TID 10/19/18 05/03/23 History atorvastatin 20 mg tablet 20 mg PO QAM 10/24/18 05/03/23 History meloxicam 7.5 mg tablet 7.5 mg PO QAM 02/27/20 05/03/23 History omeprazole 20 mg capsule,delayed 20 mg PO DAILYBB 02/27/20 05/03/23 History release aripiprazole 5 mg tablet (Abilify) 5 mg PO HS 10/29/22 05/03/23 History dulaglutide 4.5 mg/0.5 mL 4.5 mg subcut WK 05/03/23 05/03/23 History subcutaneous pen injector (Trulicity) fluticasone furoate 100 1 inh inhalation DAILY 05/03/23 05/03/23 History mcg-vilanterol 25 mcg/dose inhalation powder (Breo Ellipta) furosemide 20 mg tablet 20 mg PO QAM 05/03/23 05/03/23 History ipratropium 0.5 mg-albuterol 3 mg 3 ml inhalation QID 05/03/23 05/03/23 History (2.5 mg base)/3 mL nebulization soln levocetirizine 5 mg tablet (Xyzal) 5 mg PO HS 05/03/23 05/03/23 History magnesium chloride 64 mg 64 mg PO DAILY 05/03/23 05/03/23 History (magnesium chloride) tablet,delayed release montelukast 10 mg tablet 10 mg PO DAILY 05/03/23 05/03/23 History doxycycline hyclate 100 mg capsule 100 mg PO BID 4 days #8 caps 05/07/23 Rx fluticasone furoate 200 1 inh inhalation DAILY 30 days #60 05/07/23 Rx mcg-vilanterol 25 mcg/dose ea inhalation powder (Breo Ellipta) guaifenesin 600 mg tablet, 1,200 mg (2 x 600 mg) PO Q12 7 05/07/23 Rx extended release 12 hr (Mucinex) days #28 tabs pantoprazole 40 mg tablet,delayed 40 mg PO BID 30 days #60 tabs 05/07/23 Rx release prednisone 20 mg tablet 20 mg PO DAILY 3 days #3 tabs 05/07/23 Rx sodium chloride 7 % for 4 ml NEB BIDR 7 days #56 mL 05/07/23 Rx nebulization umeclidinium 62.5 mcg/actuation 1 inh inhalation DAILY 30 days #30 05/07/23 Rx blister powder for inhalation ea (Incruse Ellipta) Hospital Stay Data Consultations 05/03/23 18:51 ED Decision to Admit Stat 05/04/23 08:00 Consult Pulmonology Routine Diagnostic Imagining Performed Laboratory Results WBC 12.30 K/ul (4.8-10.8) H 05/05/23 07:03 RBC 5.53 M/uL (4.20-5.40) H 05/05/23 07:03 Hgb 16.1 g/dl (12.0-16.0) H 05/05/23 07:03 Hct 46.9 % (37.0-47.0) 05/05/23 07:03 MCV 84.8 fL (80.0-100.0) 05/05/23 07:03 MCH 29.1 pg (25.0-34.0) 05/05/23 07:03 MCHC 34.3 g/dL (32.0-36.0) 05/05/23 07:03 RDW Std Deviation 40.2 fL (36.4-46.3) 05/05/23 07:03 RDW Coeff of Harsh 13.1 % (11.5-14.5) 05/05/23 07:03 Plt Count 304 K/uL (130-400) 05/05/23 07:03 MPV 9.7 fL (9.4-12.4) 05/05/23 07:03 Immature Gran % (Auto) 0.6 % 05/05/23 07:03 Neut % (Auto) 85.6 % 05/05/23 07:03 Lymph % (Auto) 10.1 % 05/05/23 07:03 Rogers % (Auto) 3.5 % 05/05/23 07:03 Eos % (Auto) 0.0 % 05/05/23 07:03 Baso % (Auto) 0.2 % 05/05/23 07:03 Neut # (Auto) 10.54 K/uL (1.40-6.50) H 05/05/23 07:03 Lymph # (Auto) 1.24 K/uL (1.20-3.40) 05/05/23 07:03 Rogers # (Auto) 0.43 K/uL (0.11-0.59) 05/05/23 07:03 Eos # (Auto) 0.00 K/uL (0.00-0.50) 05/05/23 07:03 Baso # (Auto) 0.02 K/uL (0.00-0.20) 05/05/23 07:03 Immature Gran # (Auto) 0.07 K/uL (0.01-0.20) 05/05/23 07:03 VBG pH 7.43 (7.36-7.41) H 05/03/23 17:30 VBG pCO2 46 mmHg (38-50) 05/03/23 17:30 VBG pO2 43 mmHg 05/03/23 17:30 VBG HCO3 31 mmol/L 05/03/23 17:30 VBG O2 Saturation 77.6 % 05/03/23 17:30 VBG Base Excess 5.3 mEq/L 05/03/23 17:30 Sodium 136 mmol/L (136-145) 05/05/23 07:03 Potassium 4.0 mmol/L (3.5-5.1) 05/05/23 07:03 Chloride 100 mmol/L (98-107) 05/05/23 07:03 Carbon Dioxide 29 mmol/L (21-32) 05/05/23 07:03 Anion Gap 7 (3-11) 05/05/23 07:03 BUN 15 mg/dl (6-23) 05/05/23 07:03 Creatinine 0.75 mg/dl (0.6-1.2) 05/05/23 07:03 Est Cr Clr Drug Dosing 101.9 ml/min 05/05/23 07:03 Est GFR ( Amer) 106.2 ml/min 05/05/23 07:03 Est GFR (Non-Af Amer) 91.6 ml/min 05/05/23 07:03 BUN/Creatinine Ratio 20.0 (10-20) 05/05/23 07:03 Glucose 189 mg/dl (70-99(Fasting)) H 05/05/23 07:03 POC Glucose 291 mg/dl (70-99) H 05/07/23 09:28 Estimat Average Glucose 166 mg/dl 05/04/23 04:37 Hemoglobin A1c 7.4 % (4.5-5.6) H 05/04/23 04:37 Calcium 9.0 mg/dl (8.6-10.3) 05/05/23 07:03 Phosphorus 3.2 mg/dl (2.5-4.9) 05/05/23 07:03 Magnesium 2.1 mg/dl (1.7-2.4) 05/05/23 07:03 Total Bilirubin 0.5 mg/dl (0.2-1.0) 05/03/23 17:30 AST 27 U/L (13-39) 05/03/23 17:30 ALT 23 U/L (7-52) 05/03/23 17:30 Alkaline Phosphatase 78 U/L (34-104) 05/03/23 17:30 Troponin I High Sens 5.5 pg/ml (0-14) 05/04/23 04:37 B-Natriuretic Peptide 12 pg/ml (0-100) 05/03/23 17:30 Total Protein 7.9 gm/dl (6.0-8.3) 05/03/23 17:30 Albumin 4.2 gm/dl (3.4-5.0) 05/03/23 17:30 Globulin 3.7 gm/dl (2.5-4.0) 05/03/23 17:30 Albumin/Globulin Ratio 1.1 (0.9-2) 05/03/23 17:30 Adenovirus (PCR) Not Detected (NotDetected) 05/03/23 17:30 B. pertussis DNA (PCR) Not Detected (NotDetected) 05/03/23 17:30 B.parapertussis DNA PCR Not Detected (NotDetected) 05/03/23 17:30 C. pneumoniae DNA (PCR) Not Detected (NotDetected) 05/03/23 17:30 Coronavirus OC43 (PCR) Not Detected (NotDetected) 05/03/23 17:30 Coronavirus HKU1 (PCR) Not Detected (NotDetected) 05/03/23 17:30 Coronavirus 229E (PCR) Not Detected (NotDetected) 05/03/23 17:30 SARS-CoV-2 (PCR) Not Detected (NotDetected) 05/03/23 17:30 Coronavirus NL63 (PCR) Not Detected (NotDetected) 05/03/23 17:30 Human Metapneumovir PCR Not Detected (NotDetected) 05/03/23 17:30 Influenza Type A (PCR) Not Detected (NotDetected) 05/03/23 17:30 Influenza Type B (PCR) Not Detected (NotDetected) 05/03/23 17:30 M. pneumoniae (PCR) Not Detected (NotDetected) 05/03/23 17:30 Parainfluenza 1 (PCR) Not Detected (NotDetected) 05/03/23 17:30 Parainfluenza 2 (PCR) Not Detected (NotDetected) 05/03/23 17:30 Parainfluenza 3 (PCR) Not Detected (NotDetected) 05/03/23 17:30 Parainfluenza 4 (PCR) Not Detected (NotDetected) 05/03/23 17:30 RSV (PCR) Not Detected (NotDetected) 05/03/23 17:30 Entero/Rhino (PCR) Not Detected (NotDetected) 05/03/23 17:30 Impressions Chest X-Ray 05/03/23 17:20 XR chest 1V portable HISTORY: 53 years-old Female Dyspnea acute shortness of breath COMPARISON: 10/24/2018 TECHNIQUE: AP view of the chest FINDINGS: Cardiomediastinal and hilar silhouettes are within normal limits. Pulmonary vascular congestion. No pneumothorax, large pleural effusion or lobar airspace consolidation. Bones appear grossly intact. IMPRESSION: Cardiomegaly with pulmonary vascular congestion. ACT 112: Negative or not required by law. The above report was generated using voice recognition software. It may contain grammatical, syntax or spelling errors. Electronically signed by: Terrell Busch M.D. 05/03/2023 6:10 PM Chest CTA 05/03/23 21:16 Exam(s): CTA CHEST IV Amt: 119 ml optiray 320 EXAM: CT Angiography Chest With Intravenous Contrast CLINICAL HISTORY: Reason for exam: PE. TECHNIQUE: Axial computed tomographic angiography images of the chest with intravenous contrast. CTDI is 28.14 mGy and DLP is 873.63 mGy-cm. Automated exposure control was utilized for the study. A dose lowering technique was utilized adhering to the principles of ALARA. MIP reconstructed images were created and reviewed. COMPARISON: None FINDINGS: Pulmonary arteries: Unremarkable. No pulmonary embolus identified. Aorta: No acute findings. No aortic aneurysm or dissection. Lungs: Mild groundglass opacities in the right upper lobe and right middle lobe may represent an infectious/inflammatory process. Mild bronchiectasis in the right upper lobe. Possible mucus impactions in some of the left lower lobe bronchi. Pleural space: Unremarkable. No significant effusion. No pneumothorax. Heart: Unremarkable. No cardiomegaly. No significant pericardial effusion. No evidence of RV dysfunction. Mediastinum: Mild prominence of the wall of the esophagus could represent esophagitis. Nonspecific prominent mediastinal and hilar lymph nodes. Bones/joints: Degenerative changes of the spine. Moderate spinal canal stenosis at T7-8. No acute fracture. No dislocation. Soft tissues: Unremarkable. Lymph nodes: See above. IMPRESSION: 1. No pulmonary embolus identified. 2. No aortic aneurysm or dissection. 3. Mild groundglass opacities in the right upper lobe and right middle lobe may represent an infectious/inflammatory process. 4. Mild prominence of the wall of the esophagus could represent esophagitis. 5. Mild bronchiectasis in the right upper lobe. Possible mucus impactions in some of the left lower lobe bronchi. 6. Nonspecific prominent mediastinal and hilar lymph nodes. Electronically signed by: Andrea Poole M.D. 05/03/23 22:00 PM Pending Results Patient Have Any Pending Studies at Discharge: No Discharge Instructions Given to Patient (Per Discharging Provider) PLEASE REFER TO YOUR NEW MEDICATION LIST AND FOLLOW INSTRUCTIONS CAREFULLY. YOUR NEW MEDICATIONS INCLUDE: Prednisone-oral steroids for asthma flareup hypertonic saline-nebulizer treatment for asthma flareup Incruse Ellipta -long-term control inhalers for asthma Mucinex-for cough Protonix-antacid for esophagitis Your Breo Ellipta inhaler dose was increased. Please continue using flutter valve every 2-3 hours at home. PLEASE CALL YOUR PRIMARY CARE PHYSICIAN OR RETURN TO THE ER IF WITH WORSENING OF SYMPTOMS, INCLUDING Shortness of breath, cough, mucus production, fevers or chills, Abdominal pain, nausea vomiting, etc. FOLLOW UP WITH PRIMARY CARE PHYSICIAN IN 1 WEEK OUTLINED ABOVE. FOLLOW-UP WITH [employer] DR. HILDA SHAW IN 2 WEEKS. PLEASE CONTACT HIS OFFICE FOR AN APPOINTMENT. CONTACT INFORMATION OUTLINED ABOVE. You need a referral to the lead tank mechanic. Your primary care physician will be able to assist you with this on your follow-up visit. Total Time Total Time Spent Total Time Spent (In Minutes): >30 MINUTES
[2023-05-07] MEDS: DOXYCYCLINE HYCLATE 100 MG CAP PO SCH (12:52)
[2023-05-07] MEDS ORDERED: LANTUS PER UNIT CHARGE SC SCH (21:00)
== END 2023-05-07 15:00 | disposition home or self-care (01) | DRG 190 ==
LOC: ED 16:55 → EDINP 20:14 → SUATTDRO 20:14 → 2N 21:54